=== PATIENT | female | born 1945 | race Hispanic/Latino ===

== ENCOUNTER 2019-08-25 10:32 | Emergency (ER) | payer OTHER ==
[2019-08-25] MEDS ORDERED: ACETAMINOPHEN 500 MG TAB ONE ×2 (11:22→11:27)
--- NOTE | 2019-08-25 12:07 | RAD REPORT ---
EXAM DESCRIPTION: RAD - Forearm Right - 08/25/2019 11:58 am CLINICAL HISTORY: Right arm pain status post fall FINDINGS: Mildly to moderately displaced distal radial fracture.
--- NOTE | 2019-08-25 12:12 | RAD REPORT ---
EXAM DESCRIPTION: Lucas Single View08/25/2019 11:58 am CLINICAL HISTORY: Chest pain COMPARISON: 2016 FINDINGS: The lungs appear clear of acute infiltrate. The heart is normal size Skull left clavicle fracture IMPRESSION: No acute abnormalities displayed
--- NOTE | 2019-08-25 13:11 | ER ---
Nurse's Notes [facility] Name: Carey Mcdaniel Age: 74 yrs Sex: Female : 1945 Arrival Date: 08/25/2019 Time: 10:34 Bed 7 Private MD: Unknown, Unknown Diagnosis: Radius Fracture;Clavicle Fracture Presentation: 08/25 11:02 Presenting complaint: Child states: "A couple of days ago she fell, and then last night aj1 my sister noticed her right arm was swollen, and then today she said that her side hurts." Denies hitting head. Transition of care: patient was not received from another setting of care. Onset of symptoms was 2018. Risk Assessment: Do you want to hurt yourself or someone else? Patient reports no desire to harm self or others. Initial Sepsis Screen: Does the patient meet any 2 criteria? No. Patient's initial sepsis screen is negative. Does the patient have a suspected source of infection? No. Patient's initial sepsis screen is negative. Care prior to arrival: None. 11:02 Method Of Arrival: Ambulatory aj1 11:02 Acuity: EKATERINA 3 aj1 Triage Assessment: 11:06 General: Appears in no apparent distress. uncomfortable, Behavior is calm, cooperative, aj1 appropriate for age. Pain: Complains of pain in right arm. Neuro: Level of Consciousness is awake, alert, obeys commands. Cardiovascular: Patient's skin is warm and dry. Respiratory: Airway is patent Respiratory effort is even, unlabored, Respiratory pattern is regular, symmetrical. Historical: - Allergies: 11:06 No Known Allergies; aj1 - Home Meds: 11:21 lisinopril Oral [Active]; tw2 - PMHx: 11:06 CVA; Right sided weakness; Hypertension; aj1 - PSHx: 11:21 None; tw2 - Immunization history:: Flu vaccine is not up to date. - Social history:: Smoking status: Patient/guardian denies using tobacco. - Ebola Screening: : Patient denies travel to an Ebola-affected area in the 21 days before illness onset. Screenin:20 Abuse screen: Denies threats or abuse. Nutritional screening: No deficits noted. tw2 Tuberculosis screening: No symptoms or risk factors identified. Fall Risk Secondary diagnosis (15 points) impaired mobility. Assessment: 11:20 Reassessment: provider at bedside at this time. tw2 12:57 Reassessment: Patient appears in no apparent distress at this time. No changes from tw2 previously documented assessment. Patient and/or family updated on plan of care and expected duration. Pain level reassessed. Patient is alert, oriented x 3, equal unlabored respirations, skin warm/dry/pink. 13:12 Reassessment: Patient appears in no apparent distress at this time. No changes from tw2 previously documented assessment. Patient and/or family updated on plan of care and expected duration. Pain level reassessed. Patient is alert, oriented x 3, equal unlabored respirations, skin warm/dry/pink. Vital Signs: 11:06 BP 174 / 102; Pulse 87; Resp 18; Temp 98.2; Pulse Ox 98% on R/A; Height 4 ft. 11 in. aj1 (149.86 cm) (R); 12:57 BP 184 / 78; Pulse 67; Resp 17; Pulse Ox 97% on R/A; tw2 13:12 BP 160 / 74; Pulse 68; Resp 17; Pulse Ox 96% on R/A; tw2 ED Course: 10:34 Patient arrived in ED. ag5 10:34 Unknown, Unknown is Private Physician. ag5 11:04 Triage completed. aj1 11:06 Arm band placed on Patient placed in an exam room. aj1 11:13 Vasu Castaneda PA is PHCP. jmm 11:14 Franklin Rutledge MD is Attending Physician. jmm 11:20 Bed in low position. Call light in reach. Adult w/ patient. tw2 11:58 Forearm Right XRAY In Process Unspecified. EDMS 11:58 Chest Single View XRAY In Process Unspecified. EDMS 12:54 Rachel Quevedo, RN is Primary Nurse. tw2 13:10 Wang Palacio MD is Referral Physician. jmm 13:10 Orthoglass splint: Sugar tong splint applied on right arm. Sling applied to right arm. ms 13:12 No provider procedures requiring assistance completed. Patient did not have IV access tw2 during this emergency room visit. Administered Medications: 11:28 Drug: Tylenol 1000 mg Route: PO; tw2 12:57 Follow up: Response: No adverse reaction tw2 Outcome: 13:11 Discharge ordered by . jmm 13:12 Discharged to home via wheelchair, with family. tw2 13:12 Condition: stable 13:12 Discharge instructions given to patient, family, Instructed on discharge instructions, follow up and referral plans. safety practices, splint care Demonstrated understanding of instructions, follow-up care, splint care. 13:20 Patient left the ED. tw2 Signatures: Dispatcher [employer] EDAlejandra Robles RN RN aj1 Vasu Castaneda PA PA jmm Solis, Maria ms Wise, Tara, RN RN tw2 Roly Mosley ag5
--- NOTE | 2019-08-25 13:12 | EDPHYS ---
Physician Documentation [facility] Name: Carey Mcdaniel Age: 74 yrs Sex: Female : 1945 Arrival Date: 08/25/2019 Time: 10:34 Bed 7 Private MD: Unknown, Unknown ED Physician Franklin Rutledge HPI: 08/25 11:16 This 74 yrs old Female presents to ER via Ambulatory with complaints of Fall jmm Injury, Arm Pain, Leg Pain. 11:16 Details of fall: The patient fell from an upright position, while walking. Onset: The jmm symptoms/episode began/occurred acutely, 2 day(s) ago. Associated injuries: The patient sustained injury to the chest, right arm. This is a 74 year old female with a history of CVA, HTN that presents to the ED with complaints of right arm pain and shoulder pain after a fall which occurred 2 days ago. Patient tripped and fell backwards from a standing position. Denies head injury of LOC. . Historical: - Allergies: 11:06 No Known Allergies; aj1 - Home Meds: 11:21 lisinopril Oral [Active]; tw2 - PMHx: 11:06 CVA; Right sided weakness; Hypertension; aj1 - PSHx: 11:21 None; tw2 - Immunization history:: Flu vaccine is not up to date. - Social history:: Smoking status: Patient/guardian denies using tobacco. - Ebola Screening: : Patient denies travel to an Ebola-affected area in the 21 days before illness onset. ROS: 11:16 Constitutional: Negative for fever, chills, and weight loss, Cardiovascular: Negative jmm for chest pain, palpitations, and edema, Respiratory: Negative for shortness of breath, cough, wheezing, and pleuritic chest pain. 11:16 MS/extremity: Positive for injury or acute deformity, pain. 11:16 Neuro: Negative for headache. 11:16 All other systems are negative. Exam: 11:16 Head/Face: atraumatic. Eyes: EOMI, no conjunctival erythema appreciated ENT: Moist jmm Mucus Membranes Neck: Trachea midline, Supple Chest/axilla: Normal chest wall appearance and motion. 11:16 Cardiovascular: Regular rate and rhythm. No edema appreciated Respiratory: Normal respirations, no respiratory distress appreciated Abdomen/GI: Non distended, soft Back: Normal ROM 11:16 Constitutional: The patient appears in no acute distress, alert, awake. 11:16 Chest/axilla: Inspection: normal, left clavicular pain on palpation. 11:16 Musculoskeletal/extremity: ecchymosis noted to the right forearm, full radial pulse, compartments are soft, NVI. 11:16 Skin: Appearance: Color: normal in color. 11:16 Neuro: Orientation: is normal, Mentation: is normal, Memory: is normal. 11:16 Psych: Behavior/mood is pleasant, cooperative. Vital Signs: 11:06 BP 174 / 102; Pulse 87; Resp 18; Temp 98.2; Pulse Ox 98% on R/A; Height 4 ft. 11 in. aj1 (149.86 cm) (R); 12:57 BP 184 / 78; Pulse 67; Resp 17; Pulse Ox 97% on R/A; tw2 13:12 BP 160 / 74; Pulse 68; Resp 17; Pulse Ox 96% on R/A; tw2 Procedures: 13:08 Splinting: Splint applied to right arm using sugar tong. applied by tech. Examined by shahana me, post splint application: neurovascular intact, 2+ distal pulses palpable, brisk capillary refill noted, Patient tolerated well. MDM: 11:16 Patient medically screened. shahana 13:08 Data reviewed: vital signs, nurses notes. Counseling: I had a detailed discussion with shahana the patient and/or guardian regarding: the historical points, exam findings, and any diagnostic results supporting the discharge/admit diagnosis, radiology results, the need for outpatient follow up, to return to the emergency department if symptoms worsen or persist or if there are any questions or concerns that arise at home. ED course: Patient advised to follow up with ortho and otherwise given strict return precautions. Patient understood and agrees with the plan of care. . 08/25 11:22 Order name: Forearm Right XRAY; Complete Time: 12:23 [facility] 08/25 11:22 Order name: Chest Single View XRAY; Complete Time: 12:23 [facility] 08/25 12:26 Order name: Sugar Tong Forearm Splint; Complete Time: 13:10 [facility] 08/25 12:26 Order name: Sling; Complete Time: 13:10 [facility] Administered Medications: 11:28 Drug: Tylenol 1000 mg Route: PO; tw2 12:57 Follow up: Response: No adverse reaction tw2 Disposition: 13:46 Co-signature as Attending Physician, Franklin Rutledge MD. rn Disposition: 08/25/19 13:11 Discharged to Home. Impression: Radius Fracture, Clavicle Fracture. - Condition is Stable. - Discharge Instructions: Clavicle Fracture, Radial Fracture. - Medication Reconciliation Form, Thank You Letter, Antibiotic Education, Prescription Opioid Use form. - Follow up: Wang Palacio MD; When: 2 - 3 days; Reason: Recheck today's complaints, Continuance of care, Re-evaluation by your physician. Signatures: Dispatcher [employer] EDAlejandra Robles RN RN aj1 Vasu Castaneda PA PA jmm Nieto, Roman, MD MD rn Wise, Tara, RN RN tw2 Corrections: (The following items were deleted from the chart) 13:20 13:11 08/25/2019 13:11 Discharged to Home. Impression: Radius Fracture; Clavicle tw2 Fracture. Condition is Stable. Forms are Medication Reconciliation Form, Thank You Letter, Antibiotic Education, Prescription Opioid Use. Follow up: Wang Palacio; When: 2 - 3 days; Reason: Recheck today's complaints, Continuance of care, Re-evaluation by your physician. keeley
[2019-08-25 13:30] VITALS: TEMP 98.2
[2019-08-25 13:32] VITALS: BP 160/74; O2SAT 96
== END 2019-08-25 13:20 | disposition home or self-care (01) ==
LOC: ER 10:32
DX: S52.501A Unspecified fracture of the lower end of right radius, initial encounter for closed fracture (principal); S42.002A Fracture of unspecified part of left clavicle, initial encounter for closed fracture; I10 Essential (primary) hypertension; W18.30XA Fall on same level, unspecified, initial encounter; Y93.89 Activity, other specified; Y92.9 Unspecified place or not applicable
CPT/HCPCS: 71045; 99283

== ENCOUNTER 2019-10-12 09:03 | Emergency (ER) | payer OTHER ==
--- NOTE | 2019-10-12 09:47 | EDPHYS ---
Physician Documentation [facility] Name: Carey Mcdaniel Age: 74 yrs Sex: Female : 1945 Arrival Date: 10/12/2019 Time: 09:05 Bed 13 Private MD: ED Physician Moody Barrios HPI: 10/12 09:38 This 74 yrs old Female presents to ER via Ambulatory with complaints of Ring jmm stuck on finger. 09:38 The patient or guardian reports finger swelling, ring stuck. Onset: The jmm symptoms/episode began/occurred today. Modifying factors: The symptoms are alleviated by nothing, the symptoms are aggravated by nothing. This is a 74 year old female with a history of cva that presents to the ED with finger swelling. Daughter states the patient had a cast removed today and was advised to remove the patient's finger secondary to swelling. Patient denies pain. . Historical: - Allergies: 09:15 No Known Allergies; ss - PMHx: 09:15 Hypertension; CVA; Right sided weakness; ss - Immunization history:: Adult Immunizations up to date. - Social history:: Smoking status: Patient/guardian denies using tobacco. - Ebola Screening: : Patient denies exposure to infectious person Patient denies travel to an Ebola-affected area in the 21 days before illness onset. ROS: 09:42 Constitutional: Negative for fever, chills, and weight loss, Cardiovascular: Negative jmm for chest pain, palpitations, and edema, Respiratory: Negative for shortness of breath, cough, wheezing, and pleuritic chest pain. 09:42 MS/extremity: Positive for swelling. 09:42 All other systems are negative. Exam: 09:42 Constitutional: This is a well developed, well nourished patient who is awake, alert, jmm and in no acute distress. Head/Face: atraumatic. Eyes: EOMI, no conjunctival erythema appreciated ENT: Moist Mucus Membranes Neck: Trachea midline, Supple Chest/axilla: Normal chest wall appearance and motion. Cardiovascular: Regular rate and rhythm. No edema appreciated Respiratory: Normal respirations, no respiratory distress appreciated Abdomen/GI: Non distended, soft Back: Normal ROM 09:42 Musculoskeletal/extremity: right hand contracted. swelling noted to the right 3rd finger, < 2 sec dist cap refill, NVI. 09:42 Skin: Appearance: Color: normal in color. 09:42 Neuro: 09:42 Psych: Behavior/mood is pleasant, cooperative. Vital Signs: 09:15 BP 204 / 84; Pulse 52; Resp 17; Temp 97.6(TE); Pulse Ox 100% on R/A; Weight 61.23 kg; ss Height 4 ft. 9 in. (144.78 cm); Pain 0/10; 09:41 BP 195 / 73; Pulse 53; Resp 16; Pulse Ox 100% ; sv 09:15 Body Mass Index 29.21 (61.23 kg, 144.78 cm) ss Procedures: 09:43 Performed ring removal. ring cutter used to remove ring from right 3rd finger. patient hilda tolerated the procedure well. . MDM: 09:16 Patient medically screened. m 09:43 Data reviewed: vital signs, nurses notes. Counseling: I had a detailed discussion with shahana the patient and/or guardian regarding: the historical points, exam findings, and any diagnostic results supporting the discharge/admit diagnosis, the need for outpatient follow up, to return to the emergency department if symptoms worsen or persist or if there are any questions or concerns that arise at home. 10/12 09:38 Order name: Vital Signs; Complete Time: 09:41 keeley Administered Medications: No medications were administered Disposition: 12:16 Co-signature as Attending Physician, Moody Barrios MD I agree with the assessment and kdr plan of care. Disposition: 10/12/19 09:46 Discharged to Home. Impression: External constriction of right middle finger. - Condition is Stable. - Medication Reconciliation Form, Thank You Letter, Antibiotic Education, Prescription Opioid Use form. - Follow up: Private Physician; When: 2 - 3 days; Reason: Recheck today's complaints, Continuance of care, Re-evaluation by your physician. Signatures: Maame Lund RN RN sv Rittger, Kevin, MD MD kdr Mickail, Joel, PA PA jmm Smirch, Shelby, RN RN ss Corrections: (The following items were deleted from the chart) 10:07 09:46 10/12/2019 09:46 Discharged to Home. Impression: External constriction of right sv middle finger. Condition is Stable. Forms are Medication Reconciliation Form, Thank You Letter, Antibiotic Education, Prescription Opioid Use. Follow up: Private Physician; When: 2 - 3 days; Reason: Recheck today's complaints, Continuance of care, Re-evaluation by your physician. shahana
--- NOTE | 2019-10-12 09:47 | ER ---
Nurse's Notes [facility] Name: Carey Mcdaniel Age: 74 yrs Sex: Female : 1945 Arrival Date: 10/12/2019 Time: 09:05 Bed 13 Private MD: Diagnosis: External constriction of right middle finger Presentation: 10/12 09:14 Presenting complaint: daughter reports that patient had broken wrist a month ago and ss has a splint on since. Sent by Dr. Palacio after getting splint taken off this morning to have two rings cut off R 3rd finger has her hand is swollen. Transition of care: patient was not received from another setting of care. Onset of symptoms is unknown. Risk Assessment: Do you want to hurt yourself or someone else? Patient reports no desire to harm self or others. Initial Sepsis Screen: Does the patient meet any 2 criteria? Does the patient have a suspected source of infection? No. Patient's initial sepsis screen is negative. Care prior to arrival: None. 09:14 Method Of Arrival: Ambulatory ss 09:14 Acuity: EKATERINA 4 ss Historical: - Allergies: 09:15 No Known Allergies; ss - PMHx: 09:15 Hypertension; CVA; Right sided weakness; ss - Immunization history:: Adult Immunizations up to date. - Social history:: Smoking status: Patient/guardian denies using tobacco. - Ebola Screening: : Patient denies exposure to infectious person Patient denies travel to an Ebola-affected area in the 21 days before illness onset. Screenin:20 Abuse screen: Denies threats or abuse. Denies injuries from another. Nutritional sv screening: No deficits noted. Tuberculosis screening: No symptoms or risk factors identified. Fall Risk None identified. Assessment: 09:20 General: Appears in no apparent distress. uncomfortable, Behavior is calm, cooperative, sv appropriate for age. Pain: Denies pain. Neuro: Level of Consciousness is awake, alert, obeys commands, Oriented to person, place, time, situation, Moves all extremities. Respiratory: Respiratory effort is even, unlabored, Respiratory pattern is regular, symmetrical. Derm: Skin is pink, warm \T\ dry. Musculoskeletal: Range of motion: limited in IP of right thumb, PIP of right index finger, PIP of right middle finger, PIP of right ring finger and PIP of right little finger Swelling present in right hand. Injury Description: 2 rings stuck on the right 3rd digit. Vital Signs: 09:15 BP 204 / 84; Pulse 52; Resp 17; Temp 97.6(TE); Pulse Ox 100% on R/A; Weight 61.23 kg; ss Height 4 ft. 9 in. (144.78 cm); Pain 0/10; 09:41 BP 195 / 73; Pulse 53; Resp 16; Pulse Ox 100% ; sv 09:15 Body Mass Index 29.21 (61.23 kg, 144.78 cm) ED Course: 09:05 Patient arrived in ED. mr 09:09 Vasu Castaneda PA is PHCP. [facility] 09:09 Moody Barrios MD is Attending Physician. [facility] 09:15 Triage completed. ss 09:15 Arm band placed on right wrist. 09:16 Maame Lund RN is Primary Nurse. sv 09:17 Nurse Practitioner and/or Physician Discharge Coordinator to see patient. sv 09:20 Patient has correct armband on for positive identification. Bed in low position. Call sv light in reach. Adult w/ patient. Door closed. Head of bed elevated. 09:36 Removal of Removed ring from right middle finger. Removed ring with ring cutter Patient sv tolerated well. 10:06 No provider procedures requiring assistance completed. Patient did not have IV access sv during this emergency room visit. Administered Medications: No medications were administered Outcome: 09:46 Discharge ordered by . [facility] 10:06 Discharged to home ambulatory, with family. sv 10:06 Condition: stable 10:06 Discharge instructions given to patient, family, Instructed on discharge instructions, follow up and referral plans. elevate right hand to help decrease swelling Demonstrated understanding of instructions, follow-up care. 10:07 Patient left the ED. sv Signatures: Maame Lund, LON RN Vasu Castaneda PA PA jmm Rivera, Mary Erin Marie, RN RN
[2019-10-12 10:24] VITALS: TEMP 97.6; O2SAT 100
[2019-10-12 10:25] VITALS: BP 195/73
== END 2019-10-12 10:07 | disposition home or self-care (01) ==
LOC: ER 09:03
DX: S60.442A External constriction of right middle finger, initial encounter (principal); I10 Essential (primary) hypertension
CPT/HCPCS: 99283

== ENCOUNTER 2020-04-24 17:43 | Emergency (ER) | payer OTHER ==
[2020-04-24] MEDS ORDERED: LIDOCAINE 1% 20 ML MDV ONE (20:50)
--- NOTE | 2020-04-24 20:58 | ER ---
Nurse's Notes [facility] Name: Carey Mcdaniel Age: 74 yrs Sex: Female : 1945 Arrival Date: 04/24/2020 Time: 17:45 Bed 14 Private MD: Diagnosis: Laceration right forearm Presentation: 04/24 18:16 Chief complaint: Patient's son or daughter states: fell last night, pt lives with son iw and pt does not remember exactly how she fell, has laceration/skin avulsion to right forearm, occurred some time between 8 and 11 pm last night. 18:16 Acuity: EKATERINA 4 iw 18:16 Method Of Arrival: Ambulatory iw 18:20 Coronavirus screen: Proceed with normal triage. Patient denies a cough. Patient denies iw shortness of breath or difficulty breathing. Patient denies measured and/or subjective temperature greater than 100.4F prior to today's visit. Patient denies travel on a cruise ship or to a country the [facility] currently lists as an affected area. Patient denies contact with known and/or suspected case of COVID-19. Ebola Screen: Patient negative for fever greater than or equal to 101.5 degrees Fahrenheit, and additional compatible Ebola Virus Disease symptoms Patient denies exposure to infectious person. Patient denies travel to an Ebola-affected area in the 21 days before illness onset. No symptoms or risks identified at this time. Initial Sepsis Screen: Does the patient meet any 2 criteria? No. Patient's initial sepsis screen is negative. Does the patient have a suspected source of infection? No. Patient's initial sepsis screen is negative. Risk Assessment: Do you want to hurt yourself or someone else? Patient reports no desire to harm self or others. Onset of symptoms was March 23, 2020. Historical: - Allergies: 18:22 No Known Allergies; iw - Home Meds: 18:22 Lisinopril Oral [Active]; iw - PMHx: 18:22 CVA; Right sided weakness; Hypertension; iw - PSHx: 18:22 Hysterectomy; Cholecystectomy; iw - Immunization history:: Adult Immunizations unknown. - Social history:: Smoking status: Patient denies any tobacco usage or history of. Screenin:25 Abuse screen: Denies threats or abuse. Denies injuries from another. Nutritional ao screening: No deficits noted. Tuberculosis screening: No symptoms or risk factors identified. Fall Risk None identified. Assessment: 19:18 General: Appears in no apparent distress. comfortable, Behavior is calm. Pain: ao Complains of pain in right arm. Neuro: Level of Consciousness is awake, alert, obeys commands, Oriented to Moves all extremities. Full function Facial symmetry appears normal. Cardiovascular: Capillary refill < 3 seconds Patient's skin is warm and dry. Respiratory: Airway is patent Respiratory effort is even, unlabored, Respiratory pattern is regular, symmetrical. GI: Abdomen is flat, non-distended. : No signs and/or symptoms were reported regarding the genitourinary system. EENT: No signs and/or symptoms were reported regarding the EENT system. Derm: Skin is intact, Skin is pink, warm \T\ dry. normal, Skin temperature is warm Wound noted right leg Wound is Dressing clean and dry. Musculoskeletal: Range of motion: intact in all extremities. 21:20 Reassessment: Dc instructions given to caregive. Agree with POC and to follow up with ao PCP. Vital Signs: 18:20 BP 151 / 78; Pulse 63; Resp 16; Temp 98.4; Pulse Ox 100% on R/A; Weight 58.97 kg; Pain iw 0/10; 21:20 BP 145 / 80; Pulse 70; Resp 16; Pulse Ox 98% ; ao ED Course: 17:45 Patient arrived in ED. ag5 18:20 Triage completed. iw 18:22 Arm band placed on. iw 19:18 Mateusz Ocampo, RN is Primary Nurse. ao 19:26 Patient has correct armband on for positive identification. Pulse ox on. NIBP on. ao 20:20 Elder Angela MD is Attending Physician. pkl 21:21 No provider procedures requiring assistance completed. Patient did not have IV access ao during this emergency room visit. Administered Medications: 20:30 Drug: Lidocaine (1 %) 20 mg Volume: 20 ml; Route: Infiltration; ao 21:19 Follow up: Response: Medication administered at discharge. ao 21:17 Drug: KeFLEX 500 mg Route: PO; ao 21:20 Follow up: Response: Medication administered at discharge. ao 21:18 Drug: Tetanus-Diphtheria Toxoid Adult 0.5 ml {Machine [employer]er: [employer]. Exp: ao 01/04/2022. Lot #: [id number]. } Route: IM; Site: right deltoid; 21:19 Follow up: Response: Medication administered at discharge. ao 21:18 Not Given (Duplicate Order): KeFLEX 500 mg PO once ao Outcome: 20:58 Discharge ordered by . jesus 21:22 Discharged to home ambulatory. ao 21:22 Condition: stable 21:22 Discharge instructions given to trade union secretary, Instructed on discharge instructions, follow up and referral plans. Demonstrated understanding of instructions, follow-up care, medications, Prescriptions given X 1. 21:22 Patient left the ED. ao Signatures: Elder Angela MD MD pkl Williams, Irene RN RN iw Mateusz Ocampo RN RN Roly Engel ag5 Corrections: (The following items were deleted from the chart) 18:22 18:16 Chief complaint: Patient's son or daughter states: fell last night, pt lives with iw son and pt does not remember exactly how she fell, has laceration/skin avulsion to right forearm iw
--- NOTE | 2020-04-24 20:59 | EDPHYS ---
Physician Documentation [facility] Name: Carey Mcdaniel Age: 74 yrs Sex: Female : 1945 Arrival Date: 04/24/2020 Time: 17:45 Bed 14 Private MD: ED Physician Elder Angela HPI: 04/24 20:27 This 74 yrs old Female presents to ER via Ambulatory with complaints of Fall pkl Injury, Laceration To Arm. 20:27 Details of fall: The patient fell from an upright position, while standing. Onset: The pkl symptoms/episode began/occurred last night. Associated injuries: The patient sustained right forearm, laceration, 4 cm(s). Historical: - Allergies: 18:22 No Known Allergies; iw - Home Meds: 18:22 Lisinopril Oral [Active]; iw - PMHx: 18:22 CVA; Right sided weakness; Hypertension; iw - PSHx: 18:22 Hysterectomy; Cholecystectomy; iw - Immunization history:: Adult Immunizations unknown. - Social history:: Smoking status: Patient denies any tobacco usage or history of. ROS: 20:27 Eyes: Negative for injury, pain, redness, and discharge, ENT: Negative for injury, pkl pain, and discharge, Neck: Negative for injury, pain, and swelling, Cardiovascular: Negative for chest pain, palpitations, and edema, Respiratory: Negative for shortness of breath, cough, wheezing, and pleuritic chest pain, Abdomen/GI: Negative for abdominal pain, nausea, vomiting, diarrhea, and constipation, Back: Negative for injury and pain, : Negative for injury, bleeding, discharge, and swelling, Neuro: Negative for headache, weakness, numbness, tingling, and seizure. 20:27 MS/extremity: Positive for laceration, of the right forearm. Exam: 20:27 Head/Face: Normocephalic, atraumatic. Eyes: Pupils equal round and reactive to light, pkl extra-ocular motions intact. Lids and lashes normal. Conjunctiva and sclera are non-icteric and not injected. Cornea within normal limits. Periorbital areas with no swelling, redness, or edema. ENT: Nares patent. No nasal discharge, no septal abnormalities noted. Tympanic membranes are normal and external auditory canals are clear. Oropharynx with no redness, swelling, or masses, exudates, or evidence of obstruction, uvula midline. Mucous membranes moist. Neck: Trachea midline, no thyromegaly or masses palpated, and no cervical lymphadenopathy. Supple, full range of motion without nuchal rigidity, or vertebral point tenderness. No Meningismus. Chest/axilla: Normal chest wall appearance and motion. Nontender with no deformity. No lesions are appreciated. Cardiovascular: Regular rate and rhythm with a normal S1 and S2. No gallops, murmurs, or rubs. Normal PMI, no JVD. No pulse deficits. Respiratory: Lungs have equal breath sounds bilaterally, clear to auscultation and percussion. No rales, rhonchi or wheezes noted. No increased work of breathing, no retractions or nasal flaring. Abdomen/GI: Soft, non-tender, with normal bowel sounds. No distension or tympany. No guarding or rebound. No evidence of tenderness throughout. Back: No spinal tenderness. No costovertebral tenderness. Full range of motion. Neuro: Awake and alert, GCS 15, oriented to person, place, time, and situation. Cranial nerves II-XII grossly intact. Motor strength 5/5 in all extremities. Sensory grossly intact. Cerebellar exam normal. Normal gait. 20:27 Musculoskeletal/extremity: Extremities: grossly normal except: noted in the right forearm: laceration, Wound gaping. Vital Signs: 18:20 BP 151 / 78; Pulse 63; Resp 16; Temp 98.4; Pulse Ox 100% on R/A; Weight 58.97 kg; Pain iw 0/10; 21:20 BP 145 / 80; Pulse 70; Resp 16; Pulse Ox 98% ; ao Laceration: 20:55 Wound Repair of 4cm ( 1.6in ) subcutaneous laceration to right forearm. Skin/tissue pkl flap noted.. Minimal bleeding noted.. Distal neuro/vascular/tendon intact. Anesthesia: Local anesthetic administered with 5 mls of 1% lidocaine. Wound prep: Extensive cleansing, Wound irrigation by me. Skin closed with 6 4-0 Prolene using simple sutures and sterile technique. Dressed with Bacitracin, pressure dressing. Patient tolerated well. MDM: 20:20 Patient medically screened. pkl 20:55 Data reviewed: vital signs, nurses notes. [facility] 04/24 20:55 Order name: Dressing - Wound; Complete Time: 21:20 ao Administered Medications: 20:30 Drug: Lidocaine (1 %) 20 mg Volume: 20 ml; Route: Infiltration; ao 21:19 Follow up: Response: Medication administered at discharge. ao 21:17 Drug: KeFLEX 500 mg Route: PO; ao 21:20 Follow up: Response: Medication administered at discharge. ao 21:18 Drug: Tetanus-Diphtheria Toxoid Adult 0.5 ml {Engineering Administrator: [employer]. Exp: ao 01/04/2022. Lot #: [id number]. } Route: IM; Site: right deltoid; 21:19 Follow up: Response: Medication administered at discharge. ao 21:18 Not Given (Duplicate Order): KeFLEX 500 mg PO once ao Disposition: 04/24/20 20:58 Discharged to Home. Impression: Laceration right forearm. - Condition is Stable. - Prescriptions for Keflex 500 mg Oral Capsule - take 1 capsule by ORAL route every 8 hours for 10 days; 30 capsule. - Medication Reconciliation Form, Thank You Letter, Antibiotic Education, Prescription Opioid Use form. - Follow up: Private Physician; When: 1 week; Reason: Wound Recheck, Staple/Suture removal, Re-evaluation by your physician. - Problem is new. - Symptoms have improved. Signatures: Elder Angela MD MD pkl Nabila Cheney RN RN iw Mateusz Ocampo RN RN ao Corrections: (The following items were deleted from the chart) 21:22 20:58 04/24/2020 20:58 Discharged to Home. Impression: Laceration right forearm. ao Condition is Stable. Forms are Medication Reconciliation Form, Thank You Letter, Antibiotic Education, Prescription Opioid Use. Follow up: Private Physician; When: 1 week; Reason: Wound Recheck, Staple/Suture removal, Re-evaluation by your physician. Problem is new. Symptoms have improved. pkl
[2020-04-24] MEDS ORDERED: CEPHALEXIN 250 MG CAP ONE (21:05)
[2020-04-24] MEDS ORDERED: TETANUS & DIPHTHERIA TOX,ADULT 0.5 ML VIAL ONE (21:05)
[2020-04-24 21:28] VITALS: TEMP 98.4
[2020-04-24 21:29] VITALS: BP 145/80; O2SAT 98
== END 2020-04-24 21:22 | disposition home or self-care (01) ==
LOC: ER 17:43
PROC: 0JQH0ZZ Repair Left Lower Arm Subcutaneous Tissue and Fascia, Open Approach (ICD-10-PCS; principal; 2020-04-24)
DX: S51.811A Laceration without foreign body of right forearm, initial encounter (principal); W18.30XA Fall on same level, unspecified, initial encounter; Y93.9 Activity, unspecified; Y92.019 Unspecified place in single-family (private) house as the place of occurrence of the external cause; Z23 Encounter for immunization
CPT/HCPCS: 90471; 90714; 99283

== ENCOUNTER 2020-08-22 16:21 | Inpatient (IN) | payer OTHER ==
[2020-08-22 17:13] LABS: Protime INR 1.06
[2020-08-22 17:24] LABS: Absolute Lymphocytes (CBC) 0.8 K/uL (0.7-4.9); Basophils % 0.3 % (0-1.3); Hematocrit 43.7 % (36.0-45.0); Lymphocytes % 3.2 % (15.3-44.8); MPV 10.2 fL (7.6-11.3); RBC Red Blood Cell Count 4.97 M/uL (3.86-4.86)
--- NOTE | 2020-08-22 17:27 | RAD REPORT ---
EXAM DESCRIPTION: CT - Head C Spine Cap Wo Con - 08/22/2020 5:08 pm TECHNIQUE: Computed axial tomography of the head and cervical spine was obtained. Coronal and sagitt al reconstruction was performed Computed axial tomography of the chest, abdomen and pelvis was obtained. Contrast was not requested. All CT scans are performed using dose optimization technique as appropriate and may include automated exposure control or mA/KV adjustment according to patient size. CLINICAL HISTORY: Head and neck injury with chest and abdominal pain status post fall COMPARISON: none FINDINGS: An intracranial bleed is not seen. Cystic encephalomalacia is scattered within frontal, occipital and parietal lobes bilaterally. No extra-axial fluid collection. No hydrocephalus. . . Fluid within the sinuses/mastoids is not seen. A cervical fracture is not seen. No dislocation is noted. The evaluation of mediastinum, tristan, vessels, solid organs and bowel are limited secondary to the lac k of contrast administration. A mediastinal hematoma is not noted. A pleural effusion is not seen. A lung contusion is not present. The liver,spleen, pancreas, adrenals,kidneys and bladder do not demonstrate a tram attic injury. Fibroid uterus. Large left renal cyst. Small to moderate hiatal hernia. Small umbilical hernia Moderate compression deformity L1 vertebral body appears IMPRESSION: 1. No acute intracranial abnormality is seen. 2. A cervical fracture is not visualized. If the patient continues have symptoms to suggest intracran ial/spinal cord pathology MRI be recommended 3. No traumatic abnormality involving the chest/abdomen/pelvis.
[2020-08-22] MEDS ORDERED: NA CHLORIDE 0.9% 2,000 ML ONE (18:02)
[2020-08-22] MEDS ORDERED: CEFTRIAXONE/SWI 1gm 1 GM/10 ML SYR ONE (18:03)
--- NOTE | 2020-08-22 18:22 | RAD REPORT ---
EXAM DESCRIPTION: Lucas Single View08/22/2020 5:31 pm CLINICAL HISTORY: Chest pain COMPARISON: 2018 FINDINGS: The lungs appear clear of acute infiltrate. The heart is normal size IMPRESSION: No acute abnormalities displayed
--- NOTE | 2020-08-22 19:04 | EDPHYS ---
Physician Documentation [facility] Name: Carey Mcdaniel Age: 75 yrs Sex: Female : 1945 Arrival Date: 08/22/2020 Time: 16:36 Bed 18 Private MD: ED Physician Franklin Rutledge HPI: 08/22 16:59 This 75 yrs old Female presents to ER via EMS with complaints of fall and snw prolonged down time. 16:59 Pt lives with Son and family. Pt ambulated outdoors when family was not home and fell, snw unknown how long pt was in the dirt. Onset: The symptoms/episode began/occurred acutely. Severity of symptoms: At their worst the symptoms were moderate severe. It is unknown whether or not the patient has had similar symptoms in the past. It is unknown whether or not the patient has recently seen a physician. pt normally nonverbal. Historical: - Allergies: 16:46 No Known Allergies; bp - Home Meds: 16:46 lisinopril Oral [Active]; bp - PMHx: 16:46 CVA; Right sided weakness; Hypertension; bp - Immunization history:: Adult Immunizations unknown. - Social history:: Smoking status: Patient denies any tobacco usage or history of. ROS: 17:01 Eyes: Negative for injury, pain, redness, and discharge, ENT: Negative for injury, snw pain, and discharge, Neck: Negative for injury, pain, and swelling, Cardiovascular: Negative for chest pain, palpitations, and edema, Respiratory: Negative for shortness of breath, cough, wheezing, and pleuritic chest pain, Abdomen/GI: Negative for abdominal pain, nausea, vomiting, diarrhea, and constipation, Back: Negative for injury and pain, : Negative for injury, bleeding, discharge, and swelling, MS/Extremity: Negative for injury and deformity, Skin: Negative for injury, rash, and discoloration, Psych: Negative for depression, anxiety, suicide ideation, homicidal ideation, and hallucinations. 17:01 Constitutional: Positive for malaise, poor PO intake. 17:01 Neuro: Positive for weakness, fall. Exam: 17:02 Head/Face: Normocephalic, abrasion to chin and right cheek Eyes: Pupils equal round snw and reactive to light, extra-ocular motions intact. Lids and lashes normal. Conjunctiva and sclera are non-icteric and not injected. Cornea within normal limits. Periorbital areas with no swelling, redness, or edema. 17:02 Neck: Trachea midline, no thyromegaly or masses palpated, and no cervical lymphadenopathy. Supple, full range of motion without nuchal rigidity, or vertebral point tenderness. No Meningismus. Chest/axilla: Normal chest wall appearance and motion. Nontender with no deformity. No lesions are appreciated. 17:02 Respiratory: Lungs have equal breath sounds bilaterally, clear to auscultation and percussion. No rales, rhonchi or wheezes noted. No increased work of breathing, no retractions or nasal flaring. Abdomen/GI: Soft, non-tender, with normal bowel sounds. No distension or tympany. No guarding or rebound. No evidence of tenderness throughout. Back: No spinal tenderness. No costovertebral tenderness. Full range of motion. Skin: Warm, dry with normal turgor. Normal color with no rashes, no lesions, and no evidence of cellulitis. MS/ Extremity: Pulses equal, no cyanosis. Neurovascular intact. Full, normal range of motion. Neuro: Awake and alert, GCS 15, oriented to person, place, time, and situation. Cranial nerves II-XII grossly intact. Motor strength 5/5 in all extremities. Sensory grossly intact. Cerebellar exam normal. Normal gait. Psych: Awake, alert, with orientation to person, place and time. Behavior, mood, and affect are within normal limits. 17:02 Constitutional: The patient appears awake, frail. 17:02 ENT: Mouth: Oral mucosa: dry. 17:02 Cardiovascular: Rate: tachycardic, Rhythm: regular, Pulses: no pulse deficits are appreciated. Vital Signs: 16:44 BP 98 / 60; Pulse 110; Resp 20; Temp 98.3; Pulse Ox 97% ; Weight 68.04 kg; bp 17:30 BP 111 / 70; Pulse 86; Resp 20; Pulse Ox 99% ; bp 18:30 BP 116 / 68; Pulse 86; Resp 16; Pulse Ox 99% ; bp 19:30 BP 122 / 68; Pulse 90; Resp 18; Pulse Ox 97% on R/A; wh 20:30 BP 115 / 76; Pulse 83; Resp 18; Pulse Ox 100% on R/A; wh MDM: 16:52 Patient medically screened. snw 19:04 Data reviewed: vital signs, nurses notes. Data interpreted: Pulse oximetry: on room air snw is 99 %. Interpretation: normal. Counseling: I had a detailed discussion with the patient and/or guardian regarding: the historical points, exam findings, and any diagnostic results supporting the discharge/admit diagnosis, lab results, radiology results, the need for further work-up and treatment in the hospital. Physician consultation: Betito MILLARD was called at 19:04, was contacted at 19:04, regarding admission, to the telemetry unit. and will see patient in ED, shortly. 08/22 16:40 Order name: Amylase, Serum; Complete Time: 21:00 snw 08/22 16:40 Order name: Basic Metabolic Panel; Complete Time: 21:00 snw 08/22 16:40 Order name: Blood Culture Adult (2) snw 08/22 16:40 Order name: CBC with Diff; Complete Time: 21:00 snw 08/22 16:40 Order name: Ckmb; Complete Time: 21:00 snw 08/22 16:40 Order name: CPK; Complete Time: 21:00 snw 08/22 16:40 Order name: Lactate; Complete Time: 17:33 snw 08/22 16:40 Order name: LFT's; Complete Time: 21:00 snw 08/22 16:40 Order name: Lipase; Complete Time: 21:00 snw 08/22 16:40 Order name: Procalcitonin; Complete Time: 17:44 snw 08/22 16:40 Order name: Protime (+inr); Complete Time: 17:37 snw 08/22 16:40 Order name: Ptt, Activated; Complete Time: 17:37 snw 08/22 16:40 Order name: Troponin (emerg Dept Use Only); Complete Time: 21:00 snw 08/22 16:40 Order name: Urine Microscopic Only; Complete Time: 21:00 snw 08/22 16:40 Order name: Chest Single View XRAY; Complete Time: 18:41 snw 08/22 16:40 Order name: Accucheck; Complete Time: 17:22 snw 08/22 16:40 Order name: Cardiac monitoring; Complete Time: 16:57 snw 08/22 16:40 Order name: EKG - Nurse/Tech; Complete Time: 16:57 snw 08/22 16:40 Order name: IV Saline Lock - Large Bore; Complete Time: 16:57 snw 08/22 16:40 Order name: Labs collected and sent; Complete Time: 16:57 snw 08/22 16:40 Order name: O2 Per Protocol; Complete Time: 16:57 snw 08/22 17:03 Order name: Head C Spine Cap Wo Con; Complete Time: 17:33 EDMS 08/22 19:32 Order name: Manual Differential; Complete Time: 21:00 EDMS 08/22 20:02 Order name: Urine Culture ds4 08/22 20:02 Order name: Urine Dipstick--Ancillary (enter results); Complete Time: 21:00 ds4 08/22 20:48 Order name: COVID-19 wh 08/22 21:03 Order name: Lactate Sepsis 2 HR Follow-up; Complete Time: 14:27 EDMS 08/22 16:40 Order name: O2 Sat Monitoring; Complete Time: 16:57 snw 08/22 16:40 Order name: Urine Dipstick-Ancillary (obtain specimen); Complete Time: 20:00 snw 08/22 18:21 Order name: VS Recheck; Complete Time: 18:38 snw 08/22 18:42 Order name: Quinones; Complete Time: 19:36 snw EC:02 Rate is 115 beats/min. Rhythm is regular. QRS [place] is Normal. RI interval is normal. ST snw Segment is depressed in leads II, aVL, V3, V4, V5. Administered Medications: 17:00 Drug: NS 0.9% (30 ml/kg) 30 ml/kg Route: IV; Rate: bolus; Site: left antecubital; bp 21:12 Follow up: Response: No adverse reaction; IV Status: Completed infusion 17:45 Drug: Rocephin 1 grams Route: IV; Rate: calculated rate; Site: left antecubital; bp 21:12 Follow up: Response: No adverse reaction; IV Status: Completed infusion Disposition: 08/22/20 19:03 Hospitalization ordered by Carroll Rutledge for Inpatient Admission. Preliminary diagnosis are Dehydration, Leukocytosis, Fall on same level from slipping, tripping and stumbling with subsequent striking against object. - Bed requested for Telemetry/MedSurg (Inpatient). - Status is Inpatient Admission. - Condition is Fair. - Problem is new. - Symptoms have worsened. Signatures: Dispatcher [employer] EDND Julieth Wells, PACKAGE LINE RELIEF OPERATOR-C PACKAGE LINE RELIEF OPERATOR-Csnw Betito Patel, PACKAGE LINE RELIEF OPERATOR-C PACKAGE LINE RELIEF OPERATOR-Cla1 April Crabtree, RN RN Petrona, Leonardo Gibson Wick, RN RN bp Corrections: (The following items were deleted from the chart) 17:03 16:40 Head C Spine MPR Wo Con+CT.RAD.BRZ ordered. EDMS EDMS 20:24 19:03 Hospitalization Ordered by Carroll Rutledge MD for Inpatient Admission. Preliminary cg diagnosis is Dehydration; Leukocytosis; Fall on same level from slipping, tripping and stumbling with subsequent striking against object. Bed requested for Telemetry/MedSurg (Inpatient). Status is Inpatient Admission. Condition is Fair. Problem is new. Symptoms have worsened. snw 21:11 20:24 08/22/2020 19:03 Hospitalization Ordered by Carroll Rutledge MD for Inpatient Admission. Preliminary diagnosis is Dehydration; Leukocytosis; Fall on same level from slipping, tripping and stumbling with subsequent striking against object. Bed requested for Telemetry/MedSurg (Inpatient). Status is Inpatient Admission. Condition is Fair. Problem is new. Symptoms have worsened. cg
--- NOTE | 2020-08-22 19:04 | ER ---
Nurse's Notes [facility] Name: Carey Mcdaniel Age: 75 yrs Sex: Female : 1945 Arrival Date: 08/22/2020 Time: 16:36 Bed 18 Private MD: Diagnosis: Dehydration;Leukocytosis;Fall on same level from slipping, tripping and stumbling with subsequent striking against object Presentation: 08/22 16:44 Chief complaint: EMS states: FOUND DOWN, PRESUMED FALL, UNKNOWN DOWN TIME. Coronavirus bp screen: At this time, the client does not indicate any symptoms associated with coronavirus-19. Ebola Screen: No symptoms or risks identified at this time. Initial Sepsis Screen: Does the patient meet any 2 criteria? HR > 90 bpm. No. Patient's initial sepsis screen is negative. Does the patient have a suspected source of infection? No. Patient's initial sepsis screen is negative. Risk Assessment: Do you want to hurt yourself or someone else? Patient reports no desire to harm self or others. Onset of symptoms is unknown. Care prior to arrival: IV initiated. 20 GA, in the left antecubital area, Glucose check: 204. 16:44 Method Of Arrival: EMS: [facility] bp 16:44 Acuity: EKATERINA 2 bp Triage Assessment: 16:45 General: Appears distressed, uncomfortable, unkempt, Behavior is anxious. Pain: Unable bp to use pain scale. Does not appear to understand pain scale. EENT: No deficits noted. Neuro: AOx0 AND NONVERBAL AT BASELINE. Cardiovascular: Rhythm is sinus tachycardia. Respiratory: No deficits noted. GI: No signs and/or symptoms were reported involving the gastrointestinal system. : No signs and/or symptoms were reported regarding the genitourinary system. Derm: No deficits noted. Musculoskeletal: No deficits noted. Injury Description: Abrasion sustained to face. Historical: - Allergies: 16:46 No Known Allergies; bp - Home Meds: 16:46 lisinopril Oral [Active]; bp - PMHx: 16:46 CVA; Right sided weakness; Hypertension; bp - Immunization history:: Adult Immunizations unknown. - Social history:: Smoking status: Patient denies any tobacco usage or history of. Screenin:00 Abuse screen: Denies threats or abuse. Denies injuries from another. Nutritional bp screening: No deficits noted. Tuberculosis screening: No symptoms or risk factors identified. Fall Risk Fall in past 12 months (25 points). Secondary diagnosis (15 points) CVA, IV access (20 points). Ambulatory Aid- Crutches/Cane/Walker (15 pts). Gait- Normal/Bed Rest/Wheelchair (0 pts) Mental Status- Overestimates/Forgets Limitations (15 pts.). Total Carlton Fall Scale indicates High Risk Score (45 or more points). Fall prevention measures have been instituted. Side Rails Up X 2 Placed Close to Nursing Station Frequent Obs/Assessments Occuring Family Present and informed to notify staff if the need to leave the bedside As available patient and family educated on Fall Prevention Program and Strategies. Assessment: 16:45 General: SEE TRIAGE NOTE. bp 17:30 Reassessment: PT RETURNED FROM CT. IVF INFUSING. bp 18:30 Reassessment: No changes from previously documented assessment. UOP PENDING. bp 19:30 General: Appears in no apparent distress. Behavior is calm. Pain: Denies pain. Neuro: wh Level of Consciousness is awake, alert, obeys commands, Oriented to person. Cardiovascular: Heart tones S1 S2. Respiratory: Airway is patent Respiratory effort is even, unlabored, Respiratory pattern is regular, symmetrical, Breath sounds are clear bilaterally. GI: Abdomen is flat, non-distended. : No signs and/or symptoms were reported regarding the genitourinary system. EENT: No signs and/or symptoms were reported regarding the EENT system. Derm: Skin is intact. Musculoskeletal: Contracted right arm. 20:30 Reassessment: Patient appears in no apparent distress at this time. No changes from previously documented assessment. Patient and/or family updated on plan of care and expected duration. Pain level reassessed. Vital Signs: 16:44 BP 98 / 60; Pulse 110; Resp 20; Temp 98.3; Pulse Ox 97% ; Weight 68.04 kg; bp 17:30 BP 111 / 70; Pulse 86; Resp 20; Pulse Ox 99% ; bp 18:30 BP 116 / 68; Pulse 86; Resp 16; Pulse Ox 99% ; bp 19:30 BP 122 / 68; Pulse 90; Resp 18; Pulse Ox 97% on R/A; wh 20:30 BP 115 / 76; Pulse 83; Resp 18; Pulse Ox 100% on R/A; ED Course: 16:36 Patient arrived in ED. em1 16:39 Julieth Wells [facility]-C [facility]. snw 16:39 Franklin Rutledge MD is Attending Physician. snw 16:44 Gibson Wick, LON is Primary Nurse. bp 16:46 Triage completed. bp 16:47 Maintain EMS IV. Dressing intact. Good blood return noted. Site clean \T\ dry. Gauge \T\ bp site: 20 GAUGE LEFT AC. 16:57 Initial lab(s) drawn, by me, sent to lab. ca1 16:59 Arm band placed on. iw 17:00 Patient has correct armband on for positive identification. Placed in gown. Bed in low bp position. Call light in reach. Side rails up X2. Adult w/ patient. 17:08 Head C Spine Cap Wo Con In Process Unspecified. EDMS 17:31 Chest Single View XRAY In Process Unspecified. EDMS 19:02 Carroll Rutledge MD is Hospitalizing Provider. snw 19:14 Notified ED physician of a critical lab result(s). Trop 4.08, CKMB 39.7, CPK 3379. ca1 20:00 Urine Microscopic Only Sent. ds4 20:41 No provider procedures requiring assistance completed. Patient admitted, IV remains in place. Administered Medications: 17:00 Drug: NS 0.9% (30 ml/kg) 30 ml/kg Route: IV; Rate: bolus; Site: left antecubital; bp 21:12 Follow up: Response: No adverse reaction; IV Status: Completed infusion 17:45 Drug: Rocephin 1 grams Route: IV; Rate: calculated rate; Site: left antecubital; bp 21:12 Follow up: Response: No adverse reaction; IV Status: Completed infusion Outcome: 19:03 Decision to Hospitalize by Provider. snw 20:47 Admitted to Med/surg accompanied by tech, family with patient, via stretcher, room 208, with chart, Report called to Krystin Reynoso RN 20:47 Condition: stable 20:47 Instructed on the need for admit. 21:11 Patient left the ED. Signatures: Dispatcher [employer] EDMS Julieht Wells FNP-C AQUARIST-Csnw Nabila Cheney, RN RN iw Paul Kim1 Ford Valencia ds4 Leonardo Russ Brian RN RN bp Aczahida, Tara RN RN ca1 Corrections: (The following items were deleted from the chart) 16:47 16:44 BP 98 / 60; Pulse 110bpm; Resp 20bpm; Pulse Ox 97%; Temp 98.3F; bp bp
[2020-08-22 19:12] LABS: Albumin 3.8 g/dL (3.4-5.0); Bilirubin Direct 0.2 mg/dL (0-0.2); CKMB Creatine Kinase MB 39.7 ng/mL (0.3-3.6); Potassium 3.1 mmol/L (3.5-5.1); Protein, Total 7.7 g/dL (6.4-8.2); Troponin (Emerg Dept Use Only) 4.08 ng/mL (0.0-0.045)
[2020-08-22 19:38] LABS: Blood Morphology Comment NOT SEEN (NOT SEEN); Platelet Estimate ADEQ
[2020-08-22 20:14] LABS: Urine Blood 2+ (NEG); Urine Glucose NEGATIVE (NEG); Urine Protein 3+ (NEG); Urine Specific Gravity 1.025 (1.005-1.030); Urine pH 5.5 (5.0-7.0)
[2020-08-22 20:14] LABS: Urine Amorphous Sediment 2+ /HPF (NONE SEEN); Urine Bacteria <20 /HPF (<20); Urine Culture Reflex Order REFLEXED; Urine Mucus 2+ /HPF (NONE SEEN); Urine RBC <5 /HPF (NONE SEEN)
--- NOTE | 2020-08-22 21:05 | P.HP ---
Certification for Inpatient Patient admitted to: Inpatient With expected LOS: >2 Midnights Patient will require the following post-hospital care: None Practitioner: I am a practitioner with admitting privileges, knowledge of patient current condition, hospital course, and medical plan of care. Services: Services provided to patient in accordance with Admission requirements found in Title 42 Section 412.3 of the Code of Federal Regulations <Betito Patel - Last Filed: 08/22/20 22:59> Patient History Date of Service: 08/22/20 Primary Care Provider: Maame Marquez Reason for admission: Rhabdomyolysis History of Present Illness: 75-year-old female with history of hypertension and a CVA approximately 10 years ago who is now nonverbal presents emergency department after being found down outside for an unknown period of time. Family reports that the last approximate 11:00 a.m. and returned at 3:00 p.m. where she is lying outside on the concrete. Patient has had episodes similar to this in the past. Patient was brought to the emergency department for further evaluation and found to have rhabdomyolysis, a CPK level 3379, CK MB 39.7, troponin 4.08. Currently creatinine 1.65 GFR 30 BUN 21, potassium 3.1. Patient also noted to have elevated white blood cell count at 25.7, elevated pro calcitonin at 2.18 and elevated lactate at 2.8. Patient had CT scan of head, neck, chest, abdomen pelvis which did not reveal any acute findings. Chest x-ray unremarkable, no signs of infection in urine. Case was discussed with cardiology and nephrology who both believe this is related to rhabdomyolysis and dehydration. EKG without acute findings. On exam patient also noted to have superficial partial thickness spencer of bilateral posterior thighs, superficial spencer of right elbow, right hand which is contracted. ED provider wishes to admit patient for further evaluation and management. When I saw the patient in the emergency department she is awake, drowsy. Daughter was at bedside who states that the patient lives with her son in the ED not have any additional services such as dredge pumper or home health. Family had never discussed code status before, at this time prefer she be full code. Discussed this at length and in structured them to have a discussion regarding their wishes. Patient be admitted for further evaluation and management. - Past Medical/Surgical History -: Hypertension -: CVA 2009 -: Cholecystectomy Psychosocial/ Personal History: Patient lives at home with her son, is nonverbal. - Family History Family History: Reviewed- Non-Contributory - Family History Mother -: Hypertension, Diabetes - Social History Alcohol use: No CD- Drugs: No Caffeine use: No Place of Residence: Home <Betito Patel - Last Filed: 08/22/20 22:59> Date of Service: 08/25/20 <Carroll Rutledge - Last Filed: 08/25/20 21:59> Allergies No Known Allergies Allergy (Verified 08/22/20 21:46) Home Medications: Lisinopril [Zestril] 30 mg PO DAILY 08/22/20 Review of Systems is unable to be obtained (Mental status, nonverbal) <Betito Patel - Last Filed: 08/22/20 22:59> Physical Examination - Physical Exam General: Alert (Nonverbal) HEENT: Atraumatic, Normocephalic, Other (Mucous membranes dry) Neck: Supple Respiratory: Clear to auscultation bilaterally, Normal air movement Cardiovascular: Regular rate/rhythm, Normal S1 S2 Capillary refill: <2 Seconds Gastrointestinal: Normal bowel sounds, Soft and benign, No tenderness Musculoskeletal: Contractures (Right hand, right foot) Integumentary: Other (Superficial spencer to right hand, right elbow, superficial partial thickness spencer to bilateral posterior thighs each with small blister noted.) Neurological: Other (Patient is essentially nonverbal responding yes or no to some questions. Patient with contractures of right hand and partially of the right foot.) - Studies Laboratory Data (last 24 hrs) 08/22/20 18:15: Sodium 145, Potassium 3.1 L, BUN 21 H, Creatinine 1.65 H, Glucose 123 H, Total Bilirubin 1.0, AST 75 H, ALT 22, Alkaline Phosphatase 72, Amylase 73, Lipase 119 08/22/20 16:54: PT 12.5, INR 1.06, APTT 24.6 08/22/20 16:54: WBC 25.7 H*, Hgb 14.4, Hct 43.7, Plt Count 288 <Betito Patel - Last Filed: 08/22/20 22:59> - Studies Microbiology Data (last 24 hrs): 08/22/20 19:50 Catheterized Urine [place] Count - Final No growth. 08/22/20 19:50 Catheterized Urine - Final No growth. <Carroll Rutledge - Last Filed: 08/25/20 21:59> Assessment and Plan - Plan Assessment Rhabdomyolysis NSTEMI Superficial spencer to right elbow, right hand. Superficial partial thickness spencer to bilateral posterior thighs Impaired mobility with high risk for falls Hypertension History of CVA Plan Rhabdomyolysis: Discussed case with nephrology, continue with normal saline 80 cc/hour. Patient bolused in the emergency department. Trend CPK, CK MB, troponin levels. Nephrology consult in place. DVT prophylaxis heparin 5000 subcutaneous twice daily. NSTEMI: Discuss case with cardiology. EKG without acute findings. Cardiology believes elevated troponin likely related to rhabdomyolysis. Will trend troponins. Cardiology consult in place. Superficial spencer to right elbow, right hand. Superficial partial thickness spencer to bilateral posterior thighs: Wounds to be clean with warm water and mild soap, antibiotic ointment and sterile dressing applied. Will continue to monitor. Spencer are not circumferential. Impaired mobility with high risk for falls: Physical therapy consult in place. Fall precautions. Hypertension: Patient's lisinopril, blood pressure low at this time. Will hold lisinopril also due to rhabdomyolysis and risk for kidney injury. History of CVA: Patient currently not taking any aspirin or Plavix. Appears stable this time with contracture to right hand and right foot. Discharge Plan: Home Plan to discharge in: Greater than 2 days - Advance Directives Does patient have a Living Will: No Does patient have a Durable POA for Healthcare: Yes - Code Status/Comfort Care Code Status Assessed: Yes (Patient is full code at this time) Critical Care: No Time Spent Managing Pts Care (In Minutes): 55 <Betito Patel - Last Filed: 08/22/20 22:59> Physician Review Additional Text: Plan of care discussed with Betito Patel, and I agree with the management plan as noted above. <Carroll Rutledge - Last Filed: 08/25/20 21:59>
[2020-08-22] MEDS ORDERED: ACETAMINOPHEN 500 MG TAB PO PRN (21:43)
[2020-08-22] MEDS ORDERED: ONDANSETRON 4 MG/2 ML VIAL IV PRN (21:43)
[2020-08-22] MEDS: NA CHLORIDE 0.9% 1,000 ML IV SCH (21:43)
[2020-08-22 21:55] VITALS: BMI 23.2
[2020-08-22] MEDS: HEPARIN 5000 UNIT/ML 1 ML VIAL SQ SCH (22:04)
[2020-08-22] MEDS: KCL 20 MEQ/100 mL IVPB 20 MEQ/100 ML BAG IV SCH (22:44)
[2020-08-23] MEDS: NA CHLORIDE 0.9% 1,000 ML IV SCH ×2 (01:07→14:00)
[2020-08-23] MEDS: KCL 20 MEQ/100 mL IVPB 20 MEQ/100 ML BAG IV SCH (01:07)
[2020-08-23 06:15] LABS: Absolute Lymphocytes (CBC) 3.1 K/uL (0.7-4.9); Basophils % 0.3 % (0-1.3); Hematocrit 39.2 % (36.0-45.0); Lymphocytes % 16.3 % (15.3-44.8); MPV 10.4 fL (7.6-11.3); RBC Red Blood Cell Count 4.54 M/uL (3.86-4.86)
[2020-08-23 07:00] LABS: Potassium 3.7 mmol/L (3.5-5.1); Thyroid Stimulating Hormone 0.761 uIU/mL (0.360-3.740)
[2020-08-23 07:04] LABS: CKMB Creatine Kinase MB 135.4 ng/mL (0.3-3.6); Troponin I 5.61 ng/mL (0.0-0.045)
[2020-08-23] MEDS ORDERED: POTASSIUM 25 MEQ EFFERV TAB PO ONE (09:00)
[2020-08-23] MEDS: HEPARIN 5000 UNIT/ML 1 ML VIAL SQ SCH ×2 (09:23→20:09)
--- NOTE | 2020-08-23 10:34 | P.PN ---
Subjective Date of Service: 08/23/20 Primary Care Provider: Maame Marquez Chief Complaint: Rhabdomyolysis Subjective: Improving (The patient mostly nonverbal unable to say a few words (1 word at a time). And daughter at bedside Replies yes to feeling better. Daughter reports patient is closer to her normal self this morning Daughter states patient has not been complaining of anything) Physical Examination - Vital Signs Temperature: 98.1 F Blood Pressure: 132/95 Pulse: 72 Respirations: 20 Pulse Ox (%): 98 - Physical Exam General: Alert, In no apparent distress HEENT: Other (mild ecchymosis / abrasion on chin) Respiratory: Clear to auscultation bilaterally, Normal air movement Cardiovascular: Regular rate/rhythm Gastrointestinal: Soft and benign, Non-distended, No tenderness Musculoskeletal: Other (Right upper extremity / hand with contractures) Integumentary: Other (Superficial spencer to the right hand, right elbow, superficial partial thickness burn to bilateral posterior thighs each with small blisters) Neurological: Abnormal speech (Difficult to understand, speaks 1 word at a time, can speak a few different words) - Studies Laboratory Data (last 24 hrs) 08/22/20 18:15: Sodium 145, Potassium 3.1 L, BUN 21 H, Creatinine 1.65 H, Glucose 123 H, Total Bilirubin 1.0, AST 75 H, ALT 22, Alkaline Phosphatase 72, Amylase 73, Lipase 119 08/22/20 16:54: PT 12.5, INR 1.06, APTT 24.6 08/22/20 16:54: WBC 25.7 H*, Hgb 14.4, Hct 43.7, Plt Count 288 Assessment & Plan Physician Review Additional Text: Rhabdomyolysis NSTEMI Superficial spencer to right elbow, right hand. Superficial partial thickness spencer to bilateral posterior thighs Impaired mobility with high risk for falls Hypertension History of CVA Plan Rhabdomyolysis after fall: -unclear how long patient was down, sometime between 11a-3pm on day of admission, pt does not recall events (unsure if she passed out or tripped, etc) -unclear etiology of fall. she was hypotensive on presentation to ED, unclear if hypotensive due to dehydration from laying on floor for unknown duration vs hypotension lead to fall -nephrology consulted, continue NS @80ml/hr. Received IVF bolus in ED -CPK, CKMB, trending up; CPK typically peaks ~24hrs -DVT prophylaxis heparin 5000 subcutaneous twice daily. -PT/OT consulted NSTEMI: -Discussed case with cardiology. EKG without acute findings. Cardiology believes elevated troponin likely related to rhabdomyolysis. -troponin continuing to increase, continue to trend -may undergo cardiac cath on Tuesday Superficial spencer to right elbow, right hand. Superficial partial thickness spencer to bilateral posterior thighs: -Wounds to be clean with warm water and mild soap, antibiotic ointment and sterile dressing applied. -Will continue to monitor. Spencer are not circumferential. mildly TTP Impaired mobility with high risk for falls: -Physical therapy consult in place. Fall precautions. Hypertension: -blood pressure low at this time. Will hold lisinopril also due to rhabdomyolysis and risk for kidney injury. -unclear if hypotensive due to dehydration from laying on floor for unknown duration vs hypotension lead to fall History of CVA: Patient currently not taking any aspirin or Plavix. Appears stable this time with contracture to right hand and right foot. Dispo: continued workup, urine studies, IVF, possible cath on Tuesday patient states she doesn't want to go to SNF upon discharge Time Spent Managing Pts Care (In Minutes): 35
--- NOTE | 2020-08-23 13:18 | CON ---
Date of Consultation: 08/22/2020 Reason For Consultation: Elevated troponin and syncope. History Of Present Illness: Ms. Mcdaniel is a 75-year-old, [place] woman, has had a history of hypertension and CVA. She has right dense hemiparesis. Apparently was found passed out on the g round. She lives with her son and his and they were out of the house. When they came back, the y found her down, unknown amount of hours. The patient herself did not remember any symptoms before or after the syncope. She did have a CPK of 11,954, but her troponin was 5.61. [place] white count [place] [address]. Her creatinine initially was 1.65 and is down to 0.9 after hydration. No previous cardiac hi story reported. Allergies: NONE. Review of Systems: Negative. Social History: Negative. Family History: Negative. Medications: At home include lisinopril. Physical Examination: General: She is alert and oriented x3. No specific complaint. Vital Signs: Stable. She was afebrile. She was in a sinus rhythm. HEENT: Negative. Neck: Supple with no bruit. Chest: Clear to auscultation and percussion. Cardiac: Revealed a regular rhythm and rate with an S4 gallops and an aortic sclerosis murmur. Abdomen: Benign. Extremities: Revealed no clubbing, cyanosis, or edema. Neurologic: She has right-sided hemiparesis. Diagnostic Data: As stated earlier. Her chest x-ray was negative. EKG was nonspecific. CT of the head, abdomen, pelvis, chest and extremities were all normal. Impression And Plan: Syncope with evidence of rhabdomyolysis, elevated troponin, possibly consistent with an acute coronary syndrome. The patient has a history of hypertension and cerebrovascular acci dent. She is at high risk for coronary artery disease. I agree with hydration. Follow her CPK, tro ponin, and her creatinine. May need to be on antibiotics with her white count of 26,000. Nephrology consultation may be reasonable with her elevated CPK and rhabdomyolysis. I think we need to do a 2D echocardiogram and also recommend the left heart catheterization to define her coronary anatomy. He r episode could have been a cardiac event causing her to pass out with her elevated troponin. I will continue to follow her. SHARAD/EMA Voice ID: [id number] Report ID: [id number]
--- NOTE | 2020-08-23 14:02 | PN ---
Date of Progress Note: 08/23/2020 Subjective: Ms. Mcdaniel was admitted with syncope, elevated troponin, elevated CPKs, rhabdomyolys is, elevated white count, elevated creatinine. All her numbers have improved. Her troponin remains elevated. She still denied any chest pain. Objective: Vital Signs: Stable, afebrile. Sinus rhythm. Chest: Clear. Cardiac: Revealed aortic sclerosis murmur. I still believe with her episode of syncope of unknown etiology, elevated troponin, multiple risk fac tors including hypertension and CVA that a heart catheterization is indicated. I will schedule that for Tuesday08/25/2020. The procedure will be done by Dr. Espino. Meanwhile, continue hydration and present regimen. NB/MODL Voice ID: [id number] Report ID: [id number]
--- NOTE | 2020-08-23 15:26 | P.CNS ---
Date of Consult: 08/23/20 Reason for Consult: ALBERT , rhabdomyolysis Primary Care Provider: Maame Marquez Chief Complaint: Rhabdomyolysis History of Present Illness: pt is unable to provide Hx , Hx obtained from chart A 75-year-old, PMhx of hypertension and CVA, HTN , afib pt was found on the ground for unknwon duration in ER CPK 3300, troponin was 5.61. Her white count was 67605. Her creatinine initially was 1.65 and is down to 0.9 after hydration. No previous cardiac history reported. ROS unable to provide Physical Examination: General: alert, NAD fascial bruised neck: supple, no elevated JVD Heart: RRR, normal S1,2 no murmur or rub chest CTAB, no rales or whezes Abdomen: soft , NT ext : edema A/P ALBERT due to dehydration and Rhabdomyolysis resolved renal dose meds Rhabdomyolysis due to fall IV increased cont to minitor CPK NSTEMI as per cardiology Hx of CVA cont supportive care hypokalmeia replace prn debility PT/OT Allergies No Known Allergies Allergy (Verified 08/22/20 21:46) Home Medications: Lisinopril [Zestril] 30 mg PO DAILY 08/22/20 - Past Medical/Surgical History Diabetic: No -: Hypertension -: CVA 2009 -: Cholecystectomy Psychosocial/ Personal History: Patient lives at home with her son, is nonverbal. - Family History Mother Medical History: Hypertension, Diabetes - Social History Alcohol use: No CD- Drugs: No Caffeine use: No Place of Residence: Home Physical Examination Temp Pulse Resp BP Pulse Ox 98.3 F 80 18 124/67 94 08/23/20 12:00 08/23/20 12:00 08/23/20 12:00 08/23/20 12:00 08/23/20 12:00 Laboratory Data (last 24 hrs) 08/22/20 18:15: Sodium 145, Potassium 3.1 L, BUN 21 H, Creatinine 1.65 H, Glucose 123 H, Total Bilirubin 1.0, AST 75 H, ALT 22, Alkaline Phosphatase 72, Amylase 73, Lipase 119 08/22/20 16:54: PT 12.5, INR 1.06, APTT 24.6 08/22/20 16:54: WBC 25.7 H*, Hgb 14.4, Hct 43.7, Plt Count 288
--- NOTE | 2020-08-23 22:00 | RAD REPORT ---
EXAM DESCRIPTION: US - Renal Ultrasound-Complete - 08/23/2020 9:46 pm CLINICAL HISTORY: ALBERT Flank pain COMPARISON: No comparisons FINDINGS: Both kidneys are mildly echogenic. The right kidney measures 8.4 x 3.4 x 2.9 cm. No hydronephrosis, focal mass or perinephric fluid. 11 mm benign right renal cyst. The left kidney measures 12.9 x 4.4 x 3.9 cm.. No hydronephrosis, focal mass or perinephric fluid. 5 cm benign left renal cyst. The urinary bladder is incompletely distended without gross abnormality seen. IMPRESSION: Echogenic kidneys bilaterally compatible with medical renal disease. Benign bilateral renal cysts.
[2020-08-24] MEDS: NA CHLORIDE 0.9% 1,000 ML IV SCH ×4 (02:00→22:59)
[2020-08-24 06:46] LABS: Absolute Lymphocytes (CBC) 2.2 K/uL (0.7-4.9); Basophils % 0.7 % (0-1.3); Hematocrit 40.3 % (36.0-45.0); Lymphocytes % 19.7 % (15.3-44.8); MPV 10.4 fL (7.6-11.3); RBC Red Blood Cell Count 4.61 M/uL (3.86-4.86)
[2020-08-24 07:21] LABS: BUN Blood Urea Nitrogen 6 mg/dL (7-18); Bicarbonate 23 mmol/L (21-32); Glucose Level 103 mg/dL (74-106); Potassium 3.4 mmol/L (3.5-5.1); Sodium Level 142 mmol/L (136-145)
[2020-08-24 07:22] LABS: CKMB Creatine Kinase MB 83.2 ng/mL (0.3-3.6); Creatine Phosphokinase 10677 U/L (26-192)
[2020-08-24] MEDS: HEPARIN 5000 UNIT/ML 1 ML VIAL SQ SCH (08:02)
--- NOTE | 2020-08-24 08:50 | P.PN ---
Subjective Date of Service: 08/24/20 Primary Care Provider: Maame Marquez Chief Complaint: Rhabdomyolysis Subjective: Improving (Patient responded yes to feeling well, reports no pain, no chest pain, no shortness of breath) Physical Examination - Vital Signs Temperature: 97.9 F Blood Pressure: 164/85 Pulse: 84 Respirations: 16 Pulse Ox (%): 98 - Physical Exam General: Alert, In no apparent distress HEENT: Mucous membr. moist/pink, Other (Mild abrasions on face/chin) Neck: Supple, JVD not distended Respiratory: Clear to auscultation bilaterally, Normal air movement Cardiovascular: No edema, Regular rate/rhythm Gastrointestinal: Soft and benign, Non-distended, No tenderness Musculoskeletal: No tenderness Integumentary: Other (A few abrasions, skin tears, superficial spencer to right elbow, right hand, posterior lower thighs ) Neurological: Other (Able to respond to yes/no, says other few words difficult to make out at times) Assessment & Plan Physician Review Additional Text: Rhabdomyolysis ALBERT NSTEMI Superficial spencer to right elbow, right hand. Superficial partial thickness spencer to bilateral posterior thighs Impaired mobility with high risk for falls Hypertension History of CVA Plan Rhabdomyolysis after fall: Acute kidney injury, resolved -unclear how long patient was down, sometime between 11a-3pm on day of admission, pt does not recall events (unsure if she passed out or tripped, etc) -unclear etiology of fall. she was hypotensive on presentation to ED, unclear if hypotensive due to dehydration from laying on floor for unknown duration vs hypotension lead to fall -nephrology consulted, continue NS @100ml/hr, increased from 80ml/hr yesterday. Received IVF bolus in ED. -Renal ultrasound (08/23) mildly echogenic bilateral kidneys, compatible with medical renal disease. Benign bilateral renal cysts. -CPK, CKMB, peaked 08/23; now downtrending -leukocytosis on admission likely in setting of dehydration, inflammation/rhabdomyolysis -> down to 11.3 this morning -creatinine improved down to 0.55, UOP improved -DVT prophylaxis heparin 5000 subcutaneous twice daily. -PT/OT consulted NSTEMI: -Discussed case with cardiology. EKG without acute findings. Cardiology believes elevated troponin likely related to rhabdomyolysis. -troponin peaked 08/23: 5.6, down trended -concern for possible cardiac event leading to fall, pending echocardiogram and will undergo cardiac catheterization on Tuesday Superficial spencer to right elbow, right hand. Superficial partial thickness spencer to bilateral posterior thighs: -Wounds to be clean with warm water and mild soap, antibiotic ointment and sterile dressing applied. -Will continue to monitor. Spencer are not circumferential. mildly TTP Impaired mobility with high risk for falls: -Physical therapy consult in place. Fall precautions. Hypertension: -blood pressure hypotensive on admission, righ. Held lisinopril due to rhabdomyolysis and ALBERT -unclear if hypotensive due to dehydration from laying on floor for unknown duration vs hypotension lead to fall -becoming more hypertensive now, will discuss with nephrology, may need to be started on lower dose lisinopril or other antihypertensive History of CVA: Patient currently not taking any aspirin or Plavix. Appears stable this time with contracture to right hand and right foot. Dispo: For cardiac cath on Tuesday patient states she doesn't want to go to SNF upon discharge, will likely benefit from home health, PT/OT Time Spent Managing Pts Care (In Minutes): 35
[2020-08-24] MEDS ORDERED: POTASSIUM 25 MEQ EFFERV TAB PO ONE ×2 (09:00→14:18)
[2020-08-24] MEDS ORDERED: NA CHLORIDE 0.9% 1,000 ML IV SCH (09:03)
--- NOTE | 2020-08-24 13:45 | P.PN ---
Subjective Date of Service: 08/24/20 Primary Care Provider: Maame Marquez Chief Complaint: Rhabdomyolysis A 75-year-old, PMhx of hypertension and CVA, HTN , afib pt was found on the ground for unknown duration in ER CPK 3300, troponin was 5.61. [place] count was 75207. Her creatinine initially was 1.65 and is down to 0.9 after hydration. No previous cardiac history reported. today CPK still elevated will increase NS rate PT/OT Physical Examination: General: alert, NAD fascial bruised neck: supple, no elevated JVD Heart: RRR, normal S1,2 no murmur or rub chest CTAB, no rales or whezes Abdomen: soft , NT ext : no edema A/P ALBERT due to dehydration and Rhabdomyolysis resolved renal dose meds Rhabdomyolysis due to fall will increase IV rate cont to minitor CPK NSTEMI as per cardiology Hx of CVA cont supportive care hypokalmeia replace prn Leuckocytosis likely reactive debility PT/OT Physical Examination - Vital Signs Temperature: 97.8 F Blood Pressure: 159/88 Pulse: 83 Respirations: 18 Pulse Ox (%): 96
[2020-08-25 05:43] LABS: Absolute Lymphocytes (CBC) 2.2 K/uL (0.7-4.9); Basophils % 0.6 % (0-1.3); Hematocrit 42.4 % (36.0-45.0); Lymphocytes % 18.4 % (15.3-44.8); MPV 10.4 fL (7.6-11.3); RBC Red Blood Cell Count 4.88 M/uL (3.86-4.86)
[2020-08-25 06:26] LABS: BUN Blood Urea Nitrogen 5 mg/dL (7-18); Bicarbonate 24 mmol/L (21-32); CKMB Creatine Kinase MB 80.7 ng/mL (0.3-3.6); Glucose Level 98 mg/dL (74-106); Potassium 3.6 mmol/L (3.5-5.1); Sodium Level 143 mmol/L (136-145)
[2020-08-25 06:36] LABS: Creatine Phosphokinase 12085 U/L (26-192)
[2020-08-25] MEDS ORDERED: HEPA 1000U/500MLS 2,000 UNIT/1,000 ML BAG IV ONE (06:57)
[2020-08-25] MEDS: NA CHLORIDE 0.9% 1,000 ML IV SCH ×2 (07:59→21:57)
[2020-08-25] MEDS ORDERED: POTASSIUM CL SA 10 MEQ TAB PO ONE (09:00)
--- NOTE | 2020-08-25 09:11 | P.PN ---
Subjective Date of Service: 08/25/20 Primary Care Provider: Maame Marquez Chief Complaint: Rhabdomyolysis Subjective: No new changes (Patient reports feeling well, without complaints. Patient is able to communicate yes or no, understands, can speak a few words (difficult to understand) No events overnight) Physical Examination - Vital Signs Temperature: 97.7 F Blood Pressure: 156/85 Pulse: 85 Respirations: 16 Pulse Ox (%): 97 - Physical Exam General: Alert, In no apparent distress HEENT: Mucous membr. moist/pink, Other (Mild, healing abrasions on chin and cheek) Neck: JVD not distended Respiratory: Clear to auscultation bilaterally, Normal air movement Cardiovascular: No edema, Regular rate/rhythm Gastrointestinal: Soft and benign, Non-distended, No tenderness Musculoskeletal: Other (Mild, small abrasions on bilateral arms and legs) Neurological: Abnormal speech (Response yes/no, can say a few words, mostly 1 word at a time and difficult to understand), Abnormal tone (Right upper extremity with contraction) Urinary: Quinones catheter - Studies Microbiology Data (last 24 hrs): 08/22/20 19:50 Catheterized Urine [place] Count - Final No growth. 08/22/20 19:50 Catheterized Urine - Final No growth. Assessment & Plan Physician Review Additional Text: Rhabdomyolysis ALBERT NSTEMI Superficial lovell to right elbow, right hand. Superficial partial thickness lovell to bilateral posterior thighs Impaired mobility with high risk for falls Hypertension History of CVA Plan Rhabdomyolysis after fall: Acute kidney injury, resolved -unclear how long patient was down, sometime between 11a-3pm on day of admission, pt does not recall events (unsure if she passed out or tripped, etc) -unclear etiology of fall. she was hypotensive on presentation to ED, unclear if hypotensive due to dehydration from laying on floor for unknown duration vs hypotension lead to fall -nephrology consulted, continue NS @100ml/hr, increased from 80ml/hr on 08/23 due to increased CPK levels. Received IVF bolus in ED. -Renal ultrasound (08/23) mildly echogenic bilateral kidneys, compatible with medical renal disease. Benign bilateral renal cysts. -CPK, CKMB initially down trended yesterday, but now even higher -leukocytosis on admission likely reactive and in setting of dehydration, resolved -creatinine normal, good urine output -DVT prophylaxis heparin 5000 subcutaneous twice daily. -PT/OT consulted - recommend SNF on discharge / 24 supervision NSTEMI: -Discussed case with cardiology. EKG without acute findings. Cardiology believes elevated troponin likely related to rhabdomyolysis, but can't rule out cardiac etiology -troponin peaked 08/23: 5.6, down trended -concern for possible cardiac event leading to fall, pending echocardiogram and will undergo cardiac catheterization today Superficial lovell to right elbow, right hand. Superficial partial thickness lovell to bilateral posterior thighs: -Wounds to be clean with warm water and mild soap, antibiotic ointment and sterile dressing applied. -Will continue to monitor. Lovell are not circumferential. mildly TTP on exam Impaired mobility with high risk for falls: -Physical therapy consult in place. Fall precautions. -recommend SNF on discharge / 24 supervision Hypertension: -blood pressure hypotensive on admission, righ. Held lisinopril due to rhabdomyolysis and ALBERT -unclear if hypotensive due to dehydration from laying on floor for unknown duration vs hypotension lead to fall -becoming more hypertensive now, will discuss with nephrology, may need to be started on lower dose lisinopril or other antihypertensive History of CVA: Patient currently not taking any aspirin or Plavix. Appears stable this time with contracture to right hand and right foot. Dispo: For cardiac cath today, CPK increasing Discusssed dispo with daughter - states her and her sister think SNF would be best patient states she doesn't want to go to SNF upon discharge. Advised they have a family discussion of what is best. SS/CM consulted Time Spent Managing Pts Care (In Minutes): 35
--- NOTE | 2020-08-25 10:17 | PN ---
Date of Progress Note: 08/24/2020 Subjective: The patient was admitted with an episode of syncope, unknown etiology, was found on the floor for few hours and came in with rhabdomyolysis. However, the troponin was approximately 6, cons istent with the possibility of an acute coronary syndrome. She may have had an AR, possibly causing her syncope. Overnight, she remains in sinus rhythm. Has no complaint. We will continue her presen t regimen. There is a plan for a heart catheterization on 08/25/2020 due to her primary coronary kellie ada. SHARAD/EMA Voice ID: [id number] Report ID: [id number]
[2020-08-25] MEDS ORDERED: LIDOCAINE 1% 20 ML MDV ONE (13:05)
[2020-08-25] MEDS ORDERED: MIDAZOLAM HCL 2 MG/2 ML INJ ONE (13:06)
[2020-08-25] MEDS ORDERED: FENTANYL CITR 100 MCG/2 ML ONE (13:07)
[2020-08-25] MEDS ORDERED: POTASSIUM 25 MEQ EFFERV TAB PO ONE (16:00)
--- NOTE | 2020-08-26 01:02 | OP ---
Date of Procedure: 08/25/2020 Surgeon: KARIME ARIAS Procedure Performed: Selective coronary angiogram. Indication: Non-ST elevation myocardial infarction. Access: Right femoral artery 6-Ukrainian closed with 6-Ukrainian Angio-Seal. Complications: None. Bleeding: Less than 5 mL. Description Of Procedure: After risks, benefits, and alternatives were explained to the patient, the patient agreed to proceed and signed informed consent and then used Versed and fentanyl in increment al doses to achieve adequate moderate sedation. Then, we accessed the right femoral artery using a m icropuncture kit and ultrasound guidance, and then we placed a 6-Ukrainian Hartman sheath. Then, we to ok a 6-Ukrainian JL-4 catheter into the aortic root, engaged left main, took standard views. Then, we e xchanged for 6-Ukrainian JR4 catheter and engaged the right coronary artery, took standard views. Then, removed the catheters and the wires out, and sheath was removed. Access was closed with 6-Ukrainian An ousmane-Seal with good hemostasis. Findings: 1.Left main, large and normal. 2.LAD, large and normal. 3.Left circumflex, normal. 4.RCA dominant, large and normal for the most part with the exception of mild 20-30% right PLV disea se. Postoperative Diagnosis: No significant coronary artery disease. Recommendation: Medical management and obtain echo. /BHUMIL Voice ID: [id number] Report ID: [id number]
[2020-08-26 04:06] LABS: Hematocrit 41.2 % (36.0-45.0); MPV 10.2 fL (7.6-11.3); RBC Red Blood Cell Count 4.76 M/uL (3.86-4.86)
[2020-08-26 04:51] LABS: BUN Blood Urea Nitrogen 6 mg/dL (7-18); Bicarbonate 22 mmol/L (21-32); Glucose Level 108 mg/dL (74-106); Potassium 3.7 mmol/L (3.5-5.1); Sodium Level 143 mmol/L (136-145)
[2020-08-26 04:52] LABS: CKMB Creatine Kinase MB 62.7 ng/mL (0.3-3.6); Creatine Phosphokinase 10029 U/L (26-192)
[2020-08-26] MEDS: NA CHLORIDE 0.9% 1,000 ML IV SCH ×3 (05:30→19:00)
[2020-08-26] MEDS ORDERED: POTASSIUM CL SA 10 MEQ TAB PO ONE ×2 (09:00→10:44)
[2020-08-26] MEDS ORDERED: NA CHLORIDE 0.9% 1,000 ML IV ONE (10:44)
--- NOTE | 2020-08-26 15:02 | P.PN ---
Subjective Date of Service: 08/26/20 Primary Care Provider: Maame Marquez Chief Complaint: Rhabdomyolysis No new complaint. Patient has been tolerating physical therapy but quite weak. Physical Examination - Vital Signs Temperature: 98.8 F Blood Pressure: 126/76 Pulse: 95 Respirations: 16 Pulse Ox (%): 98 - Physical Exam General: In no apparent distress, Other (Awake) HEENT: Mucous membr. moist/pink, Sclerae nonicteric Neck: Supple Respiratory: Clear to auscultation bilaterally, Normal air movement Cardiovascular: No edema, Regular rate/rhythm, Normal S1 S2 Capillary refill: <2 Seconds Gastrointestinal: Normal bowel sounds, Soft and benign, Non-distended, No tenderness Musculoskeletal: Other (Contracted right upper extremity) Integumentary: Other (Multiple bruises on her face. Blisters-bilateral thighs.) Neurological: Other (Lisa full 5 in all limbs except the right upper extremity which is contracted and weak.) Assessment And Plan - Current Problems (Diagnosis) (1) Acute renal failure Current Visit: Yes Status: Acute Plan: Resolved (2) Rhabdomyolysis Current Visit: Yes Status: Acute (3) NSTEMI (non-ST elevated myocardial infarction) Current Visit: Yes Status: Acute (4) History of CVA (cerebrovascular accident) Current Visit: Yes Status: Acute (5) Fall Current Visit: Yes Status: Acute (6) Impaired mobility Current Visit: Yes Status: Acute (7) Blisters of multiple sites Current Visit: Yes Status: Acute - Plan Acute renal failure resolved. CK trending down slowly Nephrology is following and managed. Patient is on IV hydration with normal saline. Monitor CK levels. IV normal saline bolus given today. Patient seen and evaluated by cardiology. Cardiac catheterization done which reported normal coronary arteries. Continue wound care for blisters. PT and OT. Blood pressure is under good control. Anticipating disposition to skilled rehab. Physician Review Additional Text: Plan of care discussed with Betito Patel, and I agree with the management plan as noted above.
--- NOTE | 2020-08-26 15:39 | PN ---
Date of Progress Note: 08/26/2020 Subjective: The patient was admitted with rhabdomyolysis. The patient after hydration, kidney function has been normalized. CK started trending down. Physical Examination: Vital Signs: Blood pressure 159/76, pulse of 88, afebrile. The patient had good urine output of 3200. The patient positive balance only 200. Chest: Clear to auscultation. Heart: S1, S2. Systolic murmur. Abdomen: Soft, nontender. Extremities: Dressing both thigh. No edema. Neuro: Alert, weakness bilaterally, fatigued. No focality. Laboratory Data: WBC 12.7, H and H 14/41.2, platelet 212. Sodium 143, potassium 3.7, bicarb 22, BUN 6, creatinine 0.6, calcium 7.9, magnesium of 2. CK 10,029. Current Medications: The patient on include Tylenol, IV fluid at 100 per hour. Assessment And Plan: 1. Acute kidney injury secondary to rhabdomyolysis recovered, resolved. 2. Rhabdomyolysis, still looks to me on the dry side. I am going to bolus the patient with 1 L and we will increase IV fluids to 125 p.o. per hour. 3. Hypokalemia with the presence of rhabdomyolysis, I going to start supplement. We will follow up. We will check for magnesium level. 4. Deconditioning. Continue PT/OT. Time spent coordinating the care, discuss him with all of our team members including othere individual pension consultant and hospitalist and [id number] with the patient and please go out of 35 min MARIE Voice ID: [id number] Report ID: [id number] NAYELY
--- NOTE | 2020-08-26 18:15 | PN ---
Date of Progress Note: 08/26/2020 Chief Complaint: Rhabdomyolysis, severe. Subjective: Patient has multiple medical problems including history of CVA, hypertension, atrial fib rillation. She was evaluated in the emergency room and CPK level was up to 3300. Troponin was 5.61. Patient is undergoing cardiac catheterization for acute coronary syndrome. Patient will continue I V fluids for severe rhabdomyolysis and she will have Mucomyst to prevent contrast-induced nephropathy . CPK level is not significantly improving. Plan is to evaluate phosphorus and magnesium level, and continue IV fluids to prevent worsening of the renal function. Review of Systems: Patient denies complaints, although she is confused. Cannot provide review of systems. Physical Examination: Lungs: Diminished breath sounds at bases. Heart: S1, S2. Abdomen: Soft, benign. Extremities: No edema. Impression And Plan: 1.Acute kidney injury. Continue IV fluids to treat rhabdomyolysis. Continue renal dose of medicati on. 2.Rhabdomyolysis due to fall. Continue IV fluids. 3.Non ST elevation myocardial infarction. Continue Mucomyst to prevent contrast-induced nephropathy . 4.History of cerebrovascular accident per primary team. Continue supportive care. 5.Hypokalemia replacement as needed. Monitor phosphorus and magnesium level. 6.Leukocytosis, likely reactive. Further workup per primary team. EB/MODL Voice ID: [id number] Report ID: [id number]
[2020-08-27] MEDS: NA CHLORIDE 0.9% 1,000 ML IV SCH ×4 (03:29→18:10)
[2020-08-27 04:16] LABS: Absolute Lymphocytes (CBC) 2.1 K/uL (0.7-4.9); Basophils % 0.7 % (0-1.3); Hematocrit 39.4 % (36.0-45.0); Lymphocytes % 19.9 % (15.3-44.8); RBC Red Blood Cell Count 4.55 M/uL (3.86-4.86)
[2020-08-27 04:42] LABS: Albumin 2.5 g/dL (3.4-5.0); BUN Blood Urea Nitrogen 3 mg/dL (7-18); Bicarbonate 26 mmol/L (21-32); Glucose Level 112 mg/dL (74-106); Magnesium 1.8 mg/dL (1.8-2.4); Potassium 3.5 mmol/L (3.5-5.1); Sodium Level 141 mmol/L (136-145)
[2020-08-27 04:43] LABS: Creatine Phosphokinase 6309 U/L (26-192)
[2020-08-27] MEDS ORDERED: MAGNESIUM SULFATE 1 gm IVPB 1 GM/100 ML BAG IV ONE (06:00)
--- NOTE | 2020-08-27 07:57 | ECHO ---
HEIGHT: 4 ft 9 in WEIGHT: 107 lb 8 oz DATE OF STUDY: 08/26/[address]: Yobany Montana MD 2-DIMENSIONAL: YES M.MODE: YES DOPPLER: YES COLOR FLOW: YES TDS: NO PORTABLE: NO DEFINITY: NO BUBBLE STUDY: NO DIAGNOSIS: ELEVATED TROPONIN CARDIAC HISTORY: CATHERIZATION: YES SURGERY: NO PROSTHETIC VALVE: NO PACEMAKER: NO MEASUREMENTS (cm) DIASTOLIC (NORMALS) SYSTOLIC (NORMALS) IVSd 1.1 (0.6-1.2) LA Diam 3.4 (1.9-4.0) LVEF 75% LVIDd 3.7 (3.5-5.7) LVIDs 2.1 (2.0-3.5) %FS 43% LVPWd 1.3 (0.6-1.2) Ao Diam 2.7 (2.0-3.7) 2 DIMENSIONAL ASSESSMENT: RIGHT ATRIUM: NORMAL LEFT ATRIUM: NORMAL RIGHT VENTRICLE: NORMAL LEFT VENTRICLE: NORMAL TRICUSPID VALVE: NORMAL MITRAL VALVE: NORMAL PULMONIC VALVE: NORMAL AORTIC VALVE: NORMAL PERICARDIAL EFFUSION: NONE AORTIC ROOT: NORMAL LEFT VENTRICULAR WALL MOTION: NORMAL DOPPLER/COLOR FLOW: NORMAL COMMENTS: NORMAL 2D ECHOCARDIOGRAM WITH DOPPLER. NO WALL MOTION ABNORMALITY. NO EFFUSION. TECHNOLOGIST: Gracy GODDARD
[2020-08-27] MEDS ORDERED: lisinopriL 20 MG TAB PO SCH (09:00)
[2020-08-27] MEDS ORDERED: lisinopriL 10 MG TAB PO SCH (09:00)
[2020-08-27] MEDS ORDERED: POTASSIUM CL SA 10 MEQ TAB PO ONE (09:00)
--- NOTE | 2020-08-27 09:10 | P.PN ---
Subjective Date of Service: 08/27/20 Primary Care Provider: Maame Marquez Chief Complaint: Rhabdomyolysis Subjective: Other (Patient seen resting in bed, in no distress. Denies any headaches, dizziness, nausea or vomiting. Sligntly hypertensive this morning.) Physical Examination - Vital Signs Temperature: 96.8 F Blood Pressure: 168/79 Pulse: 86 Respirations: 18 Pulse Ox (%): 95 - Physical Exam General: Alert, Cooperative HEENT: Atraumatic, Normocephalic, EOMI Neck: Supple Respiratory: Clear to auscultation bilaterally, Normal air movement Cardiovascular: No edema, Normal pulses, Regular rate/rhythm, Normal S1 S2 Gastrointestinal: Soft and benign, Non-distended Musculoskeletal: Contractures, Other (upper and lower extremity contractures) Neurological: Normal affect Assessment & Plan Physician Review Additional Text: Assessment Patient is a 75 year old female non-verbal at baseline brought in to the ER after she was found down in her home for an unknown duration. Work up during this hospital stay reveals severe rhabdomyolysis, ALBERT and NSTEMI. She is responding to volume repletion. Cardiology has performed an angiogram which revealed patent coranaries. Nephrology has been consulted for ALBERT 1. Rhabdomyolysis 2. NSTEMI - s/p angiogram, clean coron 3. Reduced mobility 4. Superficial spencer to elbow and R hand 5. HTN 6. CVA PLAN Continue volume repletion Resume home dose of lisinopril for BP control Nephrology recommends mucomyst for prevention of contrast-induced nephropathy. I will defer to Nephrology Continue daily monitoring of CK PT/OT Discharge planning to rehab.
--- NOTE | 2020-08-27 10:10 | P.PN ---
Subjective Date of Service: 08/27/20 Primary Care Provider: Maame Marquez Chief Complaint: Rhabdomyolysis A 75-year-old, PMhx of hypertension and CVA, HTN , afib pt was found on the ground for unknown duration in ER CPK 3300, troponin was 5.61. [place] white count was [address]. Her creatinine initially was 1.65 and is down to 0.9 after hydration. No previous cardiac history reported. today CPK improving S/P cardiac cath will cont IVF for now PT/OT Physical Examination: General: alert, NAD fascial bruised neck: supple, no elevated JVD Heart: RRR, normal S1,2 no murmur or rub chest CTAB, no rales or wheezes Abdomen: soft , NT ext : no edema A/P ALBERT due to dehydration and Rhabdomyolysis resolved renal dose meds Rhabdomyolysis due to fall will cont IVF cont to minitor CPK NSTEMI S/P cardiac cath as per cardiology Hx of CVA cont supportive care hypokalmeia replace prn Leuckocytosis resolved likely reactive debility PT/OT Physical Examination - Vital Signs Temperature: 96.8 F Blood Pressure: 168/71 Pulse: 86 Respirations: 18 Pulse Ox (%): 95
[2020-08-28] MEDS: NA CHLORIDE 0.9% 1,000 ML IV SCH (02:41)
[2020-08-28 05:17] LABS: Albumin 2.3 g/dL (3.4-5.0); BUN Blood Urea Nitrogen 5 mg/dL (7-18); Bicarbonate 26 mmol/L (21-32); Glucose Level 97 mg/dL (74-106); Phosphorus 2.1 mg/dL (2.5-4.9); Potassium 3.4 mmol/L (3.5-5.1); Sodium Level 144 mmol/L (136-145)
[2020-08-28 05:21] LABS: Creatine Phosphokinase 2342 U/L (26-192)
[2020-08-28 05:24] VITALS: TEMP 97.3
[2020-08-28] MEDS ORDERED: POTASSIUM CL SA 10 MEQ TAB PO ONE (05:36)
[2020-08-28] MEDS: POTASS/SODIUM PHOSPHATE 1 PKT POWD.PACK PO SCH ×5 (06:00→08:38)
[2020-08-28] MEDS ORDERED: POTASSIUM 25 MEQ EFFERV TAB PO ONE ×2 (06:22→08:00)
[2020-08-28] MEDS ORDERED: lisinopriL 20 MG TAB PO SCH (07:45)
--- NOTE | 2020-08-28 08:11 | P.DS ---
Admission Date: 08/22/20 Discharge Date: 08/28/20 Primary Care Provider: Maame Marquez Disposition: ROUTINE DISCHARGE Discharge Condition: GOOD Reason for Admission: Rhabdomyolysis Brief History of Present Illness: Please refer to H&P Hospital Course: Patient is a 75 year old female with a PMH of CVA with RUE contracture and decreased mobility. She was brought to the ER after she was found down for unknown period of time. She was admitted with a working diagnosis of syncope of unknown etiology. Additional work up revealed severe rhabdomyolysis with CK > 10,000, and elevated troponins. Her condition improved with IVF infusion. Cardiology performed a coronary angiogram which ruled out any significant coronary artery disease. Please report to left heart cath report for details. Otherwise, this has been an uneventful hospital stay. She has been cleared by Nephrology for discharge. Vital Signs/Physical Exam: Temp Pulse Resp BP Pulse Ox 97.3 F 72 16 141/60 H 98 08/28/20 04:00 08/28/20 04:00 08/28/20 04:00 08/28/20 04:00 08/28/20 04:00 General: In no apparent distress, Confused HEENT: Atraumatic, Normocephalic, EOMI Neck: Supple Respiratory: Clear to auscultation bilaterally, Normal air movement Cardiovascular: No edema, Normal pulses, Regular rate/rhythm, Normal S1 S2 Gastrointestinal: Normal bowel sounds, Soft and benign, Non-distended Musculoskeletal: Contractures, Other (RUE and LE contracture) Integumentary: No rashes, No breakdown, No significant lesion, No tenderness/swelling, No erythema, No warmth, No cyanosis Neurological: Dementia Laboratory Data at Discharge: WBC 10.4 K/uL (4.3-10.9) D 08/27/20 03:56 Hgb 13.4 g/dL (12.0-15.0) 08/27/20 03:56 Hct 39.4 % (36.0-45.0) 08/27/20 03:56 Plt Count 187 K/uL (152-406) 08/27/20 03:56 PT 12.5 SECONDS (9.5-12.5) 08/22/20 16:54 INR 1.06 08/22/20 16:54 APTT 24.6 SECONDS (24.3-36.9) 08/22/20 16:54 Sodium 144 mmol/L (136-145) 08/28/20 03:49 Potassium 3.4 mmol/L (3.5-5.1) L 08/28/20 03:49 BUN 5 mg/dL (7-18) L 08/28/20 03:49 Creatinine 0.44 mg/dL (0.55-1.3) L 08/28/20 03:49 Glucose 97 mg/dL (74-106) 08/28/20 03:49 Phosphorus 2.1 mg/dL (2.5-4.9) L 08/28/20 03:49 Magnesium 2.0 mg/dL (1.8-2.4) 08/28/20 03:49 Total Bilirubin 1.0 mg/dL (0.2-1.0) 08/22/20 18:15 AST 75 U/L (15-37) H 08/22/20 18:15 ALT 22 U/L (12-78) 08/22/20 18:15 Alkaline Phosphatase 72 U/L (45-117) 08/22/20 18:15 Troponin I 5.12 ng/mL (0.0-0.045) H* 08/23/20 12:10 Triglycerides 86 mg/dL (<150) 08/23/20 05:31 Cholesterol 187 mg/dL (<200) 08/23/20 05:31 HDL Cholesterol 39 mg/dL (40-60) L 08/23/20 05:31 Cholesterol/HDL Ratio 4.79 08/23/20 05:31 Amylase 73 U/L (25-115) 08/22/20 18:15 Lipase 119 U/L (73-393) 08/22/20 18:15 Home Medications: lisinopriL [Prinivil*] 40 mg PO DAILY #30 tab 08/28/20 New Medications: lisinopriL [Prinivil*] 40 mg PO DAILY #30 tab Diet: Regular
[2020-08-28 08:40] VITALS: BP 150/83
[2020-08-28 08:57] VITALS: O2SAT 93
== END 2020-08-28 11:13 | DRG 557 ==
LOC: ER 16:21 → ERHOLD 20:03 → 2ND 20:51
PROVIDERS: ADMIT Hospitalist; ATTEND Internal Medicine
PROC: 4A023N7 Measurement of Cardiac Sampling and Pressure, Left Heart, Percutaneous Approach (ICD-10-PCS; principal; 2020-08-25)
PROC: B2111ZZ Fluoroscopy of Multiple Coronary Arteries using Low Osmolar Contrast (ICD-10-PCS; 2020-08-25)
DX: M62.82 Rhabdomyolysis (principal); I21.A1 Myocardial infarction type 2; N17.9 Acute kidney failure, unspecified; E86.0 Dehydration; E87.6 Hypokalemia; I10 Essential (primary) hypertension; D72.829 Elevated white blood cell count, unspecified; M24.574 Contracture, right foot; M24.541 Contracture, right hand; T24.012A Burn of unspecified degree of left thigh, initial encounter; T24.011A Burn of unspecified degree of right thigh, initial encounter; T23.001A Burn of unspecified degree of right hand, unspecified site, initial encounter; T22.021A Burn of unspecified degree of right elbow, initial encounter; R23.8 Other skin changes; R53.81 Other malaise; R55 Syncope and collapse; W18.30XA Fall on same level, unspecified, initial encounter; Z86.73 Personal history of transient ischemic attack (TIA), and cerebral infarction without residual deficits; Z90.49 Acquired absence of other specified parts of digestive tract; Z79.899 Other long term (current) drug therapy; Z20.828 Contact with and (suspected) exposure to other viral communicable diseases
CPT/HCPCS: 36415; 70450; 71045; 71250; 72125; 76770; 80048; 80061; 80069; 80076; 81003; 81015; 82150; 82550; 82553; 82947; 83605; 83690; 83735; 84132; 84145; 84439; 84443; 84484; 85025; 85027; 85610; 85730; 87040; 87086; 87088; 93005; 93306; 93458; 96365; 96366; 97112; 97116; 97161; 97530; 99285; C1893; J0696; J1644; J2250; J3010; J3475; J3480; J7030; U0003

== ENCOUNTER 2020-10-01 07:59 | Emergency (ER) | payer OTHER ==
[2020-10-01] MEDS ORDERED: NA CHLORIDE 0.9% 1,000 ML ONE (09:04)
[2020-10-01 09:14] LABS: Absolute Lymphocytes (CBC) 1.6 K/uL (0.7-4.9); Basophils % 0.6 % (0-1.3); Hematocrit 34.3 % (36.0-45.0); Lymphocytes % 15.2 % (15.3-44.8); MPV 8.3 fL (7.6-11.3); Protime INR 1.1; RBC Red Blood Cell Count 3.99 M/uL (3.86-4.86)
[2020-10-01 09:48] LABS: ALT/SGPT 23 U/L (12-78); Albumin 2.4 g/dL (3.4-5.0); Alkaline Phosphatase 86 U/L (45-117); BUN Blood Urea Nitrogen 18 mg/dL (7-18); Bicarbonate 27 mmol/L (21-32); Bilirubin Direct 0.2 mg/dL (0-0.2); Bilirubin Total 0.7 mg/dL (0.2-1.0); Glucose Level 108 mg/dL (74-106); Lipase 167 U/L (73-393); NT PRO-BNP 908 pg/mL (<125); Protein, Total 6.7 g/dL (6.4-8.2); Sodium Level 138 mmol/L (136-145); Troponin (Emerg Dept Use Only) < 0.02 ng/mL (0.0-0.045)
[2020-10-01 09:50] LABS: AST/SGOT 43 U/L (15-37); Magnesium 2.2 mg/dL (1.8-2.4); Potassium 4.2 mmol/L (3.5-5.1)
--- NOTE | 2020-10-01 09:58 | RAD REPORT ---
EXAM DESCRIPTION: CT - Head C Spine Cap W Con - 10/01/2020 9:30 am CLINICAL HISTORY: Trauma, head and neck injury. Chest, abdomen and pelvis pain. PAIN COMPARISON: Head C Spine Cap Wo Con dated 08/22/2020 TECHNIQUE: CT head without contrast. CT cervical spine without contrast with coronal and sagittal reformatted images. CT chest, abdomen and pelvis with IV contrast (approximately 100 mL nonionic IV contrast) with rosado l and sagittal reformatted images of the spine. All CT scans are performed using dose optimization technique as appropriate and may include automated exposure control or mA/KV adjustment according to patient size. FINDINGS: CT HEAD WITHOUT CONTRAST: Multiple areas of gliosis are seen bilaterally most notable in the occipital lobes as well as the rig ht frontal region compatible with old infarction. There has been development of bilateral low-densit y extra-axial fluid collections, on the left measuring 13 mm thick and on the right 11 mm thick sugge sting bilateral subdural hygromas or chronic subdural hematomas. No shift of midline structures. No h ydrocephalus. The paranasal sinuses and mastoids are clear. The calvarium is intact. CT CERVICAL SPINE WITHOUT CONTRAST: No fracture or subluxation. Mild multilevel cervical degenerative changes are present. The prevertebr al soft tissues are normal in thickness. CT CHEST, ABDOMEN, PELVIS WITH CONTRAST: Small right pleural effusion is seen. Linear atelectasis is present in the left lung base.There is a moderate hiatal hernia with esophageal distention seen. No evidence of intra-abdominal visceral injury, free fluid or free air. Bilateral renal cysts are pre sent, largest on the left measuring 5.5 cm. Large multi fibroid uterus is suspected. Mild anterior wedge compression deformity affects T12 vertebral body, chronic. 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 Elsewhere, no acute traumatic finding is evident. Findings were discussed with Dr. Dumas in the emergency room 9:50 a.m. 10/01/2020 by telephone.
--- NOTE | 2020-10-01 10:10 | RAD REPORT ---
EXAM DESCRIPTION: RAD - Chest Single View - 10/01/2020 9:58 am CLINICAL HISTORY: COUGH Chest pain. COMPARISON: Chest Single View dated 08/22/2020; Chest Single View dated 08/25/2019; Chest Single View dated 06/18/2016 FINDINGS: Portable technique limits examination quality. The lungs are grossly clear. The heart is normal in size. No displaced fractures.Tortuous thoracic ao rta.
--- NOTE | 2020-10-01 10:13 | RAD REPORT ---
EXAM DESCRIPTION: RAD - Ankle Right 3 View - 10/01/2020 9:58 am CLINICAL HISTORY: PAIN COMPARISON: No comparisons FINDINGS: Moderate soft tissue swelling is seen about the ankle. No acute fracture or dislocation se en. Small plantar calcaneal spur.
--- NOTE | 2020-10-01 10:26 | EDPHYS ---
Physician Documentation [facility] Name: Carey Mcdaniel Age: 75 yrs Sex: Female : 1945 Arrival Date: 10/01/2020 Time: 08:02 Bed 3 Private MD: ED Physician Micah Dumas HPI: 10/01 08:43 This 75 yrs old Female presents to ER via Ambulatory with complaints of Fall nida Injury. 08:43 Details of fall: The patient fell from an upright position, while walking. Onset: The nida symptoms/episode began/occurred yesterday. Associated injuries: The patient sustained injury to the head, injury to the chest, injury to the abdomen. Severity of symptoms: At their worst the symptoms were mild, in the emergency department the symptoms are unchanged. 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 - Social history:: Smoking status: Patient denies any tobacco usage or history of. ROS: 08:44 Constitutional: Negative for fever, chills, and weight loss, Eyes: Negative for injury, nida pain, redness, and discharge, ENT: Negative for injury, pain, and discharge, Neck: Negative for injury, pain, and swelling, Cardiovascular: Negative for chest pain, palpitations, and edema, Respiratory: Negative for shortness of breath, cough, wheezing, and pleuritic chest pain, Abdomen/GI: Negative for abdominal pain, nausea, vomiting, diarrhea, and constipation, Back: Negative for injury and pain, Skin: Negative for injury, rash, and discoloration, Psych: Negative for depression, anxiety, suicide ideation, homicidal ideation, and hallucinations, Allergy/Immunology: Negative for hives, rash, and allergies, Endocrine: Negative for neck swelling, polydipsia, polyuria, polyphagia, and marked weight changes, Hematologic/Lymphatic: Negative for swollen nodes, abnormal bleeding, and unusual bruising. 08:44 MS/extremity: Positive for contusion, decreased range of motion, pain, of the right elbow. Exam: 08:44 Constitutional: This is a well developed, well nourished patient who is awake, alert, nida and in no acute distress. Eyes: Pupils equal round and reactive to light, extra-ocular motions intact. Lids and lashes normal. Conjunctiva and sclera are non-icteric and not injected. Cornea within normal limits. Periorbital areas with no swelling, redness, or edema. ENT: Nares patent. No nasal discharge, no septal abnormalities noted. Tympanic membranes are normal and external auditory canals are clear. Oropharynx with no redness, swelling, or masses, exudates, or evidence of obstruction, uvula midline. Mucous membranes moist. Neck: Trachea midline, no thyromegaly or masses palpated, and no cervical lymphadenopathy. Supple, full range of motion without nuchal rigidity, or vertebral point tenderness. No Meningismus. Chest/axilla: Normal chest wall appearance and motion. Nontender with no deformity. No lesions are appreciated. Cardiovascular: Regular rate and rhythm with a normal S1 and S2. No gallops, murmurs, or rubs. Normal PMI, no JVD. No pulse deficits. Respiratory: Lungs have equal breath sounds bilaterally, clear to auscultation and percussion. No rales, rhonchi or wheezes noted. No increased work of breathing, no retractions or nasal flaring. Abdomen/GI: Soft, non-tender, with normal bowel sounds. No distension or tympany. No guarding or rebound. No evidence of tenderness throughout. Back: No spinal tenderness. No costovertebral tenderness. Full range of motion. Skin: Warm, dry with normal turgor. Normal color with no rashes, no lesions, and no evidence of cellulitis. Neuro: Awake and alert, GCS 15, oriented to person, place, time, and situation. Cranial nerves II-XII grossly intact. Motor strength 5/5 in all extremities. Sensory grossly intact. Cerebellar exam normal. Normal gait. Psych: Awake, alert, with orientation to person, place and time. Behavior, mood, and affect are within normal limits. 08:44 Musculoskeletal/extremity: ROM: full active range of motion, full passive range of motion, in the right arm, right ankle swollen, not painful. 09:28 ECG was reviewed by the Attending Physician. [facility] Vital Signs: 08:08 BP 97 / 60; Pulse 90; Resp 16; Temp 97.7; Pulse Ox 100% on R/A; Pain 0/10; bb 10:30 BP 128 / 66; Pulse 65; Resp 18; Pulse Ox 100% on R/A; ph 11:39 BP 136 / 61; Pulse 81; Resp 20; Pulse Ox 100% on R/A; zb 12:40 BP 106 / 89; Pulse 72; Resp 19; Pulse Ox 99% on R/A; zb 13:40 BP 114 / 56; Pulse 63; Resp 16; Pulse Ox 99% on R/A; zb 08:08 Vero (FACES) bb Bowdon Coma Score: 08:46 Eye Response: spontaneous(4). Verbal Response: oriented(5). Motor Response: obeys nida commands(6). Total: 15. 09:45 Eye Response: to voice(3). Verbal Response: oriented(5). Motor Response: obeys zb commands(6). Total: 14. 14:58 Eye Response: spontaneous(4). Verbal Response: confused(4). Motor Response: obeys zb commands(6). Total: 14. Trauma Score (Adult): 10:32 Eye Response: spontaneous(1); Verbal Response: confused(1); Motor Response: obeys ph commands(2); Systolic BP: > 89 mm Hg(4); Respiratory Rate: 10 to 29 per min(4); Bowdon Score: 14; Trauma Score: 12; hx of CVA, A\T\O x 1 at baseline 14:58 Eye Response: spontaneous(1); Verbal Response: confused(1); Motor Response: obeys zb commands(2); Systolic BP: > 89 mm Hg(4); Respiratory Rate: 10 to 29 per min(4); Viral Score: 14; Trauma Score: 12 MDM: 08:15 Patient medically screened. nida 08:46 Differential diagnosis: Contusion of Hematoma on Laceration of Intracranial bleed- nida Concussion cerebral contusion, closed fracture, contusion. Differential diagnosis: abrasion, closed head injury, contusion, fracture, multiple trauma, sprain. Data reviewed: vital signs, nurses notes, lab test result(s), EKG, radiologic studies, CT scan, plain films. Data interpreted: compliance monitor: rate is 90 beats/min, rhythm is regular, Pulse oximetry: on room air. Test interpretation: by ED physician or midlevel provider: ECG, plain radiologic studies. Counseling: I had a detailed discussion with the patient and/or guardian regarding: the historical points, exam findings, and any diagnostic results supporting the discharge/admit diagnosis, lab results, radiology results. 10/01 08:43 Order name: Basic Metabolic Panel [facility] 10/01 08:43 Order name: CBC with Diff [facility] 10/01 08:43 Order name: LFT's [facility] 10/01 08:43 Order name: Magnesium [facility] 10/01 08:43 Order name: NT PRO-BNP; Complete Time: 10:06 [facility] 10/01 08:43 Order name: PT-INR; Complete Time: 10:06 [facility] 10/01 08:43 Order name: Troponin (emerg Dept Use Only); Complete Time: 10:06 [facility] 10/01 08:43 Order name: Lipase; Complete Time: 10:06 [facility] 10/01 08:43 Order name: Urine Culture [facility] 10/01 08:44 Order name: Basic Metabolic Panel; Complete Time: 10:06 [facility] 10/01 08:44 Order name: CBC with Automated Diff; Complete Time: 10:06 [facility] 10/01 08:44 Order name: Liver (Hepatic) Function; Complete Time: 10:06 [facility] 10/01 08:44 Order name: Magnesium; Complete Time: 10:06 [facility] 10/01 10:29 Order name: Urine Dipstick--Ancillary (enter results) 10/01 08:43 Order name: XRAY Chest (1 view); Complete Time: 10:19 [facility] 10/01 08:43 Order name: EKG; Complete Time: 08:44 [facility] 10/01 08:43 Order name: Cardiac monitoring; Complete Time: 14:56 [facility] 10/01 08:43 Order name: EKG - Nurse/Tech; Complete Time: 09:26 [facility] 10/01 08:43 Order name: IV Saline Lock; Complete Time: 09:26 [facility] 10/01 08:43 Order name: Labs collected and sent; Complete Time: 14:56 [facility] 10/01 08:43 Order name: O2 Per Protocol; Complete Time: 11:37 [facility] 10/01 08:43 Order name: O2 Sat Monitoring; Complete Time: 11:37 [facility] 10/01 08:43 Order name: CT Traumagram (Head C Spine CAP W Con); Complete Time: 10:06 [facility] 10/01 08:43 Order name: Urine Dipstick-Ancillary (obtain specimen); Complete Time: 10:41 [facility] 10/01 08:43 Order name: Ankle Right 3 View XRAY; Complete Time: 10:19 [facility] 10/01 08:43 Order name: Wound Care: right elbow; Complete Time: 11:43 [facility] 10/01 13:51 Order name: CREATININE WHOLE BLOOD EDMS EC:28 Rate is 73 beats/min. Rhythm is regular. QRS [place] is Normal. VA interval is normal. QRS nida interval is normal. QT interval is normal. No Q waves. T waves are Normal. No ST changes noted. Clinical impression: NSR w/ Non-specific ST/T Changes and No evidence of ischemia. Interpreted by me. Reviewed by me. Administered Medications: 09:46 Drug: NS 0.9% 1000 ml Route: IV; Rate: 125 ml/hr; Site: left antecubital; zb 15:20 Follow up: Response: No adverse reaction; IV Status: Infusion continued upon transfer zb 10:59 Drug: Rocephin 1 grams Route: IV; Rate: per protocol; Site: left antecubital; ph 11:00 Follow up: Response: No adverse reaction; IV Status: Completed infusion; IV Intake: 20mlph Disposition: 10/01/20 10:[address] [facility]. 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 - Reason for transfer: Higher level of care. - Accepting physician is to [facility]. - Condition is Fair. - Problem is new. - Symptoms have improved. Signatures: Dispatcher [employer] EDMS Micah Dumas MD MD cha Ballard, Brenda, RN RN bb Hall, Patricia, RN RN ph Brown, Zipporah, RN RN elvi Corrections: (The following items were deleted from the chart) 15:27 10:25 10/01/2020 10:[address] [facility]. 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 Reason for transfer: Higher level of care. Accepting physician is to [facility]. Condition is Fair. Problem is new. Symptoms have improved. nida
--- NOTE | 2020-10-01 10:26 | ER ---
Nurse's Notes [facility] Name: Carey Mcdaniel Age: 75 yrs Sex: Female : 1945 Arrival Date: 10/01/2020 Time: 08:02 Bed 3 Private MD: Diagnosis: Fall due to bumping against object;Repeated falls;Traumatic subdural hemorrhage without loss of consciousness-bilateral , chronic, hygromas;Urinary tract infection, site not specified;Pleural effusion in conditions classified elsewhere;Congenital hiatus hernia-moderate;Weakness;Leiomyoma of uterus Presentation: 10/01 08:06 Chief complaint: Daughter reports multiple falls yesterday. AOx1 at baseline. Bruising bb noted to right side of face. Care prior to arrival: None. Mechanism of Injury: Fall from standing position. 08:06 Acuity: EKATERINA 3 bb 08:06 Method Of Arrival: Ambulatory bb 08:08 Coronavirus screen: At this time, the client does not indicate any symptoms associated bb with coronavirus-19. Ebola Screen: No symptoms or risks identified at this time. Initial Sepsis Screen: Does the patient meet any 2 criteria? No. Patient's initial sepsis screen is negative. Does the patient have a suspected source of infection? No. Patient's initial sepsis screen is negative. Risk Assessment: Do you want to hurt yourself or someone else? Patient reports no desire to harm self or others. Onset of symptoms was September 30, 2020. 14:57 Trauma event details: Injury occurred in the [facility], Injury occurred: at zb home. Injury occurred: October 01, 2020. Trauma Activation: Not Applicable Physician: ED Physician; Name: ; Notified At: ; Arrived At: Physician: General Surgeon; Name: ; Notified At: ; Arrived At: Physician: Radiology; Name: ; Notified At: ; Arrived At: Physician: Respiratory; Name: ; Notified At: ; Arrived At: Physician: Lab; Name: ; Notified At: ; Arrived At: Historical: - Allergies: 08:09 No Known Allergies; bb - Home Meds: 08:09 lisinopril Oral [Active]; bb - PMHx: 08:09 CVA; Right sided weakness; Hypertension; bb - Immunization history:: Adult Immunizations up to date. - Social history:: Smoking status: Patient denies any tobacco usage or history of. Screenin:44 Abuse screen: Denies threats or abuse. Denies injuries from another. Nutritional zb screening: No deficits noted. Tuberculosis screening: No symptoms or risk factors identified. Fall Risk Fall in past 12 months (25 points). Secondary diagnosis (15 points) impaired mobility, IV access (20 points). Ambulatory Aid- Crutches/Cane/Walker (15 pts). Gait- Impaired (20 pts.). Mental Status- Oriented to own ability (0 pts). Total Carlton Fall Scale indicates High Risk Score (45 or more points). Fall prevention measures have been instituted. Side Rails Up X 2 Placed Close to Nursing Station Frequent Obs/Assessments Occuring Family Present and informed to notify staff if the need to leave the bedside As available patient and family educated on Fall Prevention Program and Strategies. Primary Survey: 09:46 Reassessment Breathing/Chest. zb 10:00 NO uncontrolled hemorrhage observed. A: The patient is alert. Airway: patent. ph Breathing/Chest: Respiratory pattern: regular, Respiratory effort: spontaneous, unlabored, Chest inspection: symmetrical rise and fall of the chest. Circulation: Skin color: pink, Skin temperature: warm, dry. Disability Alert. Exposure/Environment: All clothing and personal items were removed. Forensic evidence collection is not deemed to be indicated at this time. Items placed in patient belonging bag. Secondary Survey: 19:28 HEENT: Head Other R facial bruising. Gastrointestinal: No deficits noted. : No signs zb and/or symptoms were reported regarding the genitourinary system. Musculoskeletal:. Right Elbow skin tear. Assessment: 09:27 General: Appears in no apparent distress. comfortable, Behavior is calm, drowsy, quiet. zb Pain: Unable to use pain scale. Patient is disoriented. Neuro: Level of Consciousness is obeys commands, lethargic, Oriented to person, place. Cardiovascular: Capillary refill is sluggish in bilateral fingers. Respiratory: Airway is patent Trachea midline Respiratory effort is even, unlabored. GI: No signs and/or symptoms were reported involving the gastrointestinal system. : No signs and/or symptoms were reported regarding the genitourinary system. EENT: No signs and/or symptoms were reported regarding the EENT system. Derm: Skin is fragile, is thin, Skin is normal, Bruising that is dark purple. Musculoskeletal: Right arm contracture. Injury Description: Bruise sustained to forehead, right ear and right religious is purple, was sustained 12-24 hours ago. 10:30 Reassessment: Patient appears in no apparent distress at this time. Patient and/or ph family updated on plan of care and expected duration. Pain level reassessed. Reassessment: No changes from previously documented assessment. Neuro: Level of Consciousness is obeys commands, lethargic, Oriented to person, place. 11:30 Reassessment: Patient appears in no apparent distress at this time. No changes from zb previously documented assessment. Patient and/or family updated on plan of care and expected duration. Pain level reassessed. 11:40 Reassessment: SBAR report given to LON Terry at [facility]. notified zb daughter of POC. 12:33 Reassessment: Patient appears in no apparent distress at this time. Patient and/or zb family updated on plan of care and expected duration. Pain level reassessed. pt requested to use the restroom placed on bedpan. advised daughter to press call light when patient is done. 13:33 Reassessment: Patient appears in no apparent distress at this time. No changes from b previously documented assessment. Patient and/or family updated on plan of care and expected duration. Pain level reassessed. 14:30 Reassessment: Patient appears in no apparent distress at this time. No changes from b previously documented assessment. Patient and/or family updated on plan of care and expected duration. Pain level reassessed. d/c pending tranfer to [facility]. 15:12 Reassessment: Patient appears in no apparent distress at this time. ambulance here to zb pickler helper patient . report given to EMS. pt stable and family at bedside. Vital Signs: 08:08 BP 97 / 60; Pulse 90; Resp 16; Temp 97.7; Pulse Ox 100% on R/A; Pain 0/10; bb 10:30 BP 128 / 66; Pulse 65; Resp 18; Pulse Ox 100% on R/A; ph 11:39 BP 136 / 61; Pulse 81; Resp 20; Pulse Ox 100% on R/A; zb 12:40 BP 106 / 89; Pulse 72; Resp 19; Pulse Ox 99% on R/A; zb 13:40 BP 114 / 56; Pulse 63; Resp 16; Pulse Ox 99% on R/A; zb 08:08 Vero (FACES) bb Viral Coma Score: 08:46 Eye Response: spontaneous(4). Verbal Response: oriented(5). Motor Response: obeys nida commands(6). Total: 15. 09:45 Eye Response: to voice(3). Verbal Response: oriented(5). Motor Response: obeys zb commands(6). Total: 14. 14:58 Eye Response: spontaneous(4). Verbal Response: confused(4). Motor Response: obeys zb commands(6). Total: 14. Trauma Score (Adult): 10:32 Eye Response: spontaneous(1); Verbal Response: confused(1); Motor Response: obeys ph commands(2); Systolic BP: > 89 mm Hg(4); Respiratory Rate: 10 to 29 per min(4); Viral Score: 14; Trauma Score: 12; hx of CVA, A\T\O x 1 at baseline 14:58 Eye Response: spontaneous(1); Verbal Response: confused(1); Motor Response: obeys zb commands(2); Systolic BP: > 89 mm Hg(4); Respiratory Rate: 10 to 29 per min(4); Viral Score: 14; Trauma Score: 12 ED Course: 08:02 Patient arrived in ED. mr 08:08 Triage completed. bb 08:09 Arm band placed on. bb 08:09 Patient has correct armband on for positive identification. Fall risk band placed. Bed zb in low position. Call light in reach. Side rails up X 1. Adult w/ patient. monitoring coordinator on. Pulse ox on. NIBP on. Door closed. Noise minimized. Warm blanket given. 08:09 No provider procedures requiring assistance completed. zb 08:15 Micah Dumas MD is Attending Physician. nida 08:20 Inserted saline lock: 20 gauge in right antecubital area, using aseptic technique. zb 09:13 Birgit Birmingham RN is Primary Nurse. zb 09:31 CT Traumagram (Head C Spine CAP W Con) In Process Unspecified. EDMS 09:58 XRAY Chest (1 view) In Process Unspecified. EDMS 09:58 Ankle Right 3 View XRAY In Process Unspecified. EDMS 10:31 Straight cath inserted, using sterile technique, 16 Fr. Specimen obtained. ph 13:[address] [facility], pt accepted by dr hopkins, admin approval bd given by javier chew. 14:58 Patient maintains SpO2 saturation greater than 95% on room air. zb 14:58 Thermoregulation: warm blanket given to patient. zb 15:26 Patient transferred, IV remains in place. intact. zb Administered Medications: 09:46 Drug: NS 0.9% 1000 ml Route: IV; Rate: 125 ml/hr; Site: left antecubital; zb 15:20 Follow up: Response: No adverse reaction; IV Status: Infusion continued upon transfer zb 10:59 Drug: Rocephin 1 grams Route: IV; Rate: per protocol; Site: left antecubital; ph 11:00 Follow up: Response: No adverse reaction; IV Status: Completed infusion; IV Intake: 20mlph Intake: 10:32 PO: 0ml; Total: 0ml. ph 11:00 IV: 20ml; Total: 20ml. ph Output: 10:32 Urine: 150ml (Straight Cath); Total: 150ml. ph Outcome: 10:25 ER care complete, transfer ordered by . [facility] 15:23 Transferred by ground EMS [facility]. to [facility], Transfer form zb completed. X-rays sent w/ patient. 15:23 Condition: stable 15:23 Instructed on the need for transfer. 15:27 Patient left the ED. zb 15:27 Patient's length of stay in the Emergency Department was greater than 2 hours. patient zb [facility] extended due to Signatures: Dispatcher [employer] EDMS Kandace Finnegan Corey, MD MD cha Rivera, Anupama mr Janay Pimentel, Radha Paez RN, RN RN Birgit Espana RN RN zluiz Corrections: (The following items were deleted from the chart) 15:11 12:33 Reassessment: Patient appears in no apparent distress at this time. Patient zb and/or family updated on plan of care and expected duration. Pain level reassessed. Patient is alert, oriented x 3, equal unlabored respirations, skin warm/dry/pink. pt requested to use the restroom placed on bedpan. advised daughter to press call light when patient is done zb 15:26 15:12 Reassessment: Patient appears in no apparent distress at this time. ambulance zb here to pickler helper patient zb
[2020-10-01 10:34] LABS: Urine Blood TRACE (NEG); Urine Glucose NEGATIVE (NEG); Urine Protein 1+ (NEG); Urine Specific Gravity 1.015 (1.005-1.030); Urine pH 6.5 (5.0-7.0)
[2020-10-01] MEDS ORDERED: CEFTRIAXONE/SWI 1gm 1 GM/10 ML SYR ONE (10:59)
[2020-10-01 16:11] VITALS: TEMP 97.7
[2020-10-01 16:16] VITALS: O2SAT 99
[2020-10-01 16:17] VITALS: BP 114/56
--- NOTE | 2020-10-01 18:04 | EKG ---
Test Date: 2020-10-01 Test Time: 09:12:50 Terrazzo Mechanic: TERESA MEASUREMENT RESULTS: Intervals: Rate: 73 NV: 140 QRSD: 66 QT: 436 QTc: 480 [place]: P: 30 NV: 140 QRS: 16 T: 25 INTERPRETIVE STATEMENTS: Normal sinus rhythm Normal ECG Compared to ECG 08/22/2020 16:58:06 Sinus tachycardia no longer present Left ventricular hypertrophy no longer present Early repolarization no longer present Electronically Signed On 10-01-20 18:02:38 SUBMARINE ELEMENT COORDINATOR by Yobany [place]
== END 2020-10-01 15:27 | disposition short-term general hospital (02) ==
LOC: ER 07:59
DX: S06.5X0A Traumatic subdural hemorrhage without loss of consciousness, initial encounter (principal); N39.0 Urinary tract infection, site not specified; R29.6 Repeated falls; D18.1 Lymphangioma, any site; J91.8 Pleural effusion in other conditions classified elsewhere; R53.1 Weakness; Q40.1 Congenital hiatus hernia; D25.9 Leiomyoma of uterus, unspecified; S50.01XA Contusion of right elbow, initial encounter; W18.00XA Striking against unspecified object with subsequent fall, initial encounter; Y93.01 Activity, walking, marching and hiking; Y92.9 Unspecified place or not applicable; I10 Essential (primary) hypertension
CPT/HCPCS: 93005; 87088; 85025; 87086; 80048; 36415; 83735; 85610; 82565; 80076; 81003; 84484; 83690; 83880; 70450; 72125; 71260; 74177; 71045; 73610; Q9967; J0696; J7030

== ENCOUNTER 2022-01-29 10:20 | Emergency (ER) | payer OTHER ==
--- OUTSIDE RECORDS SUMMARY | 2022-01-29 10:23 | XMS REPORT | Continuity of Care Document ---
:1945 Author Organization [facility] t Address [address] [place] [address] Care Team Providers Name Role Phone Cody Navarrete Attending Clinician Unavailable ELIGIO TAN Attending Clinician Unavailable ELIGIO TAN Admitting Clinician Unavailable LEIDA Admitting Clinician Unavailable Payers Payer Name Policy Type Policy Number Effective Date Expiration Date S [facility] MEDICARE A B [id number] 2001 00:00:00 Problems This patient has no known problems. Allergies, Adverse Reactions, Alerts Allergy Allergy Status Severity Reaction(s) Onset Inactive Treating Comm ents Source Name Type Date Date Clinician NO KNOWN Allergy Active [facility] Medications This patient has no known medications. Vital Signs Vital Name Observation Time Observation Value Comments Source HEIGHT 2020-10-01 17:00:00 149.9 cm WEIGHT 2020-10-01 17:00:00 50.349 kg HEIGHT 2020-10-01 17:00:00 149.9 cm WEIGHT 2020-10-01 17:00:00 50.349 kg Procedures This patient has no known procedures. Encounters Start End Encounter Admission Attending Care Care Encounter Source Date/Time Date/Time Type Type Clinicians Facility Department ID 2021-12-[address] [facility] [id number] 14:34:[address] [facility] cody [facility] 2021-12-[address] [facility] [id number] 13:56:50 [id number] [facility] 2021-12-16 Outpatient Jahaira Navarrete [facility] [id number] [facility] 13:45:46 [id number] [facility] 2021-12-16 Outpatient Jahaira Navarrete [facility] [id number] [facility] 13:06:59 [id number] [facility] 2021-12-16 Outpatient Jahaira Navarrete [facility] [id number] [facility] 13:06:24 [id number] [facility] 2021-12-16 Outpatient Jahaira Navarrete [facility] [id number] 12:46:16 [id number] [facility] 2021-08-27 Inpatient [facility] [id number] 11:13:10 LINDSAY DOWLING 2022-01-12 2022-01-12 ambulatory [facility] [id number] [facility] 2022-01-12 2022-01-12 ambulatory [facility] [id number] [facility] 2021-12-03 2021-12-03 ambulatory [facility] [id number] [facility] 2021-08-15 2021-08-15 Outpatient [facility] [id number] [facility] 2021-08-05 2021-08-05 Outpatient [facility] [id number] [facility] 2021-07-24 2021-07-24 Outpatient [facility] [id number] [facility] 2021-04-14 2021-04-14 Outpatient [facility] [id number] [facility] 2021-04-10 2021-04-[address] [facility] [id number] [facility]00 [facility] 2021-02-17 2021-02-[address] [facility] [id number] [facility]00 [facility] Results Test Description Test Time Test Comments Results Result Comments Source POCT-GLUCOSE METER 2020-10-03 06:28:00 Test Item Value Reference Range Interpretation Comme nts POC-GLUCOSE METER (BEAKER) 96 mg/dL 70-110 : Notified RN/MD: TESTED AT [facility] (test code = 1538) [address] [place] [address], [address]: Horse Farm Manager/Techni eli ID = [id number] for LATHBRIDGE, EUNICE ICE POCT-GLUCOSE [id number] 00:00:00 Test Item Value Reference Range Interpretation Comments POC-GLUCOSE METER 101 mg/dL 70-110 : Notified RN/MD: (BEAKER) (test code = TESTED AT [place] [address] 1538) [facility], [address]: Horse Farm Manager/Techni eli ID = [id number] for LATHBRIDGE, EUNICE ICE RAD, SHOULDER, COMPLETE (MIN 2 VIEWS), [id number] 13:20:00Reason for exam:- >Right shoulder pain [facility] : 1945 Sex: FFINAL REPORT Right shoulder dated 10/02/2020 Clinical Information: Right shoulder pain Comment: 2 views of the right shoulder were submitted for interpretation. No fracture, dislocation, or subluxation is seen in the right shoulder. Humeroglenoid, acromioclavicular, and coracoclavicular joints are well maintained. Soft tissue of the right shoulder is unremarkable. Impression: Nothing abnormal seen the bones or soft tissue in the right shoulder. Signed: Jenna Longoria MDReport Verified Date/Time: 10/02/2020 13:20:31 Reading Location: [facility] Radiology Reading Room POCT-GLUCOSE [id number] 06:23:00 Test Item Value Reference Range Interpretation Comments POC-GLUCOSE METER 103 mg/dL 70-110 : Notified RN/MD: (SHAMIR) (test code = TESTED AT [facility] 6720 1538) [facility], [address]: Horse Farm Manager/Techni eli ID = [id number] for EUNICE SNIDER ICE PT/[id number] 04:55:00 Test Item Value Reference Range Interpretation Comments PROTIME (BEAKER) (test code = 14.9 seconds 11.9-14.2 H 759) INR (BEAKER) (test code = 370) 1.20 <=5.90 PARTIAL THROMBOPLASTIN TIME 30.5 seconds 22.5-36.0 (BEAKER) (test code = 760) Effective 04/18/2019: PT Reference Range ChangeNew: 11.9-14.2 Previous: 11.7- 14.7RECOMMENDED COUMADIN/WARFARIN INR THERAPY RANGESSTANDARD DOSE: 2.0-3.0 Includes: PROPHYLAXIS for venous thrombosis, systemic embolization; TREATMENT for venous thrombosis and/or pulmonary embolus.HIGH RISK: Target INR is2.5-3.5 for patients wiht mechanical heart valves.BASIC METABOLIC [id number] 04:39:00 Test Item Value Reference Range Interpretation Comments SODIUM (BEAKER) 138 meq/L 136-145 (test code = 381) POTASSIUM (BEAKER) 3.7 meq/L 3.5-5.1 Specimen slightly (test code = 379) hemolyzed CHLORIDE (BEAKER) 106 meq/L 98-107 (test code = 382) CO2 (BEAKER) (test 24 meq/L 22-29 code = 355) BLOOD UREA NITROGEN 12 mg/dL 7-21 (BEAKER) (test code = 354) CREATININE (BEAKER) 0.72 mg/dL 0.57-1.25 Specimen slightly (test code = 358) hemolyzed GLUCOSE RANDOM 97 mg/dL 70-105 (BEAKER) (test code = 652) CALCIUM (BEAKER) 7.8 mg/dL 8.4-10.2 L (test code = 697) EGFR (BEAKER) (test 79 mL/min/1.73 ESTIMA BARBARA GFR IS code = 1092) sq m NOT ACCURATE CREATININE CLEARANCE IN PREDICTING GLOMERULAR FILTRATION RATE . ESTIMATED GFR I S NOT APPLICABLE FOR DIALYSIS PATIEN TS. Horse Farm Manager ID - HILARIO [facility] W/PLT COUNT & AUTO [id number] 04:08:00 Test Item Value Reference Range Interpretation Comments WHITE BLOOD CELL COUNT (BEAKER) 8.7 K/ L 3.5-10.5 (test code = 775) RED BLOOD CELL COUNT (BEAKER) 3.90 M/ L 3.93-5.22 L (test code = 761) HEMOGLOBIN (BEAKER) (test code = 11.1 GM/DL 11.2-15.7 L 410) HEMATOCRIT (BEAKER) (test code = 34.8 % 34.1-44.9 411) MEAN CORPUSCULAR VOLUME (BEAKER) 89.2 fL 79.4-94.8 (test code = 753) MEAN CORPUSCULAR HEMOGLOBIN 28.5 pg 25.6-32.2 (BEAKER) (test code = 751) MEAN CORPUSCULAR HEMOGLOBIN CONC 31.9 GM/DL 32.2-35.5 L (BEAKER) (test code = 752) RED CELL DISTRIBUTION WIDTH 13.8 % 11.7-14.4 (BEAKER) (test code = 412) PLATELET COUNT (BEAKER) (test 396 K/CU MM 150-450 code = 756) MEAN PLATELET VOLUME (BEAKER) 9.9 fL 9.4-12.3 (test code = 754) NUCLEATED RED BLOOD CELLS 0 /100 WBC 0-0 (BEAKER) (test code = 413) NEUTROPHILS RELATIVE PERCENT 73 % (BEAKER) (test code = 429) LYMPHOCYTES RELATIVE PERCENT 18 % (BEAKER) (test code = 430) MONOCYTES RELATIVE PERCENT 8 % (BEAKER) (test code = 431) EOSINOPHILS RELATIVE PERCENT 0 % (BEAKER) (test code = 432) BASOPHILS RELATIVE PERCENT 1 % (BEAKER) (test code = 437) NEUTROPHILS ABSOLUTE COUNT 6.35 K/ L 1.56-6.13 H (BEAKER) (test code = 670) LYMPHOCYTES ABSOLUTE COUNT 1.56 K/ L 1.18-3.74 (BEAKER) (test code = 414) MONOCYTES ABSOLUTE COUNT (BEAKER) 0.67 K/ L 0.24-0.36 H (test code = 415) EOSINOPHILS ABSOLUTE COUNT 0.03 K/ L 0.04-0.36 L (BEAKER) (test code = 416) BASOPHILS ABSOLUTE COUNT (BEAKER) 0.04 K/ L 0.01-0.08 (test code = 417) IMMATURE GRANULOCYTES-RELATIVE 0 % 0-1 PERCENT (BEAKER) (test code = 2801) URINALYSIS W/ [id number] 00:08:00 Test Item Value Reference Range Interpretation Comments COLOR (BEAKER) (test code = Yellow 470) CLARITY (BEAKER) (test code = Hazy 469) SPECIFIC GRAVITY UA (BEAKER) 1.022 1.001-1.035 (test code = 468) PH UA (BEAKER) (test code = 6.5 5.0-8.0 467) PROTEIN UA (BEAKER) (test code 30 mg/dL Negative A = 464) GLUCOSE UA (BEAKER) (test code Negative Negative = 365) KETONES UA (BEAKER) (test code 20 mg/dL Negative A = 371) BILIRUBIN UA (BEAKER) (test Negative Negative code = 462) BLOOD UA (BEAKER) (test code = Small Negative A 461) NITRITE UA (BEAKER) (test code Negative Negative = 465) LEUKOCYTE ESTERASE UA (BEAKER) Large Negative A (test code = 466) UROBILINOGEN UA (BEAKER) (test 0.2 mg/dL 0.2-1.0 code = 463) RBC UA (BEAKER) (test code = 8 /HPF 519) WBC UA (BEAKER) (test code = 100 /HPF 520) BACTERIA (BEAKER) (test code = Occasional 517) SQUAMOUS EPITHELIAL (BEAKER) < /HPF (test code = 516) SOURCE(BEAKER) (test code = Urine, Voided 7649) Horse Farm Manager ID - [auto]POCT-GLUCOSE [id number] 23:59:00 Test Item Value Reference Range Interpretation Comments POC-GLUCOSE METER 93 mg/dL 70-110 : Notified RN/MD: TESTED (BEAKER) (test code = AT [facility] [address] [address]) [place], [address]: Horse Farm Manager/Techni eli ID = [id number] for DORIS RUSS CT, BRAIN, WITHOUT [id number] 21:38:00Unlisted Reason for Exam - Click Yes and Enter Reason Below->No [facility] : 1945 Sex: FFINAL REPORT EXAM: CT head without contrast. CLINICAL HISTORY: Altered mental status COMPARISON: None. TECHNIQUE: CT images of the head were obtained without intravenous contrast. This exam was performed according to our departmental dose optimization program which includes automated exposure control, adjustment of the mA and/or kV according to patient's size and/or use of iterative reconstructive technique. FINDINGS: There are bilateral hypodense cerebral convexity subdural collections measuring up to 17 mm in thickness on the right and 18 mm on the left, which may represent chronic subdural hematomas or subdural hygromas. There is associated parenchymal mass effect. There is a 2 mm tfio-tf-bpwnj midline shift at the level of the septum pellucidum. There are chronic infarcts in the bilateral frontal, bilateral parietal, bilateral occipital and bilateral posteriortemporal lobes. There are chronic lacunar infarcts in the left basal ganglia. There is a small chronic right cerebellar infarct. There is mild linear hyperdensity in the left posterior temporal lobe favored to represent mineralization rather than acute hemorrhage (best seen on sagittal images 30-31). There is no hydrocephalus or large demarcated acute territorial infarct. The basal cisterns are patent. The visualized orbits are normal. There is mild opacification of the bilateral mastoid air cells.There is bilateral anterior ethmoid sinus mucosal opacification. The skull base and calvarium are intact. IMPRESSION: Bilateral hypodense cerebral convexity subdural collections, which may represent subdural hygromas or chronic subdural hematomas. Associated parenchymal mass effect. 2 mm jukf-dl-xelhi midline shift. Multiple chronic infarcts as described. Mild linear hyperdensity in the left posterior temporal lobe favored to represent mineralization rather than acute hemorrhage. Short-term follow-up is recommended. No hydrocephalus. Signed: Raz Mccauley MDReport Verified Date/Time: 10/01/2020 21:38:28 RAD, CHEST, 1 VIEW, NON [id number] 20:22:00Reason for exam:->coughShould this be performed at the bedside?->Yes [facility] : 1945 Sex: FFINAL REPORT TECHNIQUE: Frontal view of the chest. INDICATION: cough COMPARISON: None. FINDINGS: LINES/TUBES: None. LUNGS: The lungs are well inflated and clear. No consolidation or pulmonary edema. PLEURA: No pneumothorax or significant pleural effusion. HEART AND MEDIASTINUM: The cardiomediastinal silhouette is within normal limits. SOFT TISSUES AND BONES: Unremarkable. Surgical clips project over the right upper quadrant of the abdomen. IMPRESSION:No acute cardiopulmonary abnormalities. Signed: Lona Encinas Verified Date/Time: 10/01/2020 20:22:05 Reading Location: [facility] B1 [id number] Consult Reading Room
[2022-01-29 11:41] LABS: Protime INR 1.19
[2022-01-29 11:50] LABS: Potassium 3.5 mmol/L (3.5-5.1)
--- NOTE | 2022-01-29 12:19 | RAD REPORT ---
EXAM DESCRIPTION: US - Extremity Venous Uni Ltd - 01/29/2022 12:13 pm CLINICAL HISTORY: SWELLING COMPARISON: No comparisons FINDINGS: Color Doppler, grayscale, and spectral analysis was performed. Occlusive thrombus is present within the left femoral vein as well as in the popliteal vein. The post erior tibial vein, common femoral vein, and greater saphenous vein all compress and are patent. IMPRESSION: Positive for deep venous thrombosis in the left femoral vein and popliteal vein.
[2022-01-29 12:37] LABS: Absolute Lymphocytes (CBC) 0.9 K/uL (0.7-4.9); Lymphocytes % 9.3 % (15.3-44.8); MPV 8.3 fL (7.6-11.3); RBC Red Blood Cell Count 3.28 M/uL (3.86-4.86)
[2022-01-29 12:39] LABS: Hematocrit 16.5 % (36.0-45.0)
[2022-01-29 12:53] LABS: Anisocytosis 1+; Blood Morphology Comment NOTED (NOT SEEN); Hypochromasia 3+; Platelet Estimate ADEQ; White Blood Cell Scan OK (OK)
[2022-01-29 12:54] LABS: Polychromasia 1+
--- NOTE | 2022-01-29 14:09 | EDPHYS ---
Physician Documentation [facility] Name: Carey Mcdaniel Age: 76 yrs Sex: Female : 1945 Arrival Date: 01/29/2022 Time: 10:23 Bed 6 Private MD: ED Physician Moody Barrios HPI: 01/29 11:16 This 76 yrs old Female presents to ER via Wheelchair with complaints of Ankle kdr Swelling, Leg Swelling - Left. 11:17 The patient presents with swelling. The complaints affect the , left leg. Context: The kdr problem was sustained at home, resulted from an unknown cause, the patient is not able to bear weight, Patient is normally bedbound and does not ambulate. Onset: The symptoms/episode began/occurred gradually, 2 day(s) ago. Modifying factors: The symptoms are alleviated by nothing. the symptoms are aggravated by movement. Associated signs and symptoms: The patient has no apparent associated signs or symptoms. Treatment prior to arrival includes: no previous treatment. Severity of symptoms: At their worst the symptoms were mild, in the emergency department the symptoms are unchanged. The patient has not experienced similar symptoms in the past. The patient has not recently seen a physician. Historical: - Allergies: 10:53 No Known Allergies; jl7 - Home Meds: 10:53 lisinopril Oral [Active]; quetiapine 100 mg oral tab [Active]; jl7 - PMHx: 10:53 CVA; Right sided weakness; Hypertension; jl7 - PSHx: 10:53 None; jl7 - Immunization history:: Client reports having NOT received the Covid vaccine. - Social history:: Smoking status: Patient denies any tobacco usage or history of. ROS: 11:17 Constitutional: Negative for fever, chills, and weight loss, Eyes: Negative for injury, kdr pain, redness, and discharge, Neck: Negative for injury, pain, and swelling, Cardiovascular: Negative for chest pain, palpitations, and edema, Respiratory: Negative for shortness of breath, cough, wheezing, and pleuritic chest pain, Abdomen/GI: Negative for abdominal pain, nausea, vomiting, diarrhea, and constipation, Back: Negative for injury and pain, : Negative for injury, bleeding, discharge, and swelling, Skin: Negative for injury, rash, and discoloration, Neuro: Negative for headache, weakness, numbness, tingling, and seizure activity. Psych: Negative for depression, anxiety, suicide ideation, homicidal ideation, and hallucinations, Allergy/Immunology: Negative for hives, rash, and allergies, Endocrine: Negative for neck swelling, polydipsia, polyuria, polyphagia, and marked weight changes, Hematologic/Lymphatic: Negative for swollen nodes, abnormal bleeding, and unusual bruising. 11:17 MS/extremity: Positive for swelling, of the left leg, Patient's leg is mildly swollen from the thigh downward. There is no evidence of cellulitis or localized infection. Exam: 11:17 Constitutional: This is a well developed, well nourished patient who is awake, alert, kdr and in no acute distress. Head/Face: Normocephalic, atraumatic. Eyes: Pupils equal round and reactive to light, extra-ocular motions intact. Lids and lashes normal. Conjunctiva and sclera are non-icteric and not injected. Cornea within normal limits. Periorbital areas with no swelling, redness, or edema. 11:17 Musculoskeletal/extremity: Extremities: grossly normal except: noted in the left leg: swelling, swelling, Mildly edematous edematous. 12:37 ECG was reviewed by the Attending Physician. kdr Vital Signs: 10:52 BP 96 / 57; Pulse 116; Resp 19; Temp 98.1; Pulse Ox 95% on R/A; Weight 47.63 kg; Height jl7 4 ft. 9 in. (144.78 cm); Pain 0/10; 11:31 BP 90 / 70; Pulse 100; Resp 17; Pulse Ox 99% ; jh6 12:00 BP 108 / 56; Pulse 95; Resp 20 S; Pulse Ox 100% on R/A; jg9 14:00 BP 116 / 56; Pulse 91; Resp 23 S; Pulse Ox 100% on R/A; Pain 0/10; jg9 16:00 BP 126 / 60; Pulse 88; Resp 16; Pulse Ox 100% ; Pain 0/10; jh6 17:00 BP 123 / 76; Pulse 86; Resp 17; Temp 98.7(O); Pulse Ox 100% ; Pain 0/10; jh6 20:18 BP 139 / 89; Pulse 84; Resp 25; Temp 98.2(TE); Pulse Ox 100% on R/A; ke1 23:26 BP 169 / 77; Pulse 77; Resp 22; Pulse Ox 100% on R/A; tw5 10:52 Body Mass Index 22.72 (47.63 kg, 144.78 cm) jl7 MDM: 11:17 Data reviewed: vital signs, nurses notes, lab test result(s), radiologic studies. kdr Counseling: I had a detailed discussion with the patient and/or guardian regarding: the historical points, exam findings, and any diagnostic results supporting the discharge/admit diagnosis, lab results, radiology results, the need for outpatient follow up. 14:09 Patient medically screened. kdr 16:07 ED course: Patient has been stable in the ED. Due to the extensive DVT in Left leg and kdr only very faint equivocal Guaiac findings, the patient was given Lovenox. 19:25 ED course: Patient has had a prior CVA which left her with some compromised speech. kdr Patient was otherwise stable without change in her mental status during her stay in the ED. Her daughter was here and confirmed that her speech was baseline during her stay in the ED. 01/29 11:26 Order name: CBC with Diff; Complete Time: 13:52 kdr 01/29 11:26 Order name: Chem 7; Complete Time: 12:05 [facility] 01/29 11:26 Order name: PT-INR; Complete Time: 12:05 [facility] 01/29 12:39 Order name: CBC Smear Scan; Complete Time: 13:52 [facility] 01/29 12:44 Order name: PRBC [facility] 01/29 11:26 Order name: US Extremity Venous Unilateral Ltd; Complete Time: 12:22 [facility] 01/29 12:45 Order name: ABO/RH typing [facility] 01/29 12:45 Order name: Antibody Screen [facility] 01/29 13:21 Order name: Antibody Identification [facility] 01/29 14:01 Order name: [place]; Complete Time: 14:36 em1 01/29 14:14 Order name: COVID-19/FLU A+B/RSV (Document "Date of Onset" if Symptomatic); Complete em1 Time: 18:33 01/29 18:36 Order name: Lactate; Complete Time: 21:24 kdr 01/29 18:37 Order name: CBC w/o diff: Draw at end of first unit; Complete Time: 21:24 kdr EC:37 Rate is 94 beats/min. Rhythm is regular, Sinus Rhythm with No ectopy. QRS [place] is kdr Normal. [place] interval is normal. QRS interval is normal. QT interval is normal. Clinical impression: NSR w/ Non-specific ST/T Changes. Administered Medications: 14:01 Not Given (Hemodynamic Parameters): Lovenox (enoxaparin) 1 mg/kg Sub-Q once jg9 Disposition Summary: 01/29/22 14:09 Transfer Ordered Transfer Location: [facility] kdr Reason: Higher level of care kdr Condition: Fair kdr Problem: new kdr Symptoms: have improved kdr Accepting Physician: Hospitalist(01/29/22 23:31) tw5 Diagnosis - Anemia, unspecified kdr - Deep venous thrombosis kdr Forms: - Medication Reconciliation Form kdr - SBAR form kdr Signatures: Dispatcher [employer] EDMS Moody Barrios MD MD kdr Franklin Rutledge MD MD rn Leal, Jahala, RN RN sally7 Priti Bhatti tw5 Kae Fuentes RN jg9 Corrections: (The following items were deleted from the chart) 12:49 12:44 TYPE AND SCREEN+BB.LAB.BRZ ordered. EDOH EDMS 23:31 14:09 Hospitalist kdr tw5
--- NOTE | 2022-01-29 14:09 | ER ---
Nurse's Notes [facility] Name: Carey Mcdaniel Age: 76 yrs Sex: Female : 1945 Arrival Date: 01/29/2022 Time: 10:23 Bed 6 Private MD: Diagnosis: Anemia, unspecified;Deep venous thrombosis Presentation: 01/29 10:52 Chief complaint: Patient's son or daughter states: Left leg swelling x 3 days, pt jl7 denies pain, pt denies trauma. Coronavirus screen: At this time, the client does not indicate any symptoms associated with coronavirus-19. Ebola Screen: No symptoms or risks identified at this time. Initial Sepsis Screen: Does the patient meet any 2 criteria? No. Patient's initial sepsis screen is negative. Does the patient have a suspected source of infection? No. Patient's initial sepsis screen is negative. Risk Assessment: Do you want to hurt yourself or someone else? Patient reports no desire to harm self or others. Onset of symptoms was January 27, 2022. 10:52 Method Of Arrival: Wheelchair [facility] 10:52 Acuity: EKATERINA 3 jl7 Triage Assessment: 10:53 General: Appears in no apparent distress. uncomfortable, Behavior is calm, cooperative, jl7 appropriate for age. Pain: Denies pain. Musculoskeletal: Swelling present in left leg. Historical: - Allergies: 10:53 No Known Allergies; jl7 - Home Meds: 10:53 lisinopril Oral [Active]; quetiapine 100 mg oral tab [Active]; jl7 - PMHx: 10:53 CVA; Right sided weakness; Hypertension; jl7 - PSHx: 10:53 None; jl7 - Immunization history:: Client reports having NOT received the Covid vaccine. - Social history:: Smoking status: Patient denies any tobacco usage or history of. Screenin:32 Abuse screen: Denies threats or abuse. Nutritional screening: No deficits noted. jh6 Tuberculosis screening: No symptoms or risk factors identified. Fall Risk None identified. Assessment: 11:25 Reassessment: Pt brought in by daughter for increased swelling to l lower extremity x 2 jh6 days, no trauma per family. 11:30 General: Appears in no apparent distress. Behavior is calm, cooperative. Pain: jh6 Complains of pain in left leg Pain currently is 3 out of 10 on a pain scale. Quality of pain is described as aching, crampy, Pain began 2-3 days ago. Is continuous, Aggravated by increased activity, repositioning, touch. Musculoskeletal: Swelling present in lateral aspect of left calf, left calf, medial aspect of left calf and left rossi. 20:02 General: Appears in no apparent distress. comfortable, Behavior is calm, cooperative. ke1 Pain: Unable to use pain scale. Neuro: Level of Consciousness is awake, alert, Oriented to none unable to express herself, making noise but can't articulate words. 20:09 Cardiovascular: Heart tones S1 S2 present Capillary refill < 3 seconds Patient's skin ke1 is warm and dry. Pulses are all present. Edema. Musculoskeletal: Capillary refill < 3 seconds, Bony deformity noted of right hand contracted Swelling present in left leg. 20:15 Respiratory: Airway is patent Trachea midline Respiratory effort is even, unlabored, ke1 Respiratory pattern is regular, symmetrical, Breath sounds are clear bilaterally. GI: Abdomen is flat. : on diaper. EENT: EENT: No deficits noted. 23:26 General: Daughter Taylor, states " I just changed her, her diaper was runny.". tw5 23:27 General: Second unit transfused. . tw5 Vital Signs: 10:52 BP 96 / 57; Pulse 116; Resp 19; Temp 98.1; Pulse Ox 95% on R/A; Weight 47.63 kg; Height jl7 4 ft. 9 in. (144.78 cm); Pain 0/10; 11:31 BP 90 / 70; Pulse 100; Resp 17; Pulse Ox 99% ; jh6 12:00 BP 108 / 56; Pulse 95; Resp 20 S; Pulse Ox 100% on R/A; jg9 14:00 BP 116 / 56; Pulse 91; Resp 23 S; Pulse Ox 100% on R/A; Pain 0/10; jg9 16:00 BP 126 / 60; Pulse 88; Resp 16; Pulse Ox 100% ; Pain 0/10; jh6 17:00 BP 123 / 76; Pulse 86; Resp 17; Temp 98.7(O); Pulse Ox 100% ; Pain 0/10; jh6 20:18 BP 139 / 89; Pulse 84; Resp 25; Temp 98.2(TE); Pulse Ox 100% on R/A; ke1 23:26 BP 169 / 77; Pulse 77; Resp 22; Pulse Ox 100% on R/A; tw5 10:52 Body Mass Index 22.72 (47.63 kg, 144.78 cm) jl7 ED Course: 10:23 Patient arrived in ED. kz 10:53 Triage completed. jl7 10:53 Arm band placed on right wrist. jl7 10:58 Moody Barrios MD is Attending Physician. kdr 11:04 Kae Fuentes, RN is Primary Nurse. jg9 11:20 Inserted saline lock: 22 gauge in left antecubital area, using aseptic technique. Blood jh6 collected. 11:32 Bed in low position. Call light in reach. Side rails up X2. Adult w/ patient. jh6 11:32 No provider procedures requiring assistance completed. jh6 12:13 US Extremity Venous Unilateral Ltd In Process Unspecified. EDMS 12:40 Notified ED physician of Notified primary nurse of Hgb 4.1/ Hct 16.5. jg9 12:43 No apparent distress. Resting quietly. Pt visited by daughter. jg9 14:01 No apparent distress. Resting quietly. Awaiting bed assignment. Pt visited by daughter. jg9 14:11 transfer initiated with Bill at the [facility] transfer center. em1 18:09 Inserted saline lock: 22 gauge in left forearm, using aseptic technique. jl7 23:31 Patient transferred, IV remains in place. tw5 Administered Medications: 14:01 Not Given (Hemodynamic Parameters): Lovenox (enoxaparin) 1 mg/kg Sub-Q once jg9 Outcome: 14:09 ER care complete, transfer ordered by . kdr 23:30 Transferred to [facility], Note: [facility], [facility] tw5 23:30 Transferred by ground EMS Transfer form completed. 23:30 Condition: stable 23:30 Instructed on the need for transfer. 23:31 Patient left the ED. tw5 Signatures: Dispatcher [employer] EDMS Moody Barrios MD MD kdr Martinez, Eric em1 Luigi Dominguez RN RN jl7 Priti Bhatti tw5 Kae Frances RN RN 6 Kae Fuentes RN RN jg9 Jess Orellana RN RN ke1 Rowena Peterson Corrections: (The following items were deleted from the chart) 17:07 14:11 Transfer initiated with Bill at the [facility] transfer center em1 em1 20:12 20:02 Neuro: Level of Consciousness is awake, alert, Oriented to none unable to express ke1 herself, making noise but can't articulate words. ke1 20:18 20:09 Musculoskeletal: Capillary refill < 3 seconds, Bony deformity noted of right hand ke1 contracted Swelling present in left leg ke1
[2022-01-29 15:56] LABS: SARS-COV-2 RT PCR NEGATIVE (NEGATIVE)
[2022-01-29] MEDS ORDERED: NA CHLORIDE 0.9% 500 ML ONE (16:36)
[2022-01-29 19:15] LABS: Hematocrit 21.7 % (36.0-45.0); MPV 8.4 fL (7.6-11.3); RBC Red Blood Cell Count 3.64 M/uL (3.86-4.86)
[2022-01-30 00:26] VITALS: O2SAT 100
[2022-01-30 00:33] VITALS: TEMP 98.2
[2022-01-30 00:34] VITALS: BP 169/77
== END 2022-01-29 23:31 | disposition short-term general hospital (02) ==
LOC: ER 10:20
DX: I82.412 Acute embolism and thrombosis of left femoral vein (principal); I82.432 Acute embolism and thrombosis of left popliteal vein; D64.9 Anemia, unspecified; I10 Essential (primary) hypertension; I69.351 Hemiplegia and hemiparesis following cerebral infarction affecting right dominant side; Z20.822 Contact with and (suspected) exposure to COVID-19
CPT/HCPCS: 85025; 80048; 36415; 86900; 86850; 85610; 86870; 86901; 83605; 82272; 85027; 86922 ×2; 0241U; 93971; 99285; P9016 ×2; J7040

== ENCOUNTER 2022-05-07 10:08 | Emergency (ER) | payer OTHER ==
--- OUTSIDE RECORDS SUMMARY | 2022-05-07 10:12 | XMS REPORT | Continuity of Care Document ---
:1945 Author Organization [facility] t Address [facility] [place] [address] Care Team Providers Name Role Phone Alicia Navarrete Attending Clinician Unavailable ELIGIO TAN Attending Clinician Unavailable Haydee BROWN Attending Clinician Unavailable Evelyn VEGA Attending Clinician Unavailable ELIGIO TAN Admitting Clinician Unavailable Evelyn VEGA Admitting Clinician Unavailable LEIDA Admitting Clinician Unavailable Payers Payer Name Policy Type Policy Number Effective Date Expiration Date S [facility] MEDICARE A B [id number] 2001 00:00:00 Problems This patient has no known problems. Allergies, Adverse Reactions, Alerts Allergy Allergy Status Severity Reaction(s) Onset Inactive Treating Comm ents Source Name Type Date Date Clinician NO KNOWN Allergy Active [facility] Medications This patient has no known medications. Vital Signs Vital Name Observation Time Observation Value Comments Source HEIGHT 2020-10-01 17:00:00 149.9 cm WEIGHT 2020-10-01 17:00:00 50.349 kg HEIGHT 2020-10-01 17:00:00 149.9 cm WEIGHT 2020-10-01 17:00:00 50.349 kg Procedures This patient has no known procedures. Encounters Start End Encounter Admission Attending Care Care Encounter Source Date/Time Date/Time Type Type Clinicians Facility Department ID [facility]22[facility]03[id number] 15:15:02 [facility] 2022-03-22 Outpatient Navarrete, Na [facility] [id number] Common 08:50:01 [facility] 2022-01-29 Inpatient ER [facility] [id number] [facility] 15:29:44 [facility] 2022-01-29 Inpatient ER [facility] [id number] [facility] 14:30:45 [facility] 2021-12-16 Outpatient Navarrete, Na [facility] [id number] 2 Common 14:34:54 [facility] 2021-12-16 Outpatient Navarrete, Na [facility] [id number] 2 Common 13:56:50 [id number] [facility] 2021-12-16 Outpatient Navarrete, Na [facility] [id number] 2 Common 13:45:46 [id number] [facility] 2021-12-16 Outpatient Navarrete, Na [facility] [id number] 2 Common 13:06:59 [id number] [facility] 2021-12-16 Outpatient Navarrete, Na [facility] [id number] 2 Common 13:06:24 [id number] [facility] 2021-12-16 Outpatient Navarrete, Na [facility] [id number] 2 Common 12:46:16 [id number] [facility] 2021-08-[address] [facility] Neurology [id number] [facility] 11:13:10 LINDSAY DOWLING 2022-03-09 2022-03-09 ambulatory [facility] [id number] Common 00:00:00 00:00:00 [facility] 2022-03-01 2022-03-01 ambulatory [facility] [id number] Common 00:00:00 00:00:00 [facility] 2022-02-15 2022-02-15 ambulatory [facility] [id number] Common 00:00:00 00:00:00 [facility] 2022-02-15 2022-02-15 ambulatory [facility] [id number] Common 00:00:00 00:00:00 [facility] 2022-02-12 2022-02-12 ambulatory [facility] [id number] Common 00:00:00 00:00:00 [facility] 2022-02-08 2022-02-08 ambulatory [facility] [id number] Common 00:00:00 00:00:00 [facility] 2022-02-03 2022-02-03 ambulatory [facility] [id number] Common 00:00:00 00:00:00 [facility] 2022-01-30 2022-02-02 Inpatient ER STEPHANIE, [facility] [id number] [facility] 01:23:00 16:43:00 YASHASH 2022-01-12 2022-01-12 ambulatory [facility] [id number] Common 00:00:00 00:00:00 [facility] 2022-01-12 2022-01-12 ambulatory [facility] [id number] Common 00:00:00 00:00:00 [facility] 2021-12-03 2021-12-03 ambulatory [facility] [id number] Common 00:00:00 00:00:00 [facility] 2021-08-15 2021-08-15 Outpatient [facility] [id number] Common 00:00:00 00:00:00 [facility] 2021-08-05 2021-08-05 Outpatient [facility] [id number] Common 00:00:00 00:00:00 [facility] 2021-07-24 2021-07-24 Outpatient [facility] [id number] Common 00:00:00 00:00:00 [facility] 2021-04-14 2021-04-14 Outpatient [facility] [id number] Common 00:00:00 00:00:00 [facility] 2021-04-10 2021-04-10 Outpatient [facility] [id number] Common 00:00:00 00:00:00 [facility] 2021-02-17 2021-02-17 Outpatient [facility] ST[facility] [id number] Common 00:00:00 00:00:00 [facility] Results Test Description Test Time Test Comments Results Result Comments Source BASIC METABOLIC PANEL 2022-02-02 06:55:45 Test Item Value Reference Range Interpretation Comme nts SODIUM (BEAKER) (test code 140 meq/L 136-145 = 381) POTASSIUM (BEAKER) (test 3.4 meq/L 3.5-5.1 L code = 379) CHLORIDE (BEAKER) (test 111 meq/L 98-107 H code = 382) CO2 (BEAKER) (test code = 23 meq/L 22-29 355) BLOOD UREA NITROGEN 4 mg/dL 7-21 L (BEAKER) (test code = 354) CREATININE (BEAKER) (test 0.53 mg/dL 0.57-1.25 L code = 358) GLUCOSE RANDOM (BEAKER) 76 mg/dL 70-105 (test code = 652) CALCIUM (BEAKER) (test 7.6 mg/dL 8.4-10.2 L code = 697) EGFR (BEAKER) (test code = 113 mL/min/1.73 sq m ESTIMATED GFR IS NOT 1092) ACCURATE CRE ATININE CLEARANCE IN WI EDICTING GLOMERULAR FILT RATION RATE. ESTIMATED GFR IS NOT APPLICABLE FOR DIALYSIS PATIENTS. Airline Station Agent SARAH SANTO WCBC W/PLT COUNT & AUTO [id number] 06:11:51 Test Item Value Reference Range Interpretation Comments WHITE BLOOD CELL COUNT 7.8 K/ L 3.5-10.5 (BEAKER) (test code = 775) RED BLOOD CELL COUNT 4.55 M/ L 3.93-5.22 (BEAKER) (test code = 761) HEMOGLOBIN (BEAKER) 8.9 GM/DL 11.2-15.7 L (test code = 410) HEMATOCRIT (BEAKER) 32.3 % 34.1-44.9 L (test code = 411) MEAN CORPUSCULAR 71.0 fL 79.4-94.8 L VOLUME (BEAKER) (test code = 753) MEAN CORPUSCULAR 19.6 pg 25.6-32.2 L HEMOGLOBIN (BEAKER) (test code = 751) MEAN CORPUSCULAR 27.6 GM/DL 32.2-35.5 L HEMOGLOBIN CONC (BEAKER) (test code = 752) RED CELL DISTRIBUTION Unable to report due WIDTH (BEAKER) (test to abno rmal RBC code = 412) population distribution. PLATELET COUNT 268 K/CU MM 150-450 (BEAKER) (test code = 756) MEAN PLATELET VOLUME Unable to report due (BEAKER) (test code = to abn ormal Platelet 754) population distribution. NUCLEATED RED BLOOD 0 /100 WBC 0-0 CELLS (BEAKER) (test code = 413) NEUTROPHILS RELATIVE 63 % PERCENT (BEAKER) (test code = 429) LYMPHOCYTES RELATIVE 26 % PERCENT (BEAKER) (test code = 430) MONOCYTES RELATIVE 9 % PERCENT (BEAKER) (test code = 431) EOSINOPHILS RELATIVE 1 % PERCENT (BEAKER) (test code = 432) BASOPHILS RELATIVE 1 % PERCENT (BEAKER) (test code = 437) NEUTROPHILS ABSOLUTE 4.94 K/ L 1.56-6.13 COUNT (BEAKER) (test code = 670) LYMPHOCYTES ABSOLUTE 1.99 K/ L 1.18-3.74 COUNT (BEAKER) (test code = 414) MONOCYTES ABSOLUTE 0.66 K/ L 0.24-0.36 H COUNT (BEAKER) (test code = 415) EOSINOPHILS ABSOLUTE 0.10 K/ L 0.04-0.36 COUNT (BEAKER) (test code = 416) BASOPHILS ABSOLUTE 0.06 K/ L 0.01-0.08 COUNT (BEAKER) (test code = 417) IMMATURE 0 % 0-1 GRANULOCYTES-RELATIVE PERCENT (BEAKER) (test code = 2801) CBC W/PLT COUNT & AUTO [id number] 08:46:10 Test Item Value Reference Range Interpretation Comments WHITE BLOOD CELL COUNT 11.8 K/ L 3.5-10.5 H (BEAKER) (test code = 775) RED BLOOD CELL COUNT 4.24 M/ L 3.93-5.22 (BEAKER) (test code = 761) HEMOGLOBIN (BEAKER) 8.2 GM/DL 11.2-15.7 L (test code = 410) HEMATOCRIT (BEAKER) 28.9 % 34.1-44.9 L (test code = 411) MEAN CORPUSCULAR 68.2 fL 79.4-94.8 L VOLUME (BEAKER) (test code = 753) MEAN CORPUSCULAR 19.3 pg 25.6-32.2 L HEMOGLOBIN (BEAKER) (test code = 751) MEAN CORPUSCULAR 28.4 GM/DL 32.2-35.5 L HEMOGLOBIN CONC (BEAKER) (test code = 752) RED CELL DISTRIBUTION Unable to report due WIDTH (BEAKER) (test to [facility] RBC code = 412) population distribution. PLATELET COUNT 266 K/CU MM 150-450 (BEAKER) (test code = 756) MEAN PLATELET VOLUME Unable to report due (BEAKER) (test code = to abn ormal Platelet 754) population distribution. NUCLEATED RED BLOOD 0 /100 WBC 0-0 CELLS (BEAKER) (test code = 413) (MANUAL DIFFERENTIAL)2022-02-01 08:46:10 Test Item Value Reference Range Interpretation Comments NEUTROPHILS - REL (DIFF) (BEAKER) 89 % (test code = 1359) LYMPHOCYTES - REL (DIFF) (BEAKER) 9 % (test code = 1360) MONOCYTES - REL (DIFF) (BEAKER) 2 % (test code = 1361) NEUTROPHILS - ABS (DIFF) (BEAKER) 10.50 K/ L 1.80-8.00 H (test code = 1365) LYMPHOCYTES - ABS (DIFF) (BEAKER) 1.06 K/ L 1.48-4.50 L (test code = 1366) MONOCYTES - ABS (DIFF) (BEAKER) 0.24 K/ L 0.00-1.30 (test code = 1367) TOTAL COUNTED (BEAKER) (test code 100 = 1351) WBC MORPHOLOGY (BEAKER) (test code Normal = 487) PLT MORPHOLOGY (BEAKER) (test code Normal = 486) RBC MORPHOLOGY (BEAKER) (test code Normal = 762) BASIC METABOLIC [id number] 05:55:30 Test Item Value Reference Range Interpretation Comments SODIUM (BEAKER) 138 meq/L 136-145 (test code = 381) POTASSIUM (BEAKER) 3.6 meq/L 3.5-5.1 (test code = 379) CHLORIDE (BEAKER) 110 meq/L 98-107 H (test code = 382) CO2 (BEAKER) (test 21 meq/L 22-29 L code = 355) BLOOD UREA NITROGEN 6 mg/dL 7-21 L (BEAKER) (test code = 354) CREATININE (BEAKER) 0.54 mg/dL 0.57-1.25 L (test code = 358) GLUCOSE RANDOM 113 mg/dL 70-105 H (BEAKER) (test code = 652) CALCIUM (BEAKER) 7.5 mg/dL 8.4-10.2 L (test code = 697) EGFR (BEAKER) (test 110 mL/min/1.73 ESTIM ATED GFR IS code = 1092) sq m NOT ACCURATE CREATININE CLEARANCE IN PREDICTING GLOMERULAR FILTRATION RATE . ESTIMATED GFR I S NOT APPLICABLE FOR DIALYSIS PATIEN TS. Airline Station Agent ID - PIAYA LPERIPHERAL BLOOD SMEAR - PATHOLOGIST [id number] 10:55:06 Test Item Value Reference Range Interpretation Comments RBC MORPHOLOGY Polychromasia (BEAKER) (test code = 2846) RBC MORPHOLOGY Anisocytosis (BEAKER) (test code = 87198) RBC MORPHOLOGY Poikilocytosis (BEAKER) (test code = 24058) RBC MORPHOLOGY Elliptocytes (BEAKER) (test code = 23088) WBC MORPHOLOGY Unremarkable (BEAKER) (test code = 2847) PLT MORPHOLOGY Unremarkable (BEAKER) (test code = 2848) PERIPHERAL SMR REVIEW Cell counts confirmed. (BEAKER) (test code = There is microcytic 2640) hypochromic anemia with polychromasia and mild anisopoikilocytosis. Schistocytes are not increased (<1%). Correlation with the ancillary findings including iron studies are recommended. [id number] Palmer Levi M.D. (BEAKER) (test code = 2849) RAD, CHEST, 1 VIEW, NON [id number] 10:48:00Reason for exam:->r/o pnaShould this be performed at the bedside?->Yes [facility] 1945 Sex: FFINAL REPORT TECHNIQUE: Frontal view of the chest. INDICATION: r/o pna. COMPARISON: Chest radiograph from 10/01/2020. FINDINGS: The patient is rotated LINES/TUBES: None. LUNGS: There is some questionable patchy opacity of the right base. PLEURA: No pneumothorax or significant pleural effusion. HEART AND MEDIASTINUM: The cardiac silhouette is normal in size. SOFT TISSUESAND BONES: Unremarkable. IMPRESSION: The patient is rotated which makes evaluation suboptimal. There is some questionable patchy opacity of the right base. A repeat radiograph without the patient's arms overlying the upper abdomen and without patient rotation is recommended. Signed: Twan Boles MDReport Verified Date/Time: 01/31/2022 10:48:19 Reading Location: [address] Body Reading Room C METABOLIC [id number] 08:36:06 Test Item Value Reference Range Interpretation Comments SODIUM (BEAKER) 134 meq/L 136-145 L (test code = 381) POTASSIUM (BEAKER) 3.4 meq/L 3.5-5.1 L (test code = 379) CHLORIDE (BEAKER) 108 meq/L 98-107 H (test code = 382) CO2 (BEAKER) (test 19 meq/L 22-29 L code = 355) BLOOD UREA NITROGEN 8 mg/dL 7-21 (BEAKER) (test code = 354) CREATININE (BEAKER) 0.55 mg/dL 0.57-1.25 L (test code = 358) GLUCOSE RANDOM 114 mg/dL 70-105 H (BEAKER) (test code = 652) CALCIUM (BEAKER) 7.0 mg/dL 8.4-10.2 L (test code = 697) EGFR (BEAKER) (test 108 mL/min/1.73 ESTIM ATED GFR IS code = 1092) sq m NOT ACCURATE CREATININE CLEARANCE IN PREDICTING GLOMERULAR FILTRATION RATE . ESTIMATED GFR I S NOT APPLICABLE FOR DIALYSIS PATIEN TS. Airline Station Agent ID - DBCBC W/PLT COUNT & AUTO [id number] 08:01:47 Test Item Value Reference Range Interpretation Comments WHITE BLOOD CELL COUNT 23.5 K/ L 3.5-10.5 H (BEAKER) (test code = 775) RED BLOOD CELL COUNT 4.43 M/ L 3.93-5.22 (BEAKER) (test code = 761) HEMOGLOBIN (BEAKER) 8.7 GM/DL 11.2-15.7 L (test code = 410) HEMATOCRIT (BEAKER) 30.3 % 34.1-44.9 L (test code = 411) MEAN CORPUSCULAR 68.4 fL 79.4-94.8 L VOLUME (BEAKER) (test code = 753) MEAN CORPUSCULAR 19.6 pg 25.6-32.2 L HEMOGLOBIN (BEAKER) (test code = 751) MEAN CORPUSCULAR 28.7 GM/DL 32.2-35.5 L HEMOGLOBIN CONC (BEAKER) (test code = 752) RED CELL DISTRIBUTION Unable to report due WIDTH (BEAKER) (test to [facility] RBC code = 412) population distribution.' PLATELET COUNT 259 K/CU MM 150-450 (BEAKER) (test code = 756) MEAN PLATELET VOLUME Unable to report due (BEAKER) (test code = to abn ormal Platelet 754) population distribution. NUCLEATED RED BLOOD 0 /100 WBC 0-0 CELLS (BEAKER) (test code = 413) (CELLAVISION MANUAL DIFF)2022-01-31 08:01:47 Test Item Value Reference Range Interpretation Comments NEUTROPHILS - REL 90 % (CELLAVISION)(BEAKER) (test code = 2816) LYMPHOCYTES - REL 7 % (CELLAVISION)(BEAKER) (test code = 2817) MONOCYTES - REL 3 % (CELLAVISION)(BEAKER) (test code = 2818) NEUTROPHILS - ABS 21.15 K/ul 1.56-6.13 H (CELLAVISION)(BEAKER) (test code = 2830) LYMPHOCYTES - ABS 1.65 K/ul 1.18-3.74 (CELLAVISION)(BEAKER) (test code = 2831) MONOCYTES - ABS 0.71 K/uL 0.24-0.36 H (CELLAVISION)(BEAKER) (test code = 2832) TOTAL COUNTED (BEAKER) (test code 100 = 1351) RBC MORPHOLOGY (BEAKER) (test code Normal = 762) PLT MORPHOLOGY (BEAKER) (test code Normal = 486) HYPERSEGMENTATION Present (CELLAVISION)(BEAKER) (test code = 3445) BUN AND CREATININE [id number] 17:45:47 Test Item Value Reference Range Interpretation Comments BLOOD UREA NITROGEN 9 mg/dL 7-21 (BEAKER) (test code = 354) CREATININE (BEAKER) 0.54 mg/dL 0.57-1.25 L (test code = 358) BUN/CREAT RATIO 17 For a normal (BEAKER) (test code individu al on a = [id number]) normal diet, t he reference inter gladis for the mass ra jc ranges between 12:1 and 20:1 (BUN i n mg/dL/creatinin e in mg/dL) EGFR (BEAKER) (test 110 mL/min/1.73 ESTIM ATED GFR IS code = 1092) sq m NOT ACCURATE CREATININE CLEARANCE IN PREDICTING GLOMERULAR FILTRATION RATE . ESTIMATED GFR I S NOT APPLICABLE FOR DIALYSIS PATIEN TS. Airline Station Agent ID - ADMINHEMOGLOBIN AND [id number] 10:15:08 Test Item Value Reference Range Interpretation Comments HEMOGLOBIN (BEAKER) (test code = 7.9 GM/DL 11.2-15.7 L 410) HEMATOCRIT (BEAKER) (test code = 27.7 % 34.1-44.9 L 411) Airline Station Agent ID - [id number] ID - [id number] 09:51:28 Test Item Value Reference Range Interpretation Comments HAPTOGLOBIN (BEAKER) (test code = 161 mg/dL 14-258 366) Airline Station Agent ID - HILARIO MCBC W/PLT COUNT & AUTO [id number] 09:01:38 Test Item Value Reference Range Interpretation Comments WHITE BLOOD CELL COUNT 10.7 K/ L 3.5-10.5 H (BEAKER) (test code = 775) RED BLOOD CELL COUNT 4.18 M/ L 3.93-5.22 (BEAKER) (test code = 761) HEMOGLOBIN (BEAKER) 8.4 GM/DL 11.2-15.7 L (test code = 410) HEMATOCRIT (BEAKER) 29.3 % 34.1-44.9 L (test code = 411) MEAN CORPUSCULAR 70.1 fL 79.4-94.8 L VOLUME (BEAKER) (test code = 753) MEAN CORPUSCULAR 20.1 pg 25.6-32.2 L HEMOGLOBIN (BEAKER) (test code = 751) MEAN CORPUSCULAR 28.7 GM/DL 32.2-35.5 L HEMOGLOBIN CONC (BEAKER) (test code = 752) RED CELL DISTRIBUTION No res ult from WIDTH (BEAKER) (test instrum ent code = 412) PLATELET COUNT 223 K/CU MM 150-450 (BEAKER) (test code = 756) MEAN PLATELET VOLUME Unable to report due (BEAKER) (test code = to abn ormal Platelet 754) population distribution. NUCLEATED RED BLOOD 0 /100 WBC 0-0 CELLS (BEAKER) (test code = 413) NEUTROPHILS RELATIVE 74 % PERCENT (BEAKER) (test code = 429) LYMPHOCYTES RELATIVE 16 % PERCENT (BEAKER) (test code = 430) MONOCYTES RELATIVE 7 % PERCENT (BEAKER) (test code = 431) EOSINOPHILS RELATIVE 1 % PERCENT (BEAKER) (test code = 432) BASOPHILS RELATIVE 1 % PERCENT (BEAKER) (test code = 437) NEUTROPHILS ABSOLUTE 8.00 K/ L 1.56-6.13 H COUNT (BEAKER) (test code = 670) LYMPHOCYTES ABSOLUTE 1.76 K/ L 1.18-3.74 COUNT (BEAKER) (test code = 414) MONOCYTES ABSOLUTE 0.78 K/ L 0.24-0.36 H COUNT (BEAKER) (test code = 415) EOSINOPHILS ABSOLUTE 0.06 K/ L 0.04-0.36 COUNT (BEAKER) (test code = 416) BASOPHILS ABSOLUTE 0.07 K/ L 0.01-0.08 COUNT (BEAKER) (test code = 417) IMMATURE 1 % 0-1 GRANULOCYTES-RELATIVE PERCENT (BEAKER) (test code = 2801) POCT-GLUCOSE [id number] 07:43:08 Test Item Value Reference Range Interpretation Comments POC-GLUCOSE METER 93 mg/dL 70-110 : TESTED A T [facility] 6720 (BEAKER) (test code = [place], 1538) [address]: Airline Station Agent/Techni eli ID = [id number] for RM SALES [id number] 07:20:27 Test Item Value Reference Range Interpretation Comments FERRITIN (BEAKER) (test code = 9.28 ng/mL 5.00-275.00 361) Airline Station Agent ID - HILARIO MHEPATIC FUNCTION [id number] 07:05:48 Test Item Value Reference Range Interpretation Comments TOTAL PROTEIN (BEAKER) (test code = 5.3 gm/dL 6.0-8.3 L 770) ALBUMIN (BEAKER) (test code = 1145) 2.5 g/dL 3.5-5.0 L BILIRUBIN TOTAL (BEAKER) (test code 1.2 mg/dL 0.2-1.2 = 377) BILIRUBIN DIRECT (BEAKER) (test 0.5 mg/dL 0.1-0.5 code = 706) ALKALINE PHOSPHATASE (BEAKER) (test 68 U/L 40-150 code = 346) AST (SGOT) (BEAKER) (test code = 11 U/L 5-34 353) ALT (SGPT) (BEAKER) (test code = < U/L 6-55 L 347) Airline Station Agent ID - HILARIO MBASIC METABOLIC [id number] 07:04:57 Test Item Value Reference Range Interpretation Comments SODIUM (BEAKER) 139 meq/L 136-145 (test code = 381) POTASSIUM (BEAKER) 3.0 meq/L 3.5-5.1 L (test code = 379) CHLORIDE (BEAKER) 111 meq/L 98-107 H (test code = 382) CO2 (BEAKER) (test 22 meq/L 22-29 code = 355) BLOOD UREA NITROGEN 11 mg/dL 7-21 (BEAKER) (test code = 354) CREATININE (BEAKER) 0.62 mg/dL 0.57-1.25 (test code = 358) GLUCOSE RANDOM 102 mg/dL 70-105 (BEAKER) (test code = 652) CALCIUM (BEAKER) 7.2 mg/dL 8.4-10.2 L (test code = 697) EGFR (BEAKER) (test 94 mL/min/1.73 ESTIMA BARBARA GFR IS code = 1092) sq m NOT ACCURATE CREATININE CLEARANCE IN PREDICTING GLOMERULAR FILTRATION RATE . ESTIMATED GFR I S NOT APPLICABLE FOR DIALYSIS PATIEN TS. Airline Station Agent ID - HILARIO MLACTATE DEHYDROGENASE (LDH)2022-01-30 07:00:03 Test Item Value Reference Range Interpretation Comments LACTATE DEHYDROGENASE (BEAKER) (test 222 U/L 125-220 H code = 635) Airline Station Agent ID - HILARIO KRYSTINA, TIBC, % SAT. (WITHOUT FERRITIN)2022-01-30 06:59:26 Test Item Value Reference Range Interpretation Comments IRON (BEAKER) (test code = 547) 16.0 ug/dL 40.0-160.0 L TOTAL IRON BINDING CAPACITY 279 ug/dL 250-450 (BEAKER) (test code = 769) IRON % SATURATION (2) (BEAKER) 6 % 20-55 L (test code = 2590) Airline Station Agent ID - HILARIO MRETICULOCYTE [id number] 06:37:58 Test Item Value Reference Range Interpretation Comments RETICULOCYTE COUNT PCT (BEAKER) (test 1.2 % 0.5-1.7 code = 575) Airline Station Agent ID - [id number]-GLUCOSE [id number] 06:28:00 Test Item Value Reference Range Interpretation Comments POC-GLUCOSE METER 96 mg/dL 70-110 : Notified RN/MD: TESTED (SHAMIR) (test code = AT [address]) [facility], [address]: Airline Station Agent/Techni eli ID = [id number] for LATH BRIDGE, DORIS POCT-GLUCOSE [id number] 00:00:00 Test Item Value Reference Range Interpretation Comments POC-GLUCOSE METER 101 mg/dL 70-110 : Notified RN/MD: (SHAMIR) (test code = TESTED AT [place] [address]) [facility], [address]: Airline Station Agent/Techni eli ID = [id number] for LATHBRIDGE, EUNICE ICE RAD, SHOULDER, COMPLETE (MIN 2 VIEWS), [id number] 13:20:00Reason for exam:- >[facility] 1945 Sex: [...] in the right shoulder. Signed: Jenna Longoria Verified Date/Time: 10/02/2020 13:20:31 Reading Location: [facility] Radiology Reading Room POCT-GLUCOSE [id number] 06:23:00 Test Item Value Reference Range Interpretation Comments POC-GLUCOSE METER 103 mg/dL 70-110 : Notified RN/MD: (SHAMIR) (test code = TESTED AT [facility] 6720 [address]38) [facility], [address]: Airline Station Agent/Techni eli ID = [id number] for EUNICE SNIDER [id number] 04:55:00 Test Item Value Reference Range Interpretation Comments PROTIME (SHAMIR) (test code = 14.9 seconds 11.9-14.2 H 759) INR (SHAMIR) (test code = 370) 1.20 <=5.90 PARTIAL THROMBOPLASTIN TIME 30.5 seconds 22.5-36.0 (SHAMIR) (test code = 760) Effective 04/18/2019: PT Reference Range ChangeNew: 11.9-14.2 Previous: 11.7- 14.7RECOMMENDED COUMADIN/WARFARIN INR THERAPY RANGESSTANDARD DOSE: 2.0-3.0 Includes: PROPHYLAXIS for venous thrombosis, systemic embolization; TREATMENT for venous thrombosis and/or pulmonary embolus.HIGH RISK: Target INR is2.5-3.5 for patients wiht mechanical heart valves.BASIC METABOLIC [id number] 04:39:00 Test Item Value Reference Range Interpretation [...] S NOT APPLICABLE FOR DIALYSIS PATIEN TS. Airline Station Agent ID - HILARIO MCBC W/PLT COUNT & AUTO [id number] 04:08:00 Test Item Value Reference Range Interpretation [...] (BEAKER) (test code = 2801) URINALYSIS W/ [id number] 00:08:00 Test Item Value Reference Range Interpretation [...] 516) SOURCE(BEAKER) (test code = Urine, Voided 1504) Airline Station Agent ID - [auto]POCT-GLUCOSE [id number] 23:59:00 Test Item Value Reference Range Interpretation Comments POC-GLUCOSE METER 93 mg/dL 70-110 : Notified RN/MD: TESTED (BEAKER) (test code = AT [facility] [address] [facility] 15[address]) [facility], [facility] 30: Airline Station Agent/Techni eli ID = [id number] for DORIS RUSS CT, BRAIN, WITHOUT [id number] 21:38:00Unlisted Reason for Exam - Click Yes and Enter Reason Below->No [facility] 1945 Sex: FFINAL REPORT EXAM: CT [...] mass effect. There is a 2 mm dmpe-gs-ylnvx midline shift at the level of the [...] hematomas. Associated parenchymal mass effect. 2 mm wzor-lr-srmmt midline shift. Multiple chronic infarcts as described. Mild linear hyperdensity in the left posterior temporal lobe favored to represent mineralization rather than acute hemorrhage. Short-term follow-up is recommended. No hydrocephalus. Signed: Raz Mccauley MDReport Verified Date/Time: 10/01/2020 21:38:28 RAD, CHEST, 1 VIEW, NON [id number] 20:22:00Reason for exam:->coughShould this be performed at the bedside?->Yes [facility] : 1945 Sex: [...] abdomen. IMPRESSION:No acute cardiopulmonary abnormalities. Signed: Lona Mckenna MDReport Verified Date/Time: 10/01/2020 20:22:05 Reading Location: [facility] C0[facility] Consult Reading Room
[2022-05-07] MEDS ORDERED: NA CHLORIDE 0.9% 1,000 ML ONE (11:04)
[2022-05-07 11:11] LABS: Absolute Lymphocytes (CBC) 1.5 K/uL (0.7-4.9); Hematocrit 26.1 % (36.0-45.0); Lymphocytes % 13.6 % (15.3-44.8); MPV 8.3 fL (7.6-11.3); RBC Red Blood Cell Count 3.11 M/uL (3.86-4.86)
[2022-05-07 11:30] LABS: Albumin 2.4 g/dL (3.4-5.0); Bilirubin Total 0.2 mg/dL (0.2-1.0); Potassium 3.7 mmol/L (3.5-5.1); Protein, Total 5.9 g/dL (6.4-8.2)
--- NOTE | 2022-05-07 12:51 | EDPHYS ---
Physician Documentation [facility] Name: Carey Mcdaniel Age: 76 yrs Sex: Female : 1945 Arrival Date: 05/07/2022 Time: 10:09 Bed 20 Private MD: Jahaira Navarrete ED Physician Prudence Sarmiento HPI: 05/07 10:56 This 76 yrs old Female presents to ER via Wheelchair with complaints of ma2 Urinary Problem. 10:56 Onset: The symptoms/episode began/occurred gradually, 1 day(s) ago. 76-year-old female ma2 with decreased p.o. intake who presents with possible dehydration decreased urine output, daughter said that she has not been eating as usual over the last few days, she is concerned that she has dehydration, patient had prior stroke she is nonverbal.. Historical: - Allergies: 10:35 Hydrocodone-Acetaminophen; iw - Home Meds: 10:36 Seroquel Oral [Active]; Lisinopril Oral [Active]; Warfarin Oral [Active]; iw 11:08 quetiapine 100 mg Oral tab [Active]; cho - PMHx: 10:35 CVA; Right sided weakness; Hypertension; Dementia; iw - PSHx: 10:36 None; iw - Immunization history:: Client reports having NOT received the Covid vaccine. - Social history:: Smoking status: . - Family history:: not pertinent. ROS: 10:56 Constitutional: Negative for fever, chills, and weight loss. ma2 10:56 All other systems are negative. Exam: 10:56 Constitutional: This is a well developed, well nourished patient who is awake, alert, ma2 and in no acute distress. Head/Face: Normocephalic, atraumatic. Neck: Trachea midline, no thyromegaly or masses palpated, and no cervical lymphadenopathy. Supple, full range of motion without nuchal rigidity, or vertebral point tenderness. No Meningismus. Chest/axilla: Normal chest wall appearance and motion. Nontender with no deformity. No lesions are appreciated. Cardiovascular: Regular rate and rhythm with a normal S1 and S2. No gallops, murmurs, or rubs. Normal PMI, no JVD. No pulse deficits. Respiratory: Lungs have equal breath sounds bilaterally, clear to auscultation and percussion. No rales, rhonchi or wheezes noted. No increased work of breathing, no retractions or nasal flaring. Abdomen/GI: Soft, non-tender, with normal bowel sounds. No distension or tympany. No guarding or rebound. No evidence of tenderness throughout. Back: No spinal tenderness. No costovertebral tenderness. Full range of motion. Skin: Warm, dry with normal turgor. Normal color with no rashes, no lesions, and no evidence of cellulitis. MS/ Extremity: Pulses equal, no cyanosis. Neurovascular intact. Full, normal range of motion. Neuro: Patient is alert awake, nonverbal moving all extremities uncooperative with exam. Vital Signs: 10:34 BP 86 / 60; Pulse 103; Resp 16; Temp 97.8; Pulse Ox 100% on R/A; Weight 47.63 kg; iw 12:14 BP 139 / 82; Pulse 92; Resp 17; Pulse Ox 95% on R/A; cho MDM: 10:39 Patient medically screened. ma2 12:50 Differential Diagnosis dehydration vs electrolyte abnormalities vs anemia . Data ma2 reviewed: vital signs, nurses notes. Counseling: I had a detailed discussion with the patient and/or guardian regarding: the historical points, exam findings, and any diagnostic results supporting the discharge/admit diagnosis, the presence of at least one elevated blood pressure reading (>120/80) during this emergency department visit, the need for outpatient follow up. Response to treatment: the patient's symptoms have markedly improved after treatment. 05/07 10:54 Order name: CBC with Diff; Complete Time: 12:11 [facility] 05/07 10:54 Order name: CMP; Complete Time: 12:11 [facility] 05/07 10:54 Order name: Lipase; Complete Time: 12:11 [facility] 05/07 10:54 Order name: Urine Microscopic Only [facility] 05/07 10:54 Order name: XRAY Chest (1 view) [facility] 05/07 10:54 Order name: IV Saline Lock; Complete Time: 11:07 [facility] 05/07 10:54 Order name: Labs collected and sent; Complete Time: 11:07 [facility] Administered Medications: 11:07 Drug: NS 0.9% 1000 ml Route: IV; Rate: 1 bolus; Site: left antecubital; cho Disposition Summary: 05/07/22 12:50 Discharge Ordered Location: Home ma2 Condition: Stable ma2 Diagnosis - Dehydration ma2 Followup: ma2 - With: Private Physician - When: Tomorrow - Reason: Continuance of care Discharge Instructions: - Discharge Summary Sheet ma2 - Dehydration, Adult ma2 Forms: - Medication Reconciliation Form ma2 - Thank You Letter ma2 - Antibiotic Education ma2 - Prescription Opioid Use ma2 Signatures: Dispatcher [employer] Nabila Cabezas RN RN iw Alzahri, Mohammad, MD MD ar2 Ellen-StageAshley fletcher RN RN cho
--- NOTE | 2022-05-07 12:51 | ER ---
Nurse's Notes [facility] Name: Carey Mcdaniel Age: 76 yrs Sex: Female : 1945 Arrival Date: 05/07/2022 Time: 10:09 Bed 20 Private MD: Jahaira Navarrete Diagnosis: Dehydration Presentation: 05/07 10:34 Chief complaint: Patient's son or daughter states: has not urinated for past 24 hours iw and her stool is dark , not eating or drinking well, has hx of dementia. Coronavirus screen: At this time, the client does not indicate any symptoms associated with coronavirus-19. Ebola Screen: Patient negative for fever greater than or equal to 101.5 degrees Fahrenheit, and additional compatible Ebola Virus Disease symptoms Patient denies exposure to infectious person. Patient denies travel to an Ebola-affected area in the 21 days before illness onset. No symptoms or risks identified at this time. Initial Sepsis Screen: Does the patient meet any 2 criteria? No. Patient's initial sepsis screen is negative. Does the patient have a suspected source of infection? No. Patient's initial sepsis screen is negative. Risk Assessment: Do you want to hurt yourself or someone else? Patient reports no desire to harm self or others. Onset of symptoms was May 07, 2022. 10:34 Method Of Arrival: Wheelchair iw 10:34 Acuity: EKATERINA 3 iw 10:50 Acuity: EKATERINA 2 iw Triage Assessment: 11:08 General: Appears in no apparent distress. Behavior is calm, cooperative. cho Historical: - Allergies: 10:35 Hydrocodone-Acetaminophen; iw - Home Meds: 10:36 Seroquel Oral [Active]; Lisinopril Oral [Active]; Warfarin Oral [Active]; iw 11:08 quetiapine 100 mg Oral tab [Active]; cho - PMHx: 10:35 CVA; Right sided weakness; Hypertension; Dementia; iw - PSHx: 10:36 None; iw - Immunization history:: Client reports having NOT received the Covid vaccine. - Social history:: Smoking status: . - Family history:: not pertinent. Screenin:07 Abuse screen: Denies threats or abuse. Denies injuries from another. Nutritional cho screening: No deficits noted. Tuberculosis screening: No symptoms or risk factors identified. Fall Risk Mental Status- Overestimates/Forgets Limitations (15 pts.). Assessment: 11:07 Pain: Denies pain. : Parent/caregiver report the patient having inability to void. cho Vital Signs: 10:34 BP 86 / 60; Pulse 103; Resp 16; Temp 97.8; Pulse Ox 100% on R/A; Weight 47.63 kg; iw 12:14 BP 139 / 82; Pulse 92; Resp 17; Pulse Ox 95% on R/A; cho ED Course: 10:09 Patient arrived in ED. rg4 10:09 Jahaira Navarrete MD is Private Physician. rg4 10:35 Triage completed. iw 10:36 Arm band placed on. iw 10:38 Ashley Eason, RN is Primary Nurse. cho 10:39 Prudence Sarmiento MD is Attending Physician. ma2 11:07 Patient has correct armband on for positive identification. Bed in low position. Adult cho w/ patient. 11:07 CBC with Diff Sent. cho 11:07 CMP Sent. cho 11:07 Lipase Sent. cho 11:07 Urine Microscopic Only Sent. cho 11:07 No provider procedures requiring assistance completed. Inserted saline lock: 20 gauge cho in left antecubital area, using aseptic technique. 12:50 XRAY Chest (1 view) In Process Unspecified. EDMS 13:21 IV discontinued, intact, Pressure dressing applied. cho Administered Medications: 11:07 Drug: NS 0.9% 1000 ml Route: IV; Rate: 1 bolus; Site: left antecubital; cho Medication: 11:07 VIS not applicable for this client. cho Outcome: 12:50 Discharge ordered by . [facility] 13:20 Discharged to home via wheelchair, with family. cho 13:20 Condition: good 13:20 Discharge instructions given to family. 13:21 Patient left the ED. cho Signatures: Dispatcher [employer] EDMS Nabila Cheney RN RN iw Lori Crabtree rg4 Prudence Sarimento MD MD ma2 Au-Stager, Heather, RN RN cho Corrections: (The following items were deleted from the chart) 10:36 10:34 BP 86 / 60; Pulse 103bpm; Resp 16bpm; Temp 97.8F; iw iw
[2022-05-07 13:07] LABS: Urine RBC <5 /HPF (NONE SEEN)
[2022-05-07 13:08] LABS: Urine Bacteria <20 /HPF (<20)
--- NOTE | 2022-05-07 13:09 | RAD REPORT ---
EXAM DESCRIPTION: RAD - Chest Single View - 05/07/2022 12:49 pm CLINICAL HISTORY: CONGESTION COMPARISON: No comparisonsChest Single View dated 10/01/2020; Chest Single View dated 08/22/2020; Mylene st Single View dated 08/25/2019; Chest Single View dated 06/18/2016 FINDINGS: Lines: None. Lungs: Ill-defined opacities are present in the right upper lobe and to lesser extent the right lung base. Pleural: No significant pleural effusions or pneumothorax. Cardiac: The heart size is within normal limits. Bones: No acute fractures. Other: Surgical clips in right upper quadrant. IMPRESSION: Ill-defined airspace disease primarily in the right upper lobe could reflect pneumonia. Consider follow-up chest radiograph in 4-6 weeks to ensure resolution.
[2022-05-07 13:48] VITALS: BP 139/82; O2SAT 95
[2022-05-07 13:51] VITALS: TEMP 97.8
== END 2022-05-07 13:21 | disposition home or self-care (01) ==
LOC: ER 10:08
DX: E86.0 Dehydration (principal); I10 Essential (primary) hypertension; F03.90 Unspecified dementia, unspecified severity, without behavioral disturbance, psychotic disturbance, mood disturbance, and anxiety; Z88.5 Allergy status to narcotic agent
CPT/HCPCS: 85025; 36415; 81015; 83690; 80053; 71045; 99284; J7030

== ENCOUNTER 2022-06-02 20:38 | Inpatient (IN) | payer OTHER ==
[2022-06-02 21:59] LABS: Absolute Lymphocytes (CBC) 2.3 K/uL (0.7-4.9); Hematocrit 21.5 % (36.0-45.0); Lymphocytes % 29.9 % (15.3-44.8); MCV 77.9 fL (80-100); MPV 7.5 fL (7.6-11.3); RBC Red Blood Cell Count 2.77 M/uL (3.86-4.86)
--- NOTE | 2022-06-02 22:05 | RAD REPORT ---
EXAM DESCRIPTION: RAD - Foot Left 3 View - 06/02/2022 9:50 pm CLINICAL HISTORY: SWELLING COMPARISON: No comparisons FINDINGS: No fracture, dislocation or periosteal reaction. No acute or destructive bony process. Hy perextension is present at the second- fourth MTP joints. Mild degenerative change present at the fir st MTP joint. Small plantar spur present. Soft tissue swelling is present. No air or foreign body in the soft tissues. IMPRESSION: Left foot soft tissue swelling with no air or foreign body. No acute or destructive bone process.
--- NOTE | 2022-06-02 23:02 | EDPHYS ---
Physician Documentation [facility] Name: Carey Mcdaniel Age: 76 yrs Sex: Female : 1945 Arrival Date: 06/02/2022 Time: 20:45 Bed 17 Private MD: ED Physician Rajesh Tejada HPI: 06/02 20:59 This 76 yrs old Female presents to ER via Unassigned with complaints of Feet ms3 Swelling. 20:59 The patient presents with swelling. The complaints affect the left foot. Context: Left ms3 foot swelling with unknown injury. Onset: The symptoms/episode began/occurred acutely, today. Modifying factors: The symptoms are alleviated by nothing, the symptoms are aggravated by nothing. Associated signs and symptoms: The patient has no apparent associated signs or symptoms. Severity of symptoms: At their worst the symptoms were Patient is non-verbal. Historical: - Allergies: 21:41 Hydrocodone-Acetaminophen; vc1 - Home Meds: 06/03 03:17 lisinopril Oral [Active]; quetiapine 100 mg Oral tab [Active]; Seroquel Oral [Active]; kd3 Warfarin Oral [Active]; - PMHx: 06/02 21:41 CVA; Right sided weakness; Dementia; Hypertension; vc1 - PSHx: 21:41 None; vc1 - Immunization history:: Adult Immunizations up to date, Client reports having NOT received the Covid vaccine. - Social history:: Smoking status: Patient/guardian denies using tobacco, but has a distant history of tobacco abuse. ROS: 20:59 MS/extremity: Positive for swelling, Negative for tenderness. ms3 20:59 Constitutional: Positive for fatigue, Negative for fever. 20:59 Neck: 20:59 Abdomen/GI: Negative for vomiting, diarrhea. 20:59 Unable to obtain ROS due to Non-Verbal. Information from patient's daughter. Exam: 20:59 Constitutional: This is a well developed, well nourished patient who is awake, alert, ms3 and in no acute distress. Neck: Trachea midline, no cervical lymphadenopathy. Supple, full range of motion without nuchal rigidity, or vertebral point tenderness. No Meningismus. Chest/axilla: Normal chest wall appearance and motion. Nontender with no deformity. Cardiovascular: Regular rate and rhythm with a normal S1 and S2. No gallops, murmurs, or rubs. Normal PMI, no JVD. No pulse deficits. Respiratory: Lungs have equal breath sounds bilaterally, clear to auscultation and percussion. No rales, rhonchi or wheezes noted. No increased work of breathing, no retractions or nasal flaring. Abdomen/GI: Soft, non-tender, with normal bowel sounds. No distension or tympany. No guarding or rebound. No evidence of tenderness throughout. Skin: Warm, dry with normal turgor. Normal color with no rashes, no lesions, and no evidence of cellulitis. Psych: Awake, alert, with orientation to person, place and time. Behavior, mood, and affect are within normal limits. 20:59 Musculoskeletal/extremity: Extremities: noted in the left foot: swelling. 23:03 Abdomen/GI: Rectal exam: rectal tone normal, Stool: guaiac positive, black. ms3 Vital Signs: 21:39 BP 102 / 65; Pulse 100; Resp 18; Temp 98.4; Pulse Ox 98% ; Weight 47.63 kg; Height 4 vc1 ft. 11 in. (149.86 cm); 06/03 03:16 BP 126 / 72; Pulse 102; Resp 18; Pulse Ox 98% ; kd3 06/02 21:39 Body Mass Index 21.21 (47.63 kg, 149.86 cm) vc1 MDM: 06/02 20:59 Differential diagnosis: fracture, sprain, Left foot swelling. ms3 22:35 Patient medically screened. ms3 23:03 Data reviewed: vital signs, nurses notes, lab test result(s), radiologic studies, and ms3 as a result, I will admit patient. Counseling: I had a detailed discussion with the patient and/or guardian regarding: the historical points, exam findings, and any diagnostic results supporting the discharge/admit diagnosis, lab results, radiology results, the need for further work-up and treatment in the hospital. ED course: Discussed case with SUSANNA Craig and she accepts patient on behalf of Dr Ortega. All questions answered. Discussed plan with patient's daughter and she understands/ agrees with plan.. 06/02 20:57 Order name: CBC with Diff; Complete Time: 22:43 ms3 06/02 20:58 Order name: PT-INR; Complete Time: 23:22 ms3 06/02 22:02 Order name: CMP ms3 06/02 22:02 Order name: Type And Screen ms3 06/02 23:03 Order name: SARS-COV-2 RT PCR (Document "Date of Onset" if Symptomatic) ms3 06/02 20:57 Order name: Foot Left 3 View XRAY; Complete Time: 22:43 ms3 06/03 00:19 Order name: Protime (+INR) EDMS 06/03 00:19 Order name: Protime (+INR) EDMS 06/03 00:19 Order name: Protime (+INR) EDMS 06/03 00:19 Order name: Protime (+INR) EDMS Administered Medications: No medications were administered Disposition Summary: 06/02/22 23:01 Hospitalization Ordered Hospitalization Status: Inpatient Admission ms3 Provider: Dangelo Ortega ms3 Location: Telemetry/[facility] (Inpatient) ms3 Condition: Stable ms3 Problem: new ms3 Symptoms: are unchanged ms3 Bed/Room Type: Standard ms3 Room Assignment: 402(06/03/22 02:27) eb1 Diagnosis - Anemia, unspecified ms3 - Upper GI bleed ms3 - Unspecified dementia without behavioral disturbance ms3 Forms: - Medication Reconciliation Form ms3 - SBAR form ms3 Signatures: Dispatcher [employer] EDDione Pimentel RN RN eb1 Rajesh Tejada DO DO ms3 Sherri Alegria RN RN kd3 Octavia King RN RN vc1 Mariaelena Birmingham PA PA sb3 Corrections: (The following items were deleted from the chart) 06/03 02:27 06/02 23:01 ms3 eb1
--- NOTE | 2022-06-02 23:02 | ER ---
Nurse's Notes [facility] Name: Carey Mcdaniel Age: 76 yrs Sex: Female : 1945 Arrival Date: 06/02/2022 Time: 20:45 Bed 17 Private MD: Diagnosis: Anemia, unspecified;Upper GI bleed;Unspecified dementia without behavioral disturbance Presentation: 06/02 21:39 Chief complaint: Patient's son or daughter states: "Her feet started swelling and it vc1 looks like she has no circulation to them.". Coronavirus screen: Vaccine status: Patient reports being unvaccinated. Ebola Screen: No symptoms or risks identified at this time. Initial Sepsis Screen: Does the patient meet any 2 criteria? HR > 90 bpm. No. Patient's initial sepsis screen is negative. Does the patient have a suspected source of infection? No. Patient's initial sepsis screen is negative. Risk Assessment: Do you want to hurt yourself or someone else? Patient reports no desire to harm self or others. Onset of symptoms was June 02, 2022. 21:39 Method Of Arrival: Wheelchair vc1 21:39 Acuity: EKATERINA 4 vc1 Triage Assessment: 21:41 General: Appears in no apparent distress. Behavior is calm, cooperative, appropriate vc1 for age. Pain: Denies pain. EENT: Very hard of hearing. Neuro: Level of Consciousness is awake, Oriented to person. Cardiovascular: No deficits noted. Cardiovascular: Pulses are palpable in right dorsalis pedis artery and left dorsalis pedis artery. Respiratory: Airway is patent Respiratory effort is even, unlabored, Respiratory pattern is regular, symmetrical. GI: No signs and/or symptoms were reported involving the gastrointestinal system. : No deficits noted. Derm: Skin temperature is cool. Musculoskeletal: No signs and/or symptoms reported regarding the musculoskeletal system. Historical: - Allergies: 21:41 Hydrocodone-Acetaminophen; vc1 - Home Meds: 06/03 03:17 lisinopril Oral [Active]; quetiapine 100 mg Oral tab [Active]; Seroquel Oral [Active]; kd3 Warfarin Oral [Active]; - PMHx: 06/02 21:41 CVA; Right sided weakness; Dementia; Hypertension; vc1 - PSHx: 21:41 None; vc1 - Immunization history:: Adult Immunizations up to date, Client reports having NOT received the Covid vaccine. - Social history:: Smoking status: Patient/guardian denies using tobacco, but has a distant history of tobacco abuse. Screenin:43 Abuse screen: Denies threats or abuse. Nutritional screening: No deficits noted. vc1 Tuberculosis screening: No symptoms or risk factors identified. Fall Risk None identified. Assessment: 06/03 03:17 Reassessment: No changes from previously documented assessment. Patient and/or family kd3 updated on plan of care and expected duration. Pain level reassessed. Patient is alert, oriented x 3, equal unlabored respirations, skin warm/dry/pink. Vital Signs: 06/02 21:39 BP 102 / 65; Pulse 100; Resp 18; Temp 98.4; Pulse Ox 98% ; Weight 47.63 kg; Height 4 vc1 ft. 11 in. (149.86 cm); 06/03 03:16 BP 126 / 72; Pulse 102; Resp 18; Pulse Ox 98% ; kd3 06/02 21:39 Body Mass Index 21.21 (47.63 kg, 149.86 cm) vc1 ED Course: 06/02 20:45 Patient arrived in ED. ja2 20:45 Rajesh Tejada DO is Attending Physician. ms3 21:41 Triage completed. vc1 21:43 Arm band placed on left wrist. vc1 21:52 Foot Left 3 View XRAY In Process Unspecified. EDMS 22:56 Sherri Alegria, LON is Primary Nurse. kd3 23:00 Dangelo Ortega is Hospitalizing Provider. ms3 06/03 03:16 Assist provider with I \\T\\ D: of an abscess on left. Patient did not have IV access kd3 during this emergency room visit. 03:17 Patient has correct armband on for positive identification. kd3 Administered Medications: No medications were administered Medication: 03:17 VIS not applicable for this client. kd3 Outcome: 06/02 23:01 Decision to Hospitalize by Provider. ms3 06/03 03:16 Discharged to home ambulatory. kd3 Condition: stable 03:17 Discharge instructions given to patient, family, Instructed on discharge instructions, kd3 follow up and referral plans. Demonstrated understanding of instructions, follow-up care, medications, Prescriptions given X 03:18 Patient left the ED. kd3 Signatures: Dispatcher [employer] EDMS Rajesh Tejada DO DO ms3 Mary Dumas2 Sherri Alegria, RN RN kd3 Octavia King RN RN vc1
[2022-06-02 23:16] LABS: Protime INR 6.3
[2022-06-03 01:13] LABS: ALT/SGPT 16 U/L (12-78); AST/SGOT 18 U/L (15-37); Alkaline Phosphatase 56 U/L (45-117); BUN Blood Urea Nitrogen 22 mg/dL (7-18); Bicarbonate 29 mmol/L (21-32); Glomerular Filtration Rate 97 ml/min (=/>90); Glucose Level 106 mg/dL (74-106); Potassium 3.8 mmol/L (3.5-5.1); Protein, Total 5.1 g/dL (6.4-8.2); Sodium Level 145 mmol/L (136-145)
[2022-06-03 01:16] LABS: Bilirubin Total < 0.1 mg/dL (0.2-1.0)
--- NOTE | 2022-06-03 01:33 | P.HP ---
Certification for Inpatient Patient admitted to: Inpatient With expected LOS: >2 Midnights Patient will require the following post-hospital care: None Practitioner: I am a practitioner with admitting privileges, knowledge of patient current condition, hospital course, and medical plan of care. Services: Services provided to patient in accordance with Admission requirements found in Title 42 Section 412.3 of the Code of Federal Regulations Patient History Date of Service: 06/03/22 Reason for admission: GI Bleed History of Present Illness: Patient is a 76-year-old female with hypertension, dementia, and history of CVA resulting in right sided deficits who presented to the ED with daughter who reported that her right foot was swollen. Xray negative. Labs significant for hgb 6.5, hct 21.5, INR 6.3. She has been taking warfarin for 4 months now following DVT. Daughter states that she has noticed dark tarry stools for the past couple of days and reports patient has been acting more confused than usual. She denies hematemesis. Patient is nonverbal at baseline. Vital signs stable. We do have GI available. She is admitted for further evaluation and treatment. Patient had hemoglobin as low as 4.1 back in January and was transferred to [place] for higher level of care. She received several units of blood. Patient's daughter declined colonoscopy at the time. I discussed with her that GI will likely want to do an EGD and colonoscopy. She was agreeable. Allergies No Known Allergies Allergy (Verified 08/22/20 21:46) Home Medications: lisinopriL [Prinivil*] 40 mg PO DAILY #30 tab 08/28/20 - Past Medical/Surgical History Diabetic: No -: Hypertension -: CVA 2009 -: Dementia -: Cholecystectomy Psychosocial/ Personal History: Patient lives at home with her son, is nonverbal. - Family History Mother -: Hypertension, Diabetes - Social History Smoking Status: Never smoker Alcohol use: No CD- Drugs: No Caffeine use: No Place of Residence: Home Review of Systems Unremarkable Physical Examination - Physical Exam General: Alert, In no apparent distress, Demented, Confused HEENT: Atraumatic, PERRLA, EOMI, Sclerae nonicteric Neck: Supple, 2+ carotid pulse no bruit, No LAD, Without JVD or thyroid abnormality Respiratory: Clear to auscultation bilaterally, Normal air movement Cardiovascular: Regular rate/rhythm, Normal S1 S2 Gastrointestinal: Normal bowel sounds, No tenderness Musculoskeletal: No swelling, No tenderness, Contractures Integumentary: No rashes Neurological: Sensation intact, Abnormal strength - Studies Laboratory Data (last 24 hrs) 06/02/22 21:51: PT 72.0 H, INR 6.30 H* 06/02/22 21:51: WBC 7.8, Hgb 6.5 L*, Hct 21.5 L, Plt Count 580 H Assessment and Plan - Problems (Diagnosis) (1) GI bleed Current Visit: Yes Status: Acute Qualifiers: GI bleed type/associated pathology: melena Qualified Code(s): K92.1 - Melena (2) Supratherapeutic INR Current Visit: Yes Status: Acute (3) History of CVA (cerebrovascular accident) Current Visit: Yes Status: Chronic (4) Hypertension Current Visit: Yes Status: Chronic Qualifiers: Hypertension type: primary hypertension Qualified Code(s): I10 - Essential (primary) hypertension (5) Dementia Current Visit: Yes Status: Chronic Qualifiers: Dementia type: unspecified type Dementia behavioral disturbance: without behavioral disturbance Qualified Code(s): F03.90 - Unspecified dementia without behavioral disturbance - Plan -2 units PRBC ordered -Protonix drip -GI consult. NPO. -Vitamin K ordered -Monitor CBC and INR closely -Hold warfarin -SCDs -Reconcile and continue home medications -Monitor and replete electrolytes per protocol -Full code Discharge Plan: Home Plan to discharge in: Greater than 2 days - Advance Directives Does patient have a Living Will: No Does patient have a Durable POA for Healthcare: Yes - Code Status/Comfort Care Code Status Assessed: Yes (Full) Critical Care: No Time Spent Managing Pts Care (In Minutes): 50
[2022-06-03] MEDS ORDERED: VITAMIN K (ADULT) 10 MG/ML IVP ONE ×2 (02:10→03:00)
[2022-06-03] MEDS ORDERED: SODIUM CHLORIDE 0.9% 10ML INJ IV PRN (02:10)
[2022-06-03] MEDS ORDERED: PANTOPRAZOLE 40 MG INJ IVP ONE (02:10)
[2022-06-03] MEDS ORDERED: ONDANSETRON 4 MG/2 ML VIAL IV PRN (02:10)
[2022-06-03] MEDS ORDERED: ACETAMINOPHEN 500 MG TAB PO PRN (02:10)
[2022-06-03] MEDS ORDERED: QUETIAPINE 100MG TAB PO ONE (02:10)
[2022-06-03] MEDS ORDERED: PANTOPRAZOLE INJ 80 MG in NA CHLORIDE 0.9% 250 ML IV SCH (02:10)
[2022-06-03] MEDS ORDERED: PANTOPRAZOLE 40 MG INJ ONE (02:36)
[2022-06-03] MEDS ORDERED: NA CHLORIDE 0.9% 250 ML ONE ×2 (02:36→09:16)
[2022-06-03] MEDS ORDERED: VITAMIN K (ADULT) 10 MG/ML ONE (02:36)
[2022-06-03 03:30] LABS: Absolute Lymphocytes (CBC) 2.6 K/uL (0.7-4.9); Lymphocytes % 36.4 % (15.3-44.8); MCV 79.2 fL (80-100); MPV 7.9 fL (7.6-11.3); RBC Red Blood Cell Count 2.38 M/uL (3.86-4.86)
[2022-06-03 03:36] LABS: Protime INR 6.29
[2022-06-03 03:37] LABS: Magnesium 1.9 mg/dL (1.8-2.4); Potassium 3.6 mmol/L (3.5-5.1)
[2022-06-03 03:50] LABS: Hematocrit 18.9 % (36.0-45.0)
[2022-06-03 05:33] VITALS: BMI 12.7
[2022-06-03] MEDS ORDERED: KCL 20 MEQ/100 mL IVPB 20 MEQ/100 ML BAG IV SCH (08:00)
[2022-06-03] MEDS: PANTOPRAZOLE INJ 80 MG in NA CHLORIDE 0.9% 250 ML IV SCH ×2 (11:13→22:30)
[2022-06-03] MEDS ORDERED: NA CHLORIDE 0.9% 250 ML IV SCH (13:00)
--- NOTE | 2022-06-03 14:29 | P.PN ---
Date of Service: 06/03/22 Patient seen and examined. Hemoglobin dropped further to 5.9. Reported melena indicating GI bleed. Patient with supratherapeutic INR secondary to Coumadin. Plan: Status post vitamin K. Continue to monitor INR Transfused 2 unit PRBC GI consulted to evaluate. Continue to monitor H&H and transfuse as needed. Monitor for active bleeding. Continue Protonix.
[2022-06-03] MEDS ORDERED: MAGNESIUM CITRATE 300 ML BOT PO SCH (19:30)
[2022-06-03] MEDS: METOCLOPRAMIDE 10 MG/2mL INJ IV SCH (21:49)
[2022-06-03] MEDS: GOLYTELY 4000 ML PO SCH (21:50)
[2022-06-03] MEDS ORDERED: FUROSEMIDE 20 MG/ 2ML VIAL IV ONE (22:25)
[2022-06-04] MEDS: QUETIAPINE 100MG TAB PO SCH ×2 (00:15→21:35)
[2022-06-04 00:48] LABS: Hematocrit 31.6 % (36.0-45.0)
[2022-06-04] MEDS: METOCLOPRAMIDE 10 MG/2mL INJ IV SCH ×2 (01:05→08:00)
[2022-06-04] MEDS ORDERED: ALBUMIN HUMAN 25% 100 ML IV ONE (04:12)
[2022-06-04 04:45] LABS: Protime INR 1.2
[2022-06-04 04:48] LABS: Absolute Lymphocytes (CBC) 1.5 K/uL (0.7-4.9); Hematocrit 29.5 % (36.0-45.0); Lymphocytes % 17.1 % (15.3-44.8); MCV 81.3 fL (80-100); MPV 7.5 fL (7.6-11.3); RBC Red Blood Cell Count 3.62 M/uL (3.86-4.86)
[2022-06-04 04:55] LABS: Magnesium 2.3 mg/dL (1.8-2.4); Potassium 4.2 mmol/L (3.5-5.1)
[2022-06-04] MEDS: PANTOPRAZOLE INJ 80 MG in NA CHLORIDE 0.9% 250 ML IV SCH ×2 (08:59→21:35)
[2022-06-04] MEDS ORDERED: Ringers Lactate 1,000 ML IV ONE (16:14)
--- NOTE | 2022-06-04 16:27 | P.PN ---
Subjective Date of Service: 06/04/22 Chief Complaint: GI Bleed Patient has no new complain. No melena reported last night. Patient did not drink all the GoLytely bowel prep. Nurse reports no melena with the enemas given last night. Physical Examination - Vital Signs Temperature: 98.5 F Blood Pressure: 122/59 Pulse: 81 Respirations: 14 Pulse Ox (%): 95 - Physical Exam General: Alert, In no apparent distress, Other (Underweight) HEENT: Mucous membr. moist/pink, Sclerae nonicteric Neck: JVD not distended Respiratory: Clear to auscultation bilaterally, Normal air movement Cardiovascular: No edema, Regular rate/rhythm, Normal S1 S2 Gastrointestinal: Normal bowel sounds, Soft and benign, Non-distended, No tenderness Musculoskeletal: No swelling Integumentary: No rashes Neurological: Normal strength at 5/5 x4 extr Assessment And Plan - Current Problems (Diagnosis) (1) GI bleed Current Visit: Yes Status: Acute Qualifiers: GI bleed type/associated pathology: melena Qualified Code(s): K92.1 - Melena (2) Supratherapeutic INR Current Visit: Yes Status: Acute (3) Dementia Current Visit: Yes Status: Chronic Qualifiers: Dementia type: unspecified type Dementia behavioral disturbance: without behavioral disturbance Qualified Code(s): F03.90 - Unspecified dementia without behavioral disturbance (4) History of CVA (cerebrovascular accident) Current Visit: Yes Status: Chronic (5) Hypertension Current Visit: Yes Status: Chronic Qualifiers: Hypertension type: primary hypertension Qualified Code(s): I10 - Essential (primary) hypertension (6) History of DVT of lower extremity Current Visit: Yes Status: Acute - Plan Status post vitamin K, INR now normalized. No more active bleeding. Patient seen by GI and planned for EGD and colonoscopy. Continue Protonix. H&H has been stable since blood transfusion. Monitor for active bleeding. Patient with borderline hypotension. Continue to hold lisinopril. Continue to hold Coumadin.
[2022-06-04] MEDS ORDERED: LIDOCAINE 1% MPF 5 ML VIAL ONE (17:41)
[2022-06-04] MEDS ORDERED: propofoL 200 MG/20 ML VIAL IV ONE ×2 (17:41→17:46)
--- NOTE | 2022-06-04 18:17 | ENDO RPT ---
[address], [address] EGD PROCEDURE REPORT EXAM DATE: 06/04/2022 PATIENT NAME: aCrey Mcdaneil MR#: [id number] BIRTHDATE: 1945 ATTENDING: Aman Antonio Dr STATUS: inpatient - 7 OPHTHALMIC LENS INSPECTOR: Trevor Miguel CST and Marcie Felton RN INDICATIONS: The patient is a 76 yr old Female here for an EGD due to melenic bleeding, anemia, hgb 5.9, INR 6.29 PROCEDURE PERFORMED: EGD with biopsy MEDICATIONS: Per Anesthesia. TOPICAL ANESTHETIC: none CONSENT: The patient understands the risks and benefits of the procedure and understands that these risks include, but are not limited to: sedation, allergic reaction, infection, perforation and/or bleeding. Alternative means of evaluation and treatment include, among others: physical exam, x-rays, and/or surgical intervention. The patient elects to proceed with this endoscopic procedure. DESCRIPTION OF PROCEDURE: During intra-op preparation period all mechanical medical equipment was checked for proper function. Hand hygiene and appropriate measures for infection prevention was taken. Procedure, possible complications, and alternatives including but not limited to the possibility of bleeding, perforation, tear, infection, sepsis, need for surgery, need for blood transfusion, and anesthesia related complications were explained to the patient. After the risks, benefits and alternatives of the procedure were thoroughly explained, Informed consent was verified, confirmed and timeout was successfully executed by the treatment team. The patient was placed in the left lateral position. The patient was anesthetized with topical anesthesia. Through the anesthetized oropharyngeal area, the scope was passed without any difficulty. The EG-[id number] ([id number]) endoscope was introduced through the mouth and advanced to the second portion of the duodenum. Retroflexed views revealed a moderate sized hiatal hernia. The gastroscope was then slowly withdrawn and removed. LA class D esophagitis was found in the lower esophagus. A moderate sized hiatal hernia was found ADVERSE EVENTS: There were no complications. IMPRESSIONS: 1. LA class D esophagitis in the lower esophagus 2. Moderate sized hiatal hernia RECOMMENDATIONS: 1. anti-reflux regimen 2. acid suppression therapy REPEAT EXAM: Aman Antonio Dr eSigned: Aman Antonio Dr 06/04/2022 6:17 PM cc: CPT CODES: ICD9 CODES: PATIENT NAME: Carey Mcdaniel MR#: [id number]
--- NOTE | 2022-06-04 18:37 | ENDO RPT ---
[address], [address] COLONOSCOPY PROCEDURE REPORT EXAM DATE: 06/04/2022 PATIENT NAME: Carey Mcdaniel MR #: [id number] BIRTHDATE: 1945 ATTENDING: Aman Antonio Dr STATUS: inpatient - 7 STEEL CHIPPER: Trevor Miguel CST and Marcie Felton RN INDICATIONS: The patient is a 76 yr old Female here for a colonoscopy due to melenic bleeding and anemia PROCEDURE PERFORMED: Colonoscopy MEDICATIONS: Per Anesthesia. ESTIMATED BLOOD LOSS: None CONSENT: The patient understands the risks and benefits of the procedure and understands that these risks include, but are not limited to: sedation, allergic reaction, infection, perforation and/or bleeding. Alternative means of evaluation and treatment include, among others: physical exam, x-rays, and/or surgical intervention. The patient elects to proceed with this endoscopic procedure. DESCRIPTION OF PROCEDURE: During intra-op preparation period all mechanical medical equipment was checked for proper function. Hand hygiene and appropriate measures for infection prevention was taken. Procedure, possible complications, alternatives including, but not limited to possibility of bleeding, perforation, tear, infection, sepsis, need for surgery, need for blood transfusion, were explained to the patient. After the risks, benefits and alternatives of the procedure were thoroughly explained, Informed consent was verified, confirmed and timeout was successfully executed by the treatment team. The patient was placed in the left lateral position. A digital rectal exam was performed and revealed external hemorrhoids. After appropriate level of anesthesia, the scope was passed. The EG-[id number] ([id number]) and EC-[id number] ([id number]) endoscope was introduced through the anus and advanced to the sigmoid colon. The quality of the prep was poor. The instrument was then slowly withdrawn as the colon was fully examined. Scope withdrawal time was 7 minutes. COLON FINDINGS: Mild diverticulosis was noted in the sigmoid colon. No bleeding was noted from the diverticulosis. Solid stool obstructing the sigmoid colon - unable to intubate further. Small internal and external hemorrhoids were found. Retroflexed views revealed small hemorrhoids. The scope was then completely withdrawn from the patient and the procedure terminated. ADVERSE EVENTS: 70/30 hypotension 06/04/2022 6:32 PM. IMPRESSIONS: 1. Mild diverticulosis in the sigmoid colon 2. Solid stool obstructing the sigmoid colon - unable to intubate further 3. Small internal and external hemorrhoids RECOMMENDATIONS: 1. fiber rich diet 2. repeat colonoscopy prep 3. evaluation of cardiac status with hypotension 70/30 during procedure (anesthesia unable to explain) RECALL: Return in 1 week(s) for Colonoscopy. Aman Antonio Dr eSigned: Aman Antonio Dr 06/04/2022 6:36 PM cc: CPT CODES: ICD9 CODES: 1. 455.5 External hemorrhoids with other complication 2. 214.3 Lipoma of intra-abdominal organs 3. 569.89 Other specified disorders of intestines PATIENT NAME: Mcdaniel, Rosa JoceErendira MR#: [id number]
--- NOTE | 2022-06-04 18:43 | ENDO RPT ---
[address], [address] EGD PROCEDURE REPORT EXAM DATE: 06/04/2022 PATIENT NAME: Carey Mcdaniel MR#: [id number] BIRTHDATE: 1945 ATTENDING: Aman Antonio Dr STATUS: inpatient - 7 WOOL BUYER: Trevor Miguel CST and Marcie Felton RN INDICATIONS: The patient is a 76 yr old Female here for an EGD due to melenic bleeding, anemia, hgb 5.9, INR 6.29 PROCEDURE PERFORMED: EGD with biopsy MEDICATIONS: Per Anesthesia. TOPICAL ANESTHETIC: none CONSENT: The patient understands the risks and benefits of the procedure and understands that these risks include, but are not limited to: sedation, allergic reaction, infection, perforation and/or bleeding. Alternative means of evaluation and treatment include, among others: physical exam, x-rays, and/or surgical intervention. The patient elects to proceed with this endoscopic procedure. DESCRIPTION OF PROCEDURE: During intra-op preparation period all mechanical medical equipment was checked for proper function. Hand hygiene and appropriate measures for infection prevention was taken. Procedure, possible complications, and alternatives including but not limited to the possibility of bleeding, perforation, tear, infection, sepsis, need for surgery, need for blood transfusion, and anesthesia related complications were explained to the patient. After the risks, benefits and alternatives of the procedure were thoroughly explained, Informed consent was verified, confirmed and timeout was successfully executed by the treatment team. The patient was placed in the left lateral position. The patient was anesthetized with topical anesthesia. Through the anesthetized oropharyngeal area, the scope was passed without any difficulty. The EG-[id number] ([id number]) endoscope was introduced through the mouth and advanced to the second portion of the duodenum. Retroflexed views revealed a moderate sized hiatal hernia. The gastroscope was then slowly withdrawn and removed. LA class D esophagitis (tip at 20 cm, GEJ at 28 cm, DI at 32 cm from the gums) was found in the lower esophagus. A moderate sized hiatal hernia was found ADVERSE EVENTS: There were no complications. IMPRESSIONS: 1. LA class D esophagitis in the lower esophagus 2. Moderate sized hiatal hernia RECOMMENDATIONS: 1. anti-reflux regimen 2. acid suppression therapy REPEAT EXAM: Aman Antonio Dr eSigned: Aman Antonio Dr 06/04/2022 6:42 PM Revised: 06/04/2022 6:42 PM cc: CPT CODES: ICD9 CODES: PATIENT NAME: Carey McdanielErendira MR#: [id number]
[2022-06-04] MEDS: GOLYTELY 4000 ML PO SCH (19:30)
[2022-06-05] MEDS: PANTOPRAZOLE INJ 80 MG in NA CHLORIDE 0.9% 250 ML IV SCH ×3 (04:30→18:07)
[2022-06-05 07:30] LABS: Protime INR 1.17
[2022-06-05 07:57] LABS: Potassium 3.4 mmol/L (3.5-5.1)
[2022-06-05] MEDS ORDERED: POTASSIUM CL SA 10 MEQ TAB PO ONE (08:09)
[2022-06-05 08:53] VITALS: O2SAT 98
[2022-06-05] MEDS: KCL 20 MEQ/100 mL IVPB 20 MEQ/100 ML BAG IV SCH ×2 (09:39→11:50)
[2022-06-05 10:44] LABS: Absolute Lymphocytes (CBC) 1.3 K/uL (0.7-4.9); Hematocrit 28.7 % (36.0-45.0); Lymphocytes % 20.6 % (15.3-44.8); MCV 82.1 fL (80-100); MPV 8.6 fL (7.6-11.3)
--- NOTE | 2022-06-05 12:35 | P.PN ---
Subjective Date of Service: 06/05/22 Chief Complaint: GI Bleed Patient has no new complain. No melena reported. EGD patient noted to have esophagitis Physical Examination - Vital Signs Temperature: 98.1 F Blood Pressure: 145/68 Pulse: 60 Respirations: 16 Pulse Ox (%): 99 Assessment And Plan - Current Problems (Diagnosis) (1) GI bleed Current Visit: Yes Status: Acute Qualifiers: GI bleed type/associated pathology: melena Qualified Code(s): K92.1 - Melena (2) Supratherapeutic INR Current Visit: Yes Status: Acute (3) Dementia Current Visit: Yes Status: Chronic Qualifiers: Dementia type: unspecified type Dementia behavioral disturbance: without behavioral disturbance Qualified Code(s): F03.90 - Unspecified dementia without behavioral disturbance (4) History of CVA (cerebrovascular accident) Current Visit: Yes Status: Chronic (5) Hypertension Current Visit: Yes Status: Chronic Qualifiers: Hypertension type: primary hypertension Qualified Code(s): I10 - Essential (primary) hypertension (6) History of DVT of lower extremity Current Visit: Yes Status: Acute - Plan Physical examination General: Alert, In no apparent distress, Other (Underweight) HEENT: Mucous membr. moist/pink, Sclerae nonicteric Neck: JVD not distended Respiratory: Clear to auscultation bilaterally, Normal air movement Cardiovascular: No edema, Regular rate/rhythm, Normal S1 S2 Gastrointestinal: Normal bowel sounds, Soft and benign, Non-distended, No tenderness Musculoskeletal: No swelling Integumentary: No rashes Neurological: Normal strength at 5/5 x4 extr Plan: Status post vitamin K, INR now normalized. No more active bleeding. Patient seen by GI. EGD demonstrated esophagitis. Colonoscopy was nondiagnostic due to poor bowel prep. Continue Protonix. H&H slightly dropped again Monitor for active bleeding. Blood pressure has improved, patient is currently normotensive. Continue to hold lisinopril. Continue to hold Coumadin until hemoglobin stabilized and then resume for history of DVT.
[2022-06-05] MEDS: GOLYTELY 4000 ML PO SCH (19:30)
--- NOTE | 2022-06-05 19:42 | RAD REPORT ---
EXAM DESCRIPTION: RAD - Chest Single View - 06/03/2022 10:47 pm CLINICAL HISTORY: Crackles. COMPARISON: Chest 10/01/2020 TECHNIQUE: AP Chest. FINDINGS: Heart is normal in size. Mild aortic arch atherosclerosis. There is central bronchial thic kening. There is no consolidation or edema. No pleural fluid or pneumothorax. Old fracture lateral left rib 5. Old left clavicle fracture. Unremarkable soft tissues. Cholecystecto my clips in the right upper abdomen. IMPRESSION: 1. Bronchitis. Electronically signed by: Odilia Arango DO 06/03/2022 11:08 PM CDT Due to temporary technical issues with the PACS/Fluency reporting system, reports are being signed by the in house radiologists without review as a courtesy to insure prompt reporting. The interpreting radiologist is fully responsible for the content of the report.
[2022-06-05] MEDS: QUETIAPINE 100MG TAB PO SCH (21:52)
[2022-06-06] MEDS: PANTOPRAZOLE INJ 80 MG in NA CHLORIDE 0.9% 250 ML IV SCH (03:57)
[2022-06-06 06:24] LABS: Potassium 3.8 mmol/L (3.5-5.1)
[2022-06-06] MEDS ORDERED: POTASSIUM 25 MEQ EFFERV TAB PO ONE (09:00)
[2022-06-06] MEDS ORDERED: lisinopriL 20 MG TAB PO SCH (10:00)
--- NOTE | 2022-06-06 11:50 | P.DS ---
Admission Date: 06/03/22 Discharge Date: 06/06/22 Disposition: ROUTINE DISCHARGE Discharge Condition: FAIR Reason for Admission: GI Bleed - Problems (1) GI bleed Current Visit: Yes Status: Acute Qualifiers: GI bleed type/associated pathology: melena Qualified Code(s): K92.1 - Melena (2) Supratherapeutic INR Current Visit: Yes Status: Acute (3) Dementia Current Visit: Yes Status: Chronic Qualifiers: Dementia type: unspecified type Dementia behavioral disturbance: without behavioral disturbance Qualified Code(s): F03.90 - Unspecified dementia without behavioral disturbance (4) History of CVA (cerebrovascular accident) Current Visit: Yes Status: Chronic (5) Hypertension Current Visit: Yes Status: Chronic Qualifiers: Hypertension type: primary hypertension Qualified Code(s): I10 - Essential (primary) hypertension (6) History of DVT of lower extremity Current Visit: Yes Status: Acute Brief History of Present Illness: Patient is a 76-year-old female with hypertension, dementia, and history of CVA resulting in right sided deficits who presented to the ED with daughter who reported that her right foot was swollen. Xray negative. Labs significant for hgb 6.5, hct 21.5, INR 6.3. She has been taking warfarin for 4 months now following DVT. Daughter states that she noticed dark tarry stools and reported patient had been acting more confused than usual. No hematemesis. Patient admitted for further management. Hospital Course: Patient admitted to the medical floor, found to have supratherapeutic INR of 6. She was given vitamin K. Her hemoglobin dropped to 5.9. She was given 2 units PRBC transfusion. INR normalized No more active bleeding. Patient seen by GI. EGD done demonstrated esophagitis. Colonoscopy was nondiagnostic due to poor bowel prep. Patient treated with IV Protonix and transition to oral Protonix H&H became stable. Her blood pressure was sometimes borderline hypotensive but this improved and later became hypertensive. Lisinopril resumed for hypertension. Patient is on anticoagulation for recent DVT. She was taking Coumadin 5 mg daily compliant with her pharmacy. Coumadin is resumed at 2.5 mg daily. She is discharged with subcutaneous Lovenox bridge. Vital Signs/Physical Exam: Temp Pulse Resp BP Pulse Ox 98.5 F 65 16 170/81 H 100 06/06/22 08:00 06/06/22 09:53 06/06/22 08:00 06/06/22 09:53 06/06/22 08:00 General: Other (Awake, nonverbal) HEENT: Mucous membr. moist/pink Neck: JVD not distended Respiratory: Clear to auscultation bilaterally, Normal air movement Cardiovascular: No edema, Regular rate/rhythm, Normal S1 S2 Gastrointestinal: Soft and benign, Non-distended, No tenderness Musculoskeletal: No swelling Integumentary: No rashes Neurological: Other (Nonverbal) Laboratory Data at Discharge: WBC 6.3 K/uL (4.3-10.9) D 06/05/22 06:19 Hgb 9.2 g/dL (12.0-15.0) L 06/05/22 16:15 Hct 29.1 % (36.0-45.0) L 06/05/22 16:15 Plt Count 287 K/uL (152-406) D 06/05/22 06:19 PT 12.9 SECONDS (9.5-12.5) H 06/05/22 06:19 INR 1.17 06/05/22 06:19 Sodium 145 mmol/L (136-145) 06/06/22 05:45 Potassium 3.8 mmol/L (3.5-5.1) 06/06/22 05:45 BUN 5 mg/dL (7-18) L 06/06/22 05:45 Creatinine 0.38 mg/dL (0.55-1.3) L 06/06/22 05:45 Glucose 95 mg/dL (74-106) 06/06/22 05:45 Magnesium 2.3 mg/dL (1.8-2.4) 06/04/22 04:17 Total Bilirubin < 0.1 mg/dL (0.2-1.0) L 06/03/22 00:32 AST 18 U/L (15-37) 06/03/22 00:32 ALT 16 U/L (12-78) 06/03/22 00:32 Alkaline Phosphatase 56 U/L (45-117) 06/03/22 00:32 Home Medications: lisinopriL [Prinivil*] 40 mg PO DAILY #30 tab 08/28/20 Enoxaparin Sodium [Lovenox 40 MG INJ] 40 mg SQ Q12H #14 syr 06/06/22 Pantoprazole [Protonix Tab] 40 mg PO BID #60 tab 06/06/22 Warfarin Sodium [Coumadin] 2.5 mg PO DAILY 5 PM #14 tab 06/06/22 New Medications: Warfarin Sodium [Coumadin] 2.5 mg PO DAILY 5 PM #14 tab Enoxaparin Sodium [Lovenox 40 MG INJ] 40 mg SQ Q12H #14 syr Pantoprazole [Protonix Tab] 40 mg PO BID #60 tab Physician Discharge Instructions: Check PT/INR within 2 days, then 3 times a week. Please call Dr. Navarrete for coumadin dose adjustment. Stop Lovenox injections once INR is up to 2.0 and continue only Coumadin. Stop both Coumadin and Lovenox if patient develop black stool or bloody stool again. Diet: AHA Activity: Fall precautions Followup: Aman Antonio MD [ASSOCIATE-ACTIVE - CAN ADMIT] - 1-2 Weeks (GI doctor- call to schedule an appointment ) Jahaira Navarrete DO [Primary Care Provider] - 1 Week (Call on Tuesday to get orders for PT/INR checks beginning Tuesday. ) Time spent managing pt's care (in minutes): 35
[2022-06-06] MEDS ORDERED: ENOXAPARIN 40 MG/0.4 ML SQ SCH (12:00)
[2022-06-06 12:47] VITALS: BP 155/79; TEMP 98.3
[2022-06-06] MEDS ORDERED: WARFARIN SODIUM 2.5 MG TAB PO SCH (17:00)
[2022-06-06] MEDS ORDERED: PANTOPRAZOLE 40MG TABLET PO SCH (21:00)
[2022-06-07] MEDS ORDERED: lisinopriL 20 MG TAB PO SCH (09:00)
--- NOTE | 2022-06-09 16:17 | CON ---
Date of Consultation: 06/03/2022 Reason For Consultation: GI bleed with melena and anemia, now hemoglobin down to 5.9. History Of Present Illness: Patient is a 76-year-old female with history of hypertension, d ementia, stroke, who presented to hospital with melena, hemoglobin down to 5.9. INR is elevated at 6 .3 with coagulopathy. Patient takes warfarin for her history of stroke. It appears that she has eit her taken too much or no longer is eating green leafy vegetables to keep it under control or some oth er disorder such as other medicine or grapefruit or other that she may be taking. Of note, patient h as had multiple admissions to the hospital due to GI bleeding. She had a hemoglobin as low as 4.1 ba ck in January and transferred to [facility] for higher level of care. She received several units of blood . Patient's daughter declined a colonoscopy at that time as well as EGD it appears, but patient now states she is willing to undergo EGD and colonoscopy at this time. Her hemoglobin has dropped since admission from 7.1 down to 5.9. Past Medical History: Significant for hypertension, stroke 2009, dementia, cholecystectomy. Social History: Patient lives at home with her son, is nonverbal. She is a . No tobacco. No alcohol. She has 5 children overall. Lives with her son. Family History: Father of cancer, but also had diabetes. Mother of old age. She was appr oximately 82 years of age and she according to patient. Review of Systems: Patient has melena. No weakness. She is nonverbal due to her prior stroke with aphasia. INR of 6.2 9 with a PTT of 71.8. Unsure exactly why this happened, but this is currently being corrected. Yaneth ent denies any hematemesis, coffee-grounds emesis, hematochezia, hemoptysis, hematuria, dysuria, poly dipsia. No muscle aches, joint aches, backaches, seizure, syncope, chest pain, shortness of breath. No rashes. Medications: Lisinopril. Allergies: NKDA. Physical Examination: Vital Signs: Patient is 4 feet 11 inches, 89 pounds, BMI of 18 kg/sq m. She has a temperature 99.2 degrees Fahrenheit, pulse 66, respirations 16, blood pressure 140/63, O2 saturation 98%. General: She is a thin female, lying in bed, in no acute distress. Unable to speak, aphasia. HEENT: Normocephalic, atraumatic. Anicteric. Pupils equal, round, and reactive to light. Extraocu lar movements intact. Oropharynx clear. Neck: Supple. No masses. Respirations: Clear to auscultation bilaterally. Cardiac: Regular rate and rhythm. No gallops or rubs. Abdomen: Positive bowel sounds. Soft, nontender, nondistended. No hepatosplenomegaly. Extremities: No clubbing, cyanosis, or edema. Neuro: Able to move extremities relatively well. Able to respond to verbal and physical stimuli. Laboratory Data: Patient has a white count of 7.1, hemoglobin of 5.9. Repeat hemoglobin today is up to 10.2 after blood transfusions. MCV of 79, platelet count of 479. PT today is 71.8, yesterday of 72.0; INR is 6.29, yesterday was 6.30. She has a sodium 143, potassium 3.6, chloride 113, bicarb 26 , BUN of 22, creatinine of 0.47, glucose 113, calcium 7.0. Magnesium 1.9. Total bilirubin less than 0.1, AST of 18, ALT of 16, alkaline phosphatase 56, total protein 5.1, albumin 2.0. She has a COVID -19 testing and it was negative. Chest x-ray shows normal heart size, mild aortic arch with atherosc lerosis, central bronchial thickening. Otherwise negative except for cholecystectomy clips in place. No fracture of left lateral rib 5. An old left clavicular fracture is well noted, otherwise unrema rkable. Impression: 1.Melena. Patient refused endoscopies in [facility] in the past, but now is agreeable to esophagogastr oduodenoscopy and colonoscopy. Daughters were at bedside. 2.Anemia. Hemoglobin 7.1, down to 5.9. Blood transfusion backed up to 10.2 today. 3.History of dementia of hypertension, stroke in 2010, laparoscopic cholecystectomy. 4.Coagulopathy. INR of 6.29 today with a PT of 71.8 on warfarin for her atrial fibrillation. Recommendations: 1.Colonoscopy and EGD. 2.Agree with packed RBCs x2, which were given. 3.Continue serial H and H, and transfuse p.r.n. 4.PPI therapy. 5.Correct coagulopathy, which is undergoing. Vitamin K and considering FFP might be given as well. HARDY/EMA Voice ID: [id number] Report ID: [id number]
--- OUTSIDE RECORDS SUMMARY | 2022-06-10 04:24 | XMS REPORT | Continuity of Care Document ---
:1945 Author Organization [facility] Address [address] [place] [address] Care Team Providers Name Role Phone Alicia Navarrete Attending Clinician Unavailable ELIGIO TAN Attending Clinician Unavailable Haydee BROWN Attending Clinician Unavailable Evelyn VEGA Attending Clinician Unavailable ELIGIO TAN Admitting Clinician Unavailable Evelyn VEGA Admitting Clinician Unavailable LEIDA Admitting Clinician Unavailable Payers Payer Name Policy Type Policy Number Effective Date Expiration Date S chayo MEDICARE A B [id number] 2001 00:00:00 Problems This patient has no known problems. Allergies, Adverse Reactions, Alerts Allergy Allergy Status Severity Reaction(s) Onset Inactive Treating Comm ents Source Name Type Date Date Clinician NO KNOWN Allergy Active [facility] Medications This patient has no known medications. Vital Signs Vital Name Observation Time Observation Value Comments Source HEIGHT 2020-10-01 17:00:00 149.9 cm WEIGHT 2020-10-01 17:00:00 50.349 kg HEIGHT 2020-10-01 17:00:00 149.9 cm WEIGHT 2020-10-01 17:00:00 50.349 kg Procedures This patient has no known procedures. Encounters Start End Encounter Admission Attending Care Care Encounter Source Date/Time Date/Time Type Type Clinicians Facility Department ID 2022-06-01 Outpatient Jahaira Navarrete [facility] [id number] Common 11:32:02 [facility] 2022-05-31 Outpatient Navarrete, Na [facility] [id number] Common 10:20:00 [facility] 2022-03-23 Outpatient Navarrete, Na [facility] [id number] Common 15:15:02 [facility] 2022-03-22 Outpatient Navarrete, Na [facility] [id number] 2 Common 08:50:01 [facility] 2022-01-29 Inpatient ER [facility] [id number] [facility]:44 [facility] 2022-01-29 Inpatient ER [facility] [id number] [facility] 14[facility]30:45 [facility] 2021-12-16 Outpatient Navarrete, Na [facility] [id number] 2 Common 14:34:54 [facility] 2021-12-16 Outpatient Navarrete, Na [facility] [id number] 2 Common 13:56:50 [id number] [facility] 2021-12-16 Outpatient Navarrete, Na [facility] [id number] 2 Common 13:45:46 [id number] [facility] 2021-12-16 Outpatient Navarrete, Na [facility] [id number] 2 Common 13:06:59 [id number] [facility] 2021-12-16 Outpatient Navarrete, Na [facility] [id number] 2 Common 13:06:24 [id number] [facility] 2021-12-16 Outpatient Navarrete, Na [facility] [id number] 2 Common 12:46:16 [id number] [facility] 2021-08-27 Inpatient ER SH[facility] [id number] [facility] 11:13:10 LINDSAY DOWLING 2022-06-02 2022-06-02 ambulatory [facility] [id number] Common 00:00:00 00:00:00 [facility] 2022-05-31 2022-05-31 ambulatory [facility] [id number] Common 00:00:00 00:00:00 [facility] 2022-05-31 2022-05-31 ambulatory [facility] [id number] Common 00:00:00 00:00:00 [facility] 2022-05-11 2022-05-11 ambulatory [facility] [id number] Common 00:00:00 00:00:00 [facility] 2022-03-09 2022-03-09 ambulatory [facility] [id number] Common 00:00:00 00:00:00 [facility] 2022-03-01 2022-03-01 ambulatory [facility] [id number] Common 00:00:00 00:00:00 [facility] 2022-02-15 2022-02-15 ambulatory [facility] [id number] Common 00:00:00 00:00:00 [facility] 2022-02-15 2022-02-15 ambulatory [facility] [id number] Common 00:00:00 00:00:00 [facility] 2022-02-12 2022-02-12 ambulatory [facility] [id number] Common 00:00:00 00:00:00 [facility] 2022-02-08 2022-02-08 ambulatory [facility] [id number] Common 00:00:00 00:00:00 [facility] 2022-02-03 2022-02-03 ambulatory [facility] [id number] Common 00:00:00 00:00:00 [facility] 2022-01-30 2022-02-02 Inpatient ER STEPHANIE, [facility] [id number] [facility] 01:23:00 16:43:00 YASHASH 2022-01-12 2022-01-12 ambulatory [facility] [id number] Common 00:00:00 00:00:00 [facility] 2022-01-12 2022-01-12 ambulatory [facility] [id number] Common 00:00:00 00:00:00 [facility] 2021-12-03 2021-12-03 ambulatory [facility] [id number] Common 00:00:00 00:00:00 [facility] 2021-08-15 2021-08-15 Outpatient [facility] [id number] Common 00:00:00 00:00:00 [facility] 2021-08-05 2021-08-05 Outpatient [facility] [id number] Common 00:00:00 00:00:00 [facility] 2021-07-24 2021-07-24 Outpatient [facility] [id number] Common 00:00:00 00:00:00 [facility] 2021-04-14 2021-04-14 Outpatient [facility] [id number] Common 00:00:00 00:00:00 [facility] 2021-04-10 2021-04-10 Outpatient [facility] [id number] Common 00:00:00 00:00:00 [facility] 2021-02-17 2021-02-17 Outpatient [facility] [id number] Common 00:00:00 00:00:00 [facility] Results Test Description Test Time Test Comments [...] NOT 1092) ACCURATE CRE ATININE CLEARANCE IN DE EDICTING GLOMERULAR FILT RATION RATE. ESTIMATED GFR IS NOT APPLICABLE FOR DIALYSIS PATIENTS. Chicken Buyer SARAH SANTO WCBC W/PLT COUNT & AUTO [id number] 06:11:51 Test Item Value Reference Range Interpretation [...] = 2801) CBC W/PLT COUNT & AUTO [id number] 08:46:10 Test Item Value Reference Range Interpretation [...] to report due WIDTH (BEAKER) (test to [facility] RBC code = 412) population distribution. PLATELET [...] (test code Normal = 762) BASIC METABOLIC [id number] 05:55:30 Test Item Value Reference Range Interpretation [...] S NOT APPLICABLE FOR DIALYSIS PATIEN TS. Chicken Buyer ID - PIAYA LPERIPHERAL BLOOD SMEAR - PATHOLOGIST [id number] 10:55:06 Test Item Value Reference Range Interpretation Comments RBC MORPHOLOGY Polychromasia (BEAKER) (test code = 2846) RBC MORPHOLOGY Anisocytosis (BEAKER) (test code = 83765) RBC MORPHOLOGY Poikilocytosis (BEAKER) (test code = 34145) RBC MORPHOLOGY Elliptocytes (BEAKER) (test code = 96222) WBC MORPHOLOGY Unremarkable (BEAKER) (test code = 2847) PLT MORPHOLOGY Unremarkable (BEAKER) (test code = 2848) PERIPHERAL SMR REVIEW Cell counts confirmed. (BEAKER) (test code = There is microcytic 2640) hypochromic anemia with polychromasia and mild anisopoikilocytosis. Schistocytes are not increased (<1%). Correlation with the ancillary findings including iron studies are recommended. [id number] Palmer Levi M.D. (BEAKER) (test code = 2849) RAD, CHEST, 1 VIEW, NON [id number] 10:48:00Reason for exam:->r/o pnaShould this be performed at the bedside?->Yes [facility] 1945 Sex: FFINAL REPORT [...] MDReport Verified Date/Time: 01/31/2022 10:48:19 Reading Location: [facility] C013Y CT Body Reading Room C METABOLIC [id number] 08:36:06 Test Item Value Reference Range Interpretation [...] S NOT APPLICABLE FOR DIALYSIS PATIEN TS. Chicken Buyer ID - DBCBC W/PLT COUNT & AUTO [id number] 08:01:47 Test Item Value Reference Range Interpretation [...] to report due WIDTH (BEAKER) (test to [facility] RBC code = 412) population distribution.' PLATELET [...] (test code = 3445) BUN AND CREATININE [id number] 17:45:47 Test Item Value Reference Range Interpretation Comments BLOOD UREA NITROGEN 9 mg/dL 7-21 (BEAKER) (test code = 354) CREATININE (BEAKER) 0.54 mg/dL 0.57-1.25 L (test code = 358) BUN/CREAT RATIO 17 For a normal (BEAKER) (test code individu al on a = [id number]) normal diet, t he reference inter gladis for the mass ra jc ranges between 12:1 and 20:1 (BUN i n mg/dL/creatinin e in mg/dL) EGFR (BEAKER) (test 110 mL/min/1.73 ESTIM ATED GFR IS code = 1092) sq m NOT ACCURATE CREATININE CLEARANCE IN PREDICTING GLOMERULAR FILTRATION RATE . ESTIMATED GFR I S NOT APPLICABLE FOR DIALYSIS PATIEN TS. Chicken Buyer ID - ADMINHEMOGLOBIN AND [id number] 10:15:08 Test Item Value Reference Range Interpretation Comments HEMOGLOBIN (BEAKER) (test code = 7.9 GM/DL 11.2-15.7 L 410) HEMATOCRIT (BEAKER) (test code = 27.7 % 34.1-44.9 L 411) Chicken Buyer ID - [id number] ID - [id number] 09:51:28 Test Item Value Reference Range Interpretation Comments HAPTOGLOBIN (BEAKER) (test code = 161 mg/dL 14-258 366) Chicken Buyer ID - HILARIO MCBC W/PLT COUNT & AUTO [id number] 09:01:38 Test Item Value Reference Range Interpretation [...] PERCENT (BEAKER) (test code = 2801) POCT-GLUCOSE [id number] 07:43:08 Test Item Value Reference Range Interpretation Comments POC-GLUCOSE METER 93 mg/dL 70-110 : TESTED A T [facility] 6720 (BEAKER) (test code = CHRISTOPHE ARTIS DE, 1538) [address]: Chicken Buyer/Techni eli ID = [id number] for RM SALES [id number] 07:20:27 Test Item Value Reference Range Interpretation Comments FERRITIN (BEAKER) (test code = 9.28 ng/mL 5.00-275.00 361) Chicken Buyer ID - HILARIO MHEPATIC FUNCTION [id number] 07:05:48 Test Item Value Reference Range Interpretation [...] code = < U/L 6-55 L 347) Chicken Buyer ID - HILARIO MBASIC METABOLIC [id number] 07:04:57 Test Item Value Reference Range Interpretation [...] S NOT APPLICABLE FOR DIALYSIS PATIEN TS. Chicken Buyer ID - HILARIO MLACTATE DEHYDROGENASE (LDH)2022-01-30 07:00:03 Test Item Value Reference Range Interpretation Comments LACTATE DEHYDROGENASE (BEAKER) (test 222 U/L 125-220 H code = 635) Chicken Buyer ID - HILARIO KRYSTINA, TIBC, % SAT. (WITHOUT FERRITIN)2022-01-30 06:59:26 Test Item Value Reference Range Interpretation Comments IRON (BEAKER) (test code = 547) 16.0 ug/dL 40.0-160.0 L TOTAL IRON BINDING CAPACITY 279 ug/dL 250-450 (BEAKER) (test code = 769) IRON % SATURATION (2) (BEAKER) 6 % 20-55 L (test code = 2590) Chicken Buyer ID - HILARIO MRETICULOCYTE [id number] 06:37:58 Test Item Value Reference Range Interpretation Comments RETICULOCYTE COUNT PCT (BEAKER) (test 1.2 % 0.5-1.7 code = 575) Chicken Buyer ID - [id number]-GLUCOSE [id number] 06:28:00 Test Item Value Reference Range Interpretation Comments POC-GLUCOSE METER 96 mg/dL 70-110 : Notified RN/MD: TESTED (SHAMIR) (test code = AT [facility] [address] [facility] 1538) [facility], [address]: Chicken Buyer/Techni eli ID = [id number] for DORIS RUSS POCT-GLUCOSE [id number] 00:00:00 Test Item Value Reference Range Interpretation Comments POC-GLUCOSE METER 101 mg/dL 70-110 : Notified RN/MD: (SHAMIR) (test code = TESTED AT [facility] 6720 1538) [facility], [address]: Chicken Buyer/Techni eli ID = [id number] for EUNICE SNIDER ICE RAD, SHOULDER, COMPLETE (MIN 2 VIEWS), [id number] 13:20:00Reason for exam:- >Right shoulder pain [facility] 1945 Sex: FFINAL REPORT [...] Longoria Verified Date/Time: 10/02/2020 13:20:31 Reading Location: [facility] Radiology Reading Room POCT-GLUCOSE [id number] 06:23:00 Test Item Value Reference Range Interpretation Comments POC-GLUCOSE METER 103 mg/dL 70-110 : Notified RN/MD: (SHAMIR) (test code = TESTED AT [facility] 2942 2628) RYLEE [facility], [address]: Chicken Buyer/Techni eli ID = [id number] for EUNICE SNIDER [id number] 04:55:00 Test Item Value Reference Range Interpretation [...] for patients wiht mechanical heart valves.BASIC METABOLIC [id number] 04:39:00 Test Item Value Reference Range Interpretation [...] S NOT APPLICABLE FOR DIALYSIS PATIEN TS. Chicken Buyer ID - HILARIO MCBC W/PLT COUNT & AUTO [id number] 04:08:00 Test Item Value Reference Range Interpretation [...] (BEAKER) (test code = 2801) URINALYSIS W/ [id number] 00:08:00 Test Item Value Reference Range Interpretation [...] 516) SOURCE(BEAKER) (test code = Urine, Voided 0857) Chicken Buyer ID - [auto]POCT-GLUCOSE [id number] 23:59:00 Test Item Value Reference Range Interpretation Comments POC-GLUCOSE METER 93 mg/dL 70-110 : Notified RN/MD: TESTED (BEAKER) (test code = AT [facility] [address] [facility] 8269) [facility], [facility] 30: Chicken Buyer/Techni eli ID = [id number] for DORIS RUSS CT, BRAIN, WITHOUT [id number] 21:38:00Unlisted Reason for Exam - Click Yes and Enter Reason Below->No [facility] 1945 Sex: FFINAL REPORT [...] mass effect. There is a 2 mm nqxr-qc-afxzj midline shift at the level of the [...] hematomas. Associated parenchymal mass effect. 2 mm cqmk-xj-plyrw midline shift. Multiple chronic infarcts as described. Mild linear hyperdensity in the left posterior temporal lobe favored to represent mineralization rather than acute hemorrhage. Short-term follow-up is recommended. No hydrocephalus. Signed: Raz Mccauley MDRfredi Verified Date/Time: 10/01/2020 21:38:28 RAD, CHEST, 1 VIEW, NON [id number] 20:22:00Reason for exam:->coughShould this be performed at the bedside?->Yes [facility] 1945 Sex: FFINAL REPORT [...] IMPRESSION:No acute cardiopulmonary abnormalities. Signed: Lona Mckenna Verified Date/Time: 10/01/2020 20:22:05 Reading Location: [facility] C0[facility] Consult Reading Room
== END 2022-06-06 14:35 | disposition home or self-care (01) | DRG 378 ==
LOC: ER 20:38 → ERHOLD 06-03 00:13 → 4TH 06-03 03:15 → 2ND 06-04 14:55
PROVIDERS: ADMIT Internal Medicine; ATTEND Internal Medicine
PROC: 30233N1 Transfusion of Nonautologous Red Blood Cells into Peripheral Vein, Percutaneous Approach (ICD-10-PCS; 2022-06-03)
PROC: 0DJ08ZZ Inspection of Upper Intestinal Tract, Via Natural or Artificial Opening Endoscopic (ICD-10-PCS; principal; 2022-06-04 15:00)
PROC: 0DJD8ZZ Inspection of Lower Intestinal Tract, Via Natural or Artificial Opening Endoscopic (ICD-10-PCS; 2022-06-04 15:00)
DX: K92.1 Melena (principal); I69.351 Hemiplegia and hemiparesis following cerebral infarction affecting right dominant side; Z68.1 Body mass index [BMI] 19.9 or less, adult; D62 Acute posthemorrhagic anemia; D68.9 Coagulation defect, unspecified; I69.320 Aphasia following cerebral infarction; F03.90 Unspecified dementia, unspecified severity, without behavioral disturbance, psychotic disturbance, mood disturbance, and anxiety; I10 Essential (primary) hypertension; R63.6 Underweight; K20.90 Esophagitis, unspecified without bleeding; K44.9 Diaphragmatic hernia without obstruction or gangrene; K64.4 Residual hemorrhoidal skin tags; K57.30 Diverticulosis of large intestine without perforation or abscess without bleeding; K64.8 Other hemorrhoids; Z86.718 Personal history of other venous thrombosis and embolism; M79.89 Other specified soft tissue disorders; Z79.01 Long term (current) use of anticoagulants; Z20.822 Contact with and (suspected) exposure to COVID-19
CPT/HCPCS: 36415; 36430; 71045; 80048; 80053; 83735; 84132; 85014; 85018; 85025; 85610; 86850; 86870; 86900; 86901; 86902; 86905; 86922; 87070; 87205; 97161; 99283; C9113; J1650; J1940; J2704; J2765; J3430; J3480; J7050; J7120; P9016; P9047; U0003

== ENCOUNTER 2022-11-22 13:56 | Emergency (ER) | payer OTHER ==
--- OUTSIDE RECORDS SUMMARY | 2022-11-22 14:01 | XMS REPORT | Continuity of Care Document ---
:1945 Author Organization [facility] t Address [address] [place] [address] Dr. M[address]. [address] [place] [address] Care Team Providers Name Role Phone Jahaira Navarrete Attending Clinician Unavailable LINDSAY TAN Attending Clinician Unavailable ANAY MONTOYA Attending Clinician Unavailable Master Elise MD Attending Clinician Anay Montoya MD Attending Clinician MASTER ELISE Attending Clinician Unavailable LINDSAY TAN Admitting Clinician Unavailable MASTER ELISE Admitting Clinician Unavailable SEBASTIAN CASAREZ Admitting Clinician Unavailable Payers Payer Name Policy Type Policy Number Effective Date Expiration Date Mode chayo MEDICARE A B [id number] 2001 00:00:00 MEDICARE MB [id number] 2001 [facility] Problems Condition Condition Condition Status Onset Resolution Last Treating Co mments Source Name Details Category Date Date Treatment Clinician Date Severe Severe Disease Active [facility] 00 [place] [facility] SDH Disease Active 2019-[address] [facility] (subdural (subdural 1-11 [facility] hematoma) hematoma) 00:00: [facility] alvin [address] [place] [address] [id number] 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 joints [facility] [id number] Insomnia Problem Com mon 9104 due to Spirit medical - [facility] condition [facility] [id number] Essential Problem Comm on hypertensi [facility] on - [facility] [id number] Pain in Problem Commo n joint of Spirit right - [facility] wrist [facility] [id number] Closed Problem Common torus [facility] fracture - [facility] of distal [facility] end of [facility] right [facility] [place] initial encounter [id number] CVA, old, Problem Com mon speech/aura Spirit guage - [facility] deficit [facility] [id number] History of Problem Co mmon cerebrovas Spirit cular - [facility] accident (CVA) with [facility] Allergies, Adverse Reactions, Alerts Allergy Allergy Status Severity Reaction(s) Onset Inactive Treating Comm ents Source Name Type Date Date Clinician NO KNOWN Allergy Active [facility] Social History Social Habit Start Date Stop Date Quantity Comments Source History of Tobacco [facility] - Use [facility] History SDOH [facility] Alcohol Comment Medical C enter History SDOH [facility] Alcohol Std Drinks Medica l Center History SDOH [facility] Alcohol Binge Medical Norma ter Alcohol intake 2022-01-29 2022-01-29 Ex-drinker [facility] 00:00:00 00:00:00 (finding) Medical [place] Tobacco use and 2020-10-01 2020-10-[address] [facility] exposure 00:00:00 00:00:00 Medical Center History SDOH 2020-10-01 2020-10-[address] [facility] Alcohol Frequency 00:00:00 00:00:00 [facility] Sex Assigned At [address] 00:00:00 00:00:00 [facility] Smoking Status Start Date Stop Date Source Never Smoker [facility] Medications Ordered Filled Start Stop Current Ordering Indication Dosage Frequency Signature Comments Components Source Medication Medication Date Date Medication? Clinician (SIG) Name Name Hemocyte Hemocyte No QD Hemocyte Plus 106-1 Plus 106-1 9-13 Plus 106-1 MG MG 00:00: MG 00 Hemocyte Hemocyte 2021-0 No QD Hemocyte Plus 106-1 Plus 106-1 9-13 Plus 106-1 MG MG 00:00: MG 00 Hemocyte Hemocyte 2-0 No QD Hemocyte Plus 106-1 Plus 106-1 9-13 Plus 106-1 MG MG 00:00: MG 00 Hemocyte Hemocyte 2021-0 No QD Hemocyte Plus 106-1 Plus 106-1 9-13 Plus 106-1 MG MG 00:00: MG 00 Hemocyte Hemocyte 2021-0 No QD Hemocyte Plus 106-1 Plus 106-1 9-13 Plus 106-1 MG MG 00:00: MG 00 Warfarin Warfarin 2021-0 No .5{tabl QD Warfarin Sodium 1 MG Sodium 1 MG 8-04 et} Sodium 1 00:00: MG 00 Warfarin Warfarin 2021-0 No .5{tabl QD Warfarin Sodium 1 MG Sodium 1 MG 8-04 et} Sodium 1 00:00: MG 00 Warfarin Warfarin 2021-0 No .5{tabl QD Warfarin Sodium 1 MG Sodium 1 MG 8-04 et} Sodium 1 00:00: MG 00 Warfarin Warfarin 2021-0 No 3.5{tab QD Warfarin Sodium 1 MG Sodium 1 MG 8-04 let} Sodium 1 00:00: MG 00 Warfarin Warfarin 2021-0 No 3.5{tab QD Warfarin Sodium 1 MG Sodium 1 MG 8-04 let} Sodium 1 00:00: MG 00 Warfarin Warfarin 2021-0 No 3.5{tab QD Warfarin Sodium 1 MG Sodium 1 MG 8-04 let} Sodium 1 00:00: MG 00 Warfarin Warfarin 2021-0 No QD Warfarin Sodium 1 MG Sodium 1 MG 8-04 Sodium 1 00:00: MG 00 Warfarin Warfarin 2021-0 No QD Warfarin Sodium 1 MG Sodium 1 MG 8-04 Sodium 1 00:00: MG 00 QUEtiapine QUEtiapine 2021-0 No 1{table QD QUEtiapine Fumarate Fumarate 5-23 t_at_be Fumarate 200 MG 200 MG 00:00: dtime} 200 MG 00 Warfarin Warfarin 2021-0 No 1{table QD Warfarin Sodium 5 MG Sodium 5 MG 5-06 t} Sodium 5 00:00: MG 00 pantoprazol 2021-0 2021- No 40mg QD Take [address] e 3-16 04-15 tablet (40 [facility] (PROTONIX) 00:00: 23:59 mg total) M edical 40 MG 00 :00 by mouth Center tablet daily for 30 days. lisinopriL 2021- No 30mg QD Take [address] (PRINIVIL,Z 3-15 -15 by mouth Raf[facility] ESTRIL) 30 11:10: 00:00 daily. Medi alvin MG tablet 17 :00 Center QUEtiapine 2021- No 100mg QD Take [address] (SEROquel) 3-15 03-15 mg by [facility] 100 MG 11:10: 00:00 mouth Medical tablet 17 :00 nightly. Center QUEtiapine No 100mg QD Take [address] (SEROquel) 3-15 -14 tablet [facility] 100 MG 00:00: 23:59 (100 mg Medical tablet 00 :00 total) by Center mouth nightly for 30 days. lisinopriL No 30mg QD Take [address] (PRINIVIL,Z -15 -14 tablet (30 L ukes ESTRIL) 30 00:00: 23:59 mg total) M edical MG tablet 00 :00 by mouth Center daily for 30 days. apixaban 2021- No 5mg Q.5D Take [address] (ELIQUIS) 5 -15 -14 tablet (5 Josefina kes mg Tab 00:00: 23:59 mg total) Medic al tablet 00 :00 by mouth 2 Center (two) times daily for 30 days. amoxicillin 2021- No 500mg Take [address] -clavulanat -15 03-22 mLs (500 Raf[facility] es e 00:00: 23:59 mg total) Medical (AUGMENTIN) 00 :00 by mouth Cent er 250-62.5 every 12 mg/5 mL (twelve) suspension hours for 7 days. OLANZapine OLANZapine 2020-11 No 1{table QD OLANZapine 5 MG 5 MG 0-04 t_at_be 5 MG 00:00: dtime} 00 Temazepam Temazepam No 1{capsu QD Temazepam 30 MG 30 MG 9-03 le_at_b 30 MG 00:00: edtime_ 00 as_need ed} Lisinopril Lisinopril No 1{table QD Lisinopril 30 MG 30 MG t} 30 MG QUEtiapine QUEtiapine No QUEtiapine Fumarate Fumarate Fumarate 100 MG 100 MG 100 MG Lisinopril Lisinopril No 1{table QD Lisinopril 30 MG 30 MG t} 30 MG QUEtiapine QUEtiapine No QUEtiapine Fumarate Fumarate Fumarate 100 MG 100 MG 100 MG Lisinopril Lisinopril No 1{table QD Lisinopril 30 MG 30 MG t} 30 MG QUEtiapine QUEtiapine No QUEtiapine Fumarate Fumarate Fumarate 100 MG 100 MG 100 MG Lisinopril Lisinopril No 1{table QD Lisinopril 30 MG 30 MG t} 30 MG QUEtiapine QUEtiapine No QUEtiapine Fumarate Fumarate Fumarate 100 MG 100 MG 100 MG Lisinopril Lisinopril No 1{table QD Lisinopril 30 MG 30 MG t} 30 MG Warfarin Warfarin No QD Warfarin Sodium 2 MG Sodium 2 MG Sodium 2 MG QUEtiapine QUEtiapine No QUEtiapine Fumarate Fumarate Fumarate 100 MG 100 MG 100 MG Xarelto Xarelto No Xarelto Starter Starter Starter Pack 15 & Pack 15 & Pack 15 & 20 MG 20 MG 20 MG Lisinopril Lisinopril No 1{table QD Lisinopril 30 MG 30 MG t} 30 MG Warfarin Warfarin No QD Warfarin Sodium 2 MG Sodium 2 MG Sodium 2 MG QUEtiapine QUEtiapine No QUEtiapine Fumarate Fumarate Fumarate 100 MG 100 MG 100 MG Xarelto Xarelto No Xarelto Starter Starter Starter Pack 15 & Pack 15 & Pack 15 & 20 MG 20 MG 20 MG Lisinopril Lisinopril No 1{table QD Lisinopril 30 MG 30 MG t} 30 MG Warfarin Warfarin No QD Warfarin Sodium 2 MG Sodium 2 MG Sodium 2 MG QUEtiapine QUEtiapine No QUEtiapine Fumarate Fumarate Fumarate 100 MG 100 MG 100 MG Xarelto Xarelto No Xarelto Starter Starter Starter Pack 15 & Pack 15 & Pack 15 & 20 MG 20 MG 20 MG Warfarin Warfarin No QD Warfarin Sodium 2 MG Sodium 2 MG Sodium 2 MG Lisinopril Lisinopril No 1{table QD Lisinopril 30 MG 30 MG t} 30 MG Xarelto Xarelto No Xarelto Starter Starter Starter Pack 15 & Pack 15 & Pack 15 & 20 MG 20 MG 20 MG QUEtiapine QUEtiapine No QUEtiapine Fumarate Fumarate Fumarate 100 MG 100 MG 100 MG Warfarin Warfarin No QD Warfarin Sodium 2 MG Sodium 2 MG Sodium 2 MG Lisinopril Lisinopril No 1{table QD Lisinopril 30 MG 30 MG t} 30 MG Warfarin Warfarin No 1{table QD Warfarin Sodium 5 MG Sodium 5 MG t} Sodium 5 MG Xarelto Xarelto No Xarelto Starter Starter Starter Pack 15 & Pack 15 & Pack 15 & 20 MG 20 MG 20 MG Xarelto Xarelto No Xarelto Starter Starter Starter Pack 15 & Pack 15 & Pack 15 & 20 MG 20 MG 20 MG Lisinopril Lisinopril No 1{table QD Lisinopril 30 MG 30 MG t} 30 MG Warfarin Warfarin No 1{table QD Warfarin Sodium 5 MG Sodium 5 MG t} Sodium 5 MG Warfarin Warfarin No QD Warfarin Sodium 2 MG Sodium 2 MG Sodium 2 MG Xarelto Xarelto No Xarelto Starter Starter Starter Pack 15 & Pack 15 & Pack 15 & 20 MG 20 MG 20 MG Lisinopril Lisinopril No 1{table QD Lisinopril 30 MG 30 MG t} 30 MG Warfarin Warfarin No 1{table QD Warfarin Sodium 5 MG Sodium 5 MG t} Sodium 5 MG Warfarin Warfarin No QD Warfarin Sodium 2 MG Sodium 2 MG Sodium 2 MG Lisinopril Lisinopril No 1{table QD Lisinopril 30 MG 30 MG t} 30 MG Warfarin Warfarin No 1{table QD Warfarin Sodium 5 MG Sodium 5 MG t} Sodium 5 MG QUEtiapine QUEtiapine No 1{table QD QUEtiapine Fumarate Fumarate t_at_be Fumarate 100 MG 100 MG dtime} 100 MG Lisinopril Lisinopril No 1{table QD Lisinopril 30 MG 30 MG t} 30 MG Warfarin Warfarin No 1{table QD Warfarin Sodium 5 MG Sodium 5 MG t} Sodium 5 MG QUEtiapine QUEtiapine No 1{table QD QUEtiapine Fumarate Fumarate t_at_be Fumarate 100 MG 100 MG dtime} 100 MG Lisinopril Lisinopril No 1{table QD Lisinopril 30 MG 30 MG t} 30 MG Warfarin Warfarin No 1{table QD Warfarin Sodium 5 MG Sodium 5 MG t} Sodium 5 MG QUEtiapine QUEtiapine No 1{table QD QUEtiapine Fumarate Fumarate t_at_be Fumarate 100 MG 100 MG dtime} 100 MG QUEtiapine QUEtiapine No 1{table QD QUEtiapine Fumarate Fumarate t_at_be Fumarate 100 MG 100 MG dtime} 100 MG Warfarin Warfarin No 1{table QD Warfarin Sodium 5 MG Sodium 5 MG t} Sodium 5 MG Lisinopril Lisinopril No 1{table QD Lisinopril 30 MG 30 MG t} 30 MG QUEtiapine QUEtiapine No 1{table QD QUEtiapine Fumarate Fumarate t_at_be Fumarate 100 MG 100 MG dtime} 100 MG Warfarin Warfarin No 1{table QD Warfarin Sodium 5 MG Sodium 5 MG t} Sodium 5 MG Lisinopril Lisinopril No 1{table QD Lisinopril 30 MG 30 MG t} 30 MG QUEtiapine QUEtiapine No 1{table QD QUEtiapine Fumarate Fumarate t_at_be Fumarate 100 MG 100 MG dtime} 100 MG Warfarin Warfarin No 1{table QD Warfarin Sodium 5 MG Sodium 5 MG t} Sodium 5 MG Lisinopril Lisinopril No 1{table QD Lisinopril 30 MG 30 MG t} 30 MG QUEtiapine QUEtiapine No 1{table QD QUEtiapine Fumarate Fumarate t_at_be Fumarate 200 MG 200 MG dtime} 200 MG Warfarin Warfarin No 1{table QD Warfarin Sodium 5 MG Sodium 5 MG t} Sodium 5 MG QUEtiapine QUEtiapine No 1{table QD QUEtiapine Fumarate Fumarate t_at_be Fumarate 100 MG 100 MG dtime} 100 MG Lisinopril Lisinopril No 1{table QD Lisinopril 30 MG 30 MG t} 30 MG Lisinopril Lisinopril No 1{table QD Lisinopril 30 MG 30 MG t} 30 MG QUEtiapine QUEtiapine No 1{table QD QUEtiapine Fumarate Fumarate t_at_be Fumarate 200 MG 200 MG dtime} 200 MG Warfarin Warfarin No 1{table QD Warfarin Sodium 5 MG Sodium 5 MG t} Sodium 5 MG QUEtiapine QUEtiapine No 1{table QD QUEtiapine Fumarate Fumarate t_at_be Fumarate 100 MG 100 MG dtime} 100 MG Lisinopril Lisinopril No 1{table QD Lisinopril 30 MG 30 MG t} 30 MG QUEtiapine QUEtiapine No 1{table QD QUEtiapine Fumarate Fumarate t_at_be Fumarate 200 MG 200 MG dtime} 200 MG Warfarin Warfarin No 1{table QD Warfarin Sodium 5 MG Sodium 5 MG t} Sodium 5 MG QUEtiapine QUEtiapine No 1{table QD QUEtiapine Fumarate Fumarate t_at_be Fumarate 100 MG 100 MG dtime} 100 MG QUEtiapine QUEtiapine No 1{table QD QUEtiapine Fumarate Fumarate t_at_be Fumarate 100 MG 100 MG dtime} 100 MG Warfarin Warfarin No 1{table QD Warfarin Sodium 3 MG Sodium 3 MG t} Sodium 3 MG QUEtiapine QUEtiapine No 1{table QD QUEtiapine Fumarate Fumarate t_at_be Fumarate 200 MG 200 MG dtime} 200 MG Lisinopril Lisinopril No 1{table QD Lisinopril 30 MG 30 MG t} 30 MG Warfarin Warfarin No 1{table QD Warfarin Sodium 3 MG Sodium 3 MG t} Sodium 3 MG QUEtiapine QUEtiapine No 1{table QD QUEtiapine Fumarate Fumarate t_at_be Fumarate 200 MG 200 MG dtime} 200 MG Lisinopril Lisinopril No 1{table QD Lisinopril 30 MG 30 MG t} 30 MG Lisinopril Lisinopril No 1{table QD Lisinopril 30 MG 30 MG t} 30 MG QUEtiapine QUEtiapine No QUEtiapine Fumarate Fumarate Fumarate 100 MG 100 MG 100 MG Lisinopril Lisinopril No 1{table QD Lisinopril 30 MG 30 MG t} 30 MG Lisinopril Lisinopril No 1{table QD Lisinopril 30 MG 30 MG t} 30 MG QUEtiapine QUEtiapine No QUEtiapine Fumarate Fumarate Fumarate 100 MG 100 MG 100 MG Vital Signs Vital Name Observation Time Observation Value Comments Source HEIGHT 2020-10-01 17:00:00 149.9 cm WEIGHT 2020-10-01 17:00:00 50.349 kg height 2022-08-05 13:00:00 59 [in_i] [facility] weight 2022-08-05 13:00:00 100 [lb_av] [facility] temperature 2022-08-05 13:00:00 98.8 [degF] [facility] bmi 2022-08-05 13:00:00 20.2 kg/m2 [facility] height 2022-02-15 15:40:00 59 [in_i] [facility] weight 2022-02-15 15:40:00 100 [lb_av] [facility] bmi 2022-02-15 15:40:00 20.2 kg/m2 [facility] height 2021-12-03 15:20:00 59 [in_i] [facility] weight 2021-12-03 15:20:00 115 [lb_av] [facility] bmi 2021-12-03 15:20:00 23.22 kg/m2 [facility] HEIGHT 2020-10-01 17:00:00 149.9 cm WEIGHT 2020-10-01 17:00:00 50.349 kg Systolic blood 2022-02-02 15:59:00 151 mm[Hg] [facility] Diastolic blood 2022-02-02 15:59:00 70 mm[Hg] [facility] Heart rate 2022-02-02 15:59:00 87 /min [facility] Body temperature 2022-02-02 15:59:00 36.44 Sheila [facility] Respiratory rate 2022-02-02 15:59:00 18 /min [facility] Oxygen saturation in 2022-02-02 15:59:00 98 /min [facility] Arterial blood by Medical Ce nter Pulse oximetry Procedures Procedure Date / Time Performed Performing Clinician Sourc e CBC W/PLT COUNT & AUTO 2022-02-02 05:18:00 Anay Montoya [facility] BASIC METABOLIC PANEL 2022-02-02 05:18:00 Anay Montoya [facility] CBC W/PLT COUNT & AUTO 2022-02-02 05:18:00 Anay Montoya [facility] CBC W/PLT COUNT & AUTO 2022-02-01 04:43:00 Anay Montoya [facility] BASIC METABOLIC PANEL 2022-02-01 04:43:00 [facility] CBC W/PLT COUNT & AUTO 2022-02-01 04:43:00 [facility] (MANUAL DIFFERENTIAL) 2022-02-01 04:43:00 [facility] XR CHEST 1 VIEW PORTABLE 2022-01-31 10:05:00 Jan Roxanaeddie Betancourt [facility] CBC W/PLT COUNT & AUTO 2022-01-31 06:02:00 [facility] BASIC METABOLIC PANEL 2022-01-31 06:02:00 [facility] CBC W/PLT COUNT & AUTO 2022-01-31 06:02:00 [facility] (CELLAVISION MANUAL DIFF) 2022-01-31 06:02:00 [facility] ECG 12-LEAD 2022-01-31 05:32:47 Larry Last [facility] BUN AND CREATININE 2022-01-30 17:24:00 [facility] HEMOGLOBIN AND HEMATOCRIT 2022-01-30 09:48:00 [facility] POCT-GLUCOSE METER 2022-01-30 07:30:00 [facility] W/[facility]T [facility] & AUTO 2022-01-30 06:29:00 Master Elise [facility] RETICULOCYTE COUNT 2022-01-30 06:29:00 Master Elise [facility] PERIPHERAL BLOOD SMEAR - 2022-01-30 06:29:00 Master Elise [facility] PATHOLOGIST REVIEW Medical [facility] CBC W/PLT COUNT & AUTO 2022-01-30 06:29:00 Master Elise [facility] BASIC METABOLIC PANEL 2022-01-30 06:28:00 Master Elise CH [facility] HEPATIC FUNCTION PANEL 2022-01-30 06:28:00 Master Elise HI [facility] LACTATE DEHYDROGENASE 2022-01-30 06:28:[address] [facility] ([facility]) [facility] HAPTOGLOBIN 2022-01-30 06:28:00 Master Elise [facility] IRON, TIBC, % SAT. 2022-01-30 06:28:00 [facility] r [facility]ERRITIN 2022-01-30 06:28[facility] Plan of Care Planned Activity Planned Date Details Comments Source Future Scheduled 2022-07-22 INFLUENZA VACCINE (#1) [facility] 00:00:00 [code = INFLUENZA Medical Ce nter VACCINE (#1)] Future Scheduled 2021-11-[address] [facility] Test 00:00:00 (12+) [code = Medical Center DEPRESSION SCREENING (12+)] Future Scheduled 2021-11-21 FALLS RISK SCREENING [facility] Test 00:00:00 [code = FALLS RISK Medical C enter SCREENING] Future Scheduled 2002-02-[address] [facility] Test 00:00:00 WELLNESS (YEAR 2 or Medical Center FIRST YEAR if no IPPE) [code = MEDICARE ANNUAL WELLNESS (YEAR 2 or FIRST YEAR if no IPPE)] Future Scheduled 1997 SHINGLES VACCINES ([address] [facility] Test 00:00:00 2) [code = SHINGLES Medical Center VACCINES (1 of 2)] Future Scheduled 1966 DTAP/TDAP/TD VACCINES [facility] 00:00:00 (1 - Tdap) [code = Medical C enter DTAP/TDAP/TD VACCINES (1 - Tdap)] Future Scheduled 1965 HEPATITIS C [facility]CRE[facility]ING [facility] 00:00:00 [code = HEPATITIS C Medical Center SCREENING] Future Scheduled [address] [facility] Test 00:00:00 Counseling and Medical Cente r Screening (12+) [code = Tobacco Cessation Counseling and Screening (12+)] Future Scheduled 1953 PNEUMOCOCCAL 65+ YRS ([address] [facility] Test 00:00:00 - PCV) [code = Medical Cente r PNEUMOCOCCAL 65+ YRS (1 - PCV)] Future Scheduled 1947 COVID-19 VACCINE (#1) [facility] 00:00:00 [code = COVID-[address] VACCINE (#1)] Future Scheduled 1947 CT Colonography (combo) [facility] Test 00:00:00 [code = CT Colonography [facility] (combo)] Future Scheduled 1947 Screening for malignant [facility] Test 00:00:00 neoplasm of colon Medical Ce nter (procedure) [code = 332809968] Future Scheduled 1947 Screening for malignant [facility] Test 00:00:00 neoplasm of colon Medical Ce nter (procedure) [code = 814299624] Future Scheduled 1945 DXA SCAN [code = DXA [facility] Test 00:00:00 SCAN] [facility] Future Scheduled 1947 Screening for malignant [facility] Test 00:00:00 neoplasm of colon Medical Ce nter (procedure) [code = 552763280] Future Scheduled 1947 Screening for malignant [facility] Test 00:00:00 neoplasm of colon Medical Ce nter (procedure) [code = 689520837] Future Scheduled 1945 Sigmoidoscopy [code = [facility] Test 00:00:00 Sigmoidoscopy] Medical Cente r Encounters Start End Encounter Admission Attending Care Care Encounter Source Date/Time Date/Time Type Type Clinicians Facility Department ID 2022-09-14 [facility] [id number] 2 Common 07:28:00 [facility] 2022-08-02 [facility] [id number] 2 Common 08:48:02 [facility] 2022-07-28 [facility] [id number] 2 Common 14:23:01 [facility] 2022-06-22 Outpatient Navarrete, Na [facility] [id number] 2 Common 15:07:01 [facility] 2022-06-01 Outpatient Navarrete, Na [facility] [id number] 2 Common 11:32:02 [facility] 2022-05-31 Outpatient Navarrete, Na [facility] [id number] 2 Common 10:20:00 [facility] 2022-03-23 Outpatient Navarrete, Na [facility] [id number] 2 Common 15:15:02 [facility] 2022-03-22 Outpatient Navarrete, Na [facility] [id number] 2 Common 08:50:01 [facility] 2022-01-29 Inpatient ER [facility] [id number] [facility] 15[facility]29:44 [facility] 2022-01-29 Inpatient ER [facility] [id number] [facility] 14:30:45 [facility] 2021-12-16 Outpatient Navarrete, Na [facility] [id number] 2 Common 14:34:54 [facility] 2021-12-16 Outpatient Navarrete, Na [facility] [id number] 2 Common 13:56:50 [facility] 2021-12-16 Outpatient Navarrete, Na [facility] [id number] 2 Common 13:45:46 [id number] [facility] 2021-12-16 Outpatient Navarrete, Na [facility] [id number] 2 Common 13:06:59 [id number] [facility] 2021-12-16 Outpatient Navarrete, Na [facility] [id number] 2 Common 13:06:24 [id number] [facility] 2021-12-16 Outpatient Navarrete, Na [facility] [id number] 2 Common 12:46:16 [id number] [facility] 2021-08-27 Inpatient ER [facility] [id number] [facility] 11:13:10 LINDSAY DOWLING 2022-09-22 2022-09-22 (TEL) [facility] [id number] Co mmon 00:00:00 00:00:00 [facility] 2022-09-15 2022-09-15 OFFICE [facility] ST[facility] [id number] Co mmon 00:00:00 00:00:00 VISIT EST Spir it PT LEVEL [facility] 2022-08-05 2022-08-05 SUB ANNUAL [facility] [id number] Common 00:00:00 00:00:00 MCR [facility] VISIT [facility] 2022-08-04 2022-08-04 OFFICE [facility] ST[facility] [id number] Co mmon 00:00:00 00:00:00 VISIT EST Spir it PT LEVEL 3 [facility] 2022-08-03 2022-08-03 (TEL) STLMLC ST[facility] [id number] Co mmon 00:00:00 00:00:00 [facility] 2022-07-28 2022-07-28 (TEL) [facility] ST[facility] [id number] Co mmon 00:00:00 00:00:00 [facility] 2022-06-24 2022-06-24 (TEL) ST[facility]C ST[facility] [id number] Co mmon 00:00:00 00:00:00 [facility] 2022-06-23 2022-06-23 (TEL) STLMLC STL[facility] [id number] Co mmon 00:00:00 00:00:00 [facility] 2022-06-11 2022-06-11 (TEL) STL[facility]C STL[facility] [id number] Co mmon 00:00:00 00:00:00 [facility] 2022-06-07 2022-06-07 (TEL) [facility] ST[facility] [id number] Co mmon 00:00:00 00:00:00 [facility] 2022-06-02 2022-06-02 OFFICE STL[facility]C STL[facility]C [id number] Co mmon 00:00:00 00:00:00 VISIT Spirit ESTAB PT - CHI LEVEL 4 [facility] 2022-05-31 2022-05-31 (TEL) STLMLC STL[facility]C [id number] Co mmon 00:00:00 00:00:00 [facility] 2022-05-31 2022-05-31 (TEL) STLMLC STL[facility]C [id number] Co mmon 00:00:00 00:00:00 [facility] 2022-05-11 2022-05-11 (TEL) STL[facility]C STL[facility] [id number] Co mmon 00:00:00 00:00:00 [facility] 2022-03-09 2022-03-09 (TEL) STLMLC STL[facility] [id number] Co mmon 00:00:00 00:00:00 [facility] 2022-03-01 2022-03-01 (TEL) STLMLC STL[facility]C [id number] Co mmon 00:00:00 00:00:00 [facility] 2022-02-15 2022-02-15 (TEL) STLMLC STL[facility]C [id number] Co mmon 00:00:00 00:00:00 [facility] 2022-02-15 2022-02-15 OFFICE ST[facility]C STL[facility]C [id number] Co mmon 00:00:00 00:00:00 VISIT EST Spir it PT LEVEL 3 - [facility] 2022-02-12 2022-02-12 (TEL) STLMLC STLMLC [id number] Co mmon 00:00:00 00:00:00 [facility] 2022-02-08 2022-02-08 (TEL) STLMLC STLMLC [id number] Co mmon 00:00:00 00:00:00 [facility] 2022-02-03 2022-02-03 (TEL) STLMLC STLMLC [id number] Co mmon 00:00:00 00:00:00 [facility] 2022-01-30 2022-02-02 Inpatient ER JAN, [facility] [id number] [facility] 01:23:00 16:43:00 [facility] 2022-01-30 2022-02-02 [facility] Master Elise [facility] [id number] [facility] 01:23:00 16:43:00 Encounter Anay Montoya Haydee [facility] 2022-01-30 2022-01-30 Travel [facility] [id number] [facility] 00[facility]00 [facility] 2022-01-12 2022-01-12 (TEL) STLMLC STLMLC [id number] Co mmon 00:00:00 00:00:00 [facility] 2022-01-12 2022-01-12 OL DIG E/M STLMLC STLMLC [id number] Common 00:00:00 00:00:00 C 11-20 Spir it MIN [facility] 2021-12-03 2021-12-03 OFFICE STLMLC STLMLC [id number] Co mmon 00:00:00 00:00:00 VISIT EST Spir it PT LEVEL 3 [facility] 2021-08-15 2021-08-15 (TEL) STLMLC STLMLC [id number] Co mmon 00:00:00 00:00:00 [facility] 2021-08-05 2021-08-05 Outpatient STLMLC STLMLC [id number] Common 00:00:00 00:00:00 [facility] 2021-07-24 2021-07-24 Outpatient STLMLC STLMLC [id number] Common 00:00:00 00:00:00 [facility] 2021-04-14 2021-04-14 Outpatient STLMLC STLMLC [id number] Common 00:00:00 00:00:00 [facility] 2021-04-10 2021-04-10 Outpatient STLMLC STLMLC [id number] Common 00:00:00 00:00:00 [facility] 2021-02-17 2021-02-17 Outpatient STLMLC STLMLC [id number] Common 00:00:00 00:00:00 [facility] Results Test Description Test Time Test Comments Results Result Comments Source Basic Metabolic Panel 2022-02-02 06:55:45 Test Item Value Reference Range Interpretation Comme nts Sodium (test code = 140 meq/L 282-089 7122-2) Potassium (test code = 3.4 meq/L 3.5-5.1 L 2823-3) Chloride (test code = 111 meq/L 98-107 H 2075-0) CO2 (test code = 2027-9) 23 meq/L 22-29 BUN (test code = 3094-0) 4 mg/dL 7-21 L Creatinine (test code = 0.53 mg/dL 0.57-1.25 L 2160-0) Glucose (test code = 76 mg/dL 70-105 2345-7) Calcium (test code = 7.6 mg/dL 8.4-10.2 L 42123-0) EGFR (test code = 57942-8) 113 mL/min/1.73 sq m ESTIMATED GFR IS NOT ACCURATE CREATININE RAQUEL OTIS IN PREDICTING GLOMERULAR FILT RATION RATE. ESTIMATED GFR IS NOT APPLICAB LE FOR DIALYSIS PATIEN TS. LOW (test code = MARANDA) Dealership Manager ID - GAL Wyman Lab Interpretation (test Abnormal code = 80773-9) [facility] UCLABASIC METABOLIC [id number] 06:55:45 Test Item Value Reference Range Interpretation Comments SODIUM (BEAKER) 140 meq/L 136-145 (test code = 381) POTASSIUM (BEAKER) 3.4 meq/L 3.5-5.1 L (test code = 379) CHLORIDE (BEAKER) 111 meq/L 98-107 H (test code = 382) CO2 (BEAKER) (test 23 meq/L 22-29 code = 355) BLOOD UREA NITROGEN 4 mg/dL 7-21 L (BEAKER) (test code = 354) CREATININE (BEAKER) 0.53 mg/dL 0.57-1.25 L (test code = 358) GLUCOSE RANDOM 76 mg/dL 70-105 (BEAKER) (test code = 652) CALCIUM (BEAKER) 7.6 mg/dL 8.4-10.2 L (test code = 697) EGFR (BEAKER) (test 113 mL/min/1.73 ESTIM ATED GFR IS code = 1092) sq m NOT ACCURATE CREATININE CLEARANCE IN PREDICTING GLOMERULAR FILTRATION RATE . ESTIMATED GFR I S NOT APPLICABLE FOR DIALYSIS PATIEN TS. Dealership Manager ID - GAL WCBC with platelet count + automated [id number] 06:11:51 Test Item Value Reference Range Interpretation Comments WBC (test code = 6690-2) 7.8 See_Comment [A utomated message] The system [employer] generated this result transmitted ref erence range: 3.5 - 10 .5 K/L. The refe rence range was not u sed to interpret this result as normal/abnor mal. RBC (test code = 789-8) 4.55 See_Comment [Au tomated message] The system [employer] generated this result transmitted ref erence range: 3.93 - 5 .22 M/L. The refe rence range was not u sed to interpret this result as normal/abnor mal. MCHC (test code = 786-4) 27.6 See_Comment L [A utomated message] The system [employer] generated this result transmitted ref erence range: 32.2 - 3 5.5 GM/DL. The refe rence range was not u sed to interpret this result as normal/abnor mal. Hematocrit (test code = 32.3 % 34.1-44.9 L 4544-3) MCV (test code = 787-2) 71.0 fL 79.4-94.8 L MCH (test code = 785-6) 19.6 pg 25.6-32.2 L RDW (test code = 788-0) Unab le to report due to abnormal RBC population distribution. Platelets (test code = 268 See_Comment [Aut omated message] 777-3) The system [employer] generated this result transmitted ref erence range: 150 - 45 0 K/CU MM. The referen ce range was not u sed to interpret this result as normal/abnor mal. MPV (test code = [place] [address]-7) to abnormal Meena telet population distribution. nRBC (test code = 413) 0 See_Comment [Aut omated message] The system [employer] generated this result transmitted ref erence range: 0 - 0 /1 00 WBC. The refere nce range was not u sed to interpret this result as normal/abnor mal. % Neutros (test code = 63 % 429) % Lymphs (test code = 26 % 430) % Monos (test code = 9 % 431) % Eos (test code = 432) 1 % % Baso (test code = 437) 1 % # Neutros (test code = 4.94 See_Comment [Aut omated message] 670) The system [employer] generated this result transmitted ref erence range: 1.56 - 6 .13 K/L. The refe rence range was not u sed to interpret this result as normal/abnor mal. # Lymphs (test code = 1.99 See_Comment [Auto mated message] 414) The system [employer] generated this result transmitted ref erence range: 1.18 - 3 .74 K/L. The refe rence range was not u sed to interpret this result as normal/abnor mal. # Monos (test code = 0.66 See_Comment H [Autom ated message] 415) The system [employer] generated this result transmitted ref erence range: 0.24 - 0 .36 K/L. The refe rence range was not u sed to interpret this result as normal/abnor mal. # Eos (test code = 416) 0.10 See_Comment [Au tomated message] The system [employer] generated this result transmitted ref erence range: 0.04 - 0 .36 K/L. The refe rence range was not u sed to interpret this result as normal/abnor mal. # Baso (test code = 417) 0.06 See_Comment [A utomated message] The system [employer] generated this result transmitted ref erence range: 0.01 - 0 .08 K/L. The refe rence range was not u sed to interpret this result as normal/abnor mal. Immature 0 % 0-1 Granulocytes-Relative (test code = 2801) Lab Interpretation (test Abnormal code = 09359-1) [facility] W/PLT COUNT & AUTO [id number] 06:11:51 Test Item Value Reference Range Interpretation [...] to report due WIDTH (BEAKER) ([facility] code = 412) population distribution. PLATELET [...] GRANULOCYTES-RELATIVE PERCENT (BEAKER) (test code = 2801) Manual [id number] 08:46:10 Test Item Value Reference Range Interpretation Comments % Neutros (manual) (test 89 % code = 1359) % Lymphs (manual) (test 9 % code = 1360) % Monos (manual) (test 2 % code = 1361) # Neutros (manual) (test 10.50 See_Comment H [A utomated message] code = 1365) The system [employer] generated this result transmitted ref erence range: 1.80 - 8 .00 K/L. The refe rence range was not u sed to interpret this result as normal/abnor mal. # Lymphs (manual) (test 1.06 See_Comment L [Au tomated message] code = 1366) The system [employer] generated this result transmitted ref erence range: 1.48 - 4 .50 K/L. The refe rence range was not u sed to interpret this result as normal/abnor mal. # Monos (manual) (test 0.24 See_Comment [Aut omated message] code = 1367) The system [employer] generated this result transmitted ref erence range: 0.00 - 1 .30 K/L. The refe rence range was not u sed to interpret this result as normal/abnor mal. Total Counted (test code 100 = 1351) WBC Morphology (test Normal code = 487) Platelet Morphology Normal (test code = 486) RBC Morphology (test Normal code = 762) Lab Interpretation (test Abnormal code = 50240-3) [facility] W/PLT COUNT & AUTO [id number] 08:46:10 Test Item Value Reference Range Interpretation [...] (test code Normal = 762) BASIC METABOLIC [id number] 05:55:30 Test Item Value Reference Range Interpretation [...] S NOT APPLICABLE FOR DIALYSIS PATIEN TS. Dealership Manager ID - PIAYA LPeripheral Blood Smear - Path [id number] 10:55:06 Test Item Value Reference Interpretation Comments Range RBC PolychromasiaAnisocytosisPoikilocytosis Morphology Elliptocytes (test code = 2846) WBC Unremarkable Morphology (test code = 2847) Platelet Unremarkable Morphology (test code = 2848) Pathologist Cell counts confirmed. There is Review (test microcytic hypochromic anemia with code = 2640) polychromasia and mild anisopoikilocytosis. Schistocytes are not increased (<1%). Correlation with the ancillary findings including iron studies are recommended. Pathologist: Palmer Levi M.D. (test code = 2849) [facility] UCLAPERIPHERAL BLOOD SMEAR - PATHOLOGIST [id number] 10:55:06 Test Item Value Reference Range Interpretation Comments RBC MORPHOLOGY Polychromasia (BEAKER) (test code = 2846) RBC MORPHOLOGY Anisocytosis (BEAKER) (test code = 86640) RBC MORPHOLOGY Poikilocytosis (BEAKER) (test code = 74148) RBC MORPHOLOGY Elliptocytes (BEAKER) (test code = 56739) WBC MORPHOLOGY Unremarkable (BEAKER) (test code = 2847) PLT MORPHOLOGY Unremarkable (BEAKER) (test code = 2848) PERIPHERAL SMR REVIEW Cell counts confirmed. (BEAKER) (test code = There is microcytic 2640) hypochromic anemia with polychromasia and mild anisopoikilocytosis. Schistocytes are not increased (<1%). Correlation with the ancillary findings including iron studies are recommended. [id number] Palmer Levi M.D. (BEAKER) (test code = 2849) RAD, CHEST, 1 VIEW, NON [id number] 10:48:00Reason for exam:->r/o pnaShould this be performed at the bedside?->Yes [facility] : 1945 Sex: FFINAL REPORT TECHNIQUE: Frontal view of the chest. INDICATION: r/o pna. COMPARISON: Chest radiograph from 10/01/2020. FINDINGS: The patient is rotated LINES/TUBES: None. LUNGS: There is some questionable patchy opacity of the right base. PLEURA: No pneumothorax or significant pleural effusion. HEART AND MEDIASTINUM: The cardiac silhouette is normal in size. SOFT TISSUES AND BONES: Unremarkable. IMPRESSION: The patient is rotated which makes evaluation suboptimal. There is some questionable patchy opacity of the right base. A repeat radiograph without the patient's arms overlying the upper abdomen and without patient rotation is recommended. Signed: Twan Boles Verified Date/Time: 01/31/2022 10:48:19 Reading Location: [address] Body Reading Room BASIC METABOLIC [id number] 08:36:06 Test Item Value Reference Range Interpretation [...] S NOT APPLICABLE FOR DIALYSIS PATIEN TS. Dealership Manager ID - DBManual Kwosufvioczt6410-78-96 08:01:47 Test Item Value Reference Range Interpretation Comments % Neutros (test code = 2816) 90 % % Lymphs (test code = 2817) 7 % % Monos (test code = 2818) 3 % # Neutros (test code = 2830) 21.15 K/ul 1.56-6.13 H # Lymphs (test code = 2831) 1.65 K/ul 1.18-3.74 # Monos (test code = 2832) 0.71 K/uL 0.24-0.36 H Total Counted (test code = 1351) 100 RBC Morphology (test code = 762) Normal Platelet Morphology (test code = Normal 486) Hypersegmented Neutrophils (test Present code = 3445) Lab Interpretation (test code = Abnormal 81406-2) [facility] W/PLT COUNT & AUTO [id number] 08:01:47 Test Item Value Reference Range Interpretation [...] abno rmal RBC code = 412) population distribution.' PLATELET [...] Present (CELLAVISION)(BEAKER) (test code = 3445) BUN and Creatinine w/[id number] 17:45:47 Test Item Value Reference Range Interpretation Comments BUN (test code = 9 mg/dL 7-21 3094-0) Creatinine (test code 0.54 mg/dL 0.57-1.25 L = 2160-0) BUN/Creatinine ratio 17 For a normal (test code = 3097-3) individ ual on a normal diet, th e reference interval for th e mass ratio rang es between 12:1 an d 20:1 (BUN in mg/dL/creatinin e in mg/dL) EGFR (test code = 110 mL/min/1.73 [place] [address]-3) NOT ACCURATE CREATININE CLEARANCE IN PREDICTING GLOMERULAR FILTRATION RATE . ESTIMATED GFR I S NOT APPLICABLE FOR DIALYSIS PATIENTS. MARANDA (test code = MARANDA) Dealership Manager ID - ADMIN Lab Interpretation Abnormal (test code = 03119-2) [facility] UCLABUN AND CREATININE [id number] 17:45:47 Test Item Value Reference Range Interpretation Comments BLOOD UREA NITROGEN 9 mg/dL 7-21 (BEAKER) (test code = 354) CREATININE (BEAKER) 0.54 mg/dL 0.57-1.25 L (test code = 358) BUN/CREAT RATIO 17 For a normal (BEAKER) (test code individu al on a = 6700943650) normal diet, t he reference inter gladis for the mass ra jc ranges between 12:1 and 20:1 (BUN i n mg/dL/creatinin e in mg/dL) EGFR (BEAKER) (test 110 mL/min/1.73 ESTIM ATED GFR IS code = 1092) sq m NOT ACCURATE CREATININE CLEARANCE IN PREDICTING GLOMERULAR FILTRATION RATE . ESTIMATED GFR I S NOT APPLICABLE FOR DIALYSIS PATIEN TS. Dealership Manager ID - ADMINHemoglobin and [id number] 10:15:08 Test Item Value Reference Range Interpretation Comments Hemoglobin (test code 7.9 See_Comment L [Auto mated = 786-4) message] The system which generated this result transmit barbara reference range : 11.2 - 15.7 GM/ DL. The reference range was not u sed to interpret th is result as normal/abnormal . Hematocrit (test code 27.7 % 34.1-44.9 L = 4544-3) MARANDA (test code = MARANDA) Dealership Manager ID - [id number] ID - [id number] Lab Interpretation Abnormal (test code = 82360-7) [facility] UCLA[facility]MO[facility]IN AND [id number] 10:15:08 Test Item Value Reference Range Interpretation Comments HEMOGLOBIN (BEAKER) (test code = 7.9 GM/DL 11.2-15.7 L 410) HEMATOCRIT (BEAKER) (test code = 27.7 % 34.1-44.9 L 411) Dealership Manager ID - [id number] ID - [id number] 09:51:28 Test Item Value Reference Range Interpretation Comments Haptoglobin (test code = 161 mg/dL 14-258 4542-7) MARANDA (test code = MARANDA) Dealership Manager ID Pia Collier Lab Interpretation (test Normal code = 13067-6) [facility] UCLAHAPTOGLOBIN2022-03-12 09:51:28 Test Item Value Reference Range Interpretation Comments HAPTOGLOBIN (BEAKER) (test code = 161 mg/dL 14-258 366) Dealership Manager ID Pia RICH [facility] W/PLT COUNT & AUTO [id number] 09:01:38 Test Item Value Reference Range Interpretation [...] GRANULOCYTES-RELATIVE PERCENT (BEAKER) (test code = 2801) POC-Glucose [id number] 07:43:08 Test Item Value Reference Range Interpretation Comments POC-Glucose Meter (test 93 mg/dL 70-110 : TE STED AT [facility] code = 1538) [address] [facility], [address]: Dealership Manager/Techni eli ID = [id number] for CALI WOODS N Lab Interpretation (test Normal code = 02055-6) [facility] UCLAPOCT-GLUCOSE [id number] 07:43:08 Test Item Value Reference Range Interpretation Comments POC-GLUCOSE METER 93 mg/dL 70-110 : TESTED A T [facility] [address] (BEAKER) (test code = CHRISTOPHE Saini [facility], 1538) [address]: Dealership Manager/Techni eli ID = [id number] for GLENROY ALEJANDRADANIELRM Snxhlies0494-08-03 07:20:27 Test Item Value Reference Range Interpretation Comments Ferritin (test code = 9.28 ng/mL 5.00-275.00 2276-4) MARANDA (test code = MARANDA) Dealership Manager ID - HILARIO Collier Lab Interpretation (test Normal code = 36990-8) [facility] UCLAFERRITIN2022-03-12 07:20:27 Test Item Value Reference Range Interpretation Comments FERRITIN (BEAKER) (test code = 9.28 ng/mL 5.00-275.00 361) Dealership Manager ID - HILARIO MHepatic function [id number] 07:05:48 Test Item Value Reference Range Interpretation Comments Protein, Total (test 5.3 See_Comment L [Autom ated code = 2885-2) message] The system which generated this result transmit barbara reference range : 6.0 - 8.3 gm/dL . The reference range was not u sed to interpret th is result as normal/abnormal . Albumin (test code = 2.5 g/dL 3.5-5.0 L 37357-1) Total Bilirubin (test 1.2 mg/dL 0.2-1.2 code = 1975-2) Bilirubin, Direct 0.5 mg/dL 0.1-0.5 (test code = 1968-7) Alkaline Phosphatase 68 U/L 40-150 (test code = 6768-6) AST (test code = 11 U/L 5-34 1920-8) ALT (test code = <6 6-55 L 1742-6) MARANDA (test code = MARANDA) Dealership Manager ID - HILARIO M Lab Interpretation Abnormal (test code = 20941-5) [facility] UCLAHEPATIC FUNCTION [id number] 07:05:48 Test Item Value Reference Range Interpretation [...] code = < U/L 6-55 L 347) Dealership Manager ID - HILARIO MBASIC METABOLIC [id number] 07:04:57 Test Item Value Reference Range Interpretation [...] S NOT APPLICABLE FOR DIALYSIS PATIEN TS. Dealership Manager ID - HILARIO MLactate dehydrogenase (LDH)2022-01-30 07:00:03 Test Item Value Reference Range Interpretation Comments LDH (test code = 2532-0) 222 U/L 125-220 H MARANDA (test code = MARANDA) Dealership Manager ID - HILARIO M Lab Interpretation (test Abnormal code = 89121-7) [facility] UCLALACTATE DEHYDROGENASE (LDH)2022-01-30 07:00:03 Test Item Value Reference Range Interpretation Comments LACTATE DEHYDROGENASE (BEAKER) (test 222 U/L 125-220 H code = 635) Dealership Manager ID - HILARIO Christi, TIBC, % sat. (without ferritin)2022-01-30 06:59:26 Test Item Value Reference Range Interpretation Comments Iron (test code = 2498-4) 16.0 ug/dL 40.0-160.0 L TIBC (test code = 2500-7) 279 ug/dL 250-450 Iron % Saturation (test 6 % 20-55 L code = 2502-3) MARANDA (test code = MARANDA) Dealership Manager ID - HILARIO M Lab Interpretation (test Abnormal code = 49673-6) [facility] UCLA[facility]ON, TIBC, % SAT. (WITHOUT FERRITIN)2022-01-30 06:59:26 Test Item Value Reference Range Interpretation Comments IRON (BEAKER) (test code = 547) 16.0 ug/dL 40.0-160.0 L TOTAL IRON BINDING CAPACITY 279 ug/dL 250-450 (BEAKER) (test code = 769) IRON % SATURATION (2) (BEAKER) 6 % 20-55 L (test code = 2590) Dealership Manager ID - HILARIO MReticulocyte [id number] 06:37:58 Test Item Value Reference Range Interpretation Comments % Retic (test code = 1.2 % 0.5-1.7 65526-2) MARANDA (test code = MARANDA) Dealership Manager ID - [id number] Lab Interpretation (test Normal code = 82257-7) [facility] UCLARETICULOCYTE [id number] 06:37:58 Test Item Value Reference Range Interpretation Comments RETICULOCYTE COUNT PCT (SHAMIR) (test 1.2 % 0.5-1.7 code = 575) Dealership Manager ID - [id number]-GLUCOSE [id number] 06:28:00 Test Item Value Reference Range Interpretation Comments POC-GLUCOSE METER 96 mg/dL 70-110 : Notified RN/MD: TESTED (SHAMIR) (test code = AT [address]) [facility], [address]: Dealership Manager/Techni eli ID = [id number] for DORIS RUSS POCT-GLUCOSE [id number] 00:00:00 Test Item Value Reference Range Interpretation Comments POC-GLUCOSE METER 101 mg/dL 70-110 : Notified RN/MD: (SHAMIR) (test code = TESTED AT [place] [address]) [facility], [address]: Dealership Manager/Techni eli ID = [id number] for LATRUELRIDKAYLEE, EUNICE ICE RAD, SHOULDER, COMPLETE (MIN 2 VIEWS), [id number] 13:20:00Reason for exam:- >Right shoulder [facility] : 1945 Sex: FFINAL REPORT Right shoulder dated 10/02/2020 Clinical Information: Right shoulder painComment: 2 views of the right shoulder were submitted for interpretation. No fracture, dislocation, or subluxation is seen in the right shoulder. Humeroglenoid, acromioclavicular, and coracoclavicular joints are well maintained. Soft tissue of the right shoulder is unremarkable. Impression: Nothing abnormal seen the bones or soft tissue in the right shoulder. Signed: Jenna Longoria MDReport Verified Date/Time: 10/02/2020 13:20:31 Reading Location: [facility] Radiology Reading Room POCT-GLUCOSE [id number] 06:23:00 Test Item Value Reference Range Interpretation Comments POC-GLUCOSE METER 103 mg/dL 70-110 : Notified RN/MD: (SHAMIR) (test code = TESTED AT [facility] 67[address] [address]38) [facility], [address]: Dealership Manager/Techni eli ID = [id number] for EUNICE SNIDER PT/[id number] 04:55:00 Test Item Value Reference Range Interpretation [...] thrombosis and/or pulmonary embolus.HIGH RISK: Target INR is 2.5-3.5 for patients wiht mechanical heart valves.BASIC METABOLIC [id number] 04:39:00 Test Item Value Reference Range Interpretation [...] S NOT APPLICABLE FOR DIALYSIS PATIEN TS. Dealership Manager ID - HILARIO [facility] W/PLT COUNT & AUTO [id number] 04:08:00 Test Item Value Reference Range Interpretation [...] (BEAKER) (test code = 2801) URINALYSIS W/ [id number] 00:08:00 Test Item Value Reference Range Interpretation [...] 516) SOURCE(BEAKER) (test code = Urine, Voided 2825) Dealership Manager ID - [auto]POCT-GLUCOSE [id number] 23:59:00 Test Item Value Reference Range Interpretation Comments POC-GLUCOSE METER 93 mg/dL 70-110 : Notified RN/MD: TESTED (SHAMIR) (test code = AT [facility] [address]) [facility], [address]: Dealership Manager/Techni eli ID = [id number] for DORIS RUSS CT, BRAIN, WITHOUT [id number] 21:38:00Unlisted Reason for Exam - Click Yes and Enter Reason Below->No [facility] : 1945 Sex: FFINAL [...] There are bilateral hypodense cerebral convexity subdural collectionsmeasuring up to 17 mm in thickness on the right and 18 mm on the left, which may represent chronic subdural hematomas or subdural hygromas. There is associated parenchymal mass effect. There is a 2 mm afye-jt-pgdpm midline shift at the level of the septum pellucidum. There are chronic infarcts in the bilateral frontal, bilateral parietal, bilateral occipital and bilateral posterior temporal lobes. There are chronic lacunar infarcts in [...] mild opacification of the bilateral mastoid air cells. There is bilateral anterior ethmoid sinus mucosal opacification. The skull base and calvarium are intact. IMPRESSION: Bilateral hypodense cerebral convexity subdural collections, which may represent subdural hygromas or chronic subdural hematomas. Associated parenchymal mass effect. 2 mm ooyn-fq-wfmly midline shift. Multiple chronic infarcts as described. Mild linear hyperdensity in the left posterior temporal lobe favored to represent mineralization rather than acute hemorrhage. Short-term follow-up is recommended. Nohydrocephalus. Signed: Kerri Mccauley MDReport Verified Date/Time: 10/01/2020 21:38:28 Electronicallysigned by: KERRI MCCAULEY MD on 10/01/2020 09:38 PMRAD, CHEST, 1 VIEW, NON DEPT 2020-10-01 20:22:00Reason for exam:->coughShould this be performed at the bedside?->Yes[facility] : 1945 Sex: FFINAL [...] Mckenna Verified Date/Time: 10/01/2020 20:22:05 [facility] [id number] Consult Reading Room
--- NOTE | 2022-11-22 16:06 | RAD REPORT ---
EXAM DESCRIPTION: Lucas Single View11/22/2022 3:27 pm CLINICAL HISTORY: Cough COMPARISON: May 2022 FINDINGS: The lungs appear clear of acute infiltrate. The heart is normal size IMPRESSION: No acute abnormalities displayed
[2022-11-22] MEDS ORDERED: Ringers Lactate 1,000 ML IV ONE (16:33)
[2022-11-22 17:13] LABS: Absolute Lymphocytes (CBC) 1.4 K/uL (0.7-4.9); Hematocrit 26.2 % (36.0-45.0); Lymphocytes % 8.1 % (15.3-44.8); MCV 71.2 fL (80-100); MPV 8.6 fL (7.6-11.3); RBC Red Blood Cell Count 3.69 M/uL (3.86-4.86)
[2022-11-22 17:17] LABS: Anisocytosis 2+; Blood Morphology Comment NOTED (NOT SEEN); Hypochromasia 1+; Platelet Estimate ADEQ; White Blood Cell Scan OK (OK)
[2022-11-22 17:37] LABS: Albumin 2.3 g/dL (3.4-5.0); Bilirubin Direct 0.1 mg/dL (0-0.2); Bilirubin Total 0.3 mg/dL (0.2-1.0); Magnesium 2.3 mg/dL (1.6-2.4); Protein, Total 6.1 g/dL (6.4-8.2); Troponin High Sensitivity 12.7 pg/mL (<58.9)
[2022-11-22 17:50] LABS: SARS-COV-2 RT PCR NEGATIVE (NEGATIVE)
[2022-11-22 17:56] LABS: Protime INR 1.36
[2022-11-22] MEDS ORDERED: PANTOPRAZOLE 40 MG INJ ONE ×2 (18:10→19:49)
[2022-11-22 18:49] LABS: Urine Blood Trace-lysed (Negative); Urine Glucose Negative (Negative); Urine Protein 2+ (Negative); Urine Specific Gravity 1.025 (1.005-1.030)
--- NOTE | 2022-11-22 19:14 | RAD REPORT ---
EXAM DESCRIPTION: CT - Chest Abdomen W Con - 11/22/2022 6:53 pm CLINICAL HISTORY: Chest and abdominal pain COMPARISON: August 2022 TECHNIQUE: Computed axial tomography the chest and abdomen obtained. 100 cc Isovue-300 administered intravenously. Oral contrast not given which limits evaluation bowel. All CT scans are performed using dose optimization technique as appropriate and may include automated exposure control or mA/KV adjustment according to patient size. FINDINGS: Lungs are clear No mediastinal or hilar lymphadenopathy is seen A pleural effusion is not seen. A pericardial effusion is not present. Thickening of the wall of distal esophagus. Small to moderate hiatal hernia Liver, spleen, pancreas and adrenals unremarkable. Renal cortical thinning. Small right renal cyst. Left renal parapelvic cysts. Small low-density lesio n lower pole left kidney unchanged probably benign Mild dilatation jejunum and portion of the ileum. Distal ileum decompressed. This is compatible with a small bowel obstruction. Mild gastric distention Most inferior slice demonstrates calcification right upper pelvis. IMPRESSION: Small bowel obstruction. Thickening of the wall of the distal esophagus may indicate inflammation The most inferior slice demonstrates calcification right upper pelvis. This is part of a heterogeneou s mass seen on the prior CT. Please refer to that report
[2022-11-22] MEDS ORDERED: NA CHLORIDE 0.9% 100 ML IV ONE (19:49)
[2022-11-22] MEDS ORDERED: NA CHLORIDE 0.9% 250 ML ONE (19:49)
[2022-11-22] MEDS ORDERED: PIPERACIL/TAZO 3.375 GM VIAL IV ONE (19:50)
--- NOTE | 2022-11-22 19:55 | ER ---
Nurse's Notes [facility] Name: Carey Mcdaniel Age: 77 yrs Sex: Female : 1945 Arrival Date: 11/22/2022 Time: 13:57 Bed 2 Private MD: Jahaira Navarrete Diagnosis: GI Bleed/ Gastrointestinal hemorrhage, unspecified;Anemia in other chronic diseases classified elsewhere Presentation: 11/22 15:46 Chief complaint: Patient's son or daughter states: "She has had a cough for two days, ss and I was trying to take care of it at home, but I noticed today she wasn't herself. I think she is dehydrated.". Coronavirus screen: Client denies travel out of the [place] in the last 14 days. Ebola Screen: Patient denies exposure to infectious person. Patient denies travel to an Ebola-affected area in the 21 days before illness onset. Initial Sepsis Screen: Does the patient have a suspected source of infection? No. Patient's initial sepsis screen is negative. Initial Sepsis Screen: Does the patient meet any 2 criteria? No. Patient's initial sepsis screen is negative. Risk Assessment: Do you want to hurt yourself or someone else? Patient reports no desire to harm self or others. Onset of symptoms was November 20, 2022. 15:46 Method Of Arrival: Wheelchair ss 15:46 Acuity: EKATERINA 2 ss Historical: - Allergies: 15:48 Hydrocodone-Acetaminophen; ss - PMHx: 15:48 CVA; Right sided weakness; Dementia; Hypertension; ss - Immunization history:: Client reports having NOT received the Covid vaccine. - Social history:: Smoking status: Patient denies any tobacco usage or history of. Screenin:00 [facility] ED Fall Risk Assessment (Adult) History of falling in the last 3 months, ko1 including since admission No falls in past 3 months (0 pts) Confusion or Disorientation Yes (5 pts) Intoxicated or Sedated No (0 pts) Impaired Gait Yes (1 pt) Mobility Assist Device Used Yes (1 pt) Altered Elimination Yes (1 pt) Score/Fall Risk Level 3 or more points = High Risk Oriented to surroundings, Maintained a safe environment, Educated pt \\T\\ family on fall prevention, incl call for assistance when getting out of bed, Assessed \\T\\ reinforced patient's understanding of fall precautions, Provided non-skid footwear, Hourly rounding (assess needs \\T\\ fall precautionary measures) done, Used ambulatory aids as needed (educated on \\T\\ assisted with), Used gait belt as appropriate Implemented a Fall Risk Plan of Care, Apply high fall risk patient identification: yellow non skid footwear/ fall signage, Remained w/in arm's length of patient and in sight while toileting, Offered frequent toileting (1:1 observation), Remained with patient while ambulating, Utilized family, sitter, or virtual sign wirer as indicated. Abuse screen: Denies threats or abuse. Has been threatened or abused. Nutritional screening: No deficits noted. Tuberculosis screening: No symptoms or risk factors identified. Assessment: 16:00 General: Appears ill, emaciated, Behavior is drowsy. Pain: Denies pain. Neuro: Level of ko1 Consciousness is lethargic. Cardiovascular: No deficits noted. Respiratory: Parent/caregiver reports the patient having cough that is productive. GI: No deficits noted. : No deficits noted. EENT: No deficits noted. Derm: No deficits noted. Musculoskeletal: right arm and hand contrature. 19:05 General: Called lab for blood cultures and type and screen. Day shift stated that they tw5 have tried to call several times to get the rest of the blood work.. 20:33 Reassessment: No changes from previously documented assessment. Patient and/or family ll3 updated on plan of care and expected duration. Pain level reassessed. 21:19 Reassessment: [phone] (Taylor, daughter). ll3 22:00 Reassessment: Attempted to call report to LON Hernandez at [facility], was told to ll3 call back because the nurse was not available. 22:30 Reassessment: Attempt to call report. ll3 Vital Signs: 15:46 BP 72 / 48; Pulse 108; Resp 17; Temp 97.9; Pulse Ox 97% on R/A; Weight 47.63 kg; Height ss 4 ft. 10 in. (147.32 cm); 16:00 BP 82 / 56; Pulse 99; Pulse Ox 98% on R/A; ko1 16:15 BP 95 / 59; Pulse 100; Pulse Ox 99% on R/A; ko1 16:45 BP 112 / 67; Pulse 98; Resp 16; Pulse Ox 97% ; ko1 17:15 BP 129 / 66; Pulse 99; Resp 16; Pulse Ox 98% ; ko1 17:45 BP 135 / 72; Pulse 95; Pulse Ox 99% ; ko1 18:30 BP 141 / 72; Pulse 78; Pulse Ox 100% ; ko1 19:30 BP 125 / 70; Pulse 93; Resp 21; Pulse Ox 99% on R/A; ll3 20:33 BP 106 / 67; Pulse 97; Resp 23; Pulse Ox 99% on R/A; ll3 21:30 BP 92 / 78; Pulse 95; Resp 28; Pulse Ox 99% on R/A; ll3 22:30 BP 126 / 65; Pulse 89; Resp 20; Pulse Ox 98% on R/A; ll3 23:18 BP 98 / 67; Pulse 90; Resp 28; Pulse Ox 99% on R/A; ll3 15:46 Body Mass Index 21.94 (47.63 kg, 147.32 cm) ss ED Course: 13:57 Patient arrived in ED. am2 13:57 Jahaira Navarrete MD is Private Physician. am2 14:21 Vasu Castaneda PA is PHCP. jmm 14:21 Maame Villalobos MD is Attending Physician. jmm 15:29 XRAY Chest (1 view) In Process Unspecified. EDMS 15:48 Triage completed. ss 15:48 Arm band placed on right wrist. ss 15:49 Amada Myles, RN is Primary Nurse. ko1 16:00 Patient has correct armband on for positive identification. Fall risk band placed. ko1 Placed in gown. Bed in low position. Call light in reach. Side rails up X2. Client placed on continuous cardiac and pulse oximetry monitoring. NIBP monitoring applied. learning and development officer on. Warm blanket given. 16:00 Inserted saline lock: 22 gauge in right forearm, using aseptic technique. Blood ko1 collected. 17:02 Lactate w/ 2H reflex if indic. Sent. ko1 17:02 COVID-19/FLU A+B Sent. ko1 17:02 Basic Metabolic Panel Sent. ko1 17:02 CBC with Diff Sent. ko1 17:02 LFT's Sent. ko1 17:02 Magnesium Sent. ko1 17:02 NT PRO-BNP Sent. ko1 17:02 Troponin HS Sent. ko1 17:46 PT-INR Sent. ko1 18:00 Urine collected: straight cath specimen, ysabel colored, Amount Returned: 250mL. ko1 18:54 CT Chest Abdomen W/ Contrast In Process Unspecified. EDMS 19:17 PHCP role handed off by Vasu Castaneda PA cp 19:17 Micah Beauchamp PA is PHCP. cp 19:58 initiated a transfer with Shell Guaman from [facility] [place]. mw2 20:22 Inserted saline lock: 24 gauge in left antecubital area, using aseptic technique. ll3 20:47 Shell Guaman called from [facility] is working on getting a bed for the patient. mw2 21:12 connected Micah MULLINS with the Doctor from [facility]. mw2 21:59 Accessed peripheral vein via ultrasound, utilizing dynamic ultrasound technique bb Powerglide midline 20g 8cm to left upper arm using hospital protocol with good blood return and flushes easily pt tolerated well. 23:18 No provider procedures requiring assistance completed. Patient transferred, IV remains ll3 in place. Administered Medications: 17:01 Drug: Lactated Ringers Solution 1000 ml Route: IV; Rate: 1000 bolus; Site: right ko1 forearm; 18:09 Drug: ProTONIX (pantoprazole) 40 mg Route: IVP; Site: right forearm; ko1 20:00 Drug: Zosyn (piperacillin-tazobactam) 3.375 grams Route: IVPB; Infused Over: 60 mins; ll3 Site: right forearm; 22:33 Follow up: Response: No adverse reaction; IV Status: Completed infusion; IV Intake: ll3 100ml 20:21 Drug: ProTONIX (pantoprazole) 8 mg/hr Route: IV; Rate: 25 ml/hr; Site: left antecubital;ll3 23:19 Follow up: Response: No adverse reaction; IV Status: Infusion continued upon transfer ll3 Medication: 23:18 VIS not applicable for this client. ll3 Intake: 22:33 IV: 100ml; Total: 100ml. ll3 Outcome: 19:54 ER care complete, transfer ordered by . cp 23:18 Transferred by ground EMS to [facility], Transfer form completed. ll3 X-rays sent w/ patient. 23:18 Condition: stable 23:18 Instructed on the need for transfer, Demonstrated understanding of instructions. 23:20 Patient left the ED. ll3 Signatures: Dispatcher [employer] EDMS Vasu Castaneda PA PA jmm Ballard, Brenda RN RN bb Erin Marie RN RN ss Micha Beauchamp PA PA cp Moreno, Amanda am2 Jacklyn Long mw2 Priti Bhatti tw5 Eugene Guy RN RN ll3 Amada Myles RN RN ko1 Corrections: (The following items were deleted from the chart) 18:58 18:30 Urine collected: straight cath specimen, ysabel colored, Amount Returned: 250mL [id number]
--- NOTE | 2022-11-22 19:55 | EDPHYS ---
Physician Documentation [facility] Name: Carey Mcdaniel Age: 77 yrs Sex: Female : 1945 Arrival Date: 11/22/2022 Time: 13:57 Bed 2 Private MD: Jahaira Navarrete ED Physician Maame Villalobos HPI: 11/22 14:42 This 77 yrs old Female presents to ER via Wheelchair with complaints of Cough, jmm dehydration. 14:42 This is a 77-year-old female with history of previous CVA, dementia, hypertension the jmm presents emerged department with cough congestion decreased oral intake per daughter beginning approximately 3 days ago. Denies fever shortness of breath, diarrhea.. Historical: - Allergies: 15:48 Hydrocodone-Acetaminophen; ss - PMHx: 15:48 CVA; Right sided weakness; Dementia; Hypertension; ss - Immunization history:: Client reports having NOT received the Covid vaccine. - Social history:: Smoking status: Patient denies any tobacco usage or history of. ROS: 14:42 Constitutional: Positive for poor PO intake. jmm 14:42 Respiratory: Positive for cough. 14:42 Abdomen/GI: Positive for abdominal pain, black/tarry stool. 14:42 All other systems are negative. Exam: 14:42 Head/Face: atraumatic. Eyes: EOMI, no conjunctival erythema appreciated ENT: Moist jmm Mucus Membranes Neck: Trachea midline, Supple Chest/axilla: Normal chest wall appearance and motion. Cardiovascular: Regular rate and rhythm. No edema appreciated Respiratory: Normal respirations, no respiratory distress appreciated 14:42 Back: Normal ROM Skin: General appearance color normal MS/ Extremity: Moves all extremities, no obvious deformities appreciated, no edema noted to the lower extremities 14:42 Constitutional: The patient appears in no acute distress, alert, awake. 14:42 Abdomen/GI: Inspection: abdomen appears normal, Bowel sounds: diminished, Palpation: soft. 14:42 Neuro: Motor: is normal. 14:42 Psych: Behavior/mood is pleasant, cooperative. 17:00 ECG was reviewed by the Attending Physician. cp Vital Signs: 15:46 BP 72 / 48; Pulse 108; Resp 17; Temp 97.9; Pulse Ox 97% on R/A; Weight 47.63 kg; Height ss 4 ft. 10 in. (147.32 cm); 16:00 BP 82 / 56; Pulse 99; Pulse Ox 98% on R/A; ko1 16:15 BP 95 / 59; Pulse 100; Pulse Ox 99% on R/A; ko1 16:45 BP 112 / 67; Pulse 98; Resp 16; Pulse Ox 97% ; ko1 17:15 BP 129 / 66; Pulse 99; Resp 16; Pulse Ox 98% ; ko1 17:45 BP 135 / 72; Pulse 95; Pulse Ox 99% ; ko1 18:30 BP 141 / 72; Pulse 78; Pulse Ox 100% ; ko1 19:30 BP 125 / 70; Pulse 93; Resp 21; Pulse Ox 99% on R/A; ll3 20:33 BP 106 / 67; Pulse 97; Resp 23; Pulse Ox 99% on R/A; ll3 21:30 BP 92 / 78; Pulse 95; Resp 28; Pulse Ox 99% on R/A; ll3 22:30 BP 126 / 65; Pulse 89; Resp 20; Pulse Ox 98% on R/A; ll3 23:18 BP 98 / 67; Pulse 90; Resp 28; Pulse Ox 99% on R/A; ll3 15:46 Body Mass Index 21.94 (47.63 kg, 147.32 cm) MDM: 14:42 Patient medically screened. [facility] 15:00 Differential Diagnosis: Bronchitis Influenza Pneumonia Other anemia, gastrointestinal cp hemorrhage, bowel obstruction. 19:32 Data reviewed: vital signs, nurses notes. Transition of care: After a detail discussion [facility] of the patient's case, care is transferred to Micah MULLINS. 11/22 14:44 Order name: Basic Metabolic Panel; Complete Time: 17:39 [facility] 11/22 21:25 Interpretation: Normal except: GLUC 144; BUN 32; CRE 1.50; GFR 36; CA 7.8. cp 11/22 14:44 Order name: CBC with Diff; Complete Time: 17:17 [facility] 11/22 21:25 Interpretation: Normal except: WBC 17.50; RBC 3.69; HGB 8.1; HCT 26.2; MCV 71.2; MCH cp 21.9; MCHC 30.8; RDW 22.3; QUENTIN% 85.3; LYM% 8.1; NEUT A 14.9. 11/22 14:44 Order name: LFT's; Complete Time: 17:39 [facility] 11/22 14:44 Order name: Magnesium; Complete Time: 17:39 [facility] 11/22 14:44 Order name: NT PRO-BNP; Complete Time: 17:39 [facility] 11/22 14:44 Order name: PT-INR; Complete Time: 18:01 [facility] 11/22 14:44 Order name: Troponin HS; Complete Time: 17:39 [facility] 11/22 14:44 Order name: COVID-19/FLU A+B; Complete Time: 17:50 [facility] 11/22 16:10 Order name: Lactate w/ 2H reflex if indic.; Complete Time: 17:30 [facility] 11/22 16:10 Order name: Blood Culture Adult (2) [facility] 11/22 17:17 Order name: CBC Smear Scan; Complete Time: 17:17 [facility] 11/22 17:30 Order name: Type And Screen [facility] 11/22 21:20 Interpretation: Reviewed. cp 11/22 18:49 Order name: Urine Dipstick-Ancillary; Complete Time: 18:51 [facility] 11/22 21:18 Order name: Antibody Identification [facility] 11/22 14:44 Order name: XRAY Chest (1 view); Complete Time: 16:09 [facility] 11/22 14:44 Order name: EKG; Complete Time: 14:44 [facility] 11/22 14:44 Order name: Cardiac monitoring; Complete Time: 15:58 [facility] 11/22 14:44 Order name: EKG - Nurse/Tech; Complete Time: 16:47 [facility] 11/22 14:44 Order name: IV Saline Lock; Complete Time: 17:02 [facility] 11/22 14:44 Order name: Labs collected and sent; Complete Time: 17:02 [facility] 11/22 14:44 Order name: O2 Per Protocol; Complete Time: 15:58 [facility] 11/22 14:44 Order name: O2 Sat Monitoring; Complete Time: 15:58 [facility] 11/22 17:30 Order name: Urine Dipstick-Ancillary (obtain specimen); Complete Time: 19:14 [facility] 11/22 18:22 Order name: CT Chest Abdomen W/ Contrast; Complete Time: 19:15 [facility] 11/22 21:20 Order name: Transfuse cp EC:00 Rate is 98 beats/min. Rhythm is regular. NV interval is normal. QRS interval is normal. cp QT interval is normal. T waves are Inverted. Interpreted by me. Reviewed by me. Administered Medications: 17:01 Drug: Lactated Ringers Solution 1000 ml Route: IV; Rate: 1000 bolus; Site: right ko1 forearm; 18:09 Drug: ProTONIX (pantoprazole) 40 mg Route: IVP; Site: right forearm; ko1 20:00 Drug: Zosyn (piperacillin-tazobactam) 3.375 grams Route: IVPB; Infused Over: 60 mins; ll3 Site: right forearm; 22:33 Follow up: Response: No adverse reaction; IV Status: Completed infusion; IV Intake: ll3 100ml 20:21 Drug: ProTONIX (pantoprazole) 8 mg/hr Route: IV; Rate: 25 ml/hr; Site: left antecubital;ll3 23:19 Follow up: Response: No adverse reaction; IV Status: Infusion continued upon transfer ll3 Disposition Summary: 11/22/22 19:54 Transfer Ordered Transfer Location: [facility] cp Reason: Higher level of care cp Condition: Stable cp Problem: new cp Symptoms: have improved cp Accepting Physician: Doctor(11/22/22 23:20) ll3 Diagnosis - GI Bleed/ Gastrointestinal hemorrhage, unspecified cp - Anemia in other chronic diseases classified elsewhere cp Forms: - Medication Reconciliation Form cp - SBAR form cp Signatures: Dispatcher [employer] EDVasu Davis PA PA jmm Smirch, Shelby, RN RN ss Attema, Lee, RAMIREZ-C SPRAY I PAINTER-[facility]1 Micah Beauchamp PA PA cp Loubet, Lynsea RN RN ll3 Amada Myles RN RN ko1 Corrections: (The following items were deleted from the chart) 23:20 19:54 Doctor cp ll3
[2022-11-22 23:29] VITALS: TEMP 97.9
[2022-11-22 23:53] VITALS: BP 98/67; O2SAT 99
--- NOTE | 2022-11-23 08:32 | EKG ---
Test Date: 2022-11-22 Test Time: 16:43:16 Clockmaker Apprentice: JAYJAY MEASUREMENT RESULTS: Intervals: Rate: 98 MD: 146 QRSD: 62 QT: 382 QTc: 487 [place]: P: 5 MD: 146 QRS: -14 T: 65 INTERPRETIVE STATEMENTS: Normal sinus rhythm Cannot rule out Anterior infarct, age undetermined Abnormal ECG Compared to ECG 10/01/2020 09:12:50 Myocardial infarct finding now present Electronically Signed On 11-23-22 08:31:11 [employer] by Yobany [place]
== END 2022-11-22 23:20 | disposition short-term general hospital (02) ==
LOC: ER 13:56
PROC: 30233N1 Transfusion of Nonautologous Red Blood Cells into Peripheral Vein, Percutaneous Approach (ICD-10-PCS; principal; 2022-11-22)
DX: D64.9 Anemia, unspecified (principal); I10 Essential (primary) hypertension; F03.90 Unspecified dementia, unspecified severity, without behavioral disturbance, psychotic disturbance, mood disturbance, and anxiety; Z86.73 Personal history of transient ischemic attack (TIA), and cerebral infarction without residual deficits; Z20.822 Contact with and (suspected) exposure to COVID-19; Z88.5 Allergy status to narcotic agent
CPT/HCPCS: 93005; 87040 ×2; 85025; 80048; 36415; 86900 ×2; 83735; 86880; 86850; 85610; 86870 ×2; 86901; 80076; 83605; 81003; 84484; 83880; 0240U; 74160; 71260; 71045; 99285; 86905; 36430; Q9967; J2543; C9113 ×2; J7120; J7050

== ENCOUNTER 2023-08-03 21:59 | Emergency (ER) | payer OTHER ==
--- OUTSIDE RECORDS SUMMARY | 2023-08-03 22:09 | XMS REPORT | Continuity of Care Document ---
:1945 Author Organization [facility] t Address [address] [place] [address]. [address] [place] [address] Care Team Providers Name Role Phone Tai Ann Attending Clinician Unavailable Aliyah England Attending Clinician Unavailable Jahaira Navarrete Attending Clinician Unavailable SANAZ TAN Attending Clinician Unavailable Hemanth Small MD Attending Clinician FRANCHESCA GROVER Attending Clinician Unavailable Patty Richard MD Attending Clinician Giselle Elise MD Attending Clinician Franchesca Grover MD Attending Clinician Lupe Rosa MD Attending Clinician Edgar Small MD Attending Clinician Yobany Cannon MD Attending Clinician [phone] Anay Montoya MD Attending Clinician ANAY MONTOYA Attending Clinician Unavailable SANAZ TAN Admitting Clinician Unavailable PATTY RICHARD Admitting Clinician Unavailable GISELLE ELISE Admitting Clinician Unavailable SEBASTIAN CASAREZ Admitting Clinician Unavailable Payers Payer Name Policy Type Policy Number Effective Date Expiration Date Mode domingo MEDICARE A B [id number] 2001 00:00:00 MEDICARE MB [id number] 2001 [facility] NOVITAS 00:00:00 - [facility] Problems Condition Condition Condition Status Onset Resolution Last Treating Co mments Source Name Details Category Date Date Treatment Clinician Date SBO (small SBO (small Disease Recurre [facility]03 [facility] obstruct[facility] obstructio [facility]: Wy dical n) n) 00 Center Acute Acute Disease Active [facility] upper GI upper GI 1-03 [facility] bleed bleed 00:00: Medical 00 [place] Acute Acute Disease Active [facility] blood loss blood loss 1-03 Josefina kes anemia anemia 00:00: Medical 00 [place] Severe Severe Disease Active [facility] anemia anemia 3-12 [facility] 00:[facility]: Medical 00 [place] SDH SDH Disease Recurre 2019-[address] (subdural (subdural nce 1-11 [facility] hematoma) hematoma) 00:00: Medi alvin [address] [place] [address] [id number] [facility] Problem Com mon (current) [facility] use of - [facility] anticoagul [facility] [id number] Encounter Problem Com mon for Spirit therapeuti - [facility] c drug [facility] monitoring Medica l Center Primary Primary Problem 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 - [facility]I involving involving St multiple multiple [facility] joints joints [facility] [id number] PUD Problem Common (peptic [facility] ulcer - [facility] disease) [facility] [id number] Insomnia Problem Com mon 91 due to Spirit medical - [facility] condition [facility] [id number] Essential Problem Comm on hypertensi [facility] on - [facility] [id number] Pain in Problem Commo n joint of [facility] right - [facility] wrist [facility] [id number] Closed Problem Common torus [facility] fracture - [facility] of distal [facility] end of [facility], [place] initial encounter [id number] CVA, old, Problem Com mon speech/aura [facility] guage - [facility] deficit [facility] [id number] 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 History [facility] Alcohol Comment Medical C enter History SDOH [facility] Alcohol Std Drinks Medica Center History SDNC [facility] Alcohol Binge Medical Norma ter Alcohol intake 2022-11-24 2022-11-24 [facility]00 (finding) [facility] Tobacco use and 2020-10-01 2020-10-01 Smokeless [address] [facility] exposure 00:00:00 00:00:00 non-user Medical Center History [facility] 2020-10-01 2020-10-[address] [facility]a Alcohol Frequency 00:00:00 00:00:00 [facility] Sex Ass[birth year] [facility] mina 00:00:00 00:00:00 [facility] Smoking Status Start Date Stop Date Source Never smoked tobacco [facility] Medications Ordered Filled Start Stop Current Ordering Indication Dosage Frequency Signature Comments Components Source Medication Medication Date Date Medication? Clinician (SIG) Name Name omeprazole 2022- No Take [address] [facility] (PriLOSEC) 11-25-05 capsule [facility] 40 MG 00:00: 23:59 (40 mg Medical capsule 00 :00 total) by Center mouth 2 (two) times daily for 56 days, THEN 1 capsule (40 mg total) daily for 34 days. ferrous 2022- No 324mg Take [address] [facility] sulfate 324 11-25-05 tablet [facility] mg (65 mg 00:00: 23:59 (324 mg Medi alvin iron) TbEC 00 :00 total) by Cent er mouth every other day for 90 days. omeprazole 2022- No Take [address] [facility] (PriLOSEC) 11-25-05 capsule [facility] 40 MG 00:00: 23:59 (40 mg Medical capsule 00 :00 total) by Center mouth 2 (two) times daily for 56 days, THEN 1 capsule (40 mg total) daily for 34 days. ferrous 3-0 2023- No 324mg Take [address] sulfate 324 11-25 tablet [facility] mg (65 mg 00:00: 23:59 (324 mg Medi alvin iron) TbEC 00 :00 total) by Cent er mouth every other day for 90 days. Hemocyte Hemocyte 2021-0 No QD Hemocyte Plus [...] Sodium 1 00:00: MG 00 Warfarin Warfarin 2022-0 No 3.5{tab QD Warfarin Sodium 1 MG Sodium 1 MG 8-04 let} Sodium 1 00:00: MG 00 Warfarin Warfarin No QD Warfarin Sodium 1 MG Sodium 1 MG 8-04 Sodium 1 00:00: MG 00 Warfarin Warfarin No QD Warfarin Sodium 1 MG Sodium 1 MG 8-04 Sodium 1 00:00: MG 00 warfarin 2022- No 3.[address] (COUMADIN, 06-24 [facility]) 1 00:00: 00:00 Medic al MG tablet 00 :00 [place] warfarin 2022- No 3.[address] (COUMADIN, 06-24 [facility]) 1 00:00: 00:00 Medic al MG tablet 00 :00 [place] QUEtiapine QUEtiapine No 1{table QD QUEtiapine Fumarate Fumarate 5-23 t_at_be Fumarate 200 MG 200 MG 00:00: dtime} 200 MG 00 Warfarin Warfarin No 1{table QD Warfarin Sodium 5 MG Sodium 5 MG 5-06 t} Sodium 5 00:00: MG 00 pantoprazol 2021- No 40mg QD Take [address] e 3-16 04-15 tablet (40 [facility] (PROTONIX) 00:00: 23:59 mg total) M edical 40 MG 00 :00 by mouth Center tablet daily for 30 days. lisinopriL 2021- No 30mg QD Take [address] (PRINIVIL,Z 3-15 03-15 by mouth Rafia es ESTRIL) 30 11:10: 00:00 daily. Medi alvin MG tablet 17 :00 [place] QUEtiapine 2021- No 100mg QD Take [address] (SEROquel) 3-15 03-15 mg by [facility] 100 MG 11:10: 00:00 mouth Medical tablet 17 :00 nightly. [place] QUEtiapine 2021- No 100mg QD Take [address] (SEROquel) 3-15 04-14 tablet [facility] 100 MG 00:00: 23:59 (100 mg Medical tablet 00 :00 total) by Center mouth nightly for 30 days. lisinopriL 2021- No 30mg QD Take [address] (PRINIVIL,Z 3-15 04-14 tablet (30 L ukes ESTRIL) 30 00:00: 23:59 mg total) M edical MG tablet 00 :00 by mouth Center daily for 30 days. apixaban No 5mg Q.5D Take [address] (ELIQUIS) 5 3-15 04-14 tablet (5 Josefina kes mg Tab 00:00: 23:59 mg total) Medic al tablet 00 :00 by mouth 2 Center (two) times daily for 30 days. amoxicillin No 500mg Take [address] -clavulanat 3-15 03-22 mLs (500 Rafia es e 00:00: [...] Sodium 3 MG t} Sodium 3 MG Warfarin Warfarin No 3.5{tab QD Warfarin Sodium 1 MG Sodium 1 MG let} Sodium 1 MG Warfarin Warfarin No QD Warfarin Sodium 1 MG Sodium 1 MG Sodium 1 MG Warfarin Warfarin No 1{table QD Warfarin Sodium 3 MG Sodium 3 MG t} Sodium 3 MG QUEtiapine QUEtiapine No QUEtiapine Fumarate Fumarate Fumarate 200 MG 200 MG 200 MG Lisinopril Lisinopril No 1{table QD [...] cm WEIGHT 2020-10-01 17:00:00 50.349 kg HEIGHT 2022-11-25 09:00:00 149.9 cm WEIGHT 2022-11-24 05:44:00 50.2 kg HEIGHT 2022-11-25 09:00:00 149.9 cm WEIGHT 2022-11-24 05:44:00 50.2 kg HEIGHT 2022-11-25 09:00:00 149.9 cm WEIGHT 2022-11-24 05:44:00 50.2 kg height 2022-08-05 13:00:00 59 [in_i] [facility] weight 2022-08-05 13:00:00 100 [lb_av] [facility] temperature 2022-08-05 13:00:00 98.8 [degF] [facility] bmi 2022-08-05 13:00:00 20.2 kg/m2 [facility] height 2022-02-15 15:40:00 59 [in_i] [facility] weight 2022-02-15 15:40:00 100 [lb_av] [facility] bmi 2022-02-15 15:40:00 20.2 kg/m2 [facility] height 2021-12-03 15:20:00 59 [in_i] [facility] weight 2021-12-03 15:20:00 115 [lb_av] [facility] bmi 2021-12-03 15:20:00 23.22 kg/m2 [facility] HEIGHT 2020-10-01 17:00:00 149.9 cm WEIGHT 2020-10-01 17:00:00 50.349 kg Systolic blood 2022-11-25 11:43:00 129 mm[Hg] [facility] Diastolic blood 2022-11-25 11:43:00 77 mm[Hg] [facility] Heart rate 2022-11-25 11:43:00 74 /min [facility] Body temperature 2022-11-25 11:43:[address] [facility] Respiratory rate 2022-11-25 11:43:00 18 /min [facility] Oxygen saturation in 2022-11-25 11:43:00 98 /min [facility] Arterial blood by Medical Ce nter Pulse oximetry Body height 2022-11-25 09:00:[address] [facility] Body weight 2022-11-24 05:44:[address] [facility] BMI 2022-11-24 05:44:00 22.34 kg/m2 [facility] Systolic blood 2022-02-02 15:59:00 151 mm[Hg] [facility] Diastolic blood 2022-02-02 15:59:00 70 mm[Hg] [facility] Heart rate 2022-02-02 15:59:00 87 /min [facility] Body temperature 2022-02-02 15:59:[address] [facility] Respiratory rate 2022-02-02 15:59:00 18 /min [facility] Oxygen saturation in 2022-02-02 15:59:00 98 /min [facility] Arterial blood by Medical Ce nter Pulse oximetry Procedures Procedure Date / Time Performing Clinician Source Performed PREPARE RBC 2022-11-25 23:54:00 [facility] PREPARE RBC 2022-11-25 16:29:00 [facility] VENOUS DOPPLER LEGS 2022-11-25 13:50:[address] [facility] POCT-GLUCOSE METER 2022-11-25 11:45:00 Franchesca Grover [facility] XR ABDOMEN/KUB 1 VIEW 2022-11-25 11:31:00 Franchesca Grover [facility] VANCOMYCIN LEVEL, TROUGH 2022-11-25 03:53:[address] [facility] CBC (HEMOGRAM ONLY) 2022-11-25 03:53:00 Sanaz Beverly [facility] BASIC METABOLIC PANEL 2022-11-25 03:53:[address] [facility] POCT-GLUCOSE METER 2022-11-25 00:01:[address] [facility] PREPARE RBC 2022-11-24 23:54:00 Niki Collazo [facility] HEMOGLOBIN AND HEMATOCRIT 2022-11-24 17:32:00 Niki Collazo [facility] HEMOGLOBIN AND HEMATOCRIT 2022-11-24 08:03:00 Niki Collazo [facility] LACTIC ACID, ARTERIAL 2022-11-24 02:31:[address] [facility] TRANSFUSE LEUKO-REDUCED 2022-11-24 02:30:00 Niki Collazo [facility] RED BLOOD CELLS [facility] CALCIUM, IONIZED 2022-11-24 02:16:00 Niki Collazo [facility] COMPREHENSIVE METABOLIC 2022-11-24 02:16:00 Niki Collazo [facility] PANEL [facility] MAGNESIUM 2022-11-24 02:16:00 Niki Collazo [facility] PHOSPHORUS 2022-11-24 02:16:00 Niki Collazo [facility] PT/APTT 2022-11-24 02:16:00 Niki Collazo [facility] CBC (HEMOGRAM ONLY) 2022-11-24 02:16:00 Sanaz Beverly [facility] BLOOD GAS, VENOUS 2022-11-24 02:16:00 Niki Collazo [facility] XR CHEST 1 VIEW PORTABLE / 2022-11-24 01:47:00 Niki Collazo [facility] CBC (HEMOGRAM ONLY) 2022-11-24 00:15:00 Niki Collazo [facility] GLUCOSE-STAT LAB 2022-11-24 00:15:00 Niki Collazo [facility] CALCIUM, IONIZED 2022-11-23 19:32:00 Niki Collazo [facility] CBC (HEMOGRAM ONLY) 2022-11-23 19:14:00 Meenakshi Bush [facility] PROTHROMBIN TIME/INR 2022-11-23 19:14:00 Meenakshi Bush [facility] APTT 2022-11-23 19:14:00 Meenakshi Bush [facility] FIBRINOGEN 2022-11-23 19:14:00 Meenakshi Bush [facility] COMPREHENSIVE METABOLIC 2022-11-23 19:14:00 Meenakshi Bush [facility] LACTIC ACID, ARTERIAL 2022-11-23 19:14:[address] [facility] BLOOD GAS, VENOUS 2022-11-23 19:14:00 Meenakshi Bush [facility] MAGNESIUM 2022-11-23 19:14:00 Meenakshi Bush [facility] REPORT OF PROCEDURE - 2022-11-23 18:25:38 Yobany Cannon [facility] ENDOSCOPY URL [facility] EGD 2022-11-23 17:48:00 Yobany Cannon [facility] (ESOPHAGOGASTRODUODENOSCOP [facility] Y) POCT-GLUCOSE METER 2022-11-23 15:43:00 Hilary D[facility] CBC (HEMOGRAM ONLY) 2022-11-23 15:41:00 Niki Collazo [facility] IRON, TIBC, % SAT. 2022-11-23 15:41:00 Jose Iqbal [facility] (WITHOUT FERRITIN) [facility] r ANTIBODY IDENTIFICATION 2022-11-23 14:15:00 Niki Collazo [facility] URINALYSIS WITH 2022-11-23 12:25:00 Niki Collazo [facility] MICROSCOPIC IF INDICATED [facility] URINALYSIS MICROSCOPIC 2022-11-23 12:25:00 Niki Collazo [facility] POCT-GLUCOSE METER 2022-11-23 12:15:00 Hilary Diley [facility] CBC (HEMOGRAM ONLY) 2022-11-23 12:11:00 Niki Collazo [facility] SPUTUM CULTURE + GRAM 2022-11-23 08:13:00 Niki Collazo [facility] POCT-GLUCOSE METER 2022-11-23 08:10:00 Patty Richard [facility] CBC (HEMOGRAM ONLY) 2022-11-23 08:03:00 Niki Collazo [facility] HEMOGLOBIN A1C 2022-11-23 08:03:00 Niki Collazo [facility] TRANSFUSE LEUKO-REDUCED 2022-11-23 04:45:00 Niki Collazo [facility] RED BLOOD CELLS [facility] BLOOD CULTURE 2022-11-23 04:31:00 Niki Collazo [facility] BLOOD CULTURE 2022-11-23 04:31:00 Niki Collazo [facility] IDENTIFICATION PANEL [facility] ter HIGH SENSITIVITY TROPONIN 2022-11-23 02:08:00 Niki Collazo [facility] I [facility] ABORH, MANUAL 2022-11-23 01:51:[address] [facility] SARS-COV2/RT-PCR ([facility] & 2022-11-23 01:14:00 Sanaz Beverly ud [facility] REF LABS) [facility] XR ABDOMEN/KUB 1 VIEW 2022-11-23 01:13:[address] [facility] PORTABLE [facility] ECG 12-LEAD 2022-11-23 01:12:02 Niki Collazo [facility] TYPE AND SCREEN, AUTOMATED 2022-11-23 01:12:00 Niki Collazo [facility] XR CHEST 1 VIEW PORTABLE / 2022-11-23 01:11:00 Niki Collazo [facility] BEDSIDE [facility] CALCIUM, IONIZED 2022-11-23 01:04:00 Niki Collazo [facility] BLOOD GAS, VENOUS 2022-11-23 01:04:[address] [facility] PROCALCITONIN 2022-11-23 01:04:00 Niki Collazo [facility] COMPREHENSIVE METABOLIC 2022-11-23 01:03:00 Niki Collazo [facility] MAGNESIUM 2022-11-23 01:03:00 Niki Collazo [facility] PHOSPHORUS 2022-11-23 01:03:00 Niki Collazo [facility] CBC (HEMOGRAM ONLY) 2022-11-23 01:03:00 Niki Collazo [facility] PT/APTT 2022-11-23 01:03:00 Niki Collazo [facility] LACTIC ACID, ARTERIAL 2022-11-23 01:03:[address] [facility] FIBRINOGEN 2022-11-23 01:03:00 Niki Collazo [facility] LIPASE 2022-11-23 01:03:00 Niki Collazo [facility] CBC W/PLT COUNT & AUTO 2022-02-02 05:18:00 Jan [facility] BASIC METABOLIC PANEL 2022-02-02 05:18:[address] [facility] CBC W/PLT COUNT & AUTO 2022-02-02 05:18:00 [facility] W/[facility]T COUNT & AUTO 2022-02-01 04:43:00 Jan [facility] BASIC METABOLIC PANEL 2022-02-01 04:43:[address] [facility] CBC W/PLT COUNT & AUTO 2022-02-01 04:43:00 Jan [facility] (MANUAL DIFFERENTIAL) 2022-02-01 04:43:[address] [facility] XR CHEST 1 VIEW PORTABLE / 2022-01-31 10:05:00 [facility] CBC W/PLT COUNT & AUTO 2022-01-31 06:02:00 [facility] BASIC METABOLIC PANEL 2022-01-31 06:02:00 [facility] CBC W/PLT COUNT & AUTO 2022-01-31 06:02:00 [facility] (CELLAVISION MANUAL DIFF) 2022-01-31 06:02:[address] [facility] ECG 12-LEAD 2022-01-31 05:32:[address] [facility] BUN AND CREATININE W/RATIO 2022-01-30 17:24:00 [facility] HEMOGLOBIN AND HEMATOCRIT 2022-01-30 09:48:[address] [facility] POCT-GLUCOSE METER 2022-01-30 07:30:[address] [facility] CBC W/PLT COUNT & AUTO 2022-01-30 06:29:[address] [facility] RETICULOCYTE COUNT 2022-01-30 06:29:00 Giselle Elise [facility] PERIPHERAL BLOOD SMEAR - 2022-01-30 06:29:00 Giselle Elise [facility] PATHOLOGIST REVIEW Medical Cente r CBC W/PLT COUNT & AUTO 2022-01-30 06:29:[address] [facility] BASIC METABOLIC PANEL 2022-01-30 06:28:[address] [facility] HEPATIC FUNCTION PANEL 2022-01-30 06:28:00 Giselle Elise [facility] LACTATE DEHYDROGENASE 2022-01-30 06:28:00 Giselle Elise CH, I [facility] ([facility]) [facility] HAPTOGLOBIN 2022-01-30 06:28:00 Giselle Elise [facility] IRON, TIBC, % SAT. 2022-01-30 06:28:00 Giselle Elise [facility] (WITHOUT FERRITIN) Medical Cente r FERRITIN 2022-01-30 06:28:00 Giselle Elise [facility] Plan of Care Planned Activity Planned Date Details Comments Source Future Scheduled 2023-11-[address] [facility] Test 00:00:00 [facility] Medical Cent[facility] r Screening (12+) [code = Tobacco Cessation Counseling and Screening (12+)] Future Scheduled 2023-11-[address] [facility] Test 00:00:00 Counseling and Medical Cente r Screening (12+) [code = Tobacco Cessation Counseling and Screening (12+)] Future Scheduled 2023-07-22 Influenza Vaccine (#1) [facility] 00:00:00 [code = Influenza Medical Ce nter Vaccine (#1)] Future Scheduled 2023-07-22 Influenza Vaccine (#1) [facility] 00:00:00 [code = Influenza Medical Ce nter Vaccine (#1)] Future Scheduled 2022-11-[address] [facility] Test 00:00:00 (12+) [code = [facility] Center DEPRESSION SCREENING (12+)] Future Scheduled 2022-11-21 FALLS RISK SCREENING [facility] Test 00:00:00 [code = FALLS RISK Medical C enter SCREENING] Future Scheduled 2022-11-[address] [facility] Test 00:00:00 (12+) [code = [facility] Center DEPRESSION SCREENING (12+)] Future Scheduled 2022-11-21 FALLS RISK SCREENING [facility] Test 00:00:00 [code = FALLS RISK Medical C enter SCREENING] Future Scheduled 2022-07-22 INFLUENZA VACCINE (#1) [facility] 00:00:00 [code = INFLUENZA Medical Ce nter VACCINE (#1)] Future Scheduled 2021-11-[address] [facility] Test 00:00:00 (12+) [code = Medical Center DEPRESSION SCREENING (12+)] Future Scheduled 2021-11-21 FALLS RISK SCREENING [facility] Test 00:00:00 [code = FALLS RISK Medical C enter SCREENING] Future Scheduled 2012 PNEUMOCOCCAL 65+ YRS ([address] [facility] Test 00:00:00 - PCV) [code = Medical Cente r PNEUMOCOCCAL 65+ YRS (1 - PCV)] Future Scheduled 2012 PNEUMOCOCCAL 65+ YRS ([address] [facility] Test 00:00:00 - PCV) [code = Medical Cente r PNEUMOCOCCAL 65+ YRS (1 - PCV)] Future Scheduled 2002-02-[address] [facility] Test 00:00:00 WELLNESS (YEAR 2 or Medical Center FIRST YEAR if no IPPE) [code = MEDICARE ANNUAL WELLNESS (YEAR 2 or FIRST YEAR if no IPPE)] Future Scheduled 2002-02-[address] [facility] 00:00:00 WELLNESS (YEAR 2 or Medical Center FIRST YEAR if no IPPE) [code = MEDICARE ANNUAL WELLNESS (YEAR 2 or FIRST YEAR if no IPPE)] Future Scheduled 2002-02-[address] [facility] 00:00:00 WELLNESS (YEAR 2 or Medical Center FIRST YEAR if no IPPE) [code = MEDICARE ANNUAL WELLNESS (YEAR 2 or FIRST YEAR if no IPPE)] Future Scheduled 1997 SHINGLES VACCINES ([address] [facility] 00:00:00 2) [code = SHINGLES Medical Center VACCINES (1 of 2)] Future Scheduled 1997 SHINGLES VACCINES ([address] [facility] 00:00:00 2) [code = SHINGLES Medical Center VACCINES (1 of 2)] Future Scheduled 1997 SHINGLES VACCINES ([address] [facility] 00:00:00 2) [code = SHINGLES Medical Center VACCINES (1 of 2)] Future Scheduled 1966 DTAP/TDAP/TD VACCINES [facility] 00:00:00 (1 - Tdap) [code = Medical C enter DTAP/TDAP/TD VACCINES (1 - Tdap)] Future Scheduled 1966 DTAP/TDAP/TD VACCINES [facility] 00:00:00 (1 - Tdap) [code = Medical C enter DTAP/TDAP/TD VACCINES (1 - Tdap)] Future Scheduled 1966 DTAP/TDAP/TD VACCINES [facility] 00:00:00 (1 - Tdap) [code = Medical C enter DTAP/TDAP/TD VACCINES (1 - Tdap)] Future Scheduled 1965 HEPATITIS C SCRE[facility]ING [facility]00 [code = HEPATITIS C Medical Center SCREENING] Future Scheduled 1965 HEPATITIS C [facility]CRE[facility]ING [facility] 00:00:00 [code = HEPATITIS C Medical Center SCREENING] Future Scheduled 1965 HEPATITIS C SCREENING CH [...] Norma ter VACCINE (#1)] Future Scheduled 1947 COVID-19 VACCINE (#1) [facility] 00:[facility]:00 [code = COVID-[address] VACCINE (#1)] Future Scheduled 1947 COVID-19 VACCINE (#1) [facility] 00:00:00 [code = COVID-[address] VACCINE (#1)] Future Scheduled 1947 CT Colonography (combo) [facility] 00:00:00 [code = CT Colonography [facility] (combo)] Future Scheduled 1947 Screening for malignant [facility] Test 00:00:00 neoplasm of colon Medical Ce nter (procedure) [code = 708223369] Future Scheduled 1947 Screening for malignant [facility] Test 00:00:00 neoplasm of colon Medical Ce nter (procedure) [code = 215715698] Future Scheduled 1947 DXA SCAN [code = DXA [facility] Test 00:00:00 SCAN] Medical Center Future Scheduled 1947 Screening for malignant [facility] Test 00:00:00 neoplasm of colon Medical Ce nter (procedure) [code = 761242118] Future Scheduled 1947 Screening for malignant [facility] Test 00:00:00 neoplasm of colon Medical Ce nter (procedure) [code = 843599346] Future Scheduled 1945 Sigmoidoscopy [code = [facility] Sigmoidoscopy] [facility] Future Scheduled 1947 DXA SCAN [code = DXA [facility] Test 00:00:00 SCAN] [facility] Future Scheduled 1947 DXA SCAN [code = DXA [facility] Test 00:00:00 SCAN] [facility] Center Encounters Start End Encounter Admission Attending Care Care Encounter Source Date/Time Date/Time Type Type Clinicians Facility Department ID 2023-08-03 Outpatient Ann, STLMLC STLMLC [id number] Common 14:58:00 Tai [id number] [facility] 2023-07-27 Outpatient Ann, STLMLC STLMLC [id number] Common 13:10:00 Tai [id number] [facility] 2023-07-22 Outpatient Ann, STLMLC STLMLC [id number] Common 10:50:00 [id number] [facility] [facility] Outpatient Ann, STLMLC STLMLC [id number] Common 09:54:01 Tai 91403 [facility] 2022-12-20 Outpatient Samanta, STLMLC STLMLC [id number] Common 16:54:00 Aliyah 81848 [facility] 2022-09-14 Outpatient Navarrete, Na STLMLC STLMLC [id number] 2 Common 07:28:00 [facility] 2022-08-02 Outpatient Navarrete, Na STLMLC STLMLC [id number] 2 Common 08:48:02 [facility] 2022-07-28 Outpatient Navarrete, Na STLMLC STLMLC [id number] Common 14:23:01 [facility] 2022-06-22 Outpatient Navarrete, Na STLMLC STLMLC [id number] 2 Common 15:07:01 [facility] 2022-06-01 Outpatient Navarrete, Na STLMLC STLMLC [id number] 2 Common 11:32:02 [facility] 2022-05-31 Outpatient Navarrete, Na STLMLC STLMLC [id number] 2 Common 10:20:00 [facility] 2022-03-23 Outpatient Navarrete, Na STLMLC STLMLC [id number] Common 15:15:02 [facility] 2022-03-22 Outpatient Navarrete, Na STLMLC STLMLC [id number] 2 Common 08:50:01 [facility] 2022-01-29 Inpatient ER [facility] [id number] [facility] 15[facility]29:44 [facility] 2022-01-29 Inpatient ER [facility] [id number] [facility] 14:30:45 [facility] 2021-12-16 Outpatient Navarrete, Na STLMLC STLMLC [id number] 2 Common 14:34:54 [facility] 2021-12-16 Outpatient Navarrete, Na STLMLC STLMLC [id number] 2 Common 13:56:50 [id number] [facility] 2021-12-16 Outpatient Navarrete, Na STLMLC STLMLC [id number] 2 Common 13:45:46 [id number] [facility] 2021-12-16 Outpatient Navarrete, Na STLMLC STLMLC [id number] 2 Common 13:06:59 06320 [facility] 2021-12-16 Outpatient Navarrete, Na STLMLC STLMLC [id number] 2 Common 13:06:24 [id number] [facility] 2021-12-16 Outpatient Navarrete, Na STLMLC STLMLC [id number] 2 Common 12:46:16 [id number] [facility] 2021-08-27 Inpatient ER SHELLIE [facility] [id number] [facility] 11:13:10 SANAZ DOWLING 2022-12-20 2022-12-20 (TEL) STLMLC STLMLC [id number] Co mmon 00:00:00 00:00:00 [facility] 2022-11-26 2022-11-26 Documentat Hemanth Small [facility] [id number] [facility] 00[facility]00 [facility] 2022-11-26 2022-11-26 Documentat Hemanth Small [facility] [id number] [facility] 00:[facility] 00:[facility]:00 [facility] 2022-11-23 2022-11-25 Inpatient ER [facility] Surgery [id number] [facility] 00:29:00 16:26:00 [place] 2022-11-23 2022-11-25 [facility] Dane [facility] [id number] 00:29:00 16:26:00 Encounter Giselle Elise, [facility] 2022-11-23 2022-11-25 [facility] [id number] [facility] 00:29:00 16:26:00 Encounter Giselle Elise, [facility] 2022-11-23 2022-11-23 Anesthesia Lupe Rosa [facility] [id number] [facility] 17:58:00 18:39:00 Event Geovanny [facility] 2022-11-23 2022-11-23 Anesthesia Lupe Rosa [facility] [id number] [facility] [facility] 17:58:00 18:39:00 Event Edgar [facility] 2022-11-23 2022-11-23 Surgery Kassandra, [facility] [id number] 16:59:00 17:59:00 [facility] 2022-11-23 2022-11-23 Surgery Mansmariah, [facility] [id number] 16:59:00 17:59:00 [facility] 2022-09-22 2022-09-22 [id number] Co mmon 00:00:00 00:00:00 [facility] 2022-09-15 2022-09-15 OFFICE STLMLC STLMLC [id number] Co mmon 00:00:00 00:00:00 VISIT EST Spir it PT LEVEL 3 [facility] 2022-08-05 2022-08-05 SUB ANNUAL STLMLC STLMLC [id number] Common 00:00:00 00:00:00 MCR [facility] VISIT [facility] 2022-08-04 2022-08-04 OFFICE STLMLC STLMLC [id number] Co mmon 00:00:00 00:00:00 VISIT EST Spir it PT LEVEL 3 [facility] 2022-08-03 2022-08-03 (TEL) STLMLC STLMLC [id number] Co mmon 00:00:00 00:00:00 [facility] 2022-07-28 2022-07-28 (TEL) STLMLC STLMLC [id number] Co mmon 00:00:00 00:00:00 [facility] 2022-06-24 2022-06-24 (TEL) STLMLC STLMLC [id number] Co mmon 00:00:00 00:00:00 [facility] 2022-06-23 2022-06-23 (TEL) STLMLC STLMLC [id number] Co mmon 00:00:00 00:00:00 [facility] 2022-06-11 2022-06-11 (TEL) STLMLC STLMLC [id number] Co mmon 00:00:00 00:00:00 [facility] 2022-06-07 2022-06-07 (TEL) STLMLC STLMLC [id number] Co mmon 00:00:00 00:00:00 [facility] 2022-06-02 2022-06-02 OFFICE STLMLC STLMLC [id number] Co mmon 00:00:00 00:00:00 VISIT [facility] LEVEL 4 [facility] 2022-05-31 2022-05-31 (TEL) STLMLC STLMLC [id number] Co mmon 00:00:00 00:00:00 [facility] 2022-05-31 2022-05-31 (TEL) STLMLC STLMLC [id number] Co mmon 00:00:00 00:00:00 [facility] 2022-05-11 2022-05-11 (TEL) STLMLC STLMLC [id number] Co mmon 00:00:00 00:00:00 [facility] 2022-04-12 2022-04-12 (TEL) STLMLC STLMLC [id number] Co mmon 00:00:00 00:00:00 [facility] 2022-03-09 2022-03-09 (TEL) STLMLC STLMLC [id number] Co mmon 00:00:00 00:00:00 [facility] 2022-03-01 2022-03-01 (TEL) STLMLC STLMLC [id number] Co mmon 00:00:00 00:00:00 [facility] 2022-02-15 2022-02-15 (TEL) STLMLC STLMLC [id number] Co mmon 00:00:00 00:00:00 [facility] 2022-02-15 2022-02-15 OFFICE STLMLC STLMLC [id number] Co mmon 00:00:00 00:00:00 VISIT EST Spir it PT LEVEL 3 [facility] 2022-02-12 2022-02-12 (TEL) STLMLC STLMLC [id number] Co mmon 00:00:00 00:00:00 [facility] 2022-02-08 2022-02-08 (TEL) STLMLC STLMLC [id number] Co mmon 00:00:00 00:00:00 [facility] 2022-02-03 2022-02-03 (TEL) STLMLC STLMLC [id number] Co mmon 00:00:00 00:00:00 [facility] 2022-01-30 2022-02-02 [facility] Giselle Camarillo [facility] [id number] 01:23:00 16:43:00 Encounter Anay Montoya [facility] 2022-01-30 2022-02-02 Inpatient ER JONATHON MONTOYA Gastro [id number] [facility] 01:23:00 16:43:00 ANAY 2022-01-30 2022-01-30 Travel [facility] [id number] [facility] 00:[facility] 00:00:00 [facility] 2022-01-12 2022-01-12 (TEL) STLMLC STLMLC [id number] Co mmon 00:00:00 00:00:00 [facility] 2022-01-12 2022-01-12 OL DIG E/M STLMLC STLMLC [id number] Common 00:00:00 00:00:00 SVC 11-20 Spir it MIN [facility] 2021-12-03 2021-12-03 OFFICE STLMLC STLMLC [id number] Co mmon 00:00:00 00:00:00 VISIT EST Spir it PT LEVEL 3 [facility] 2021-08-15 2021-08-15 (TEL) STLMLC STLMLC [id number] Co mmon 00:00:00 00:00:00 [facility] 2021-08-05 2021-08-05 Outpatient STLMLC STLMLC [id number] Common 00:00:00 00:00:00 [facility] 2021-07-24 2021-07-24 Outpatient STLMLC STLMLC [id number] Common 00:00:00 00:00:00 [facility] 2021-04-14 2021-04-14 Outpatient STLMLC STLMLC [id number] Common 00:00:00 00:00:00 [facility] 2021-04-10 2021-04-10 Outpatient STLMLC STLMLC [id number] Common 00:00:00 00:00:00 [facility] 2021-02-17 2021-02-17 Outpatient STLMLC STLMLC [id number] Common 00:00:00 00:00:00 [facility] Results Test Description Test Time Test Comments Results Result Comments Source BLOOD CULTURE 2022-11-27 07:49:11 Test Item Value Reference Range Interpretation Comme nts CULTURE (BEAKER) (test code = A From Aerobic Bottle Only 1095) Staphylococcus epidermidisof a second typeThis is an appended report. These o rganism results have be en appended to a previously final verified report . GRAM STAIN RESULT (BEAKER) From aerobic and anaerobic (test code = 1123) bottles: gram positive cocci in clusters CULTURE (BEAKER) (test code = STAPHYLOCOCCUS EPIDERMIDIS A From Aerobic And Anaerobic 1095) Bottles Staphyl ococcus epidermidis Clindamycin (test code = 10) S Erythromycin (test code = 4) R Linezolid (test code = 40) S Oxacillin (test code = 14) S Rifampin (test code = 43) S Tetracycline (test code = 2) S Trimethoprim + R Sulfamethoxazole (test code = 47) BLOOD [id number] 07:48:50 Test Item Value Reference Range Interpretation Comments CULTURE A From Aerobic An d (BEAKER) (test Anaerobic Bot tles Same code = 1095) organism has be en isolated from cultures(s) of the same body site and collection date . Repeat identifi cation and susceptibil ity testing perform ed only after consultat ion with the [facility] microbiology laboratory.Refe r to previous cultur e of* - Staphylococcus epidermidis GRAM STAIN From aerobic and RESULT (BEAKER) anaerobic (test code = bottles: gram 1123) positive cocci in clusters Venous doppler legs [id number] 08:55:41Ejection FractionSLEH ECHO HEARTLAB [facility]CK[facility] bilateral 2022-11-26 08:55:41Ejection FractionSLEH ECHO HEARTLAB MKCKESSON [facility] [id number] 23:54:00 Test Item Value Reference Range Interpretation Comments Unit ABO (test code = O Pos 8533812) UNIT NUMBER (test code = [id number] 934-0) Status (test code = 6756410) TX_TIMEINCHART Blood Bank Product (test code RED BLOOD CELLS = 2263) PRODUCT CODE (test code = V8654Z93 933-2) CROSSMATCH (test code = 2264) [facility]IBLE [facility] [id number] 23:54:00 Test Item Value Reference Range Interpretation Comments Unit ABO (test code = O Pos 4334737) UNIT NUMBER (test code = [id number] 934-0) Status (test code = 0649605) TX_TIMEINCHART Blood Bank Product (test code RED BLOOD CELLS = 2263) PRODUCT CODE (test code = C5210B34 933-2) CROSSMATCH (test code = 2264) COMPATIBLE [facility], [facility]/KUB, 1 VIEW [id number] 12:12:00Reason for exam:->sboVENCOR HOSPITALName: ARELLANORYLIE NITZA : 1945 Sex: FFINAL REPORT RAD, ABDOMEN/KUB, 1 VIEW AP CLINICAL INDICATION: sbo COMPARISON: None TECHNIQUE: Single, frontal radiograph of the abdomen. FINDINGS:Prior cholecystectomy. The bowel gas pattern is nonspecific, but nonobstructive. Large volume stool within the rectum concerning for impaction. Evaluation for free air is limited by portable supine technique. Within these limitations, nofree air is identified. Signed: Alee Westfall Verified Date/Time: 11/25/2022 12:12:12 Reading Location: [address] Reading Room POC-Glucose [id number] 11:59:10 Test Item Value Reference Range Interpretation Comments POC-Glucose Meter (test 64 mg/dL 70-110 L : TE STED AT [facility] code = 1538) [address] [facility], 770 30: C Developer/Techni eli ID = [id number] for Juanpablo Cheney na Lab Interpretation (test Abnormal code = 04506-1) [facility]-Glucose [id number] 11:59:10 Test Item Value Reference Range Interpretation Comments POC-Glucose Meter (test 64 mg/dL 70-110 L : TE STED AT [facility] code = 1538) [address] [facility], 770 30: C Developer/Techni eli ID = [id number] for Juanpablo Cheney na Lab Interpretation (test Abnormal code = 64066-7) [facility]-GLUCOSE [id number] 11:59:10 Test Item Value Reference Range Interpretation Comments POC-GLUCOSE METER 64 mg/dL 70-110 L : TESTED A T [facility] 6720 (BEAKER) (test code = CHRISTOPHE Saini [facility], 1538) [address]2042: C Developer/Techni eli ID = [id number] for Maegan Contreras BASIC METABOLIC [id number] 04:58:22 Test Item Value Reference Range Interpretation Comments SODIUM (BEAKER) 136 meq/L 136-145 (test code = 381) POTASSIUM 3.1 meq/L 3.5-5.1 L (BEAKER) (test code = 379) CHLORIDE (BEAKER) 106 meq/L 98-107 (test code = 382) CO2 (BEAKER) 20 meq/L 22-29 L (test code = 355) BLOOD UREA 6 mg/dL 7-21 L NITROGEN (BEAKER) (test code = 354) CREATININE 0.58 mg/dL 0.57-1.25 (BEAKER) (test code = 358) GLUCOSE RANDOM 65 mg/dL 70-105 L (BEAKER) (test code = 652) CALCIUM (BEAKER) 7.3 mg/dL 8.4-10.2 L (test code = 697) EGFR (BEAKER) 94 Interpretatio n of eGFR (test code = mL/min/1.73 values Stage De scription 1092) sq m Result G1 Aline l or high >=90 G2 Mildly decreased 60-89 G3a Mildl y to moderately 45-5 9 G3b Moderately to s everely 30-44 G4 Severl y decreased 15-29 G5 Kidney failure <15Reported eGF R is based on the CKD-EPI 2020 equation that d oes not use a race coefficientEsti mated GFR is not as accur ate as Creatinine Aparna jonathan in predicting glom erular filtration rate . Estimated GFR is not appl icable for dialysis patien ts C Developer ID - MARCOVANCOMYCIN LEVEL, [id number] 04:52:38 Test Item Value Reference Range Interpretation Comments VANCOMYCIN TROUGH (BEAKER) (test 5.1 ug/mL 10.0-20.0 L code = 522) C Developer ID - BSCBC (HEMOGRAM ONLY)2022-11-25 04:23:17 Test Item Value Reference Range Interpretation Comments WHITE BLOOD CELL COUNT (BEAKER) 11.6 K/ L 3.5-10.5 H (test code = 775) RED BLOOD CELL COUNT (BEAKER) 3.82 M/ L 3.93-5.22 L (test code = 761) HEMOGLOBIN (BEAKER) (test code = 9.3 GM/DL 11.2-15.7 L 410) HEMATOCRIT (BEAKER) (test code = 30.0 % 34.1-44.9 L 411) MEAN CORPUSCULAR VOLUME (BEAKER) 79 fL 79-95 (test code = 753) MEAN CORPUSCULAR HEMOGLOBIN 24.3 pg 25.6-32.2 L (BEAKER) (test code = 751) MEAN CORPUSCULAR HEMOGLOBIN CONC 31.0 GM/DL 32.2-35.5 L (BEAKER) (test code = 752) RED CELL DISTRIBUTION WIDTH 19.5 % 11.7-14.4 H (BEAKER) (test code = 412) PLATELET COUNT (BEAKER) (test 411 K/CU MM 150-450 code = 756) MEAN PLATELET VOLUME (BEAKER) 9.9 fL 9.4-12.3 (test code = 754) NUCLEATED RED BLOOD CELLS 0 /100 WBC 0-0 (BEAKER) (test code = 413) POCT-GLUCOSE [id number] 00:13:39 Test Item Value Reference Range Interpretation Comments POC-GLUCOSE METER 83 mg/dL 70-110 : TESTED A T [facility] 6720 (BEAKER) (test code = CHRISTOPHE ARTIS ID, [id number]) 26758: C Developer/Techni eli ID = [id number] for WILL JACKSON STREETER HEMOGLOBIN AND [id number] 17:59:53 Test Item Value Reference Range Interpretation Comments HEMOGLOBIN (BEAKER) (test code = 9.9 GM/DL 11.2-15.7 L 410) HEMATOCRIT (BEAKER) (test code = 32.0 % 34.1-44.9 L 411) C Developer ID - [id number], CHEST, 1 VIEW, NON [id number] 08:40:00Reason for exam:->lung evalShould this be performed at the bedside?->Yes [facility] : 1945 Sex: FFINAL REPORT RAD, CHEST, 1 VIEW, NON DEPT INDICATION: lung eval COMPARISON: 01/31/2022 FINDINGS: Portable frontal view of the chest. IMPRESSION: Support Lines: Overlying leads/monitors. NG tube descends below the diaphragm. Lungs and pleura: Hazy bilateral interstitial thickening. Nosignificant pneumothorax. Heart and mediastinum: Stable contours. Stable surgical changes. Additional findings: None. Signed: Alee Westfall MDReport Verified Date/Time: 11/24/2022 08:40:15 Reading Location: [address] Reading Room GLOBIN AND [id number] 08:16:45 Test Item Value Reference Range Interpretation Comments HEMOGLOBIN (BEAKER) (test code = 8.6 GM/DL 11.2-15.7 L 410) HEMATOCRIT (BEAKER) (test code = 27.0 % 34.1-44.9 L 411) C Developer ID - [id number] METABOLIC [id number] 03:22:02 Test Item Value Reference Range Interpretation Comments TOTAL PROTEIN 4.5 gm/dL 6.0-8.3 L (BEAKER) (test code = 770) ALBUMIN (BEAKER) 2.1 g/dL 3.5-5.0 L (test code = 1145) ALKALINE 40 U/L 40-150 PHOSPHATASE (BEAKER) (test code = 346) BILIRUBIN TOTAL 0.6 mg/dL 0.2-1.2 (BEAKER) (test code = 377) SODIUM (BEAKER) 137 meq/L 136-145 (test code = 381) POTASSIUM (BEAKER) 3.5 meq/L 3.5-5.1 (test code = 379) CHLORIDE (BEAKER) 109 meq/L 98-107 H (test code = 382) CO2 (BEAKER) (test 22 meq/L 22-29 code = 355) BLOOD UREA 11 mg/dL 7-21 NITROGEN (BEAKER) (test code = 354) CREATININE 0.64 mg/dL 0.57-1.25 (BEAKER) (test code = 358) GLUCOSE RANDOM 90 mg/dL 70-105 (BEAKER) (test code = 652) CALCIUM (BEAKER) 7.6 mg/dL 8.4-10.2 L (test code = 697) AST (SGOT) 32 U/L 5-34 (BEAKER) (test code = 353) ALT (SGPT) 14 U/L 6-55 (BEAKER) (test code = 347) EGFR (BEAKER) 92 Interpretatio n of eGFR (test code = 1092) mL/min/1.[address] age Description sq m Result G1 Norm al or high >=90 G2 Mildly decreased 60-89 G3a Mildl y to moderately 45-5 9 G3b Moderately to s everely 30-44 G4 Severl y decreased 15-29 G5 Kidne y failure <15Reported eGF R is based on the CKD-EPI 2020 equation that d oes not use a race coefficientEsti mated GFR is not as accur ate as Creatinine Aparna jonathan in predicting glom erular filtration rate . Estimated GFR is not appl icable for dialysis patien ts C Developer ID - SHAYY [id number] 03:15:38 Test Item Value Reference Range Interpretation Comments PHOSPHORUS (BEAKER) (test code = 3.1 mg/dL 2.3-4.7 604) C Developer ID - SHAYY [id number] 03:15:37 Test Item Value Reference Range Interpretation Comments MAGNESIUM (BEAKER) (test code = 2.0 mg/dL 1.6-2.6 627) C Developer ID - SHAYY GCBC (HEMOGRAM ONLY)2022-11-24 03:11:23 Test Item Value Reference Range Interpretation Comments WHITE BLOOD CELL COUNT (BEAKER) 8.0 K/ L 3.5-10.5 (test code = 775) RED BLOOD CELL COUNT (BEAKER) 2.91 M/ L 3.93-5.22 L (test code = 761) HEMOGLOBIN (BEAKER) (test code = 6.7 GM/DL 11.2-15.7 L 410) HEMATOCRIT (BEAKER) (test code = 22.2 % 34.1-44.9 L 411) MEAN CORPUSCULAR VOLUME (BEAKER) 76 fL 79-95 L (test code = 753) MEAN CORPUSCULAR HEMOGLOBIN 23.0 pg 25.6-32.2 L (BEAKER) (test code = 751) MEAN CORPUSCULAR HEMOGLOBIN CONC 30.2 GM/DL 32.2-35.5 L (BEAKER) (test code = 752) RED CELL DISTRIBUTION WIDTH 20.1 % 11.7-14.4 H (BEAKER) (test code = 412) PLATELET COUNT (BEAKER) (test 323 K/CU MM 150-450 code = 756) MEAN PLATELET VOLUME (BEAKER) 9.7 fL 9.4-12.3 (test code = 754) NUCLEATED RED BLOOD CELLS 0 /100 WBC 0-0 (BEAKER) (test code = 413) Lactic Acid, [id number] 03:06:32 Test Item Value Reference Range Interpretation Comments Lactate, Art (test code = 0.7 mmol/L 0.5-2.2 2874) MARANDA (test code = MARANDA) C Developer ID - SHAYY G Lab Interpretation (test Normal code = 18270-7) [facility], [id number] 03:06:32 Test Item Value Reference Range Interpretation Comments Lactate, Art (test code = 0.7 mmol/L 0.5-2.2 2874) MARANDA (test code = MARANDA) C Developer ID Pia LUCAS G Lab Interpretation (test Normal code = 13901-8) [facility] Center[facility], [id number] 03:06:32 Test Item Value Reference Range Interpretation Comments LACTATE BLOOD ARTERIAL (2) 0.7 mmol/L 0.5-2.2 (BEAKER) (test code = 2874) C Developer ID Pia LUCAS GPT/[id number] 03:03:32 Test Item Value Reference Range Interpretation Comments PROTIME (BEAKER) (test 17.7 seconds 11.9-14.2 H code = 759) INR (BEAKER) (test 1.56 See_Comment [Automat ed code = 370) message] The sy stem which generated this result transmitted reference range : <=5.90. The reference range was not used to interpret this result as normal/abnormal . PARTIAL THROMBOPLASTIN 29.3 seconds 22.5-36.0 TIME (BEAKER) (test code = 760) RECOMMENDED COUMADIN/WARFARIN INR THERAPY RANGESSTANDARD DOSE: 2.0 - 3.0 Includes: PROPHYLAXIS for venous thrombosis, systemic embolization; TREATMENT for venous thrombosis and/or pulmonary embolus.HIGH RISK: Target INR is 2.5-3.5 for patients with mechanical heart valves.BLOOD GAS, [id number] 02:46:30 Test Item Value Reference Range Interpretation Comments PH VENOUS (BEAKER) (test code = 7.38 7.32-7.42 701) PCO2 VENOUS (BEAKER) (test code = 42 mm Hg 41-51 755) PO2 VENOUS (BEAKER) (test code = 36 mm Hg 25-40 702) O2 SATURATION VENOUS (BEAKER) 68.2 % 40.0-70.0 (test code = 703) HCO3 VENOUS (BEAKER) (test code = 24 mmol/L 21-29 705) BASE EXCESS VENOUS (BEAKER) (test -0.8 mmol/L -2.0-3.0 code = 704) PATIENT TEMPERATURE (BEAKER) 36.8 (test code = 1818) FIO2 (BEAKER) (test code = 1819) 36.0 CALCIUM, [id number] 02:43:30 Test Item Value Reference Range Interpretation Comments CALCIUM IONIZED (BEAKER) (test 1.01 mmol/L 1.12-1.27 L code = 698) PH, BLOOD (BEAKER) (test code = 7.38 1809) CBC (HEMOGRAM ONLY)2022-11-24 00:42:02 Test Item Value Reference Range Interpretation Comments WHITE BLOOD CELL COUNT (BEAKER) 9.3 K/ L 3.5-10.5 (test code = 775) RED BLOOD CELL COUNT (BEAKER) 2.88 M/ L 3.93-5.22 L (test code = 761) HEMOGLOBIN (BEAKER) (test code = 6.7 GM/DL 11.2-15.7 L 410) HEMATOCRIT (BEAKER) (test code = 22.4 % 34.1-44.9 L 411) MEAN CORPUSCULAR VOLUME (BEAKER) 78 fL 79-95 L (test code = 753) MEAN CORPUSCULAR HEMOGLOBIN 23.3 pg 25.6-32.2 L (BEAKER) (test code = 751) MEAN CORPUSCULAR HEMOGLOBIN CONC 29.9 GM/DL 32.2-35.5 L (BEAKER) (test code = 752) RED CELL DISTRIBUTION WIDTH 20.2 % 11.7-14.4 H (BEAKER) (test code = 412) PLATELET COUNT (BEAKER) (test 331 K/CU MM 150-450 code = 756) MEAN PLATELET VOLUME (BEAKER) 9.9 fL 9.4-12.3 (test code = 754) NUCLEATED RED BLOOD CELLS 0 /100 WBC 0-0 (BEAKER) (test code = 413) Glucose-Stat [id number] 00:27:09 Test Item Value Reference Range Interpretation Comments Glucose (test code = 2345-7) 103 mg/dL 70-110 Lab Interpretation (test code = Normal 70262-8) [facility] [id number] 00:27:09 Test Item Value Reference Range Interpretation Comments Glucose (test code = 2345-7) 103 mg/dL 70-110 Lab Interpretation (test code = Normal 98244-5) [facility] [id number] 00:27:09 Test Item Value Reference Range Interpretation Comments GLUCOSE RANDOM (BEAKER) (test code 103 mg/dL 70-110 = 652) BLOOD CULTURE IDENTIFICATION [id number] 21:40:50 Test Item Value Reference Interpretation Comments Range LISTERIA MONOCYTOGENES Not detected Not detected (test code = 2335604) STAPHYLOCOCCUS (test Detected Not detected A Coagula se negative code = [id number]) Staph specie s (CoNS)- methici llin resistantFirst- line therapy: Vancom ycin MecA DETECTED Possible contamination. The likelihood of pathogenicity i s increased if th e organism is observed in multiple blood cultures obtain ed from separate venipunctures. Reference Range : Not Detected STAPHYLOCOCCUS AUREUS Not detected Not detected (test code = 9556814) STREPTOCOCCUS (test code Not detected Not detected = [id number]) STREPTOCOCCUS AGALACTIAE Not detected Not detected (GROUP B) (test code = 7505493) STREPTOCOCCUS PNEUMONIAE Not detected Not detected (test code = 5584656) STREPTOCOCCUS PYOGENES Not detected Not detected (GROUP A) (test code = 1692162) ACINETOBACTER BAUMANNII Not detected Not detected (test code = 2446375) HAEMOPHILUS INFLUENZAE Not detected Not detected (test code = 1447297) NEISSERIA MENINGITIDIS Not detected Not detected (test code = 3744368) ENTEROBACTERIACEAE (test Not detected Not detected code = 6498765) ENTEROBACTER CLOACOE Not detected Not detected COMPLEX (test code = 8597542) KLEBSIELLA OXYTOCA (test Not detected Not detected code = 3078513) KLEBSIELLA PNEUMONIAE Not detected Not detected (test code = 1650) PROTEUS (test code = Not detected Not detected 1463415) SERRATIA MARCESCENS Not detected Not detected (test code = 1835072) LUBA ALBICANS (test Not detected Not detected code = 8785381) LUBA GLABRATA (test Not detected Not detected code = 3101058) LUBA KRUSEI (test Not detected Not detected code = 2851441) ULBA PARAPSILOSIS Not detected Not detected (test code = 5298245) LUBA TROPICALIS (BKR) Not detected Not detected (test code = 5242036) ESCHERICHIA COLI (test Not detected Not detected code = 2285066) METHICILLIN-RESISTANCE Detected Not detected A Note: Antimicrobial GENE (test code = resistance can [id number]) occur via multi ple mechanisms. A N ot Detected result for the [employer] antimicrobial resistance gene assays does not indicate antimicrobial susceptibility. Subculturing is required for species identification and susceptibility testing of isolates. VANCOMYCIN-RESISTANCE GENE (test code = 5184522) CARBAPENEM-RESISTANCE GENE (test code = 1319187) ENTEROCOCCUS-BEAKER Not detected Not detected (test code = 6424159) PSEUDOMONAS Not detected Not detected AERUGINOSA-BEAKER (test code = 4256931) Other bacteria and resistance markers not targeted by this PCR panel cannot be excluded; therefore clinical correlation and follow up of serology, culture results, and other molecular studies is required. The results are not intended to be used as the sole means for clinical diagnosis or patient management decisions. This sample was tested at the [facility] using the [employer] Blood Culture ID Panel. It is FDA cleared and has been verified and approved by the [facility] for clinical use. This laboratory is CLIA-certified and College ofAmerican Pathologists (CAP)-accredited to perform high complexity testing.FIBRINOGEN 2022-11-23 20:42:06 Test Item Value Reference Range Interpretation Comments FIBRINOGEN LEVEL (BEAKER) (test 232 mg/dl 225-434 code = 658) [id number] 20:41:44 Test Item Value Reference Range Interpretation Comments PARTIAL THROMBOPLASTIN TIME 28.4 seconds 22.5-36.0 (BEAKER) (test code = 760) PROTHROMBIN [id number] 20:41:06 Test Item Value Reference Range Interpretation Comments PROTIME (BEAKER) 16.9 seconds 11.9-14.2 H (test code = 759) INR (BEAKER) (test 1.46 See_Comment [Automat ed message] code = 370) The system sourceasy generated this result transmitted ref erence range: <=5.90. The reference range was not used to int erpret this result as normal/abnormal . RECOMMENDED COUMADIN/WARFARIN INR THERAPY RANGESSTANDARD DOSE: 2.0 - 3.0 Includes: PROPHYLAXIS for venous thrombosis, systemic embolization; TREATMENT for venous thrombosis and/or pulmonary embolus.HIGH RISK: Target INR is 2.5-3.5 for patients with mechanical heart valves.CBC (HEMOGRAM ONLY)2022-11-23 20:29:15 Test Item Value Reference Range Interpretation Comments WHITE BLOOD CELL COUNT (BEAKER) 8.7 K/ L 3.5-10.5 (test code = 775) RED BLOOD CELL COUNT (BEAKER) 3.07 M/ L 3.93-5.22 L (test code = 761) HEMOGLOBIN (BEAKER) (test code = 7.2 GM/DL 11.2-15.7 L 410) HEMATOCRIT (BEAKER) (test code = 24.1 % 34.1-44.9 L 411) MEAN CORPUSCULAR VOLUME (BEAKER) 79 fL 79-95 (test code = 753) MEAN CORPUSCULAR HEMOGLOBIN 23.5 pg 25.6-32.2 L (BEAKER) (test code = 751) MEAN CORPUSCULAR HEMOGLOBIN CONC 29.9 GM/DL 32.2-35.5 L (BEAKER) (test code = 752) RED CELL DISTRIBUTION WIDTH 20.3 % 11.7-14.4 H (BEAKER) (test code = 412) PLATELET COUNT (BEAKER) (test 354 K/CU MM 150-450 code = 756) MEAN PLATELET VOLUME (BEAKER) 10.2 fL 9.4-12.3 (test code = 754) NUCLEATED RED BLOOD CELLS 0 /100 WBC 0-0 (BEAKER) (test code = 413) COMPREHENSIVE METABOLIC [id number] 20:17:09 Test Item Value Reference Range Interpretation Comments TOTAL PROTEIN 4.7 gm/dL 6.0-8.3 L (BEAKER) (test code = 770) ALBUMIN (BEAKER) 2.3 g/dL 3.5-5.0 L (test code = 1145) ALKALINE 43 U/L 40-150 PHOSPHATASE (BEAKER) (test code = 346) BILIRUBIN TOTAL 0.5 mg/dL 0.2-1.2 (BEAKER) (test code = 377) SODIUM (BEAKER) 136 meq/L 136-145 (test code = 381) POTASSIUM (BEAKER) 3.8 meq/L 3.5-5.1 (test code = 379) CHLORIDE (BEAKER) 109 meq/L 98-107 H (test code = 382) CO2 (BEAKER) (test 22 meq/L 22-29 code = 355) BLOOD UREA 14 mg/dL 7-21 NITROGEN (BEAKER) (test code = 354) CREATININE 0.74 mg/dL 0.57-1.25 (BEAKER) (test code = 358) GLUCOSE RANDOM 117 mg/dL 70-105 H (BEAKER) (test code = 652) CALCIUM (BEAKER) 7.9 mg/dL 8.4-10.2 L (test code = 697) AST (SGOT) 30 U/L 5-34 (BEAKER) (test code = 353) ALT (SGPT) 11 U/L 6-55 (BEAKER) (test code = 347) EGFR (BEAKER) 84 Interpretatio n of eGFR (test code = 1092) mL/min/1.[address] age Description sq m Result G1 Aline l or high >=90 G2 Mildly decreased 60-89 G3a Mildl y to moderately 45-5 9 G3b Moderately to s everely 30-44 G4 Severl y decreased 15-29 G5 Kidney failure <15Reported eGF R is based on the CKD-EPI 2020 equation that d oes not use a race coefficientEsti mated GFR is not as accur ate as Creatinine Aparna jonathan in predicting glom erular filtration rate . Estimated GFR is not appl icable for dialysis patien ts C Developer ID - [id number] 20:15:16 Test Item Value Reference Range Interpretation Comments MAGNESIUM (BEAKER) (test code = 2.1 mg/dL 1.6-2.6 627) C Developer ID - BSLACTIC ACID, [id number] 20:07:18 Test Item Value Reference Range Interpretation Comments LACTATE BLOOD ARTERIAL (2) 0.9 mmol/L 0.5-2.2 (BEAKER) (test code = 2874) C Developer ID - BSCALCIUM, [id number] 19:38:02 Test Item Value Reference Range Interpretation Comments CALCIUM IONIZED (BEAKER) (test 1.06 mmol/L 1.12-1.27 L code = 698) PH, BLOOD (BEAKER) (test code = 7.32 1810) BLOOD GAS, [id number] 19:37:57 Test Item Value Reference Range Interpretation Comments PH VENOUS (BEAKER) (test code = 7.33 7.32-7.42 701) PCO2 VENOUS (BEAKER) (test code = 50 mm Hg 41-51 755) PO2 VENOUS (BEAKER) (test code = 34 mm Hg 25-40 702) O2 SATURATION VENOUS (BEAKER) 61.8 % 40.0-70.0 (test code = 703) HCO3 VENOUS (BEAKER) (test code = 26 mmol/L 21-29 705) BASE EXCESS VENOUS (BEAKER) (test -0.7 mmol/L -2.0-3.0 code = 704) PATIENT TEMPERATURE (BEAKER) 36.4 (test code = 1818) FIO2 (BEAKER) (test code = 1819) 52.0 Sputum Culture + Gram [id number] 17:35:11 Test Item Value Reference Range Interpretation Comments Result (test code = Oropharyngeal 6463-4) contamination, specimen rejected. Recollect requested. Gram Stain Result 1+ gram negative rods (test code = 1123) [facility] [id number] 17:35:11 Test Item Value Reference Range Interpretation Comments Result (test code = Oropharyngeal 6463-4) contamination, specimen rejected. Recollect requested. Gram Stain Result 1+ gram negative rods (test code = 1123) [facility]AM [id number] 17:35:11 Test Item Value Reference Range Interpretation Comments CULTURE (BEAKER) Oropharyngeal (test code = 1095) contamination, specimen rejected. Recollect requested. GRAM STAIN RESULT >25/LPF epithelial cells (BEAKER) (test code = 1123) GRAM STAIN RESULT 1+ WBCs (BEAKER) (test code = 08504) GRAM STAIN RESULT 2+ gram positive cocci in (BEAKER) (test code chains, pairs and = 37550) clusters GRAM STAIN RESULT 1+ gram positive rods (BEAKER) (test code = 560032) GRAM STAIN RESULT 1+ gram negative rods (BEAKER) (test code = 539866) Urinalysis Microscopic [id number] 16:42:59RBC, UA<1/HPF11/23/2022 4:42 PM [facility], [facility]PF[facility]/23/2022 4:[address] [facility] Ep[facility]hel, UA<1/HPF11/23/2022 4:42 PM [facility] Urinalysis Microscopic [id number] 16:42:59RBC, UA<1/HPF11/23/2022 4:42 PM [facility], UA<1/HPF11/23/2022 4:[address] [facility] Ep[facility]hel, UA<1/HPF11/23/2022 4:42 PM [facility] URINALYSIS [id number] 16:42:59 Test Item Value Reference Range Interpretation Comments RBC UA (BEAKER) (test code = 519) < /HPF WBC UA (BEAKER) (test code = 520) < /HPF SQUAMOUS EPITHELIAL (BEAKER) (test < /HPF code = 516) Urinalysis with Microscopic If [id number] 16:42:28 Test Item Value Reference Range Interpretation Comments Color, UA (test code = Yellow 5778-6) Clarity, UA (test code = Clear 5767-9) Specific [place], UA (test 1.048 1.001-1.035 H code = 5811-5) pH, UA (test code = 6.0 5.0-8.0 5803-2) Protein, UA (test code = 20 mg/dL Negative A 27651-2) Glucose, UA (test code = Negative Negative 365) Ketones, UA (test code = Negative Negative 2514-8) Bilirubin, UA (test code = Negative Negative 31973-5) Blood, UA (test code = Negative Negative 38771-6) Nitrite, UA (test code = Negative Negative 5802-4) Leukocytes, UA (test code Negative Negative = 5799-2) Urobilinogen, UA (test 0.2 0.2-1.0 code = 58778-1) Specimen Source (test code = 2795) MARANDA (test code = MARANDA) C Developer ID - [auto] Lab Interpretation (test Abnormal code = 67896-0) [facility] If [id number] 16:42:28 Test Item Value Reference Range Interpretation Comments Color, UA (test code = Yellow 5778-6) Clarity, UA (test code = Clear 5767-9) Specific [place], UA (test 1.048 1.001-1.035 H code = 5811-5) pH, UA (test code = 6.0 5.0-8.0 5803-2) Protein, UA (test code = 20 mg/dL Negative A 22717-5) Glucose, UA (test code = Negative Negative 365) Ketones, UA (test code = Negative Negative 2514-8) Bilirubin, UA (test code = Negative Negative 56610-2) Blood, UA (test code = Negative Negative 51434-7) Nitrite, UA (test code = Negative Negative 5802-4) Leukocytes, UA (test code Negative Negative = 5799-2) Urobilinogen, UA (test 0.2 0.2-1.0 code = 40130-1) Specimen Source (test code = 2795) MARANDA (test code = MARANDA) C Developer ID - [auto] Lab Interpretation (test Abnormal code = 13853-3) [facility]OSCOPIC IF [id number] 16:42:28 Test Item Value Reference Range Interpretation Comments COLOR (BEAKER) (test code = 470) Yellow CLARITY (BEAKER) (test code = 469) Clear SPECIFIC GRAVITY UA (BEAKER) (test 1.048 1.001-1.035 H code = 468) PH UA (BEAKER) (test code = 467) 6.0 5.0-8.0 PROTEIN UA (BEAKER) (test code = 20 mg/dL Negative A 464) GLUCOSE UA (BEAKER) (test code = Negative Negative 365) KETONES UA (BEAKER) (test code = Negative Negative 371) BILIRUBIN UA (BEAKER) (test code = Negative Negative 462) BLOOD UA (BEAKER) (test code = 461) Negative Negative NITRITE UA (BEAKER) (test code = Negative Negative 465) LEUKOCYTE ESTERASE UA (BEAKER) (test Negative Negative code = 466) UROBILINOGEN UA (BEAKER) (test code 0.2 0.2-1.0 = 463) SOURCE(BEAKER) (test code = 2795) C Developer ID - [auto]IRON, TIBC, % SAT. (WITHOUT FERRITIN)2022-11-23 16:17:10 Test Item Value Reference Range Interpretation Comments IRON (BEAKER) (test code = 547) 17.0 ug/dL 40.0-160.0 L TOTAL IRON BINDING CAPACITY 199 ug/dL 250-450 L (BEAKER) (test code = 769) IRON % SATURATION (2) (BEAKER) 9 % 20-55 L (test code = 2590) C Developer ID - BSOperator ID - BSPOCT-GLUCOSE [id number] 15:55:13 Test Item Value Reference Range Interpretation Comments POC-GLUCOSE METER 127 mg/dL 70-110 H : TESTED A T [facility] 6720 (BEAKER) (test code = [place], 1538) [address]: C Developer/Techni eli ID = [id number] for UY ASHLIE CBC (HEMOGRAM ONLY)2022-11-23 15:49:47 Test Item Value Reference Range Interpretation Comments WHITE BLOOD CELL COUNT (BEAKER) 9.8 K/ L 3.5-10.5 (test code = 775) RED BLOOD CELL COUNT (BEAKER) 2.95 M/ L 3.93-5.22 L (test code = 761) HEMOGLOBIN (BEAKER) (test code = 7.0 GM/DL 11.2-15.7 L 410) HEMATOCRIT (BEAKER) (test code = 22.7 % 34.1-44.9 L 411) MEAN CORPUSCULAR VOLUME (BEAKER) 77 fL 79-95 L (test code = 753) MEAN CORPUSCULAR HEMOGLOBIN 23.7 pg 25.6-32.2 L (BEAKER) (test code = 751) MEAN CORPUSCULAR HEMOGLOBIN CONC 30.8 GM/DL 32.2-35.5 L (BEAKER) (test code = 752) RED CELL DISTRIBUTION WIDTH 20.5 % 11.7-14.4 H (BEAKER) (test code = 412) PLATELET COUNT (BEAKER) (test 316 K/CU MM 150-450 code = 756) MEAN PLATELET VOLUME (BEAKER) 9.9 fL 9.4-12.3 (test code = 754) NUCLEATED RED BLOOD CELLS 0 /100 WBC 0-0 (BEAKER) (test code = 413) Antibody [id number] 14:15:00 Test Item Value Reference Range Interpretation Comments ANTIBODY ID (BEAKER) Anti-K (test code = 2253) Antibody Consult SIGNED OUT Anti K caus es RBC (test code = 2479) injury, t ransfuse K negative RBCs. Electronic Sign ature: Dakota Le M.D . [facility] CenterAntibody [id number] 14:15:00 Test Item Value Reference Range Interpretation Comments ANTIBODY ID (BEAKER) Anti-K (test code = 2253) Antibody Consult SIGNED OUT Anti K caus es RBC (test code = 2479) injury, t ransfuse K negative RBCs. Electronic Sign ature: Sonido Briscoe [facility] (HEMOGRAM ONLY)2022-11-23 12:27:01 Test Item Value Reference Range Interpretation Comments WHITE BLOOD CELL COUNT (BEAKER) 14.2 K/ L 3.5-10.5 H (test code = 775) RED BLOOD CELL COUNT (BEAKER) 3.09 M/ L 3.93-5.22 L (test code = 761) HEMOGLOBIN (BEAKER) (test code = 7.3 GM/DL 11.2-15.7 L 410) HEMATOCRIT (BEAKER) (test code = 24.1 % 34.1-44.9 L 411) MEAN CORPUSCULAR VOLUME (BEAKER) 78 fL 79-95 L (test code = 753) MEAN CORPUSCULAR HEMOGLOBIN 23.6 pg 25.6-32.2 L (BEAKER) (test code = 751) MEAN CORPUSCULAR HEMOGLOBIN CONC 30.3 GM/DL 32.2-35.5 L (BEAKER) (test code = 752) RED CELL DISTRIBUTION WIDTH 20.7 % 11.7-14.4 H (BEAKER) (test code = 412) PLATELET COUNT (BEAKER) (test 341 K/CU MM 150-450 code = 756) MEAN PLATELET VOLUME (BEAKER) 10.2 fL 9.4-12.3 (test code = 754) NUCLEATED RED BLOOD CELLS 0 /100 WBC 0-0 (BEAKER) (test code = 413) POCT-GLUCOSE [id number] 12:26:55 Test Item Value Reference Range Interpretation Comments POC-GLUCOSE METER 106 mg/dL 70-110 : TESTED A T [facility] 6720 (BEAKER) (test code = CHRISTOPHE ARTIS ID, 1538) [address]: C Developer/Techni eli ID = [id number] for UY , ASHLIE HEMOGLOBIN [id number] 11:55:42 Test Item Value Reference Range Interpretation Comments HEMOGLOBIN A1C 4.9 % See_Comment [Automated m essage] ELECTROPHORESIS (BEAKER) The system which (test code = 3811) generated this result transmitted ref erence range: <=5.6%. The reference range was not used to int erpret this result as normal/abnormal . "The A1c is measured using a [facility]certified method. HbA1c value equal to or greater than 6.5% as thediagnosis cutoff for diabetes. An HbA1c value of 5.7- 6.4% indicates increased risk for diabetes (prediabetes)."C Developer ID - [email or web address] (HEMOGRAM ONLY)2022-11-23 08:32:25 Test Item Value Reference Range Interpretation Comments WHITE BLOOD CELL COUNT 13.5 K/ L 3.5-10.5 H (BEAKER) (test code = 775) RED BLOOD CELL COUNT 3.14 M/ L 3.93-5.22 L (BEAKER) (test code = 761) HEMOGLOBIN (BEAKER) 7.3 GM/DL 11.2-15.7 L (test code = 410) HEMATOCRIT (BEAKER) 24.4 % 34.1-44.9 L (test code = 411) MEAN CORPUSCULAR 78 fL 79-95 L discordant results VOLUME (BEAKER) (test compar ed to code = 753) previous, clini alvin correlation required. MEAN CORPUSCULAR 23.2 pg 25.6-32.2 L HEMOGLOBIN (BEAKER) (test code = 751) MEAN CORPUSCULAR 29.9 GM/DL 32.2-35.5 L HEMOGLOBIN CONC (BEAKER) (test code = 752) RED CELL DISTRIBUTION 21.2 % 11.7-14.4 H WIDTH (BEAKER) (test code = 412) PLATELET COUNT 357 K/CU MM 150-450 (BEAKER) (test code = 756) MEAN PLATELET VOLUME 10.5 fL 9.4-12.3 (BEAKER) (test code = 754) NUCLEATED RED BLOOD 0 /100 WBC 0-0 CELLS (BEAKER) (test code = 413) POCT-GLUCOSE [id number] 08:22:00 Test Item Value Reference Range Interpretation Comments POC-GLUCOSE METER 119 mg/dL 70-110 H : TESTED A T [facility] 6720 (BEAKER) (test code = CHRISTOPHE ARTIS ID, 1538) 42[address]: C Developer/Techni eli ID = [id number] for ASHLIE RING RAD, CHEST, 1 VIEW, NON [id number] 07:43:00Reason for exam:->lung evalShould this be performed at the bedside?->Yes [facility] 1945 Sex: FFINAL REPORT RAD, CHEST, 1 VIEW, NON DEPT INDICATION: lung eval COMPARISON: 01/31/2022 FINDINGS: Portable frontal view of the chest. IMPRESSION: Support Lines: Overlying leads/monitors. Lungs and pleura: Lungs are clear No significant pneumothorax. Heart and mediastinum: Stable contours. Additional findings: None. Signed: Alee Westfall Verified Date/Time: 11/23/2022 07:43:13 Reading Location: [address] Reading Room HIGH SENSITIVITY TROPONIN [id number] 02:46:15 Test Item Value Reference Range Interpretation Comments HIGH SENSITIVITY 12 pg/ml See_Comment [Automated message] TROPONIN I (test code = The system which [id number]) generated this result transmitted ref erence range: <=17. Th e reference range was not used to int erpret this result as normal/abnormal . C Developer ID - BSThe RN CASE MANAGER STAT High Sensitivity Troponin-I results should be used in conjunctionwith other diagnostic information such as ECG, clinical observations and information, and patient symptoms to aid in the diagnosis of ME.RAD, ABDOMEN/KUB, 1 VIEW [id number] 02:46:00Reason for exam:->concerns for bowel obstruction [facility] : 1945 Sex: FFINAL REPORT CLINICAL HISTORY: concerns for bowel obstruction COMPARISON: None. FINDINGS: A single supine image of the abdomen is submitted. There is extensive gaseous distention of the small bowel. Stool and gas is present in portions of the colon. The appearance is nonspecific butcould reflect early/partial small bowel obstruction or ileus. Excreted IV contrast is present in theurinary bladder. Surgical clips overlie the right upper quadrant. There is no acute bony abnormality. Signed: Yeison Garrison MDReport Verified Date/Time: 11/23/2022 02:46:11 CBC (HEMOGRAM ONLY)2022-11-23 02:18:47 Test Item Value Reference Range Interpretation Comments WHITE BLOOD CELL COUNT (BEAKER) 15.5 K/ L 3.5-10.5 H (test code = 775) RED BLOOD CELL COUNT (BEAKER) 3.16 M/ L 3.93-5.22 L (test code = 761) HEMOGLOBIN (BEAKER) (test code = 6.9 GM/DL 11.2-15.7 L 410) HEMATOCRIT (BEAKER) (test code = 23.3 % 34.1-44.9 L 411) MEAN CORPUSCULAR VOLUME (BEAKER) 74 fL 79-95 L (test code = 753) MEAN CORPUSCULAR HEMOGLOBIN 21.8 pg 25.6-32.2 L (BEAKER) (test code = 751) MEAN CORPUSCULAR HEMOGLOBIN CONC 29.6 GM/DL 32.2-35.5 L (BEAKER) (test code = 752) RED CELL DISTRIBUTION WIDTH 21.3 % 11.7-14.4 H (BEAKER) (test code = 412) PLATELET COUNT (BEAKER) (test 380 K/CU MM 150-450 code = 756) MEAN PLATELET VOLUME (BEAKER) 10.4 fL 9.4-12.3 (test code = 754) NUCLEATED RED BLOOD CELLS 0 /100 WBC 0-0 (BEAKER) (test code = 413) SARS-CoV2/RT-PCR (Asymptomatic ONLY)2022-11-23 02:15:18 Test Item Value Reference Interpretation Comments Range SARS-COV2/RT-PCR Negative Negative The SARS-Co V-2 (test code = target nucleic 23435-9) acids are not detected in thi s specimen. Negat kanwal results do not preclude SARS-C oV-2 infection and should not be u sed as the sole bas is for patient management decisions. Nega tive results must be combined with clinical observations, patient history , and epidemiolog ical information. A false negative result may occu r if a specimen is improperly collected, transported or handled. This S ARS CoV-2 test is a rapid, real-ernesto e RT-PCR test intended for th e qualitative detection of nucleic acid fr om SARS-CoV-2 in a nasopharyngeal swab specimen collec sheela from individual s suspected of COVID-19 by the ir healthcare provider. MARANDA (test code = This test has been MARANDA) authorized by FDA under an EUA for use by authorized laboratories. This test is only authorized for the duration of the declaration that circumstances exist justifying the authorization of emergency use of in vitro diagnostic tests for detection and/or diagnosis of COVID-19 under Section 564(b)(1) of the Federal Food, Drug and Cosmetic Act, 21 U.S.C. 360bbb-3(b)(1), unless the authorization is terminated or revoked sooner. Fact Sheet for Healthcare Providers: https://www.[employer]/Documents/Xp ert%20Xpress%20SAR S%20CoV-2/Fact%20S heets/302-3062%20S ARS-COV-2%20HEALTH CARE%20PROVIDERS%2 0FACT%20SHEET.pdf Fact Sheet for Healthcare Patients: https://www.[employer]/Documents/Xp ert%20Xpress%20SAR S%20CoV-2/Fact%20S heets/302-3801%20S ARS-COV-2%20PATIEN T%20FACT%20SHEET.p df Lab Interpretation Normal (test code = 12076-1) [facility]2022-11-23 02:15:18 Test Item Value Reference Interpretation Comments Range SARS-COV2/RT-PCR Negative Negative The SARS-Co V-2 (test code = target nucleic 05093-5) acids are not detected in thi s specimen. Negat kanwal results do not preclude SARS-C oV-2 infection and should not be u sed as the sole bas is for patient management decisions. Nega tive results must be combined with clinical observations, patient history , and epidemiolog ical information. A false negative result may occu r if a specimen is improperly collected, transported or handled. This S ARS CoV-2 test is a rapid, real-ernesto e RT-PCR test intended for th e qualitative detection of nucleic acid fr om SARS-CoV-2 in a nasopharyngeal swab specimen collec shelea from individual s suspected of COVID-19 by the ir healthcare provider. MARANDA (test code = This test has been MARANDA) authorized by FDA under an EUA for use by authorized laboratories. This test is only authorized for the duration of the declaration that circumstances exist justifying the authorization of emergency use of in vitro diagnostic tests for detection and/or diagnosis of COVID-19 under Section 564(b)(1) of the Federal Food, Drug and Cosmetic Act, 21 U.S.C. 360bbb-3(b)(1), unless the authorization is terminated or revoked sooner. Fact Sheet for Healthcare Providers: https://www.[employer]/Documents/Xp ert%20Xpress%20SAR S%20CoV-2/Fact%20S heets/3023802%20S ARS-COV-2%20HEALTH CARE%20PROVIDERS%2 0FACT%20SHEET.pdf Fact Sheet for Healthcare Patients: https://www.[employer]/Documents/Xp ert%20Xpress%20SAR S%20CoV-2/Fact%20S heets/302-3801%20S ARS-COV-2%20PATIEN T%20FACT%20SHEET.p df Lab Interpretation Normal (test code = 47055-9) [facility] REF LAB[facility])2022-11-23 02:15:18 Test Item Value Reference Range Interpretation Comments SARS-COV2/RT-PCR Negative Negative The SARS-Co V-2 target (test code = nucleic acids a re not 1065835) detected in thi s specimen. Negative result s do not preclude SARS-C oV-2 infection and s hould not be used as the maria alejandra e basis for patient managem ent decisions. Nega tive results must be combine d with clinical observ ations, patient history , and epidemiological information. A false negativ e result may occur if a spec imen is improperly cristine ected, transported or handled. This SARS CoV-2 test is a rapid, real-time RT-PC R test intended for th e qualitative detection of nu cleic acid from SARS-CoV-2 in a nasopharyngeal swab specimen collected from individuals suspected of CO VID-19 by their healthcar e provider. This test has been authorized by FDA under an EUA for use by authorized laboratories. This test is only authorized for the duration of the declaration that circumstances exist justifying the authorization of emergency use of in vitro diagnostic tests for detection and/or diagnosis of COVID-19 under Section 564(b)(1) of the Federal Food, Drug and Cosmetic Act, 21 U.S.C. 360bbb-3(b)(1), unless the authorization is terminated or revoked sooner. Fact Sheet for Healthcare Providers: https://www.[employer] m/Documents/Xpert%20Xpress%20SARS%20CoV-2/Fact%20Sheets/3023802%41XHPQ-PWU-9%20 HEALTHCARE%20PROVIDERS%20FACT%20SHEET.pdf Fact Sheet for Healthcare Patients: https://www.[employer]/Documents/Xpert%20Xp ress%20SARS%20CoV-2/Fact%20Sheets/302-3801%31MGGR-NXG-1%20PATIENT%20FACT%20SHEET .[id number] 01:52:05 Test Item Value Reference Range Interpretation Comments PROCALCITONIN (BEAKER) (test code 0.06 ng/mL <0.05 H = 3036) SEPSIS RISK (ng/mL)Low: 0.05-0.50Intermediate: 0.51-2.00High: >=2.01 COMPREHENSIVE METABOLIC [id number] 01:49:27 Test Item Value Reference Range Interpretation Comments TOTAL PROTEIN 5.1 gm/dL 6.0-8.3 L (BEAKER) (test code = 770) ALBUMIN (BEAKER) 2.5 g/dL 3.5-5.0 L (test code = 1145) ALKALINE 53 U/L 40-150 PHOSPHATASE (BEAKER) (test code = 346) BILIRUBIN TOTAL 0.4 mg/dL 0.2-1.2 (BEAKER) (test code = 377) SODIUM (BEAKER) 135 meq/L 136-145 L (test code = 381) POTASSIUM (BEAKER) 4.2 meq/L 3.5-5.1 (test code = 379) CHLORIDE (BEAKER) 106 meq/L 98-107 (test code = 382) CO2 (BEAKER) (test 22 meq/L 22-29 code = 355) BLOOD UREA 24 mg/dL 7-21 H NITROGEN (BEAKER) (test code = 354) CREATININE 0.84 mg/dL 0.57-1.25 (BEAKER) (test code = 358) GLUCOSE RANDOM 134 mg/dL 70-105 H (BEAKER) (test code = 652) CALCIUM (BEAKER) 7.5 mg/dL 8.4-10.2 L (test code = 697) AST (SGOT) 27 U/L 5-34 (BEAKER) (test code = 353) ALT (SGPT) 12 U/L 6-55 (BEAKER) (test code = 347) EGFR (BEAKER) 72 Interpretatio n of eGFR (test code = 1092) mL/min/1.[address] age Description sq m Result G1 Aline l or high >=90 G2 Mildly decreased 60-89 G3a Mild ly to moderately 45-5 9 G3b Moderately to s everely 30-44 G4 Severl y decreased 15-29 G5 Kidney failure <15Reported eGF R is based on the CKD-EPI 2020 equation that d oes not use a race coefficientEsti mated GFR is not as accur ate as Creatinine Aparna jonathan in predicting glom erular filtration rate . Estimated GFR is not appl icable for dialysis patien ts C Developer ID - [id number] 01:42:46 Test Item Value Reference Range Interpretation Comments LIPASE (BEAKER) (test code = 749) 4 U/L 8-78 L C Developer ID - [id number] 01:42:45 Test Item Value Reference Range Interpretation Comments MAGNESIUM (BEAKER) (test code = 2.1 mg/dL 1.6-2.6 627) C Developer ID - [id number] 01:42:45 Test Item Value Reference Range Interpretation Comments PHOSPHORUS (BEAKER) (test code = 4.3 mg/dL 2.3-4.7 604) C Developer ID - BSPT/[id number] 01:35:39 Test Item Value Reference Range Interpretation Comments PROTIME (BEAKER) (test 17.4 seconds 11.9-14.2 H code = 759) INR (BEAKER) (test 1.52 See_Comment [Automat ed code = 370) message] The sy stem which generated this result transmitted reference range : <=5.90. The reference range was not used to interpret this result as normal/abnormal . PARTIAL THROMBOPLASTIN 25.8 seconds 22.5-36.0 TIME (BEAKER) (test code = 760) RECOMMENDED COUMADIN/WARFARIN INR THERAPY RANGESSTANDARD DOSE: 2.0 - 3.0 Includes: PROPHYLAXIS for venous thrombosis, systemic embolization; TREATMENT for venous thrombosis and/or pulmonary embolus.HIGH RISK: Target INR is 2.5-3.5 for patients with mechanical heart valves.[id number] 01:35:38 Test Item Value Reference Range Interpretation Comments FIBRINOGEN LEVEL (BEAKER) (test 259 mg/dl 225-434 code = 658) LACTIC ACID, [id number] 01:33:58 Test Item Value Reference Range Interpretation Comments LACTATE BLOOD ARTERIAL (2) 0.9 mmol/L 0.5-2.2 (BEAKER) (test code = 2874) C Developer ID - BSCALCIUM, [id number] 01:11:12 Test Item Value Reference Range Interpretation Comments CALCIUM IONIZED (BEAKER) (test 0.91 mmol/L 1.12-1.27 L code = 698) PH, BLOOD (BEAKER) (test code = 7.43 1810) BLOOD GAS, [id number] 01:11:12 Test Item Value Reference Range Interpretation Comments PH VENOUS (BEAKER) (test code = 7.42 7.32-7.42 701) PCO2 VENOUS (BEAKER) (test code = 39 mm Hg 41-51 L 755) PO2 VENOUS (BEAKER) (test code = 41 mm Hg 25-40 H 702) O2 SATURATION VENOUS (BEAKER) 76.6 % 40.0-70.0 H (test code = 703) HCO3 VENOUS (BEAKER) (test code = 25 mmol/L 21-29 705) BASE EXCESS VENOUS (BEAKER) (test 0.7 mmol/L -2.0-3.0 code = 704) PATIENT TEMPERATURE (BEAKER) (test 37.4 code = 1818) FIO2 (BEAKER) (test code = 1819) 21.0 Basic Metabolic [id number] 06:55:45 Test Item Value Reference Range Interpretation Comments Sodium (test code = 140 meq/L 715-712 2408-2) Potassium (test code = 3.4 meq/L 3.5-5.1 L 2823-3) Chloride (test code = 111 meq/L 98-107 H 2075-0) CO2 (test code = 23 meq/L 22-29 2028-9) BUN (test code = 4 mg/dL 7-21 L 3094-0) Creatinine (test code 0.53 mg/dL 0.57-1.25 L = 2160-0) Glucose (test code = 76 mg/dL 70-105 2345-7) Calcium (test code = 7.6 mg/dL 8.4-10.2 L 38850-8) EGFR (test code = 113 mL/min/1.73 [place] [address]-2) NOT ACCURATE CREATININE CLEARANCE IN PREDICTING GLOMERULAR FILTRATION RATE . ESTIMATED GFR I S NOT APPLICABLE FOR DIALYSIS PATIENTS. MARANDA (test code = MARANDA) C Developer ID - GAL W Lab Interpretation Abnormal (test code = 16386-0) [facility] [id number] 06:55:45 Test Item Value Reference Range Interpretation [...] S NOT APPLICABLE FOR DIALYSIS PATIEN TS. C Developer ID - GAL WCBC with platelet count + automated [id number] 06:11:51 Test Item Value Reference Range Interpretation Comments WBC (test code = 6690-2) 7.8 See_Comment [A utomated message] The system sourceasy generated this result transmitted ref erence range: 3.5 - 10 .5 K/L. The refe rence range was not u sed to interpret this result as normal/abnor mal. RBC (test code = 789-8) 4.55 See_Comment [Au tomated message] The system sourceasy generated this result transmitted ref erence range: 3.93 - 5 .22 M/L. The refe rence range was not u sed to interpret this result as normal/abnor mal. MCHC (test code = 786-4) 27.6 See_Comment L [A utomated message] The system sourceasy generated this result transmitted ref erence range: [...] See_Comment [Aut omated message] 777-3) The system sourceasy generated this result transmitted ref erence range: 150 - 45 0 K/CU MM. The referen ce range was not u sed to interpret this result as normal/abnor mal. MPV (test code = [place] [address]-0) to abnormal Meena telet population distribution. nRBC (test code = 413) 0 See_Comment [Aut omated message] The system sourceasy generated this result transmitted ref erence range: [...] See_Comment [Aut omated message] 670) The system sourceasy generated this result transmitted ref erence range: 1.56 - 6 .13 K/L. The refe rence range was not u sed to interpret this result as normal/abnor mal. # Lymphs (test code = 1.99 See_Comment [Auto mated message] 414) The system sourceasy generated this result transmitted ref erence range: 1.18 - 3 .74 K/L. The refe rence range was not u sed to interpret this result as normal/abnor mal. # Monos (test code = 0.66 See_Comment H [Autom ated message] 415) The system sourceasy generated this result transmitted ref erence range: 0.24 - 0 .36 K/L. The refe rence range was not u sed to interpret this result as normal/abnor mal. # Eos (test code = 416) 0.10 See_Comment [Au tomated message] The system sourceasy generated this result transmitted ref erence range: 0.04 - 0 .36 K/L. The refe rence range was not u sed to interpret this result as normal/abnor mal. # Baso (test code = 417) 0.06 See_Comment [A utomated message] The system sourceasy generated this result transmitted ref erence range: 0.01 - 0 .08 K/L. The refe rence range was not u sed to interpret this result as normal/abnor mal. Immature 0 % 0-1 Granulocytes-Relative (test code = 2801) Lab Interpretation (test Abnormal code = 49326-8) [facility] W/PLT COUNT & AUTO [id number] 06:11:51 Test Item Value Reference Range Interpretation [...] PERCENT (BEAKER) (test code = 2801) Manual [id number] 08:46:10 Test Item Value Reference Range Interpretation Comments % Neutros (manual) (test 89 % code = 1359) % Lymphs (manual) (test 9 % code = 1360) % Monos (manual) (test 2 % code = 1361) # Neutros (manual) (test 10.50 See_Comment H [A utomated message] code = 1365) The system sourceasy generated this result transmitted ref erence range: 1.80 - 8 .00 K/L. The refe rence range was not u sed to interpret this result as normal/abnor mal. # Lymphs (manual) (test 1.06 See_Comment L [Au tomated message] code = 1366) The system sourceasy generated this result transmitted ref erence range: 1.48 - 4 .50 K/L. The refe rence range was not u sed to interpret this result as normal/abnor mal. # Monos (manual) (test 0.24 See_Comment [Aut omated message] code = 1367) The system sourceasy generated this result transmitted ref erence range: 0.00 - 1 .30 K/L. The refe rence range was not u sed to interpret this result as normal/abnor mal. Total Counted (test code 100 = 1351) WBC Morphology (test Normal code = 487) Platelet Morphology Normal (test code = 486) RBC Morphology (test Normal code = 762) Lab Interpretation (test Abnormal code = 49894-8) [facility] W/PLT COUNT & AUTO [id number] 08:46:10 Test Item Value Reference Range Interpretation [...] report due WIDTH (BEAKER) (test to abno al RBC code = 412) population distribution. [...] (test code Normal = 762) BASIC METABOLIC [id number] 05:55:30 Test Item Value Reference Range Interpretation [...] S NOT APPLICABLE FOR DIALYSIS PATIEN TS. C Developer ID - PIAYA LPeripheral Blood Smear - Path [id number] 10:55:06 Test Item Value Reference Interpretation Comments Range RBC PolychromasiaAnisocytosisPoikilocytosis Morphology Elliptocytes (test code = 2846) WBC Unremarkable Morphology (test code = 2847) Platelet Unremarkable Morphology (test code = 2848) Pathologist Cell counts confirmed. There is Review (test microcytic hypochromic anemia with code = 3260) polychromasia and mild anisopoikilocytosis. Schistocytes are not increased (<1%). Correlation with the ancillary findings including iron studies are recommended. Pathologist: Palmer Levi M.D. (test code = 2849) [facility] - PATHOLOGIST [id number] 10:55:06 Test Item Value Reference Range Interpretation Comments RBC MORPHOLOGY Polychromasia (BEAKER) (test code = 2846) RBC MORPHOLOGY Anisocytosis (BEAKER) (test code = 34426) RBC MORPHOLOGY Poikilocytosis (BEAKER) (test code = 70162) RBC MORPHOLOGY Elliptocytes (BEAKER) (test code = 71126) WBC MORPHOLOGY Unremarkable (BEAKER) (test code = 2847) PLT MORPHOLOGY Unremarkable (BEAKER) (test code = 2848) PERIPHERAL SMR REVIEW Cell counts confirmed. (BEAKER) (test code = There is microcytic 2640) hypochromic anemia with polychromasia and mild anisopoikilocytosis. Schistocytes are not increased (<1%). Correlation with the ancillary findings including iron studies are recommended. [id number] Palmer Levi M.D. (BEAKER) (test code = 2849) RAD, CHEST, 1 VIEW, NON [id number] 10:48:00Reason for exam:->r/o pnaShould this be performed at the bedside?->Yes [facility] 1945 Sex: FFINAL [...] and without patient rotation is recommended. Signed: Kaila Boles MDReport Verified Date/Time: 01/31/2022 10:48:19 Reading Location: [facility] C013Y CT Body Reading Room BASIC METABOLIC [id number] 08:36:06 Test Item Value Reference Range Interpretation [...] S NOT APPLICABLE FOR DIALYSIS PATIEN TS. C Developer ID - DBManual [id number] 08:01:47 Test Item Value Reference Range Interpretation [...] 3445) Lab Interpretation (test code = Abnormal 87479-3) [facility] W/PLT COUNT & AUTO [id number] 08:01:47 Test Item Value Reference Range Interpretation [...] to report due WIDTH (BEAKER) (test to [facility] RBC code = 412) population [...] (test code = 3445) BUN and Creatinine w/[id number] 17:45:47 Test Item Value Reference Range Interpretation [...] code = 110 mL/min/1.73 [place] [address]-0) NOT ACCURATE CREATININE CLEARANCE IN PREDICTING GLOMERULAR FILTRATION RATE . ESTIMATED GFR I S NOT APPLICABLE FOR DIALYSIS PATIENTS. MARANDA (test code = MARANDA) C Developer ID - ADMIN Lab Interpretation Abnormal (test code = 15646-8) [facility] Center[facility]AT[facility] [id number] 17:45:47 Test Item Value Reference Range Interpretation Comments BLOOD UREA NITROGEN 9 mg/dL 7- (BEAKER) (test code = 354) CREATININE (BEAKER) 0.54 mg/dL 0.57-1.25 L (test code = 358) BUN/CREAT RATIO 17 For a normal (BEAKER) (test code individu al on a = 2524166706) normal diet, t he reference inter gladis for the mass ra jc ranges between 12:1 and 20:1 (BUN i n mg/dL/creatinin e in mg/dL) EGFR (BEAKER) (test 110 mL/min/1.73 ESTIM ATED GFR IS code = 1092) sq m NOT ACCURATE CREATININE CLEARANCE IN PREDICTING GLOMERULAR FILTRATION RATE . ESTIMATED GFR I S NOT APPLICABLE FOR DIALYSIS PATIEN TS. C Developer ID - ADMINHemoglobin and [id number] 10:15:08 Test Item Value Reference Range Interpretation Comments Hemoglobin (test code 7.9 See_Comment L [Auto mated = 786-4) message] The system which generated this result transmit sheela reference range : 11.2 - 15.7 GM/ DL. The reference range was not u sed to interpret th is result as normal/abnormal . Hematocrit (test code 27.7 % 34.1-44.9 L = 4544-3) MARANDA (test code = MARANDA) C Developer ID - [id number] ID - [id number] Lab Interpretation Abnormal (test code = 17895-9) [facility] CenterHEMOGLOBIN AND [id number] 10:15:08 Test Item Value Reference Range Interpretation Comments HEMOGLOBIN (BEAKER) (test code = 7.9 GM/DL 11.2-15.7 L 410) HEMATOCRIT (BEAKER) (test code = 27.7 % 34.1-44.9 L 411) C Developer ID - [id number] ID - [id number] 09:51:28 Test Item Value Reference Range Interpretation Comments Haptoglobin (test code = 161 mg/dL 14-258 4542-7) MARANDA (test code = MARANDA) C Developer ID - HILARIO M Lab Interpretation (test Normal code = 36815-2) [facility] CenterHAPTOGLOBIN2022-03-12 09:51:28 Test Item Value Reference Range Interpretation Comments HAPTOGLOBIN (BEAKER) (test code = 161 mg/dL 14-258 366) C Developer ID - HILARIO [facility] W/PLT COUNT & AUTO [id number] 09:01:38 Test Item Value Reference Range Interpretation [...] PERCENT (BEAKER) (test code = 2801) POC-Glucose [id number] 07:43:08 Test Item Value Reference Range Interpretation Comments POC-Glucose Meter (test 93 mg/dL 70-110 : TE STED AT [facility] code = 1538) [address] [facility] [place], [address]: C Developer/Techni eli ID = [id number] for WOODS, LISAROSALBA Suero Lab Interpretation (test Normal code = 14235-3) [facility] CenterPOCT-GLUCOSE [id number] 07:43:08 Test Item Value Reference Range Interpretation Comments POC-GLUCOSE METER 93 mg/dL 70-110 : TESTED A T [facility] [address] (BEAKER) (test code = [place], 1538) [address]: C Developer/Techni eli ID = [id number] for RM SALES [id number] 07:20:27 Test Item Value Reference Range Interpretation Comments Ferritin (test code = 9.28 ng/mL 5.00-275.00 2276-4) MARANDA (test code = MARANDA) C Developer ID - HILARIO M Lab Interpretation (test Normal code = 90201-6) [facility] CenterFERRITIN2022-03-12 07:20:27 Test Item Value Reference Range Interpretation Comments FERRITIN (BEAKER) (test code = 9.28 ng/mL 5.00-275.00 361) C Developer ID - HILARIO epatic function [id number] 07:05:48 Test Item Value Reference Range Interpretation Comments Protein, Total (test 5.3 See_Comment L [Autom ated code = 2885-2) message] The system which generated this result transmit sheela reference range : 6.0 - 8.3 gm/dL . The reference range was not u sed to interpret th is result as normal/abnormal . Albumin (test code = 2.5 g/dL 3.5-5.0 L 67199-1) Total Bilirubin (test 1.2 mg/dL 0.2-1.2 code = 1975-2) Bilirubin, Direct 0.5 mg/dL 0.1-0.5 (test code = 1968-7) Alkaline Phosphatase 68 U/L 40-150 (test code = 6768-6) AST (test code = 11 U/L 5-34 1920-8) ALT (test code = <6 6-55 L 1742-6) MARANDA (test code = MARANDA) C Developer ID - HILARIO Lab Interpretation Abnormal (test code = 67005-3) [facility] CenterHEPATIC FUNCTION [id number] 07:05:48 Test Item Value Reference Range Interpretation [...] code = < U/L 6-55 L 347) C Developer SARAH RICH MBASIC METABOLIC [id number] 07:04:57 Test Item Value Reference Range Interpretation [...] 697) EGFR (BEAKER) (test 94 mL/min/1.73 ESTIMA SHEELA GFR IS code = 1092) sq m NOT ACCURATE CREATININE CLEARANCE IN PREDICTING GLOMERULAR FILTRATION RATE . ESTIMATED GFR I S NOT APPLICABLE FOR DIALYSIS PATIEN TS. C Developer SARAH RICH MLactate dehydrogenase (LDH)2022-01-30 07:00:03 Test Item Value Reference Range Interpretation Comments LDH (test code = 2532-0) 222 U/L 125-220 H MARANDA (test code = MARANDA) C Developer SARAH RICH M Lab Interpretation (test Abnormal code = 15425-6) [facility] CenterLACTATE DEHYDROGENASE (LDH)2022-01-30 07:00:03 Test Item Value Reference Range Interpretation Comments LACTATE DEHYDROGENASE (BEAKER) (test 222 U/L 125-220 H code = 635) C Developer SARAH RICH [place], TIBC, % sat. (without ferritin)2022-01-30 06:59:26 Test Item Value Reference Range Interpretation Comments Iron (test code = 2498-4) 16.0 ug/dL 40.0-160.0 L TIBC (test code = 2500-7) 279 ug/dL 250-450 Iron % Saturation (test 6 % 20-55 L code = 2502-3) MARANDA (test code = MARANDA) C Developer ID - HILARIO M Lab Interpretation (test Abnormal code = 16884-8) [facility] CenterIRON, TIBC, % SAT. (WITHOUT FERRITIN)2022-01-30 06:59:26 Test Item Value Reference Range Interpretation Comments IRON (BEAKER) (test code = 547) 16.0 ug/dL 40.0-160.0 L TOTAL IRON BINDING CAPACITY 279 ug/dL 250-450 (BEAKER) (test code = 769) IRON % SATURATION (2) (BEAKER) 6 % 20-55 L (test code = 2590) C Developer ID - HILARIO MReticulocyte sbjfe1597-03-18 06:37:58 Test Item Value Reference Range Interpretation Comments % Retic (test code = 1.2 % 0.5-1.7 03647-1) MARANDA (test code = MARANDA) C Developer ID - [id number] Lab Interpretation (test Normal code = 17172-6) [facility] CenterRETICULOCYTE [id number] 06:37:58 Test Item Value Reference Range Interpretation Comments RETICULOCYTE COUNT PCT (BEAKER) (test 1.2 % 0.5-1.7 code = 575) C Developer ID - [id number]-GLUCOSE [id number] 06:28:00 Test Item Value Reference Range Interpretation Comments POC-GLUCOSE METER 96 mg/dL 70-110 : Notified RN/MD: TESTED (BEAKER) (test code = AT [facility] [address] [facility] [address]) [facility] [address] [facility]: C Developer/Techni eli ID = [id number] for DORIS RUSS POCT-GLUCOSE [id number] 00:00:00 Test Item Value Reference Range Interpretation Comments POC-GLUCOSE METER 101 mg/dL 70-110 : Notified RN/MD: (BEAKER) (test code = TESTED AT [facility] 67[address] 1538) [facility], [address]: C Developer/Techni eli ID = [id number] for L[place], EUNICE ICE RAD, SHOULDER, COMPLETE (MIN 2 VIEWS), [id number] 13:20:00Reason for exam:- >Right shoulder pain [facility] : 1945 Sex: FFINAL [...] Longoria Verified Date/Time: 10/02/2020 13:20:31 Reading Location: [facility] Radiology Reading Room POCT-GLUCOSE [id number] 06:23:00 Test Item Value Reference Range Interpretation Comments POC-GLUCOSE METER 103 mg/dL 70-110 : Notified RN/MD: (SHAMIR) (test code = TESTED AT [facility] 67[address] 1538) [facility], [address]: C Developer/Techni eli ID = [id number] for EUNICE SNIDER ICE PT/[id number] 04:55:00 Test Item Value Reference Range Interpretation [...] for patients wiht mechanical heart valves.BASIC METABOLIC [id number] 04:39:00 Test Item Value Reference Range Interpretation [...] 697) EGFR (BEAKER) (test 79 mL/min/1.73 ESTIMA SHEELA GFR IS code = 1092) sq m NOT ACCURATE CREATININE CLEARANCE IN PREDICTING GLOMERULAR FILTRATION RATE . ESTIMATED GFR I S NOT APPLICABLE FOR DIALYSIS PATIEN TS. C Developer ID - HILARIO [facility] W/PLT COUNT & AUTO [id number] 04:08:00 Test Item Value Reference Range Interpretation [...] (BEAKER) (test code = 2801) URINALYSIS W/ [id number] 00:08:00 Test Item Value Reference Range Interpretation [...] 516) SOURCE(BEAKER) (test code = Urine, Voided 6438) C Developer ID - [auto]POCT-GLUCOSE [id number] 23:59:00 Test Item Value Reference Range Interpretation Comments POC-GLUCOSE METER 93 mg/dL 70-110 : Notified RN/: TESTED (BEAKER) (test code = AT [facility] [address] [facility] [address]) [facility], [facility] 30: C Developer/Techni eli ID = [id number] for EDIN BRIDGE, DORIS CT, BRAIN, WITHOUT [id number] 21:38:00Unlisted Reason for Exam - Click Yes and Enter Reason Below->No [facility] : 1945 Sex: FFINAL [...] mass effect. There is a 2 mm ktno-go-oletj midline shift at the level of the [...] hematomas. Associated parenchymal mass effect. 2 mm xunx-pm-agbxt midline shift. Multiple chronic infarcts as described. Mild linear hyperdensity in the left posterior temporal lobe favored to represent mineralization rather than acute hemorrhage. Short-term follow-up is recommended. Nohydrocephalus. Signed: Raz Mccauley MDReport Verified Date/Time: 10/01/2020 21:38:28 Electronicallysigned by: RAZ MCCAULEY MD on 10/01/2020 09:38 PMRAD, CHEST, 1 VIEW, NON DEPT 2020-10-01 20:22:00Reason for exam:->coughShould this be performed at the bedside?->Yes[facility] : 1945 Sex: FFINAL [...] MDReport Verified Date/Time: 10/01/2020 20:22:05 Reading Location: [facility] C013W Consult Reading Room
--- NOTE | 2023-08-04 00:44 | ER ---
Nurse's Notes [facility] Name: Carey Mcdaniel Age: 78 yrs Sex: Female : 1945 Arrival Date: 08/03/2023 Time: 21:59 Bed 6 Private MD: Tai Ann Diagnosis: Cough Presentation: 08/03 22:17 Chief complaint: Patient's son or daughter states: "she was coughing so much earlier as6 and I know she has so much mucous in her throat that we can't get out". Coronavirus screen: At this time, the client does not indicate any symptoms associated with coronavirus-19. Ebola Screen: No symptoms or risks identified at this time. Initial Sepsis Screen: Does the patient meet any 2 criteria? No. Patient's initial sepsis screen is negative. Does the patient have a suspected source of infection? No. Patient's initial sepsis screen is negative. Risk Assessment: Do you want to hurt yourself or someone else? Patient reports no desire to harm self or others. Onset of symptoms was August 03, 2023. 22:17 Acuity: EKATERINA 3 as6 22:17 Method Of Arrival: Wheelchair as6 Historical: - Allergies: 22:17 Hydrocodone-Acetaminophen; as6 - PMHx: 22:17 CVA; Right sided weakness; Dementia; Hypertension; as6 - PSHx: 22:17 None; as6 - Immunization history:: Client reports having NOT received the Covid vaccine. - Social history:: Smoking status: Patient denies any tobacco usage or history of. Screenin:57 [facility] ED Fall Risk Assessment (Adult) History of falling in the last 3 months, rv including since admission No falls in past 3 months (0 pts) Confusion or Disorientation Yes (5 pts) Intoxicated or Sedated No (0 pts) Impaired Gait Yes (1 pt) Mobility Assist Device Used No (0 pt) Altered Elimination No (0 pt) Score/Fall Risk Level 0 - 2 = Low Risk Oriented to surroundings, Maintained a safe environment, Educated pt \\T\\ family on fall prevention, incl call for assistance when getting out of bed, Assessed \\T\\ reinforced patient's understanding of fall precautions, Provided non-skid footwear, Hourly rounding (assess needs \\T\\ fall precautionary measures) done, Used ambulatory aids as needed (educated on \\T\\ assisted with), Used gait belt as appropriate. Abuse screen: Denies threats or abuse. Denies injuries from another. Nutritional screening: No deficits noted. Tuberculosis screening: No symptoms or risk factors identified. Assessment: 22:56 General: Appears comfortable, Behavior is calm, cooperative. Pain: Denies pain. Neuro: rv Level of Consciousness is awake, alert. Cardiovascular: Capillary refill < 3 seconds Patient's skin is warm and dry. Respiratory: Airway is patent Respiratory effort is even, unlabored, Breath sounds are clear bilaterally. Derm: Skin is intact. 08/04 00:24 Reassessment: Patient and/or family updated on plan of care and expected duration. Pain ha1 level reassessed. Patient is alert, oriented x 3, equal unlabored respirations, skin warm/dry/pink. 01:01 Reassessment: Patient and/or family updated on plan of care and expected duration. Pain ha1 level reassessed. Patient is alert, oriented x 3, equal unlabored respirations, skin warm/dry/pink. Vital Signs: 08/03 22:17 BP 130 / 79; Pulse 94; Resp 16; Temp 98.1; Pulse Ox 94% ; Weight 40.82 kg; Height 4 ft. as6 2 in. ; 08/04 00:20 BP 127 / 77; Pulse 79; Resp 19 S; Pulse Ox 98% ; ha1 08/03 22:17 Body Mass Index 25.31 (40.82 kg, 127 cm) as6 ED Course: 08/03 22:01 Patient arrived in ED. mr 22:01 Tai Ann, is Private Physician. mr 22:03 Micah Beauchamp PA is PHCP. cp 22:03 Franklin Rutledge MD is Attending Physician. cp 22:17 Arm band placed on. as6 22:19 Triage completed. as6 22:38 Jose Juan Marinelli, LON is Primary Nurse. rv 22:41 Chest Single View In Process Unspecified. EDMS 22:57 Patient has correct armband on for positive identification. Client placed on continuous rv cardiac and pulse oximetry monitoring. NIBP monitoring applied. library monitor on. 22:57 No provider procedures requiring assistance completed. Patient did not have IV access rv during this emergency room visit. 08/04 01:03 Provided Education on: medication administration . ha1 Administered Medications: No medications were administered Medication: 08/03 22:57 VIS not applicable for this client. rv Outcome: 08/04 00:44 Discharge ordered by . cp 01:01 Discharged to home via wheelchair, with family. ha1 01:01 Condition: stable 01:01 Discharge instructions given to patient, family, Instructed on discharge instructions, follow up and referral plans. medication usage, Demonstrated understanding of instructions, follow-up care, medications, Prescriptions given X 1. 01:03 Patient left the ED. ha1 Signatures: Dispatcher [employer] EDVA JassoAnupama cotto Corey, SUSANNA PA Jose Juan Selby RN RN Jeronimo Brady RN RN as6 Shelia Baez RN RN ha1
--- NOTE | 2023-08-04 00:44 | EDPHYS ---
Physician Documentation [facility] Name: Carey Mcdaniel Age: 78 yrs Sex: Female : 1945 Arrival Date: 08/03/2023 Time: 21:59 Bed 6 Private MD: Seth [facility] ED Physician Franklin Rutledge HPI: 08/03 22:35 This 78 yrs old Female presents to ER via Wheelchair with complaints of cp Congestion. 22:35 The patient or guardian reports cough, that is intermittent, sounds productive. Onset: cp The symptoms/episode began/occurred today. 22:35 Associated signs and symptoms: Pertinent negatives: chest pain, diarrhea, fever, sore cp throat, vomiting. Historical: - Allergies: 22:17 Hydrocodone-Acetaminophen; as6 - PMHx: 22:17 CVA; Right sided weakness; Dementia; Hypertension; as6 - PSHx: 22:17 None; as6 - Immunization history:: Client reports having NOT received the Covid vaccine. - Social history:: Smoking status: Patient denies any tobacco usage or history of. ROS: 22:50 Respiratory: Positive for cough, "sounds productive", Negative for wheezing. cp 22:50 Eyes: Negative for injury, pain, redness, and discharge. cp 22:50 Constitutional: Negative for fever, poor PO intake. 22:50 ENT: Negative for drainage from ear(s), difficulty swallowing, difficulty handling secretions. 22:50 Cardiovascular: Negative for chest pain. 22:50 Abdomen/GI: Negative for vomiting, diarrhea, constipation. 22:50 Neuro: Negative for altered mental status. 22:50 All other systems are negative. Exam: 22:53 Constitutional: The patient appears in no acute distress, alert, awake, cp non-diaphoretic, non-toxic, well developed, frail. 22:53 Head/Face: Normocephalic, atraumatic. cp 22:53 Eyes: Periorbital structures: appear normal, Conjunctiva: normal, no exudate, no injection, Sclera: no appreciated abnormality, Lids and lashes: appear normal, bilaterally. 22:53 ENT: External ear(s): are unremarkable, Ear canal(s): are normal, clear, TM's: dullness, bilaterally, Nose: is normal, Mouth: Lips: moist, Oral mucosa: pink and intact, moist, Posterior pharynx: Airway: no evidence of obstruction, patent, swelling, is not appreciated, erythema, is not appreciated, exudate, is not appreciated. 22:53 Neck: ROM/movement: is normal, is supple, no meningismus, no nuchal rigidity, Lymph nodes: no appreciated lymphadenopathy. 22:53 Chest/axilla: Inspection: normal, Palpation: is normal, no crepitus, no tenderness. 22:53 Cardiovascular: Rate: normal, Rhythm: regular. 22:53 Respiratory: the patient does not display signs of respiratory distress, Respirations: normal, no use of accessory muscles, no retractions, labored breathing, is not present, Breath sounds: decreased breath sounds, are not appreciated, stridor, is not appreciated, wheezing: is not appreciated. 22:53 Abdomen/GI: Inspection: abdomen appears normal, Palpation: abdomen is soft and non-tender, in all quadrants. Vital Signs: 22:17 BP 130 / 79; Pulse 94; Resp 16; Temp 98.1; Pulse Ox 94% ; Weight 40.82 kg; Height 4 ft. as6 2 in. ; 08/04 00:20 BP 127 / 77; Pulse 79; Resp 19 S; Pulse Ox 98% ; ha1 08/03 22:17 Body Mass Index 25.31 (40.82 kg, 127 cm) as6 MDM: 08/03 22:25 Patient medically screened. cp 23:00 Differential Diagnosis: Bronchitis Influenza Upper Respiratory Infection Otitis Media cp Viral Syndrome Pneumonia. 08/04 00:42 Data reviewed: vital signs, nurses notes, lab test result(s), radiologic studies, plain cp films. 00:42 Independent interpretation of the following test(s) in the Emergency Department X-Ray: cp My interpretation is image of chest negative for infiltrates. Historians other than the Patient: Daughter/Son: daughter provides HPI. Care significantly affected by the following chronic conditions: Hypertension, dementia. Counseling: I had a detailed discussion with the patient and/or guardian regarding the historical points, exam findings, and any diagnostic results supporting the discharge/admit diagnosis, lab results, radiology results, to return to the emergency department if symptoms worsen or persist or if there are any questions or concerns that arise at home. ED course: VSS. Patient appears non-toxic and no signs of respiratory distress. Will discharge to home for continued monitoring. 08/03 22:26 Order name: COVID-19 SARS RT PCR cp 08/03 22:26 Order name: Influenza Screen (a \\T\\ B) cp 08/03 22:26 Order name: Strep cp 08/03 23:37 Order name: Throat Culture EDRI 08/03 22:36 Order name: Chest Single View EDMS Administered Medications: No medications were administered Disposition Summary: 08/04/23 00:44 Discharge Ordered Location: Home cp Problem: new cp Symptoms: have improved cp Condition: Stable cp Diagnosis - Cough cp Followup: cp - With: Private Physician - When: 2 - 3 days - Reason: Recheck today's complaints Discharge Instructions: - Discharge Summary Sheet cp - Cough, Adult cp Forms: - Medication Reconciliation Form cp - Thank You Letter cp - Antibiotic Education cp - Prescription Opioid Use cp - Patient Portal Instructions cp - Leadership Thank You Letter cp Prescriptions: - Bromfed DM 2-30-10 mg/5 mL Oral syrup - administer 5 milliliter by ORAL route every 4 to 6 hours As needed as needed cp for cold symptoms; 150 milliliter; Refills: 0, Product Selection Permitted Addendum: 08/05/2023 02:35 Co-signature as Attending Physician, Franklin Rutledge MD I reviewed the patient's care r n provided by the Advanced Practice Provider and agree with the diagnosis and treatment plan. Signatures: Dispatcher [employer] Franklin Terrazas MD MD rn Page, Corey, PA PA cp Jeronimo Lofton RN RN as6 Corrections: (The following items were deleted from the chart) 08/03 22:36 22:26 Chest Pa And Lat (2 Views)+[email or web address] ordered. [facility] 08/04 23:14 08/03 22:50 Differential Diagnosis: Bronchitis Influenza Upper Respiratory Infection cp Otitis Media Viral Syndrome Pneumonia cp
[2023-08-04 01:22] VITALS: BP 161/93; TEMP 98; O2SAT 99
--- NOTE | 2023-08-05 11:48 | RAD REPORT ---
EXAM DESCRIPTION: RAD - Chest Single View - 08/03/2023 10:40 pm CLINICAL HISTORY: Cough.. TECHNIQUE: AP portable chest x-ray upright on 08/03/2023, at 22: 38. COMPARISON: 06/03/2022. FINDINGS: Heart: Normal size and configuration. Mediastinal Structures: There is atherosclerosis of the thoracic aorta. Lung Nicole: No active disease. Pulmonary Vascularity: Normal. Pleural Space: No active disease. Bony Structures: There is old rib fracture on the left. There is an old left clavicular fracture. IMPRESSION: 1. No acute cardiopulmonary disease. 2. There is atherosclerosis of the aortic arch. Electronically signed by: Bertrand Cisneros MD 08/03/2023 10:52 PM CDT Due to temporary technical issues with the PACS/Fluency reporting system, reports are being signed by the in house radiologists without review as a courtesy to insure prompt reporting. The interpreting radiologist is fully responsible for the content of the report.
== END 2023-08-04 01:03 | disposition home or self-care (01) ==
LOC: ER 21:59
DX: R05.9 Cough, unspecified (principal); I10 Essential (primary) hypertension; F03.90 Unspecified dementia, unspecified severity, without behavioral disturbance, psychotic disturbance, mood disturbance, and anxiety; Z20.822 Contact with and (suspected) exposure to COVID-19; Z88.5 Allergy status to narcotic agent; Z86.73 Personal history of transient ischemic attack (TIA), and cerebral infarction without residual deficits
CPT/HCPCS: 71045; 87070; 87081; 87635; 87804; 99284

== ENCOUNTER → 2023-11-26 | Emergency (ER) | payer OTHER ==
--- NOTE | 2023-11-26 17:01 | RAD REPORT ---
EXAM DESCRIPTION: RAD - Chest Single View - 11/26/2023 4:55 pm CLINICAL HISTORY: COUGH Chest pain. COMPARISON: Chest Single View dated 08/03/2023; Chest Single View dated 07/19/2023; Chest Single View dated 07/19/2023; Chest Single View dated 07/17/2023 FINDINGS: Portable technique limits examination quality. Mild bilateral pulmonary opacities are present which may represent pneumonia or pulmonary edema. The heart is mildly enlarged in size. No displaced fractures.
[2023-11-26 17:16] LABS: Absolute Lymphocytes (CBC) 1.1 K/uL (0.7-4.9); Hematocrit 27.7 % (36.0-45.0); Lymphocytes % 29.6 % (15.3-44.8); MCV 66.9 fL (80-100); MPV 6.9 fL (7.6-11.3); Platelets 451 thou/uL (152-406); RBC Red Blood Cell Count 4.14 M/uL (3.86-4.86)
[2023-11-26 17:24] LABS: Albumin 2.3 g/dL (3.4-5.0); Bilirubin Total 0.2 mg/dL (0.2-1.0); Potassium 4.1 mEq/L (3.5-5.1); Protein, Total 6.3 g/dL (6.4-8.2)
[2023-11-26 17:28] LABS: SARS-CoV-2 Antigen Rapid Res Negative (Negative)
--- NOTE | 2023-11-26 18:30 | EDPHYS ---
Physician Documentation [facility] Name: Carey Mcdaniel Age: 78 yrs Sex: Female : 1945 Arrival Date: 11/26/2023 Time: 15:28 Bed 19 Private MD: ED Physician Jg Angelo HPI: 11/26 16:38 This 78 yrs old Female presents to ER via Wheelchair with complaints of Flu ec2 Symptoms - Bad Night Time. 16:38 Patient arrives today due to concern for cough and cold symptoms. Patient with history ec2 of dementia, unable provide any information, brought in by daughter/caregiver. Patient reportedly is having increased fatigue as well as persistent cough. Patient having issues laying flat due to other congestion. Patient with baseline p.o. intake. No urinary complaints.. Historical: - Allergies: 16:09 Hydrocodone-Acetaminophen; cm10 - PMHx: 16:09 CVA; Right sided weakness; Dementia; Hypertension; cm10 - Immunization history:: Adult Immunizations up to date. - Social history:: Smoking status: Patient denies any tobacco usage or history of. ROS: 16:38 Constitutional: as per hpi ec2 Exam: 16:38 Constitutional: GEN: NAD Head: atraumatic Eyes: EOMI Ears: External ears are normal. ec2 Nose: Significant congestion noted CV: regular rate LUNGS: no respiratory distress ABD: non-distended SKIN: no evidence of rashes MSK: no evidence of trauma Vital Signs: 16:09 BP 117 / 66; Pulse 78; Resp 18; Temp 98.2; Pulse Ox 98% on R/A; Weight 40.82 kg (R); cm10 17:58 BP 135 / 64; Pulse 69; Resp 18; Pulse Ox 94% on R/A; db 18:40 BP 134 / 71; Pulse 77; Resp 18; Pulse Ox 94% on R/A; db MDM: 16:14 Patient medically screened. ec2 16:38 Data reviewed: vital signs. ED course: Patient arrives today for URI signs and ec2 symptoms. Examination remarkable for well-appearing nontoxic individual is otherwise in no acute distress. Will obtain lab work, chest x-ray, viral swabs. Suspect viral infection, lower suspicion for pneumonia given lack of focal lung sounds. Additionally considering dehydration. . 18:26 ED course: CBC shows slight anemia with hemoglobin 8.9. Metabolic profile is ec2 reassuring, patient is positive for influenza. Negative COVID testing. Chest x-ray shows bilateral patchy opacities, will treat for influenza given the URI signs symptoms as well as a chest x-ray. Patient discharged home. Return precautions given. . 11/26 16:15 Order name: CBC with Diff ec2 11/26 16:15 Order name: CMP; Complete Time: 18:25 ec2 11/26 16:15 Order name: SARS RAPID; Complete Time: 18:25 ec2 11/26 16:15 Order name: Influenza Screen (a \T\ B); Complete Time: 18:25 ec2 11/26 16:15 Order name: CXR XRAY; Complete Time: 18:25 ec2 Administered Medications: No medications were administered Disposition Summary: 11/26/23 18:29 Discharge Ordered Notes: Location: Home ec2 Condition: Stable ec2 Diagnosis - Influenza due to other identified influenza virus with other respiratory ec2 manifestations Followup: ec2 - With: Private Physician - When: - Reason: Re-evaluation by your physician Discharge Instructions: - Discharge Summary Sheet ec2 - Influenza, Adult ec2 Forms: - Medication Reconciliation Form ec2 - Thank You Letter ec2 - Antibiotic Education ec2 - Prescription Opioid Use ec2 - Patient Portal Instructions ec2 - Leadership Thank You Letter ec2 Prescriptions: - Tamiflu 6 mg/mL Oral Suspension for Reconstitution - take 10 milliliters ORAL route every 12 hours for 5 days; 120 milliliter; ec2 Refills: 0, Product Selection Permitted Signatures: Dispatcher [employer] Delmy Rm RN RN cm10 Jg Angelo MD MD ec2 Corrections: (The following items were deleted from the chart) 18:25 16:38 Patient arrives today due to concern for cough and cold symptoms. Patient with ec2 history of dementia, unable provide any information, brought in by daughter/caregiver. Patient reportedly is having increased fatigue as well as persistent cough. Patient having issues laying flat due to other congestion. Patient with baseline p.o. intake. No urinary complaints.. ec2
--- NOTE | 2023-11-26 18:30 | ER ---
Nurse's Notes [facility] Name: Carey Mcdaniel Age: 78 yrs Sex: Female : 1945 Arrival Date: 11/26/2023 Time: 15:28 Bed 19 Private MD: Diagnosis: Influenza due to other identified influenza virus with other respiratory manifestations Presentation: 11/26 16:09 Chief complaint: Patient's son or daughter states: Cough and congestion onset 2 days cm10 ago. Pt's daughter states that pt was around grand kids at home that were sick. At home COVID test negative. Low grade fevers. Coronavirus screen: Vaccine status: Patient reports receiving the 2nd dose of the covid vaccine. Client denies travel out of the [place] in the last 14 days. Ebola Screen: Patient denies travel to an Ebola-affected area in the 21 days before illness onset. No symptoms or risks identified at this time. Initial Sepsis Screen: Does the patient meet any 2 criteria? No. Patient's initial sepsis screen is negative. Does the patient have a suspected source of infection? No. Patient's initial sepsis screen is negative. Risk Assessment: Do you want to hurt yourself or someone else? Patient reports no desire to harm self or others. Onset of symptoms was November 26, 2023. 16:09 Method Of Arrival: Wheelchair cm10 16:09 Acuity: EKATERINA 3 cm10 Historical: - Allergies: 16:09 Hydrocodone-Acetaminophen; cm10 - PMHx: 16:09 CVA; Right sided weakness; Dementia; Hypertension; cm10 - Immunization history:: Adult Immunizations up to date. - Social history:: Smoking status: Patient denies any tobacco usage or history of. Screenin:08 [facility] ED Fall Risk Assessment (Adult) History of falling in the last 3 months, db including since admission No falls in past 3 months (0 pts) Confusion or Disorientation No (0 pts) Intoxicated or Sedated No (0 pts) Impaired Gait Yes (1 pt) Mobility Assist Device Used Yes (1 pt) Altered Elimination Yes (1 pt) Score/Fall Risk Level 3 or more points = High Risk Oriented to surroundings, Maintained a safe environment. Abuse screen: Denies threats or abuse. Denies injuries from another. Nutritional screening: No deficits noted. Tuberculosis screening: No symptoms or risk factors identified. Assessment: 17:30 Reassessment: Patient appears in no apparent distress at this time. Patient and/or db family updated on plan of care and expected duration. Pain level reassessed. General: Appears in no apparent distress. comfortable, Behavior is calm, cooperative. Pain: Unable to use pain scale. NON VERBAL. Neuro: Level of Consciousness is awake, alert, Oriented to none. Respiratory: Airway is patent Respiratory effort is even, unlabored, Respiratory pattern is regular, symmetrical. 18:40 Reassessment: Patient appears in no apparent distress at this time. Patient and/or db family updated on plan of care and expected duration. Pain level reassessed. Vital Signs: 16:09 BP 117 / 66; Pulse 78; Resp 18; Temp 98.2; Pulse Ox 98% on R/A; Weight 40.82 kg (R); cm10 17:58 BP 135 / 64; Pulse 69; Resp 18; Pulse Ox 94% on R/A; db 18:40 BP 134 / 71; Pulse 77; Resp 18; Pulse Ox 94% on R/A; db ED Course: 15:32 Patient arrived in ED. mg5 15:49 Jg Angelo MD is Attending Physician. ec2 16:12 Triage completed. cm10 16:12 Arm band placed on Patient placed in an exam room. cm10 16:45 Jazmine Abdalla, LON is Primary Nurse. db 16:45 Missed attempt(s): 24 gauge in left wrist. Bleeding controlled, band aid applied, mb4 catheter tip intact. 16:48 Missed attempt(s): 24 gauge in left forearm. Bleeding controlled, band aid applied, mb4 catheter tip intact. 16:57 CXR XRAY In Process Unspecified. EDMS 16:58 Influenza Screen (a \T\ B) Sent. mb4 16:58 SARS RAPID Sent. mb4 16:59 Initial lab(s) drawn, by ED staff, sent to lab. Inserted saline lock: 22 gauge in left mb4 antecubital area, using aseptic technique. Blood collected. 18:40 Patient has correct armband on for positive identification. Bed in low position. Call db light in reach. Side rails up X2. Provided Education on: DISCHARGE INSTRUCTIONS AND FLU . Pulse ox on. NIBP on. 18:40 No provider procedures requiring assistance completed. IV discontinued, intact, db bleeding controlled, No redness/swelling at site. Administered Medications: No medications were administered Medication: 18:40 VIS not applicable for this client. db Outcome: 18:29 Discharge ordered by . ec2 18:40 Discharged to home via wheelchair, with family, db 18:40 Condition: stable 18:40 Discharge instructions given to family, Instructed on discharge instructions, follow up and referral plans. Prescriptions given X 1, 18:43 Patient left the ED. db Signatures: Dispatcher [employer] EDSonali Li mb4 Jazmine Abdalla, RN RN Delmy Ball RN RN cm10 Karmen Villar mg5 Jg Angelo MD MD ec2
[2023-11-26 19:30] LABS: Anisocytosis 1+; Blood Morphology Comment NOTED (NOT SEEN); Hypochromasia 1+; Ovalocytes 1+; Platelet Estimate INCR; Poikilocytosis 1+; White Blood Cell Scan OK (OK)
[2023-11-26 21:01] VITALS: TEMP 98.2
[2023-11-26 21:11] VITALS: BP 134/71; O2SAT 94
== END ==
LOC: ER 15:28
DX: J10.1 Influenza due to other identified influenza virus with other respiratory manifestations (principal); Z11.52 Encounter for screening for COVID-19; I10 Essential (primary) hypertension; F03.90 Unspecified dementia, unspecified severity, without behavioral disturbance, psychotic disturbance, mood disturbance, and anxiety; Z86.73 Personal history of transient ischemic attack (TIA), and cerebral infarction without residual deficits; Z88.5 Allergy status to narcotic agent
CPT/HCPCS: 36415; 71045; 80053; 85025; 87804; 87811; 99284

== ENCOUNTER → 2023-12-20 | Emergency (ER) | payer OTHER ==
[~2023-12-20] MED LIST: LEVALBUTEROL 1.25 MG/3 ML NEB ONE; METHYLPREDNISOLONE 125 MG INJ ONE
--- NOTE | 2023-12-20 21:17 | RAD REPORT ---
EXAM DESCRIPTION: RAD - Chest Single View - 12/20/2023 9:02 pm CLINICAL HISTORY: CHEST PAIN Chest pain. COMPARISON: Chest Single View dated 11/26/2023; Chest Single View dated 08/03/2023; Chest Single View d ated 07/19/2023; Chest Single View dated 07/19/2023 FINDINGS: Portable technique limits examination quality. The lungs are emphysematous but grossly clear. The heart is normal in size. No displaced fractures. IMPRESSION: COPD.
[2023-12-20 21:22] LABS: Absolute Lymphocytes (CBC) 1.4 K/uL (0.7-4.9); Hematocrit 29.7 % (36.0-45.0); Lymphocytes % 16.4 % (15.3-44.8); MCV 68.2 fL (80-100); MPV 7.2 fL (7.6-11.3); Platelets 536 thou/uL (152-406); RBC Red Blood Cell Count 4.36 M/uL (3.86-4.86)
[2023-12-20 21:38] LABS: ALT/SGPT 33 U/L (13-56); AST/SGOT 26 U/L (15-37); Albumin 2.3 g/dL (3.4-5.0); Alkaline Phosphatase 76 U/L (45-117); BUN Blood Urea Nitrogen 7 mg/dL (7-18); Bicarbonate 29 mEq/L (21-32); Bilirubin Total 0.2 mg/dL (0.2-1.0); Creatine Phosphokinase 100 U/L (26-192); Glomerular Filtration Rate 95 ml/min (=/>90); Glucose Level 111 mg/dL (74-106); Lipase 26 U/L (13-75); Magnesium 2.1 mg/dL (1.6-2.4); NT PRO-BNP 1287 pg/mL (<450); Protein, Total 7.1 g/dL (6.4-8.2); Sodium Level 139 mEq/L (136-145); Troponin High Sensitivity 20.1 pg/mL (<58.9)
[2023-12-20 21:42] LABS: Bilirubin Direct < 0.1 mg/dL (0-0.2); Bilirubin Indirect, Calculated ND mg/dL (0.2-0.8)
[2023-12-20 21:56] LABS: Protime INR 1.07
--- NOTE | 2023-12-20 22:14 | EDPHYS ---
Physician Documentation [facility] Name: Carey Mcdaniel Age: 78 yrs Sex: Female : 1945 Arrival Date: 12/20/2023 Time: 20:35 Bed 18 Private MD: ED Physician Guillaume Mcgraw HPI: 12/20 20:38 This 78 yrs old Female presents to ER via Unassigned with complaints of sp4 Breathing Difficulty. 20:39 Allergies: 16:09 Hydrocodone-Acetaminophen; PMHx: 16:09 CVA; Right sided weakness; sp4 Dementia; Hypertension;. 22:05 78-year-old female with history of right-sided hemiparesis prior CVA dementia nonverbal sp4 status nonambulatory, brought in by her family to be evaluated for acute choking episode at home. Patient seemed short of breath at home after she choked on her food. Patient does not have gastrostomy tube. Patient is elderly debilitated female with right-sided hemiparesis who is nonverbal at baseline nonambulatory at home.. Historical: - Allergies: 20:44 Hydrocodone-Acetaminophen; kc6 - PMHx: 20:44 CVA; Right sided weakness; Dementia; Hypertension; non verbal (Hypertension); kc6 - PSHx: 20:44 None; kc6 - Immunization history:: Adult Immunizations up to date. - Social history:: Smoking status: Patient denies any tobacco usage or history of. - Family history:: not pertinent. ROS: 22:05 Constitutional: Negative for fever, chills, and weight loss, positive for shortness of sp4 breath and acute choking episode 22:05 All other systems are negative, Exam: 22:01 ECG was reviewed by the Attending Physician. EKG time 2057, normal sinus rhythm, sp4 22:05 Constitutional: This is a well developed, well nourished patient who is awake, alert, sp4 positive elderly debilitated female is nonverbal, cachectic appearing, right-sided hemiparesis with contractures from hemiparesis.. Patient is nonambulatory signs of advanced physical debility. Head/Face: Normocephalic, atraumatic. Eyes: Pupils equal round and reactive to light, extra-ocular motions intact. Lids and lashes normal. Conjunctiva and sclera are not injected. Cornea within normal limits. Periorbital areas with no swelling, redness, or edema. ENT: Nares patent. No nasal discharge, no septal abnormalities noted. Tympanic membranes are normal and external auditory canals are clear. Oropharynx with no redness, swelling, or masses, exudates, or evidence of obstruction, uvula midline. Mucous membranes moist. Patient is edentulous Neck: Trachea midline, no thyromegaly or masses palpated, and no cervical lymphadenopathy. Patient has negative neck tenderness and contractures of the neck secondary to immobility. Chest/axilla: Normal chest wall appearance and motion. Nontender with no deformity. No lesions are appreciated. Cardiovascular: Regular rate and rhythm with a normal S1 and S2. No gallops, murmurs, or rubs. Normal PMI, no JVD. No pulse deficits. Respiratory: Lungs have equal breath sounds bilaterally, clear to auscultation and percussion. No rales, rhonchi or wheezes noted. No increased work of breathing, no retractions or nasal flaring. Abdomen/GI: Soft, non-tender, with normal bowel sounds. No distension or tympany. No guarding or rebound. No evidence of tenderness throughout. Back: No spinal tenderness. No costovertebral tenderness. Skin: Warm, dry with normal turgor. Normal color with no rashes, no lesions, and no evidence of cellulitis. MS/ Extremity: Pulses equal, no cyanosis. Multiple contractures from immobility. Exam is negative for acute deformities Neuro: Awake and alert, understands commands but not able to cooperate, extensive right-sided contractures on the right sided hemiparesis, also contractures associated with prolonged immobility. No new neurologic deficits reported Vital Signs: 20:43 BP 155 / 91; Pulse 98; Resp 16 S; Pulse Ox 98% on R/A; Weight 40.82 kg (R); Height 4 kc6 ft. 6 in. (R); 21:00 BP 160 / 68; Pulse 73; Resp 16; Pulse Ox 100% on R/A; cm10 21:30 BP 157 / 69; Pulse 73; Resp 18; Pulse Ox 96% on R/A; cm10 22:00 BP 153 / 86; Pulse 78; Resp 16; Pulse Ox 98% on R/A; cm10 20:43 Body Mass Index 21.70 (40.82 kg, 137.16 cm) kc6 MDM: 20:40 Patient medically screened. sp4 22:05 Differential diagnosis: Anxiety Reaction asthma, Bronchitis CHF exacerbation, Chronic sp4 Obstructive Pulmonary Disease. Antibiotic administration: Not indicated. Data reviewed: vital signs, nurses notes, old medical records, lab test result(s), EKG, radiologic studies, plain films. ED course: Patient has stable oxygenation, she is not short of breath on evaluation, she has clear lung exam, patient is stable for discharge home. Workup today is unremarkable.. 12/20 20:39 Order name: BMP; Complete Time: 21:56 sp4 12/20 20:39 Order name: CBC with Diff sp4 12/20 20:39 Order name: CPK; Complete Time: 21:56 sp4 12/20 20:39 Order name: Hepatic Function; Complete Time: 21:56 sp4 12/20 20:39 Order name: Lipase; Complete Time: 21:56 sp4 12/20 20:39 Order name: Magnesium; Complete Time: 21:56 sp4 12/20 20:39 Order name: NT PRO-BNP; Complete Time: 21:56 sp4 12/20 20:39 Order name: PT-INR sp4 12/20 20:39 Order name: Ptt, Activated 4 12/20 20:39 Order name: Troponin HS; Complete Time: 21:56 sp4 12/20 20:39 Order name: XRAY CXR (1 view); Complete Time: 21:56 sp4 12/20 20:39 Order name: EKG; Complete Time: 20:40 sp4 12/20 20:39 Order name: Cardiac monitoring; Complete Time: 21:39 sp4 12/20 20:39 Order name: EKG - Nurse/Tech; Complete Time: 21:00 sp4 12/20 20:39 Order name: IV Saline Lock; Complete Time: 21:15 sp4 12/20 20:39 Order name: Labs collected and sent; Complete Time: 21:15 sp4 12/20 20:39 Order name: O2 Per Protocol; Complete Time: 21:00 sp4 12/20 20:39 Order name: O2 Sat Monitoring; Complete Time: 21:00 sp4 EC:01 Rate is 90 beats/min. Rhythm is regular, Normal Sinus Rhythm. QRS [place] is Normal. [place] sp4 interval is normal. QRS interval is normal. QT interval is normal. No Q waves. T waves are Flattened in leads V3, V4, V5, V6. Clinical impression: No evidence of ischemia. Interpreted by me. Reviewed by me. Administered Medications: No medications were administered Disposition Summary: 12/20/23 22:13 Discharge Ordered Notes: Location: Home sp4 Problem: new sp4 Symptoms: have improved sp4 Condition: Stable sp4 Diagnosis - Acute bronchospasm sp4 - Acute choking episode sp4 Followup: sp4 - With: Private Physician - When: 7 - 10 days - Reason: Recheck today's complaints Discharge Instructions: - Discharge Summary Sheet sp4 - Choking, Adult sp4 Forms: - Patient Portal Instructions sp4 Signatures: Dispatcher [employer] Sue Rivas RN RN kc6 Guillaume Mcgraw MD MD sp4 Corrections: (The following items were deleted from the chart) 21:01 20:40 Arterial Blood Gas+[id number].BRZ ordered. EDMS EDMS
--- NOTE | 2023-12-20 22:14 | ER ---
Nurse's Notes [facility] Name: Carey Mcdaniel Age: 78 yrs Sex: Female : 1945 Arrival Date: 12/20/2023 Time: 20:35 Bed 18 Private MD: Diagnosis: Acute bronchospasm;Acute choking episode Presentation: 12/20 20:43 Chief complaint: Patient's son or daughter states: p was eating dinner at about 1900 kc6 when she began to cough. daughter states she has been gasping for air since then. SPO2 98% in triage. Coronavirus screen: At this time, the client does not indicate any symptoms associated with coronavirus-19. Ebola Screen: No symptoms or risks identified at this time. Initial Sepsis Screen: Does the patient meet any 2 criteria? No. Patient's initial sepsis screen is negative. Does the patient have a suspected source of infection? No. Patient's initial sepsis screen is negative. Risk Assessment: Do you want to hurt yourself or someone else? Patient reports no desire to harm self or others. Onset of symptoms was December 20, 2023. 20:43 Method Of Arrival: Wheelchair kc6 20:43 Acuity: EKATERINA 3 kc6 Triage Assessment: 20:44 General: Appears in no apparent distress. comfortable, well groomed, well developed, kc6 Behavior is calm, cooperative, appropriate for age. Pain: Unable to use pain scale. Patient appears quiet. EENT: No signs and/or symptoms were reported regarding the EENT system. Neuro: Level of Consciousness is awake, alert, Oriented to person, Appropriate for age. Cardiovascular: Capillary refill < 3 seconds. Respiratory: Reports cough that is pain with cough Airway is patent Trachea midline Respiratory effort is even, unlabored, Respiratory pattern is regular, symmetrical, Onset: The symptoms/episode began/occurred today, the patient has mild shortness of breath. GI: No signs and/or symptoms were reported involving the gastrointestinal system. : No signs and/or symptoms were reported regarding the genitourinary system. Derm: No signs and/or symptoms reported regarding the dermatologic system. Skin is intact, is healthy with good turgor, Skin is pink, warm \T\ dry. Musculoskeletal: No signs and/or symptoms reported regarding the musculoskeletal system. Circulation, motion, and sensation intact. Capillary refill < 3 seconds, Range of motion: intact in all extremities. Historical: - Allergies: 20:44 Hydrocodone-Acetaminophen; kc6 - PMHx: 20:44 CVA; Right sided weakness; Dementia; Hypertension; non verbal (Hypertension); kc6 - PSHx: 20:44 None; kc6 - Immunization history:: Adult Immunizations up to date. - Social history:: Smoking status: Patient denies any tobacco usage or history of. - Family history:: not pertinent. Screenin:46 [facility] ED Fall Risk Assessment (Adult) History of falling in the last 3 months, kc6 including since admission No falls in past 3 months (0 pts) Confusion or Disorientation Yes (5 pts) Intoxicated or Sedated No (0 pts) Impaired Gait Yes (1 pt) Mobility Assist Device Used Yes (1 pt) Altered Elimination No (0 pt) Score/Fall Risk Level 3 or more points = High Risk. Abuse screen: Denies threats or abuse. Denies injuries from another. Nutritional screening: No deficits noted. Tuberculosis screening: No symptoms or risk factors identified. Assessment: 21:54 Reassessment: Assumed care of patient at this time. Pt's daughter (caregiver) at cm10 bedside at this time. Caregiver states that pt was eating dinner tonight and started having a choking episode. Pt's respirations even and unlabored on RA at this time. Pt on continuous cardiac monitoring. General: Appears in no apparent distress. comfortable, Behavior is calm, cooperative. Neuro: No deficits noted. Level of Consciousness is awake, alert, Oriented to Pt non-verbal. Cardiovascular: No deficits noted. Patient's skin is warm and dry. Rhythm is regular. Respiratory: Airway is patent Respiratory effort is even, unlabored, Respiratory pattern is regular, symmetrical, Breath sounds are clear bilaterally. GI: No deficits noted. No signs and/or symptoms were reported involving the gastrointestinal system. : No deficits noted. No signs and/or symptoms were reported regarding the genitourinary system. EENT: No deficits noted. No signs and/or symptoms were reported regarding the EENT system. Derm: No deficits noted. No signs and/or symptoms reported regarding the dermatologic system. Skin is intact, Skin is pink, warm \T\ dry. Musculoskeletal: No deficits noted. No signs and/or symptoms reported regarding the musculoskeletal system. Vital Signs: 20:43 BP 155 / 91; Pulse 98; Resp 16 S; Pulse Ox 98% on R/A; Weight 40.82 kg (R); Height 4 kc6 ft. 6 in. (R); 21:00 BP 160 / 68; Pulse 73; Resp 16; Pulse Ox 100% on R/A; cm10 21:30 BP 157 / 69; Pulse 73; Resp 18; Pulse Ox 96% on R/A; cm10 22:00 BP 153 / 86; Pulse 78; Resp 16; Pulse Ox 98% on R/A; cm10 20:43 Body Mass Index 21.70 (40.82 kg, 137.16 cm) kc6 ED Course: 20:36 Patient arrived in ED. jj6 20:38 Guillaume Mcgraw MD is Attending Physician. sp4 20:44 Triage completed. kc6 20:44 Arm band placed on. kc6 20:46 Patient has correct armband on for positive identification. Placed in gown. Bed in low kc6 position. Call light in reach. Side rails up X2. Adult w/ patient. Client placed on continuous cardiac and pulse oximetry monitoring. NIBP monitoring applied. environmental monitoring specialist on. 20:46 Patient maintains SpO2 saturation greater than 95% on room air. kc6 21:04 XRAY CXR (1 view) In Process Unspecified. EDMS 21:15 Inserted saline lock: 22 gauge in left antecubital area, using aseptic technique. Blood km8 collected. 21:54 Delmy Kim, RN is Primary Nurse. cm10 21:57 Provided Education on: ER process and procedures. . cm10 22:34 No provider procedures requiring assistance completed. IV discontinued, intact, cm10 bleeding controlled, No redness/swelling at site. Pressure dressing applied. Administered Medications: No medications were administered Medication: 21:57 VIS not applicable for this client. cm10 Outcome: 22:13 Discharge ordered by . sp4 22:34 Discharged to home via wheelchair, with family, cm10 22:34 Condition: good 22:34 Discharge instructions given to bed worker, Instructed on discharge instructions, follow up and referral plans. Demonstrated understanding of instructions, follow-up care, 22:34 Patient left the ED. cm10 Signatures: Dispatcher [employer] EDMS Kae Price jj6 Sue Vee, RN RN kc6 Guillaume Mcgraw MD MD sp4 Delmy Kim, RN RN cm10 Missy Delgadillo, RN RN km8
[2023-12-20 22:52] LABS: Anisocytosis 2+; Blood Morphology Comment NOTED (NOT SEEN); Hypochromasia 2+; Platelet Estimate ADEQ; White Blood Cell Scan OK (OK)
[2023-12-21 11:20] VITALS: BP 153/86; O2SAT 98
--- NOTE | 2023-12-22 13:27 | EKG ---
Test Date: 2023-12-20 Test Time: 20:58:12 Insulation Machine Operator: SARAH MEASUREMENT RESULTS: Intervals: Rate: 90 UT: 154 QRSD: 76 QT: 368 QTc: 450 [place]: P: 37 UT: 154 QRS: -1 T: 85 INTERPRETIVE STATEMENTS: Normal sinus rhythm Possible Anterior infarct, age undetermined Abnormal ECG Compared to ECG 07/17/2023 22:38:53 Myocardial infarct finding now present T-wave abnormality no longer present Electronically Signed On 12-22-23 13:23:04 FARM ADVISOR by Jeff Espino
== END ==
LOC: ER 20:35
DX: J98.01 Acute bronchospasm (principal); T17.920A Food in respiratory tract, part unspecified causing asphyxiation, initial encounter; I69.351 Hemiplegia and hemiparesis following cerebral infarction affecting right dominant side; F03.90 Unspecified dementia, unspecified severity, without behavioral disturbance, psychotic disturbance, mood disturbance, and anxiety; Z88.5 Allergy status to narcotic agent
CPT/HCPCS: 36415; 71045; 80048; 80076; 82550; 83690; 83735; 83880; 84484; 85025; 85610; 85730; 93005

== ENCOUNTER 2023-12-21 13:53 | Inpatient (IN) | payer OTHER ==
[2023-12-21 14:56] LABS: Absolute Lymphocytes (CBC) 1.1 K/uL (0.7-4.9); Hematocrit 29.6 % (36.0-45.0); MCV 68.9 fL (80-100); MPV 7.2 fL (7.6-11.3); Platelets 455 thou/uL (152-406); RBC Red Blood Cell Count 4.29 M/uL (3.86-4.86)
[2023-12-21 15:10] LABS: Potassium 3.4 mEq/L (3.5-5.1)
[2023-12-21 15:22] LABS: Platelet Estimate ADEQ; White Blood Cell Scan OK (OK)
[2023-12-21 15:23] LABS: Anisocytosis 2+; Blood Morphology Comment NOTED (NOT SEEN); Hypochromasia 1+
--- NOTE | 2023-12-21 15:41 | RAD REPORT ---
EXAM DESCRIPTION: CT - Chest For Pe Angio - 12/21/2023 2:56 pm CLINICAL HISTORY: Chest pain /cough COMPARISON: November 2022 TECHNIQUE: Dynamically enhanced axial 3 mm thick images of the chest were obtained during administra tion of 80 mL Isovue 370 IV contrast. Coronal and oblique reconstruction images were generated and re viewed. Exam utilizes a protocol for optimal evaluation of pulmonary arterial tree. Maximum intensity projections 3D imaging was utilized All CT scans are performed using dose optimization technique as appropriate and may include automated exposure control or mA/KV adjustment according to patient size. FINDINGS: A pulmonary embolus is not seen. A thoracic aortic aneurysm is not noted. A pleural effusion is not seen. A pericardial effusion is not seen. Mild left lower lobe atelectasis The esophagus is markedly dilated. IMPRESSION: Negative for a pulmonary embolism. Marked esophageal dilatation. Direct visualization of the region of the GE junction recommended
--- NOTE | 2023-12-21 15:44 | RAD REPORT ---
EXAM DESCRIPTION: CT - Soft Tissue Neck W/Contr - 12/21/2023 2:56 pm CLINICAL HISTORY: Neck pain/difficulty swallowing COMPARISON: None. TECHNIQUE: Computed axial tomography of the neck was obtained. 50 cc Isovue 300 was administered in travenously. Coronal and sagittal reconstruction was performed. All CT scans are performed using dose optimization technique as appropriate and may include automated exposure control or mA/KV adjustment according to patient size. FINDINGS: The pharynx, tongue base, larynx and subglottic trachea appear unremarkable The parotid, submandibular and thyroid glands appear unremarkable. No lymphadenopathy is seen Distal dilatation of the thoracic esophagus 3 centimeter low-density area left occipital lobe may represent an old infarct IMPRESSION: Marked dilatation of the distal thoracic esophagus. Refer to the CT chest report on same date for additional findings
--- NOTE | 2023-12-21 16:02 | RAD REPORT ---
EXAM DESCRIPTION: [facility] Single View12/21/2023 2:37 pm CLINICAL HISTORY: cough COMPARISON: May 20, 2024 FINDINGS: Mild left lower lobe atelectasis The remainder of the lungs appear clear of acute infiltrate. The heart is normal size
--- NOTE | 2023-12-21 16:23 | ER ---
Nurse's Notes [facility] Name: Carey Mcdaniel Age: 78 yrs Sex: Female : 1945 Arrival Date: 12/21/2023 Time: 13:53 Bed 2 Private MD: Diagnosis: Esophageal dilatation;Dyspnea, unspecified;Cough Presentation: 12/21 13:58 Chief complaint: Patient's son or daughter states: pt was discharged from here last kc6 night for difficulty breathing and coughing after eating dinner. daughter thought she was choking on her food. EMS states the daughter says the same thing is still happening. MILVIA treatment given en route. Coronavirus screen: At this time, the client does not indicate any symptoms associated with coronavirus-19. Ebola Screen: No symptoms or risks identified at this time. Initial Sepsis Screen: Does the patient meet any 2 criteria? No. Patient's initial sepsis screen is negative. Does the patient have a suspected source of infection? No. Patient's initial sepsis screen is negative. Risk Assessment: Do you want to hurt yourself or someone else? Patient reports no desire to harm self or others. Onset of symptoms was December 21, 2023. 13:58 Method Of Arrival: EMS: [facility] kc6 13:58 Acuity: EKATERINA 3 kc6 Triage Assessment: 14:00 General: Appears in no apparent distress. comfortable, slender, well groomed, well kc6 developed, Behavior is calm, cooperative, appropriate for age. Pain: Unable to use pain scale. Does not appear to understand pain scale. FLACC scale score is 0 out of 10. EENT: No signs and/or symptoms were reported regarding the EENT system. Neuro: Level of Consciousness is awake, alert, Oriented to person, Appropriate for age. Cardiovascular: Capillary refill < 3 seconds. Respiratory: Reports cough that is productive, Airway is patent Trachea midline Respiratory effort is even, unlabored, Respiratory pattern is regular, symmetrical, Onset: The symptoms/episode began/occurred just prior to arrival, the patient has mild shortness of breath. GI: No signs and/or symptoms were reported involving the gastrointestinal system. : No signs and/or symptoms were reported regarding the genitourinary system. Derm: No signs and/or symptoms reported regarding the dermatologic system. Skin is intact, is healthy with good turgor, Skin is pink, warm \T\ dry. Musculoskeletal: No signs and/or symptoms reported regarding the musculoskeletal system. Circulation, motion, and sensation intact. Capillary refill < 3 seconds, Range of motion: intact in all extremities. Historical: - Allergies: 14:00 Hydrocodone-Acetaminophen; kc6 - PMHx: 14:00 CVA; Right sided weakness; Dementia; Hypertension; non verbal (Hypertension); kc6 - PSHx: 14:00 None; kc6 - Immunization history:: Adult Immunizations unknown. - Social history:: Smoking status: unknown. - History obtained from: EMS. Screenin:02 [facility] ED Fall Risk Assessment (Adult) History of falling in the last 3 months, kc6 including since admission No falls in past 3 months (0 pts) Confusion or Disorientation Yes (5 pts) Intoxicated or Sedated No (0 pts) Impaired Gait Yes (1 pt) Mobility Assist Device Used Yes (1 pt) Altered Elimination No (0 pt) Score/Fall Risk Level 3 or more points = High Risk. Abuse screen: Denies threats or abuse. Denies injuries from another. Nutritional screening: No deficits noted. Tuberculosis screening: No symptoms or risk factors identified. Assessment: 14:03 Reassessment: please see triage assessment. kc6 15:03 Reassessment: Patient appears in no apparent distress at this time. No changes from 6 previously documented assessment. Patient and/or family updated on plan of care and expected duration. Pain level reassessed. 16:03 Reassessment: Patient appears in no apparent distress at this time. No changes from 6 previously documented assessment. Patient and/or family updated on plan of care and expected duration. Pain level reassessed. 16:52 Reassessment: attempted to call report to 4th floor. no answer at this time. kc6 16:59 Reassessment: attempted to call report to 4th floor. no answer at this time. kc6 Vital Signs: 13:58 BP 153 / 79; Pulse 80; Resp 16 S; Pulse Ox 98% on R/A; Weight 40.82 kg (M); Height 4 kc6 ft. 6 in. (R); 15:52 BP 132 / 74; Pulse 79; Resp 16 S; Pulse Ox 98% on R/A; kc6 13:58 Body Mass Index 21.70 (40.82 kg, 137.16 cm) kc6 ED Course: 13:57 Patient arrived in ED. ld1 13:59 Franklin Rutledge MD is Attending Physician. rn 14:00 Triage completed. kc6 14:00 Arm band placed on. kc6 14:02 Patient has correct armband on for positive identification. Placed in gown. Bed in low kc6 position. Call light in reach. Side rails up X2. Adult w/ patient. Client placed on continuous cardiac and pulse oximetry monitoring. NIBP monitoring applied. 14:02 Patient maintains SpO2 saturation greater than 95% on room air. kc6 14:39 XRAY Chest (1 view) In Process Unspecified. EDMS 14:50 Sue Vee, RN is Primary Nurse. kc6 14:50 Inserted saline lock: 20 gauge in left antecubital area, using aseptic technique. Blood kc6 collected. 14:58 CT Chest For PE Angio In Process Unspecified. EDMS 14:58 Soft Tissue Neck W/Contr CT In Process Unspecified. EDMS 16:22 Carroll Rutledge MD is Hospitalizing Provider. rn 17:36 No provider procedures requiring assistance completed. Patient admitted, IV remains in kc6 place. Administered Medications: 14:50 Drug: MethylPrednisoLONE IVP 125 mg IVP once Route: IVP; Site: left antecubital; kc6 15:52 Follow up: Response: No adverse reaction kc6 15:05 Drug: Levalbuterol Inhalation 1.25 mg Inhalation once Route: Inhalation; kc6 15:52 Follow up: Response: No adverse reaction [facility] Medication: 17:36 VIS not applicable for this client. [facility] Outcome: 16:23 Decision to Hospitalize by Provider. rn 17:36 Admitted to Med/surg accompanied by tech, via stretcher, with chart, Report called to topher encarnacion rn 17:36 Condition: good 17:36 Instructed on the need for admit, 17:36 Patient left the ED. [facility] Signatures: Dispatcher [employer] EDMS Franklin Rutledge MD MD rn Sims, Lauren, RN RN ld1 Sue Vee RN RN kc6
--- NOTE | 2023-12-21 16:23 | EDPHYS ---
Physician Documentation [facility] Name: Carye Mcdaniel Age: 78 yrs Sex: Female : 1945 Arrival Date: 12/21/2023 Time: 13:53 Bed 2 Private MD: ED Physician Franklin Rutledge HPI: 12/21 14:25 This 78 yrs old Female presents to ER via EMS with complaints of Breathing rn Difficulty, Cough. 14:25 The patient has shortness of breath at rest. Onset: The symptoms/episode began/occurred rn yesterday. Duration: The symptoms are intermittent. The patient's shortness of breath is aggravated by coughing, is alleviated by sitting up. Severity of symptoms: At their worst the symptoms were moderate in the emergency department the symptoms have improved. The patient has experienced a previous episode. Patient brought in by EMS for persistent coughing and apparent difficulty breathing. Seen here last night for same problem and discharged home. Per EMS report, family noted patient to seem choking and having difficulty breathing with cough. Per report patient has history of stroke and nonverbal. No feeding tube. No fever.. Historical: - Allergies: 14:00 Hydrocodone-Acetaminophen; kc6 - PMHx: 14:00 CVA; Right sided weakness; Dementia; Hypertension; non verbal (Hypertension); kc6 - PSHx: 14:00 None; kc6 - Immunization history:: Adult Immunizations unknown. - Social history:: Smoking status: unknown. - History obtained from: EMS. ROS: 14:25 Unable to obtain ROS due to altered mental status, rn Exam: 14:25 Constitutional: Cachectic female, no acute distress Head/Face: Normocephalic, rn atraumatic. ENT: Dry mucous membranes, no pooling of secretions but planing of sublingual secretions present Cardiovascular: Regular rate and rhythm. No pulse deficits. Respiratory: No increased work of breathing, no retractions or nasal flaring. Clear bilateral breath sounds. No retractions Abdomen/GI: Soft, non-tender MS/ Extremity: Pulses equal, no cyanosis. Neuro: Awake and alert Vital Signs: 13:58 BP 153 / 79; Pulse 80; Resp 16 S; Pulse Ox 98% on R/A; Weight 40.82 kg (M); Height 4 kc6 ft. 6 in. (R); 15:52 BP 132 / 74; Pulse 79; Resp 16 S; Pulse Ox 98% on R/A; kc6 13:58 Body Mass Index 21.70 (40.82 kg, 137.16 cm) kc6 MDM: 14:00 Patient medically screened. rn 16:20 Differential diagnosis: pneumonia, Pneumothorax Psychogenic achalasia, esophageal rn obstruction, aspiration. Data reviewed: vital signs, nurses notes, lab test result(s), radiologic studies, CT scan, plain films, and as a result, I will admit patient. Consideration of Admission/Observation Patient was admitted/placed on observation. Escalation of care including admission/observation considered. Counseling: I had a detailed discussion with the patient and/or guardian regarding the historical points, exam findings, and any diagnostic results supporting the discharge/admit diagnosis, lab results, radiology results, the need for further work-up and treatment in the hospital. Response to treatment: There is no appreciated change of the patient's symptoms at this time. ED course: Patient with severe and marked dilatation of esophagus. Would explain her inability to eat or drink. Surprisingly no signs of aspiration at this time. Patient afebrile. Imaging does not show infiltrate. Will keep n.p.o. and admit to hospitalist service for GI consultation and scope. 12/21 14:07 Order name: CBC with Diff; Complete Time: 15:24 12/21 14:07 Order name: Basic Metabolic Panel; Complete Time: 15:24 12/21 15:00 Order name: CBC Smear Scan; Complete Time: 15:24 [facility] 12/21 14:07 Order name: XRAY Chest (1 view); Complete Time: 16:05 12/21 14:07 Order name: CT Chest For PE Angio; Complete Time: 16:05 12/21 14:08 Order name: Soft Tissue Neck W/Contr CT; Complete Time: 16:05 12/21 16:46 Order name: CONS Physician Consult [facility] 12/21 14:07 Order name: IV Start; Complete Time: 14:50 rn Administered Medications: 14:50 Drug: MethylPrednisoLONE IVP 125 mg IVP once Route: IVP; Site: left antecubital; kc6 15:52 Follow up: Response: No adverse reaction [facility] 15:05 Drug: Levalbuterol Inhalation 1.25 mg Inhalation once Route: Inhalation; kc6 15:52 Follow up: Response: No adverse reaction kc6 Disposition Summary: 12/21/23 16:23 Hospitalization Ordered Notes: Hospitalization Status: Inpatient Admission rn Provider: Carroll Rutledge rn Location: Telemetry/MedSurg (Inpatient) rn Condition: Stable rn Problem: an ongoing problem rn Symptoms: have worsened rn Bed/Room Type: Standard rn Room Assignment: 403(12/21/23 16:40) bd Diagnosis - Esophageal dilatation rn - Dyspnea, unspecified rn - Cough rn Forms: - Medication Reconciliation Form rn - SBAR form rn - Leadership Thank You Letter rn Signatures: Dispatcher [employer] EDKandace Mario Roman, MD MD rn Campbell, Kaitlyn, RN RN kc6 Corrections: (The following items were deleted from the chart) 16:40 16:23 rn bd
--- NOTE | 2023-12-21 16:53 | P.HP ---
Certification for Inpatient Patient admitted to: Inpatient With expected LOS: >2 Midnights Patient will require the following post-hospital care: None Practitioner: I am a practitioner with admitting privileges, knowledge of patient current condition, hospital course, and medical plan of care. Services: Services provided to patient in accordance with Admission requirements found in Title 42 Section 412.3 of the Code of Federal Regulations Patient History Date of Service: 12/21/23 Reason for admission: Esophageal obstruction History of Present Illness: 78-year-old female with history of remote CVA, nonverbal at baseline, history of GI bleeding/gastric ulcers, hypertension presents emerged department chief complaint of not being able to tolerate anything by mouth. Family reports she been having difficulty swallowing for approximately 1 year now but last 2 weeks has been unable to keep anything down especially last 1 week that is worst with coughing/choking/vomiting anytime she tries to eat or drink anything. She was evaluated in the emergency department her labs are significant for hemoglobin 9.3 hematocrit 29.6 platelets 455 potassium 3.4 CTA of the chest was performed which revealed marked esophageal dilatation. Direct visualization of the region of the GE junction recommended. ED provider wishes to admit the patient for further evaluation management Allergies hydrocodone Allergy (Verified 07/18/23 02:03) Nausea/Vomiting Home Medications: Quetiapine Fumarate [Seroquel] 1 tab PO BEDTIME 07/18/23 Ferrous Sulfate 325 mg PO DAILY #30 07/21/23 Pantoprazole Sodium 40 mg PO BID #60 tab 07/21/23 Sucralfate [Carafate*] 10 ml PO QID #1200 ml 07/21/23 - Past Medical/Surgical History Diabetic: No -: Hypertension -: CVA 2009 -: Dementia -: Failure to thrive -: GI bleed -: Cholecystectomy Psychosocial/ Personal History: Patient is home with her family-daughter Taylor is primary caregiver, she has a hospital bed, wheelchair at home - Family History Mother -: Hypertension, Diabetes - Social History Alcohol use: No CD- Drugs: No Caffeine use: No Place of Residence: Home Review of Systems is unable to be obtained Physical Examination - Physical Exam General: Alert, Cachectic HEENT: Atraumatic Neck: Supple Respiratory: Clear to auscultation bilaterally Cardiovascular: No edema, Normal S1 S2 Capillary refill: <2 Seconds Gastrointestinal: Normal bowel sounds, No tenderness Musculoskeletal: No erythema, No tenderness Integumentary: No cyanosis Neurological: Other (Right arm contracted, bilateral lower extremities weak at baseline, nonverbal at baseline) - Studies Laboratory Data (last 24 hrs) 12/21/23 12/21/23 14:48 14:48 WBC 5.70 Hgb 9.3 L Hct 29.6 L Plt Count 455 H Sodium 140 Potassium 3.4 L D BUN 8 Creatinine 0.77 Glucose 106 Assessment and Plan - Plan Assessment: Suspected esophageal/GE junction obstruction History of gastric ulcer/GI bleeding Malnutrition Hypertension History of CVA-2009 Plan: Suspected esophageal/GE junction obstruction History of gastric ulcer/GI bleeding GI consulted, strict n.p.o. Continue gentle IV fluid Continue IV PPI Anticipate endoscopy Malnutrition Will need early nutrition depending on results of endoscopy with GI Family reports very poor oral intake last 2 weeks Patient is cachectic Hypertension As needed IV pain medications until tolerating p.o. History of CVA Bedbound, nonverbal at baseline Right arm contracted Limited use of lower extremities Daughter Taylor's caregiver at home-hospital bed/wheelchair at home DVT PPX: Heparin subcu Code status: Full Discharge Plan: Home Plan to discharge in: Greater than 2 days - Advance Directives Does patient have a Living Will: No Does patient have a Durable POA for Healthcare: No - Code Status/Comfort Care Code Status Assessed: Yes (Full code) Critical Care: No Time Spent Managing Pts Care (In Minutes): 70
[2023-12-21] MEDS ORDERED: SODIUM CHLORIDE 0.9% 10ML INJ IV PRN (18:09)
[2023-12-21] MEDS ORDERED: ONDANSETRON 4 MG/2 ML VIAL IV PRN (18:09)
[2023-12-21] MEDS: D5 0.45 NS 1,000 ML IV SCH (18:32)
[2023-12-21 19:12] VITALS: BMI 18.3
[2023-12-21] MEDS: DIPHENHYDRAMINE 50 MG/ML VIAL IV SCH (20:41)
[2023-12-21] MEDS: HEPARIN 5000 UNIT/ML 1 ML VIAL SQ SCH (20:41)
[2023-12-22 05:36] LABS: Absolute Lymphocytes (CBC) 1.9 K/uL (0.7-4.9); Hematocrit 26.2 % (36.0-45.0); Lymphocytes % 30.3 % (15.3-44.8); MCV 67.9 fL (80-100); MPV 7.6 fL (7.6-11.3); Platelets 441 thou/uL (152-406); RBC Red Blood Cell Count 3.86 M/uL (3.86-4.86)
[2023-12-22 05:59] LABS: Albumin 2.1 g/dL (3.4-5.0); Bilirubin Total 0.3 mg/dL (0.2-1.0); Magnesium 2.1 mg/dL (1.6-2.4); Phosphorus 3.3 mg/dL (2.5-4.9); Potassium 3.3 mEq/L (3.5-5.1); Protein, Total 6.5 g/dL (6.4-8.2)
[2023-12-22] MEDS: KCL 20 MEQ/100 mL IVPB 20 MEQ/100 ML BAG IV SCH ×2 (07:31→10:31)
[2023-12-22] MEDS: PANTOPRAZOLE 40 MG INJ IVP SCH (07:32)
[2023-12-22] MEDS: HEPARIN 5000 UNIT/ML 1 ML VIAL SQ SCH ×2 (07:32→20:12)
[2023-12-22] MEDS: D5 0.45 NS 1,000 ML IV SCH ×2 (07:32→20:12)
--- NOTE | 2023-12-22 11:33 | P.PN ---
Date of Service: 12/22/23 Subjective: Nonverbal Dyspneic eye contact ROS: 10 point ROS as noted above, otherwise negative Physical exam GEN: Alert, nonverbal at baseline, right arm contracted, cachectic HEENT: Normal conjunctiva, sclera anicteric CV: Regular rate and rhythm, no edema Pulm: Nonlabored respirations on room air ABD: Soft, nontender, nondistended MSK: Right arm contracture Integumentary: No rashes Neuro: Normal speech, normal affect Vitals reviewed Assessment: Suspected esophageal/GE junction obstruction History of gastric ulcer/GI bleeding Malnutrition Hypertension History of CVA-2009 Plan: Suspected esophageal/GE junction obstruction History of gastric ulcer/GI bleeding GI consulted, strict n.p.o. Continue gentle IV fluid Continue IV PPI Anticipate endoscopy Malnutrition Will need early nutrition depending on results of endoscopy with GI Family reports very poor oral intake last 2 weeks Patient is cachectic Hypertension As needed IV pain medications until tolerating p.o. History of CVA-2009 Bedbound, nonverbal at baseline Right arm contracted Limited use of lower extremities Daughter Taylor's caregiver at home-hospital bed/wheelchair at home DVT PPX: Heparin subcu Code status: Full Discharge Plan: Home Plan to discharge in: Greater than 2 days Time Spent Managing Pts Care (In Minutes): 35
[2023-12-22] MEDS: DIPHENHYDRAMINE 50 MG/ML VIAL IV SCH (20:12)
[2023-12-22] MEDS ORDERED: HYDRALAZINE HCL 20 MG/ML VIAL IV ONE (20:49)
[2023-12-23] MEDS ORDERED: Ringers Lactate 1,000 ML IV ONE (07:59)
[2023-12-23] MEDS ORDERED: LIDOCAINE 1% MPF 5 ML VIAL ONE (08:41)
[2023-12-23] MEDS ORDERED: propofoL 200 MG/20 ML VIAL IV ONE (08:41)
--- NOTE | 2023-12-23 08:43 | P.PN ---
Date of Service: 12/23/23 Subjective: Nonverbal Does make eye contact No acute events overnight awaiting EGD ROS: 10 point ROS as noted above, otherwise negative Physical exam GEN: Alert, nonverbal at baseline, right arm contracted, cachectic HEENT: Normal conjunctiva, sclera anicteric CV: Regular rate and rhythm, no edema Pulm: Nonlabored respirations on room air ABD: Soft, nontender, nondistended MSK: Right arm contracture Integumentary: No rashes Neuro: Normal speech, normal affect Vitals reviewed Assessment: Suspected esophageal/GE junction obstruction History of gastric ulcer/GI bleeding Malnutrition Hypertension History of CVA-2009 Plan: Suspected esophageal/GE junction obstruction History of gastric ulcer/GI bleeding GI consulted, strict n.p.o. Continue gentle IV fluid Continue IV PPI Anticipate endoscopy to be performed today Will likely place speech consult after EGD Malnutrition Will need early nutrition depending on results of endoscopy with GI Family reports very poor oral intake last 2 weeks Patient is cachectic Hypertension As needed IV pain medications until tolerating p.o. History of CVA Bedbound, nonverbal at baseline Right arm contracted Limited use of lower extremities Daughter Taylor's caregiver at home-hospital bed/wheelchair at home DVT PPX: Heparin subcu Code status: Full Discharge Plan: Home Plan to discharge in: Greater than 2 days Time Spent Managing Pts Care (In Minutes): 35
[2023-12-23] MEDS: PANTOPRAZOLE 40 MG INJ IVP SCH ×2 (09:00→20:18)
[2023-12-23] MEDS ORDERED: GLYCOPYRROLATE 0.2 MG/ML SYR ONE (09:29)
[2023-12-23] MEDS: D5 0.45 NS 1,000 ML IV SCH ×2 (10:09→16:44)
[2023-12-23 11:02] LABS: Albumin 2.3 g/dL (3.4-5.0); Bilirubin Total 0.3 mg/dL (0.2-1.0); Phosphorus 2.8 mg/dL (2.5-4.9); Potassium 3.1 mEq/L (3.5-5.1); Protein, Total 6.7 g/dL (6.4-8.2)
[2023-12-23] MEDS: HEPARIN 5000 UNIT/ML 1 ML VIAL SQ SCH ×2 (11:07→20:17)
[2023-12-23] MEDS: SUCRALFATE 1GM/10ML UCUP PO SCH ×3 (11:07→20:17)
[2023-12-23] MEDS: DIPHENHYDRAMINE 50 MG/ML VIAL IV SCH (20:17)
[2023-12-23] MEDS: ENSURE ENLIVE 237 ML CAN PO SCH (20:17)
[2023-12-23] MEDS ORDERED: POTASSIUM 25 MEQ EFFERV TAB PO ONE (21:00)
[2023-12-24] MEDS: PANTOPRAZOLE 40 MG INJ IVP SCH ×2 (08:36→19:40)
[2023-12-24] MEDS: HEPARIN 5000 UNIT/ML 1 ML VIAL SQ SCH ×2 (08:39→19:39)
[2023-12-24] MEDS: SUCRALFATE 1GM/10ML UCUP PO SCH ×4 (08:40→19:39)
[2023-12-24] MEDS: ENSURE ENLIVE 237 ML CAN PO SCH ×3 (09:00→19:42)
[2023-12-24 09:22] LABS: Albumin 2.1 g/dL (3.4-5.0); Bilirubin Total 0.2 mg/dL (0.2-1.0); Magnesium 1.9 mg/dL (1.6-2.4); Phosphorus 2.5 mg/dL (2.5-4.9); Potassium 3.3 mEq/L (3.5-5.1)
[2023-12-24 09:24] LABS: Ferritin 17.2 ng/mL (8-388)
[2023-12-24] MEDS ORDERED: KCL 20 MEQ/100 mL IVPB 20 MEQ/100 ML BAG IV SCH (10:24)
[2023-12-24] MEDS ORDERED: NA CHLORIDE 0.9% 0 ML ONE (10:43)
--- NOTE | 2023-12-24 11:25 | P.PN ---
Date of Service: 12/24/23 Subjective: Nonverbal Does make eye contact No acute events overnight ROS: 10 point ROS as noted above, otherwise negative Physical exam GEN: Alert, nonverbal at baseline, right arm contracted, cachectic HEENT: Normal conjunctiva, sclera anicteric CV: Regular rate and rhythm, no edema Pulm: Nonlabored respirations on room air ABD: Soft, nontender, nondistended MSK: Right arm contracture Integumentary: No rashes Neuro: Normal speech, normal affect Vitals reviewed Assessment: Suspected esophageal/GE junction obstruction History of gastric ulcer/GI bleeding Malnutrition Hypertension History of CVA-2009 Plan: Suspected esophageal/GE junction obstruction History of gastric ulcer/GI bleeding EGD shows gastric ulcers, moderate hiatal hernia GI recommends twice daily PPI, liquid Carafate GI and speech evaluated patient recommend pured diet Malnutrition Continue pured diet Discuss further with family Hypertension As needed IV pain medications until tolerating p.o. History of CVA-2009 Bedbound, nonverbal at baseline Right arm contracted Limited use of lower extremities Daughter Taylor's caregiver at home-hospital bed/wheelchair at home DVT PPX: Heparin subcu Code status: Full Discharge Plan: Home Plan to discharge in: 1-2 days Time Spent Managing Pts Care (In Minutes): 35
[2023-12-24] MEDS: D5 0.45 NS 1,000 ML IV SCH ×2 (12:49→19:41)
[2023-12-24] MEDS: SOD FERRIC GLUC COMPLX/SUCROSE 125 MG in NA CHLORIDE 0.9% 100 ML IV SCH (13:05)
[2023-12-24 16:56] LABS: Absolute Lymphocytes (CBC) 1.4 K/uL (0.7-4.9); Hematocrit 29.9 % (36.0-45.0); Lymphocytes % 26.7 % (15.3-44.8); MPV 8.1 fL (7.6-11.3); Platelets 418 thou/uL (152-406)
[2023-12-24 17:02] LABS: MCV 69.6 fL (80-100)
[2023-12-24] MEDS: DIPHENHYDRAMINE 50 MG/ML VIAL IV SCH (19:40)
[2023-12-25 07:31] LABS: Bilirubin Total 0.1 mg/dL (0.2-1.0); Potassium 3.2 mEq/L (3.5-5.1); Protein, Total 5.5 g/dL (6.4-8.2)
--- NOTE | 2023-12-25 08:32 | RAD REPORT ---
EXAM DESCRIPTION: Lucas Single View12/25/2023 7:58 am CLINICAL HISTORY: Cough COMPARISON: November 2022 FINDINGS: The lungs appear clear of acute infiltrate. The heart is normal size IMPRESSION: No acute abnormalities displayed
[2023-12-25] MEDS ORDERED: FERROUS SULFATE 325 MG TAB PO SCH (09:00)
[2023-12-25] MEDS: SUCRALFATE 1GM/10ML UCUP PO SCH ×2 (09:49→12:03)
[2023-12-25] MEDS: HEPARIN 5000 UNIT/ML 1 ML VIAL SQ SCH (09:49)
[2023-12-25] MEDS: PANTOPRAZOLE 40 MG INJ IVP SCH (09:49)
[2023-12-25] MEDS: ENSURE ENLIVE 237 ML CAN PO SCH ×2 (09:49→12:03)
[2023-12-25] MEDS: SOD FERRIC GLUC COMPLX/SUCROSE 125 MG in NA CHLORIDE 0.9% 100 ML IV SCH (09:50)
[2023-12-25 10:54] VITALS: BP 112/52; TEMP 97.4
--- NOTE | 2023-12-25 11:30 | P.DS ---
Admission Date: 12/21/23 Discharge Date: 12/25/23 Disposition: ROUTINE DISCHARGE Discharge Condition: GOOD Reason for Admission: Esophageal obstruction Consultations: GIDr. Sanchez Procedures: EGD 12/23/2023 Brief History of Present Illness: 78-year-old female with history of remote CVA, nonverbal at baseline, history of GI bleeding/gastric ulcers, hypertension presents emerged department chief complaint of not being able to tolerate anything by mouth. Family reports she been having difficulty swallowing for approximately 1 year now but last 2 weeks has been unable to keep anything down especially last 1 week that is worst with coughing/choking/vomiting anytime she tries to eat or drink anything. She was evaluated in the emergency department her labs are significant for hemoglobin 9.3 hematocrit 29.6 platelets 455 potassium 3.4 CTA of the chest was performed which revealed marked esophageal dilatation. Direct visualization of the region of the GE junction recommended. ED provider wishes to admit the patient for further evaluation management Hospital Course: Assessment: Suspected esophageal/GE junction obstruction History of gastric ulcer/GI bleeding Malnutrition Hypertension History of CVA-2009 Dysphagia secondary to reflux esophagitis, gastritis, moderate to large hiatal hernia Malnutrition Hypertension History of CVA-2009 Patient was admitted to the hospital for dysphagia, intolerance of oral intake. She seen by GI who performed EGD which showed reflux esophagitis, grade C present in the mid esophagus and in the distal esophagus. Multiple ulcers were visualized in the distal esophagus. A medium to large hiatal hernia was found in the distal esophagus. Mild patchy gastritis was seen in the stomach. The bulb and second portion duodenum were normal with no ulcers or masses. GI recommends pured and for liquid diet as well as twice daily PPI and liquid Carafate 4 times daily. Patient is also evaluated by speech who agrees with pured diet. Patient tolerated diet last 2 days and has been her baseline. Of note patient was found to be anemic and she was severely iron deficient with an iron level of 11, transferrin 188, transferrin saturation percentage 4.2. She was given 2 doses of IV iron during her hospitalization and she will need to continue her p.o. iron at home. Please follow-up with your primary doctor in 1 to 2 weeks Please follow-up with Dr. Shields in 2 to 3 weeks Prescriptions for Protonix 40 mg by mouth twice daily and Carafate 10 mL by mouth 4 times daily sent to [facility] in [place]. Vital Signs/Physical Exam: Temp Pulse Resp BP Pulse Ox 97.4 F 61 16 112/52 L 97 12/25/23 08:00 12/25/23 08:00 12/25/23 08:00 12/25/23 08:00 12/25/23 08:00 General: Alert, In no apparent distress, Cachectic, Other (Nonverbal at baseline) HEENT: Atraumatic, PERRLA Neck: Supple, JVD not distended Respiratory: Clear to auscultation bilaterally, Normal air movement Cardiovascular: Regular rate/rhythm, Normal S1 S2 Gastrointestinal: Normal bowel sounds, No tenderness Musculoskeletal: No tenderness Integumentary: No rashes Neurological: Other (Right arm contracted) Laboratory Data at Discharge: WBC 5.30 thou/uL (4.3-10.9) 12/24/23 16:20 Hgb 9.3 g/dL (12.0-15.0) L 12/24/23 16:20 Hct 29.9 % (36.0-45.0) L 12/24/23 16:20 Plt Count 418 thou/uL (152-406) H 12/24/23 16:20 Sodium 142 mEq/L (136-145) 12/25/23 06:50 Potassium 3.2 mEq/L (3.5-5.1) L 12/25/23 06:50 BUN 14 mg/dL (7-18) 12/25/23 06:50 Creatinine 0.57 mg/dL (0.55-1.02) 12/25/23 06:50 Glucose 92 mg/dL (74-106) 12/25/23 06:50 Phosphorus 2.5 mg/dL (2.5-4.9) 12/24/23 08:47 Magnesium 1.9 mg/dL (1.6-2.4) 12/24/23 08:47 Total Bilirubin 0.1 mg/dL (0.2-1.0) L 12/25/23 06:50 AST 19 U/L (15-37) 12/25/23 06:50 ALT 26 U/L (13-56) 12/25/23 06:50 Alkaline Phosphatase 60 U/L (45-117) 12/25/23 06:50 Home Medications: Quetiapine Fumarate [Seroquel] 1 tab PO BEDTIME 07/18/23 Ferrous Sulfate 325 mg PO DAILY #30 07/21/23 Pantoprazole Sodium 40 mg PO BID #60 tab 07/21/23 Sucralfate [Carafate*] 10 ml PO QID #1200 ml 07/21/23 Pantoprazole [Protonix Tab] 40 mg PO BID #60 tab 12/25/23 Sucralfate [Carafate Liq] 10 ml PO QID #1200 ml 12/25/23 New Medications: Sucralfate [Carafate Liq] 10 ml PO QID #1200 ml Pantoprazole [Protonix Tab] 40 mg PO BID #60 tab Physician Discharge Instructions: Patient was admitted to the hospital for dysphagia, intolerance of oral intake. She seen by GI who performed EGD which showed reflux esophagitis, grade C present in the mid esophagus and in the distal esophagus. Multiple ulcers were visualized in the distal esophagus. A medium to large hiatal hernia was found in the distal esophagus. Mild patchy gastritis was seen in the stomach. The bulb and second portion duodenum were normal with no ulcers or masses. GI recommends pured and for liquid diet as well as twice daily PPI and liquid Carafate 4 times daily. Patient is also evaluated by speech who agrees with pured diet. Patient tolerated diet last 2 days and has been her baseline. Of note patient was found to be anemic and she was severely iron deficient with an iron level of 11, transferrin 188, transferrin saturation percentage 4.2. She was given 2 doses of IV iron during her hospitalization and she will need to continue her p.o. iron at home. Please follow-up with your primary doctor in 1 to 2 weeks Please follow-up with Dr. Shields in 2 to 3 weeks Prescriptions for Protonix 40 mg by mouth twice daily and Carafate 10 mL by mouth 4 times daily sent to [facility] in [place]. Diet: pureed Activity: Bedrest Followup: Tai Ann, [Primary Care Provider] - 1-2 Weeks Jewel Chamberlain MD [ACTIVE - CAN ADMIT] - Time spent managing pt's care (in minutes): 35
[2023-12-25] MEDS ORDERED: NA CHLORIDE 0.9% 500 ML IV ONE (12:00)
[2023-12-25] MEDS: KCL 20 MEQ/100 mL IVPB 20 MEQ/100 ML BAG IV SCH ×2 (12:03→14:00)
[2023-12-25 12:59] VITALS: O2SAT 98
== END 2023-12-25 15:45 | disposition home or self-care (01) | DRG 381 ==
LOC: ER 13:53 → 4TH 16:42
PROVIDERS: ADMIT Hospitalist; ATTEND Hospitalist
PROC: 0DB68ZX Excision of Stomach, Via Natural or Artificial Opening Endoscopic, Diagnostic (ICD-10-PCS; 2023-12-23)
PROC: 0DB38ZX Excision of Lower Esophagus, Via Natural or Artificial Opening Endoscopic, Diagnostic (ICD-10-PCS; principal; 2023-12-23 10:30)
DX: K22.10 Ulcer of esophagus without bleeding (principal); E46 Unspecified protein-calorie malnutrition; I69.351 Hemiplegia and hemiparesis following cerebral infarction affecting right dominant side; Z68.1 Body mass index [BMI] 19.9 or less, adult; R64 Cachexia; K21.00 Gastro-esophageal reflux disease with esophagitis, without bleeding; K29.70 Gastritis, unspecified, without bleeding; K44.9 Diaphragmatic hernia without obstruction or gangrene; D50.9 Iron deficiency anemia, unspecified; I10 Essential (primary) hypertension; K22.89 Other specified disease of esophagus; R62.7 Adult failure to thrive; Z88.5 Allergy status to narcotic agent; Z90.49 Acquired absence of other specified parts of digestive tract; Z74.01 Bed confinement status; Z79.899 Other long term (current) drug therapy
CPT/HCPCS: 36415; 70491; 71045; 71275; 80048; 80053; 80076; 82550; 82728; 83540; 83690; 83735; 83880; 84100; 84466; 84484; 85025; 85610; 85730; 88305; 88312; 92610; 93005; C9113; J0360; J1200; J1644; J2001; J2704; J2916; J3480; J7040; J7120; J7799; Q9967

== ENCOUNTER 2024-05-21 13:47 | Emergency (ER) | payer OTHER ==
[2024-05-21 14:38] LABS: Absolute Lymphocytes (CBC) 1.2 K/uL (0.7-4.9); Absolute Monocytes 1.1 K/uL (0.1-1.3); Absolute Neutrophil 10.3 K/uL (1.8-8.0); Basophils % 0.3 % (0-1.3); Hematocrit 33.7 % (36.0-45.0); Hemoglobin 10.5 g/dL (12.0-15.0); Lymphocytes % 9.6 % (15.3-44.8); MCH 23.5 pg (27.0-35.0); MCHC 31.2 g/dL (32.0-36.0); MCV 75.4 fL (80-100); MPV 7.7 fL (7.6-11.3); Monocytes % 8.4 % (3.3-12.3); Neutrophils % 81.7 % (41.7-73.7); Nucleated Red Blood Cells % 0.1 % (0-0); Platelets 514 thou/uL (152-406); RBC Red Blood Cell Count 4.47 M/uL (3.86-4.86); Red Cell Distribution Width 18.6 % (12.1-15.2)
[2024-05-21 15:17] LABS: Specific Gravity 1.015 (1.005-1.030); Sqamous Epithelial <5 /HPF (None Seen); Urine Bacteria 20-50 /HPF (<20); Urine Bilirubin NEGATIVE (Negative); Urine Blood Negative (Negative); Urine Clarity Extremely Turbid (Clear); Urine Color Yellow (Yellow); Urine Culture Reflex Order REFLEXED; Urine Glucose NEGATIVE (Negative); Urine Ketones NEGATIVE (Negative); Urine Microscopic Reflex YN ORDER UMIC; Urine Nitrite NEGATIVE (Negative); Urine Protein TRACE (Negative); Urine RBC <5 /HPF (None Seen); Urine Urobilinogen Normal (Normal); Urine WBC 20-50 /HPF (<5)
[2024-05-21 16:30] LABS: Albumin 2.4 g/dL (3.4-5.0); Albumin/Globulin Ratio 0.6 (1.1-1.8); Anion Gap 10.7 mEq/L (5.0-15.0); Bilirubin Total 0.4 mg/dL (0.2-1.0); Globulin 4.1 g/dL (2.3-3.5); Protein, Total 6.5 g/dL (6.4-8.2)
[2024-05-21 16:31] LABS: Potassium 4.7 mEq/L (3.5-5.1)
--- NOTE | 2024-05-21 17:02 | RAD REPORT ---
EXAM DESCRIPTION: CTAbdomen Pelvis W Contrast - 05/21/2024 4:49 pm CLINICAL HISTORY: Abdominal pain. ABDOMINAL DISTENTION COMPARISON: Abdomen Pelvis W Contrast dated 09/01/2022; Chest For Pe Angio dated 12/21/2023; Soft T issue Neck W/Contr dated 12/21/2023 TECHNIQUE: Biphasic CT imaging of the abdomen and pelvis was performed with 100 ml non-ionic IV cont rast. All CT scans are performed using dose optimization technique as appropriate and may include automated exposure control or mA/KV adjustment according to patient size. FINDINGS: Small bilateral pleural effusions.Moderate hiatal hernia. Cholecystectomy clips. The liver, spleen, pancreas, adrenal glands and kidneys are within normal limits. Right renal cyst. Quite severe stool retention throughout the colon with a rectal fecal impaction distended to 12 centi meters. No free air appreciated. Fibroid uterus. No suspicious bony findings. IMPRESSION: Extremely severe rectal fecal impaction and constipation pattern as detailed.
--- NOTE | 2024-05-21 18:53 | EDPHYS ---
Physician Documentation [facility] Name: Carey Mcdaniel Age: 78 yrs Sex: Female : 1945 Arrival Date: 05/21/2024 Time: 13:47 Bed 16 Private MD: ED Physician Rajesh Tejada HPI: 05/21 13:59 This 78 yrs old Female presents to ER via Unassigned with complaints of ms3 Constipation. 13:59 78-year-old female with past medical history of CVA, dementia, hypertension, nonverbal ms3 presents to the emergency department with her daughter for abdominal distention that is been ongoing for 1 week. Patient's daughter notes today patient pushed her hand away when she was touching her stomach. Patient's daughter denies patient having fevers, vomiting, diarrhea. She endorses constipation. Historical: - Allergies: 13:58 Hydrocodone-Acetaminophen; ll1 - PMHx: 13:58 CVA; Right sided weakness; Dementia; Hypertension; non verbal (Hypertension); ll1 - Immunization history:: Adult Immunizations. - Social history:: Smoking status: Patient denies any tobacco usage or history of. ROS: 13:59 Unable to obtain ROS due to baseline dementia, ms3 Exam: 13:59 Constitutional: This is a well developed, well nourished patient who is awake, alert, ms3 and in no acute distress. Cardiovascular: Regular rate and rhythm with a normal S1 and S2. No gallops, murmurs, or rubs. Normal PMI, no JVD. No pulse deficits. Respiratory: Lungs have equal breath sounds bilaterally, clear to auscultation and percussion. No rales, rhonchi or wheezes noted. No increased work of breathing, no retractions or nasal flaring. 13:59 Abdomen/GI: Inspection: distension, that is moderate, in the abdomen, Bowel sounds: normal, Palpation: soft, in all quadrants, Vital Signs: 13:58 BP 103 / 68; Pulse 66; Resp 16; Temp 98.1; Pulse Ox 98% on R/A; Weight 40.82 kg; Height ll1 4 ft. 11 in. ; Pain 4/10; 14:15 BP 112 / 70; Pulse 95; Resp 16; Pulse Ox 99% on R/A; db 15:00 BP 102 / 62; Pulse 93; Resp 16; Pulse Ox 99% on R/A; db 16:00 BP 101 / 63; Pulse 96; Resp 18; Pulse Ox 99% on R/A; db 19:19 BP 114 / 76; Pulse 103; Resp 20 S; Pulse Ox 94% on R/A; ha1 13:58 Body Mass Index 18.18 (40.82 kg, 149.86 cm) ll1 13:58 Pain Scale: Adult ll1 MDM: 13:59 Patient medically screened. ms3 13:59 Differential diagnosis: bowel obstruction, diverticulitis, non-specific abd pain. ms3 18:52 Data reviewed: vital signs, nurses notes, and as a result, I will discharge patient. I ms3 considered the following discharge prescriptions or medication management in the emergency department Medications were administered in the Emergency Department. See MAR. Historians other than the Patient: Daughter/Son: Patient's daughter. Care significantly affected by the following chronic conditions: Hypertension. Counseling: I had a detailed discussion with the patient and/or guardian regarding the historical points, exam findings, and any diagnostic results supporting the discharge/admit diagnosis, lab results, radiology results, the need for outpatient follow up, to return to the emergency department if symptoms worsen or persist or if there are any questions or concerns that arise at home. ED course: Discussed digital disimpaction of patient with her daughter and her daughter declines at this time. Discussed positive urine, labs, CT results with patient's daughter. Patient to follow-up with her primary care physician 2 to 3 days. Patient's daughter understands and agrees with plan. All questions were answered. Return precautions discussed include worsening symptoms, or any other concerns.. 05/21 13:59 Order name: CBC with Diff; Complete Time: 16:12 ms3 05/21 13:59 Order name: CMP; Complete Time: 17:16 ms3 05/21 13:59 Order name: Lipase; Complete Time: 17:16 ms3 05/21 13:59 Order name: Urinalysis w/ reflexes; Complete Time: 16:12 ms3 05/21 15:19 Order name: Urine Culture EDID 05/21 13:59 Order name: CT Abd/Pelvis - IV Contrast Only; Complete Time: 17:16 ms3 05/21 13:59 Order name: IV Saline Lock; Complete Time: 14:18 ms3 05/21 13:59 Order name: Labs collected and sent; Complete Time: 14:18 ms3 Administered Medications: 18:05 Drug: soap suds 1 application MD bolus Route: MD; db 19:18 Follow up: Response: No adverse reaction ha1 19:10 Drug: Rocephin IV 1 grams IV at calculated rate once; Given slow IV push per pharmacy ha1 instructions Route: IV; Rate: calculated rate; Site: left antecubital; 19:25 Follow up: Response: No adverse reaction; IV Status: Completed infusion; IV Intake: [id number] Disposition: 22:02 Chart complete. ms3 Disposition Summary: 05/21/24 18:52 Discharge Ordered Notes: Location: Home ms3 Condition: Stable ms3 Diagnosis - Constipation, unspecified ms3 - UTI/ Urinary tract infection, site not specified ms3 Followup: ms3 - With: Private Physician - When: 2 - 3 days - Reason: Recheck today's complaints Discharge Instructions: - Discharge Summary Sheet ms3 - Constipation, Adult ms3 - Urinary Tract Infection, Adult ms3 Forms: - Medication Reconciliation Form ms3 - Antibiotic Education ms3 - Prescription Opioid Use ms3 - Patient Portal Instructions ms3 - Leadership Thank You Letter ms3 Prescriptions: - Lactulose 10 gram/15 mL Oral Solution - take 30 milliliters ORAL route once daily; 300 milliliter; Refills: 0, Product ms3 Selection Permitted - cefpodoxime 200 mg Oral tablet - take 1 tablet ORAL route every 12 hours with food; 14 tablet; Refills: 0, ms3 Product Selection Permitted Signatures: Dispatcher [employer] Leona Peterson RN RN 1 Rajesh Tejada DO DO ms3 Shelia Baez RN RN ha1 Jazmine Abdalla RN RN db
--- NOTE | 2024-05-21 18:53 | ER ---
Nurse's Notes [facility] Name: Carey Mcdaniel Age: 78 yrs Sex: Female : 1945 Arrival Date: 05/21/2024 Time: 13:47 Bed 16 Private MD: Diagnosis: Constipation, unspecified;UTI/ Urinary tract infection, site not specified Presentation: 05/21 13:58 Chief complaint: Patient's son or daughter states: Abdominal pain, distension, ll1 constipation for 1 week. No fever or vomiting. Coronavirus screen: Client denies travel out of the [place] in the last 14 days. At this time, the client does not indicate any symptoms associated with coronavirus-19. Ebola Screen: Patient denies travel to an Ebola-affected area in the 21 days before illness onset. Initial Sepsis Screen: Does the patient meet any 2 criteria? No. Patient's initial sepsis screen is negative. Does the patient have a suspected source of infection? No. Patient's initial sepsis screen is negative. Risk Assessment: Do you want to hurt yourself or someone else? Patient reports no desire to harm self or others. Onset of symptoms was May 14, 2024. 13:58 Method Of Arrival: Wheelchair ll1 13:58 Acuity: EKATERINA 3 ll1 Triage Assessment: 13:59 General: Appears. General: Appears uncomfortable, Behavior is calm, cooperative, ll1 appropriate for age. Pain: Complains of pain in abdomen Quality of pain is described as aching, pressure. Neuro: No deficits noted. Cardiovascular: No deficits noted. GI: Parent/caregiver reports the patient having bloating, diarrhea. Historical: - Allergies: 13:58 Hydrocodone-Acetaminophen; ll1 - PMHx: 13:58 CVA; Right sided weakness; Dementia; Hypertension; non verbal (Hypertension); ll1 - Immunization history:: Adult Immunizations. - Social history:: Smoking status: Patient denies any tobacco usage or history of. Screenin:00 [facility] ED Fall Risk Assessment (Adult) History of falling in the last 3 months, db including since admission No falls in past 3 months (0 pts) Confusion or Disorientation Yes (5 pts) Intoxicated or Sedated No (0 pts) Impaired Gait Yes (1 pt) Mobility Assist Device Used No (0 pt) Altered Elimination No (0 pt) Score/Fall Risk Level 3 or more points = High Risk Oriented to surroundings, Maintained a safe environment, Hourly rounding (assess needs \T\ fall precautionary measures) done, Utilized family, sitter, or virtual page technician as indicated. Abuse screen: Denies threats or abuse. Denies injuries from another. Nutritional screening: No deficits noted. Tuberculosis screening: No symptoms or risk factors identified. Assessment: 14:00 Reassessment: Patient appears in no apparent distress at this time. Patient and/or db family updated on plan of care and expected duration. Pain level reassessed. Patient is alert, oriented x 3, equal unlabored respirations, skin warm/dry/pink. General: Appears in no apparent distress. comfortable, Behavior is calm, cooperative. Neuro: Level of Consciousness is awake, alert, obeys commands, Oriented to person, place, time, situation. Respiratory: Airway is patent Respiratory effort is even, unlabored, Respiratory pattern is regular, symmetrical. GI: Bowel sounds Abd is soft Abd is non tender Reports constipation. 19:00 General: Appears comfortable, Behavior is calm, cooperative. Pain: Unable to use pain ha1 scale. FLACC scale score is 0 out of 10. Neuro: Level of Consciousness is awake, alert, obeys commands, Oriented to person, place, time, situation. Respiratory: Airway is patent Respiratory effort is even, unlabored, Respiratory pattern is regular, symmetrical. GI: Abdomen is round distended, Parent/caregiver reports the patient having constipation. Vital Signs: 13:58 BP 103 / 68; Pulse 66; Resp 16; Temp 98.1; Pulse Ox 98% on R/A; Weight 40.82 kg; Height ll1 4 ft. 11 in. ; Pain 4/10; 14:15 BP 112 / 70; Pulse 95; Resp 16; Pulse Ox 99% on R/A; db 15:00 BP 102 / 62; Pulse 93; Resp 16; Pulse Ox 99% on R/A; db 16:00 BP 101 / 63; Pulse 96; Resp 18; Pulse Ox 99% on R/A; db 19:19 BP 114 / 76; Pulse 103; Resp 20 S; Pulse Ox 94% on R/A; ha1 13:58 Body Mass Index 18.18 (40.82 kg, 149.86 cm) ll1 13:58 Pain Scale: Adult ll1 ED Course: 13:50 Patient arrived in ED. mg5 13:51 Rajesh Tejada DO is Attending Physician. ms3 13:52 Jazmine Abdalla, LON is Primary Nurse. db 13:52 Arm band placed on Patient placed in an exam room, on a stretcher. ll1 13:59 Triage completed. ll1 14:17 Initial lab(s) drawn, by me, sent to lab. db 14:19 Inserted saline lock: 22 gauge in left antecubital area, using aseptic technique. Blood db collected. 14:57 Urine collected: straight cath specimen. db 14:59 Straight cath inserted, using sterile technique, 14 Fr. Specimen obtained. Patient db tolerated well. 16:51 CT Abd/Pelvis - IV Contrast Only In Process Unspecified. EDMS 16:[address] via stretcher. db 16:58 Patient has correct armband on for positive identification. Placed in gown. Bed in low db position. Side rails up X 1. Provided Education on: LABS AND RADIOLOGY. Pulse ox on. NIBP on. Warm blanket given. Pillow given. 19:20 No provider procedures requiring assistance completed. IV discontinued, intact, ha1 bleeding controlled, No redness/swelling at site. Pressure dressing applied. Administered Medications: 18:05 Drug: soap suds 1 application ND bolus Route: ND; db 19:18 Follow up: Response: No adverse reaction ha1 19:10 Drug: Rocephin IV 1 grams IV at calculated rate once; Given slow IV push per pharmacy ha1 instructions Route: IV; Rate: calculated rate; Site: left antecubital; 19:25 Follow up: Response: No adverse reaction; IV Status: Completed infusion; IV Intake: [id number] Medication: 16:58 VIS not applicable for this client. db Intake: 19:25 IV: 50ml; Total: 50ml. ha1 Outcome: 18:52 Discharge ordered by MD. ms3 19:20 Discharged to home via wheelchair, with family, ha1 19:20 Condition: stable 19:20 Discharge instructions given to patient, family, Instructed on discharge instructions, follow up and referral plans. medication usage, Demonstrated understanding of instructions, follow-up care, medications, Prescriptions given X 2, 19:21 Patient left the ED. ha1 Signatures: Dispatcher [employer] Leona Peterson RN RN ll1 Rajesh Tejada DO DO ms3 Shelia Baez RN RN ha1 Jamzine Abdalla RN RN db Karmen Villar mg5 Corrections: (The following items were deleted from the chart) 14:59 14:57 Urine collected: straight cath specimen, db db 22:12 19:25 Response: No adverse reaction ha1 ha1 22:12 22:12 Response: No adverse reaction; IV Status: Completed infusion; IV Intake: 50ml ha1 ha1
[2024-05-21] MEDS ORDERED: CEFTRIAXONE 1000 MG/VIAL ONE (19:07)
[2024-05-21 19:33] VITALS: BP 114/76; TEMP 98.1; O2SAT 94
== END 2024-05-21 19:21 | disposition home or self-care (01) ==
LOC: ER 13:47
DX: K59.00 Constipation, unspecified (principal); N39.0 Urinary tract infection, site not specified; Z88.5 Allergy status to narcotic agent
CPT/HCPCS: 87088; 85025; 81001; 87086; 36415; 83690; 80053; 74177; 51702; 96374; 99285; Q9967; J0696; 87077; 87186

== ENCOUNTER 2024-05-21 22:09 | Emergency (ER) | payer OTHER ==
[2024-05-21] MEDS ORDERED: NA CHLORIDE 0.9% 500 ML ONE (23:24)
[2024-05-22] MEDS ORDERED: FLEET ENEMA ADULT PR ONE (00:02)
[2024-05-22] MEDS ORDERED: NA CHLORIDE 0.9% 1,000 ML ONE (00:02)
[2024-05-22] MEDS ORDERED: ALBUMIN HUMAN 25% 100 ML IV ONE (00:03)
[2024-05-22 00:05] LABS: PT Prothrombin Time 16.1 SECONDS (9.4-12.5); Protime INR 1.48
[2024-05-22 00:06] LABS: Absolute Lymphocytes (CBC) 0.7 K/uL (0.7-4.9); Absolute Monocytes 0.8 K/uL (0.1-1.3); Basophils % 0.1 % (0-1.3); Hematocrit 25.4 % (36.0-45.0); Lymphocytes % 4.5 % (15.3-44.8); MCH 23.8 pg (27.0-35.0); MCHC 31.6 g/dL (32.0-36.0); MCV 75.2 fL (80-100); MPV 7.6 fL (7.6-11.3); Monocytes % 5.1 % (3.3-12.3); Neutrophils % 90.3 % (41.7-73.7); Platelets 396 thou/uL (152-406); RBC Red Blood Cell Count 3.38 M/uL (3.86-4.86); Red Cell Distribution Width 18.3 % (12.1-15.2)
[2024-05-22 00:18] LABS: Albumin/Globulin Ratio 0.6 (1.1-1.8); Alkaline Phosphatase 74 U/L (45-117); Anion Gap 9.9 mEq/L (5.0-15.0); BUN Blood Urea Nitrogen 23 mg/dL (7-18); Bicarbonate 24 mEq/L (21-32); Bilirubin Total 0.3 mg/dL (0.2-1.0); Globulin 3.3 g/dL (2.3-3.5); Glomerular Filtration Rate 80 ml/min (=/>90); Glucose Level 178 mg/dL (74-106); Magnesium 2.3 mg/dL (1.6-2.4); NT PRO-BNP 1196 pg/mL (<450); Potassium 3.9 mEq/L (3.5-5.1); Protein, Total 5.3 g/dL (6.4-8.2); Sodium Level 131 mEq/L (136-145)
[2024-05-22 00:19] LABS: ALT/SGPT < 14 U/L (13-56); AST/SGOT < 10 U/L (15-37); Bilirubin Direct < 0.2 mg/dL (0-0.2); Bilirubin Indirect, Calculated 0.1 mg/dL (0.2-0.8)
[2024-05-22 01:27] LABS: Band Neutrophils 22 % (0-1); Differential Total Cells Count 100; Lymphocytes 5 % (15-42); Monocytes 3 % (0-10); Segmented Neutrophils 70 % (40-80)
[2024-05-22 01:28] LABS: Blood Morphology Comment NOTED (NOT SEEN); Microcytosis 1+; Platelet Estimate ADEQ
--- NOTE | 2024-05-22 02:55 | EDPHYS ---
Physician Documentation [facility] Name: Carey Mcdaniel Age: 78 yrs Sex: Female : 1945 Arrival Date: 05/21/2024 Time: 22:09 Bed 19 Private MD: ED Physician Guillaume Mcgraw HPI: 05/21 22:17 This 78 yrs old Female presents to ER via Unassigned with complaints of sp4 constipation and abdominal distention . 05/22 00:10 78-year-old female well-known to me from prior visit with history of CVA right-sided sp4 hemiparesis, she with a history of prolonged immobility, severe physical debility, dementia, nonverbal patient, hypertension presents with abdominal distention associated with generalized weakness. Patient was here earlier today and was diagnosed with fecal impaction moderate to severe constipation but her family has refused fecal disimpaction and patient was discharged home. She now returns with worsening condition. . Patient is nonverbal not able to provide any history.. Historical: - Allergies: 05/21 22:45 Hydrocodone-Acetaminophen; tm6 - PMHx: 22:45 CVA; Right sided weakness; Dementia; Hypertension; non verbal (Hypertension); tm6 - Immunization history:: Client reports having NOT received the Covid vaccine. - Infectious Disease History:: Denies. - Social history:: Smoking status: Patient denies any tobacco usage or history of. Patient/guardian denies using alcohol. - Family history:: not pertinent. ROS: 05/22 00:10 Constitutional: Positive for generalized weakness, positive abdominal distention. Full sp4 review of systems is not obtainable secondary to nonverbal status All other systems are negative, Unable to obtain ROS due to baseline dementia, Exam: 00:05 ECG was reviewed by the Attending Physician. EKG 2356 significant muscle artifact sp4 but reveals sinus rhythm at a rate of [address] elevation or depression no ectopy. 00:10 Constitutional: Frail elderly female, signs of prolonged immobility, longstanding sp4 right-sided hemiparesis, diffuse muscle atrophy, distended tympanitic abdomen, signs of moderate dehydration, signs of cachexia. Head/Face: Normocephalic, atraumatic. Eyes: Pupils equal round and reactive to light, extra-ocular motions intact. Lids and lashes normal. Conjunctiva and sclera are not injected. ENT: Nares patent. No nasal discharge, no septal abnormalities noted. Tympanic membranes are normal and external auditory canals are clear. Oropharynx with no redness, swelling, or masses, exudates, or evidence of obstruction, uvula midline. Dry mucous membranes, patient is edentulous Neck: Trachea midline, no thyromegaly or masses palpated, and no cervical lymphadenopathy. Supple, full range of motion without nuchal rigidity, or vertebral point tenderness. Chest/axilla: Normal chest wall appearance and motion. Nontender with no deformity. No lesions are appreciated. Cardiovascular: Regular rate and rhythm with a normal S1 and S2. No gallops, murmurs, or rubs. Normal PMI, no JVD. No pulse deficits. Respiratory: Lungs have equal breath sounds bilaterally, clear to auscultation and percussion. No rales, rhonchi or wheezes noted. No increased work of breathing, no retractions or nasal flaring. Abdomen/GI: Distended abdomen, tense distention with tympany, diminished bowel sounds throughout. Diffuse tenderness throughout. Rectal examination reveals large sized soft to formed fecal impaction. Back: No spinal tenderness. No costovertebral tenderness. Female : Normal external genitalia. Skin: Warm, dry with poor skin turgor associated with signs of significant dehydration. MS/ Extremity: Pulses equal, no cyanosis. Right-sided hemiparesis with chronic physical debility diffuse muscle atrophy right-sided muscular contractures flexion contractures of the right arm. Neuro: Awake and nonverbal status, signs of moderate to severe dementia, longstanding right-sided hemiparesis, exam is limited but no new neurologic deficits reported acutely. Vital Signs: 05/21 23:13 BP 76 / 48; Pulse 86; Resp 19; Temp 97.1(TE); Pulse Ox 100% on R/A; MAP 58 mmHg; tm6 23:49 BP 92 / 54; MAP 65 mmHg; tm6 05/22 00:10 BP 93 / 53; Pulse 91; Resp 14; Pulse Ox 93% on R/A; MAP 66 mmHg; tm6 01:18 BP 115 / 57; Pulse 89; Resp 15; tm6 02:19 BP 121 / 71; Pulse 97; Resp 16; Temp 96.9(TE); Pulse Ox 100% on R/A; MAP 87 mmHg; Pain tm6 0/10; 02:53 BP 124 / 61; Pulse 97; Resp 15; MAP 78 mmHg; ha1 02:19 Pain Scale: Adult tm6 Viral Coma Score: 00:10 Eye Response: spontaneous(4). Motor Response: localizes pain(5). Verbal Response: sp4 none(1). Total: 10. Procedures: 00:16 Fecal disimpaction: digital disimpaction was performed, with a large amount of stool sp4 expressed. The patient tolerated the intervention well, Fecal disimpaction performed without complications. Large amount of formed fecal impaction evacuated. MDM: 05/21 22:20 Patient medically screened. sp4 05/22 00:08 ED course: CT today on prior visit - Reason for Exam: ABDOMINAL DISTENTION Report sp4 Status: Signed EXAM DESCRIPTION: CTAbdomen Pelvis W Contrast - 05/21/2024 4:49 pm TECHNIQUE: Biphasic CT imaging of the abdomen and pelvis was performed with 100 ml non-ionic IV contrast. All CT scans are performed using dose optimization technique as appropriate and may include automated exposure control or mA/KV adjustment according to patient size. FINDINGS: Small bilateral pleural effusions.Moderate hiatal hernia. Cholecystectomy clips. The liver, spleen, pancreas, adrenal glands and kidneys are within normal limits. Right renal cyst. Quite severe stool retention throughout the colon with a rectal fecal impaction distended to 12 centimeters. No free air appreciated. Fibroid uterus. No suspicious bony findings. IMPRESSION: Extremely severe rectal fecal impaction and constipation pattern as detailed. Dictated By: Dom Leavitt MD 05/21/24 1702. 02:50 ED course: CT today = IMPRESSION: 1. Limited exam secondary to streak artifacts from sp4 patient's arms and paucity of mesenteric fat limiting detailed evaluation of the abdominal contents. 2. Severe diffuse fecal impaction throughout the entire colon with mild diffuse colonic dilatation. No definite evidence for small bowel dilatation. 3. Right lower quadrant solid masses versus rightward displaced myomatous uterus versus loops of small bowel, incompletely assessed given the aforementioned limitations. After disimpaction and resolution of fecal impaction consider follow-up imaging with oral contrast to help differentiate findings within the right lower quadrant. 4. Moderate size hiatal hernia. Fluid-filled moderately distended esophagus. 5. Small bilateral pleural effusions. Mild bibasilar subsegmental atelectasis. 6. Status post cholecystectomy. Electronically signed by: Bill Tamez MD 05/21/2024 11:50 PM. 02:56 Differential Diagnosis altered mental status, sepsis, flu, fecal impaction . Data sp4 reviewed: vital signs, nurses notes, lab test result(s), radiologic studies, CT scan. Consideration of Admission/Observation Escalation of care including admission/observation considered. ED course: Patient's blood pressure has stabilized and patient is feeling much improved. Patient managed to large size bowel movement in fact several large size bowel movements and abdomen is soft now, stable for discharge home with as needed glycerin suppositories. Advised to continue cefpodoxime and lactulose prescribed on prior visit.. 05/21 23:21 Order name: Basic Metabolic Panel; Complete Time: 01:18 sp4 05/21 23:21 Order name: CBC with Diff; Complete Time: 02:14 sp4 05/21 23:21 Order name: LFT's; Complete Time: 01:18 sp4 05/21 23:21 Order name: Magnesium; Complete Time: 01:18 sp4 05/21 23:21 Order name: NT PRO-BNP; Complete Time: 01:18 sp4 05/21 23:21 Order name: PT-INR; Complete Time: 01:18 sp4 05/21 23:21 Order name: Troponin HS; Complete Time: 01:18 sp4 05/22 00:09 Order name: Manual Differential; Complete Time: 02:14 EDMS 05/21 22:17 Order name: CT Chest Abdomen Pelvis W/O Contrast 4 05/21 23:21 Order name: EKG; Complete Time: 23:21 sp4 05/21 23:21 Order name: Cardiac monitoring; Complete Time: 00:11 sp4 05/21 23:21 Order name: EKG - Nurse/Tech; Complete Time: 00:11 sp4 05/21 23:21 Order name: IV Saline Lock; Complete Time: 23:49 sp4 05/21 23:21 Order name: Labs collected and sent; Complete Time: 23:49 sp4 05/21 23:21 Order name: O2 Per Protocol; Complete Time: 23:49 sp4 05/21 23:21 Order name: O2 Sat Monitoring; Complete Time: 23:49 sp4 EC:05 Rate is 95 beats/min. Rhythm is regular, Normal Sinus Rhythm. QRS [place] is Normal. [place] sp4 interval is normal. QRS interval is normal. QT interval is normal. No Q waves. T waves are Normal. No ST changes noted. Clinical impression: No evidence of ischemia. Interpreted by me. Reviewed by me. Administered Medications: 05/21 23:50 Drug: NS 0.9% IV 500 ml IV at bolus once Route: IV; Rate: bolus; Site: Other; 6 05/22 00:11 Follow up: IV Status: Completed infusion; IV Intake: 500ml tm6 02:00 Follow up: Response: No adverse reaction; IV Status: Completed infusion; IV Intake: ha1 500ml 00:11 Drug: NS 0.9% IV 1000 ml IV at 125 ml/hr continuous Route: IV; Rate: 125 ml/hr; Site: [facility] Other; 02:00 Follow up: Response: No adverse reaction; IV Status: Completed infusion; IV Intake: ha1 650ml 00:11 Drug: Albumin IVPB 25 grams 100 ml IVPB once; (Note: Albumin 25% concentration) Volume: tm6 100 ml; Route: IVPB; Site: Other; 02:00 Follow up: Response: No adverse reaction; IV Status: Completed infusion; IV Intake: ha1 100ml 00:20 Drug: Albumin IVPB 25 grams 100 ml IVPB once; (Note: Albumin 25% concentration) Volume: tm6 100 ml; Route: IVPB; Site: Other; 02:00 Follow up: Response: No adverse reaction; IV Status: Completed infusion; IV Intake: [id number] 01:18 Drug: Fleet Enema AZ 133 ml AZ once Route: AZ; tm6 02:00 Follow up: Response: No adverse reaction; Marked relief of symptoms ha1 01:18 Drug: Fleet Enema AZ 133 ml AZ once Route: AZ; tm6 02:00 Follow up: Response: No adverse reaction; Marked relief of symptoms ha1 Disposition Summary: 05/22/24 02:54 Discharge Ordered Notes: Location: Home sp4 Problem: new sp4 Symptoms: have improved sp4 Condition: Stable sp4 Diagnosis - Fecal impaction sp4 - Obstipation, fecal impaction of colon of the rectum, hypertensive episode , sp4 moderate dehydration, anemia of chronic disease Followup: sp4 - With: Private Physician - When: 7 - 10 days - Reason: Recheck today's complaints Discharge Instructions: - Discharge Summary Sheet sp4 - Fecal Impaction sp4 Forms: - Patient Portal Instructions sp4 Prescriptions: - glycerin (adult) suppository - insert 1 suppository RECTAL route once daily at bedtime as needed for sp4 constipation; 12 suppository; Refills: 0, Product Selection Permitted Signatures: Dispatcher [employer] Guillaume Cee MD MD sp4 Sherlyn Mccann RN RN tm6 Shelia Baez RN ha1 Corrections: (The following items were deleted from the chart) 05/21 22:17 22:17 Chest Abdomen Pelvis Wo Con+CT.RAD.BRZ ordered. EDMS EDMS
--- NOTE | 2024-05-22 02:55 | ER ---
Nurse's Notes [facility] Name: Carey Mcdaniel Age: 78 yrs Sex: Female : 1945 Arrival Date: 05/21/2024 Time: 22:09 Bed 19 Private MD: Diagnosis: Fecal impaction;Obstipation, fecal impaction of colon of the rectum, hypertensive episode , moderate dehydration, anemia of chronic disease Presentation: 05/21 22:43 Chief complaint: EMS states: patient discharged from this ER a few hours ago. Daughter tm6 called EMS again due to patient "not breathing right.". Coronavirus screen: Vaccine status: Patient reports being unvaccinated. Ebola Screen: Patient negative for fever greater than or equal to 101.5 degrees Fahrenheit, and additional compatible Ebola Virus Disease symptoms Patient denies exposure to infectious person. Patient denies travel to an Ebola-affected area in the 21 days before illness onset. No symptoms or risks identified at this time. Initial Sepsis Screen: Does the patient meet any 2 criteria? No. Patient's initial sepsis screen is negative. Does the patient have a suspected source of infection? No. Patient's initial sepsis screen is negative. Risk Assessment: Do you want to hurt yourself or someone else? Patient reports no desire to harm self or others. Onset of symptoms was May 21, 2024. 22:43 Method Of Arrival: [id number] 22:43 Acuity: EKATERINA 3 tm6 Triage Assessment: 22:45 General: Appears uncomfortable, slender, Behavior is cooperative. Pain: Denies pain. tm6 Unable to use pain scale. Patient appears quiet, non-verbal. EENT: No signs and/or symptoms were reported regarding the EENT system. Neuro: Level of Consciousness is awake, alert, obeys commands, Oriented to non-verbal. Cardiovascular: Patient's skin is warm and dry. Respiratory: Airway is patent Respiratory effort is even, unlabored, Respiratory pattern is regular, symmetrical. GI: Abdomen is round distended, Abd is rigid X 4 quads. Parent/caregiver reports the patient having constipation. : No signs and/or symptoms were reported regarding the genitourinary system. Derm: No signs and/or symptoms reported regarding the dermatologic system. Musculoskeletal: No signs and/or symptoms reported regarding the musculoskeletal system. Historical: - Allergies: 22:45 Hydrocodone-Acetaminophen; tm6 - PMHx: 22:45 CVA; Right sided weakness; Dementia; Hypertension; non verbal (Hypertension); tm6 - Immunization history:: Client reports having NOT received the Covid vaccine. - Infectious Disease History:: Denies. - Social history:: Smoking status: Patient denies any tobacco usage or history of. Patient/guardian denies using alcohol. - Family history:: not pertinent. Screenin:47 [facility] ED Fall Risk Assessment (Adult) History of falling in the last 3 months, tm6 including since admission No falls in past 3 months (0 pts) Confusion or Disorientation Yes (5 pts) Intoxicated or Sedated No (0 pts) Impaired Gait Yes (1 pt) Mobility Assist Device Used No (0 pt) Altered Elimination Yes (1 pt) Score/Fall Risk Level 3 or more points = High Risk Oriented to surroundings, Maintained a safe environment, Educated pt \\T\\ family on fall prevention, incl call for assistance when getting out of bed. Abuse screen: Denies threats or abuse. Denies injuries from another. Nutritional screening: No deficits noted. Tuberculosis screening: No symptoms or risk factors identified. Assessment: 22:34 General: Pt transported to CT . kd3 22:37 General: Pt's daughter is at the bedside and states that the patient just had a bowl kd3 movement and would prefer to wait until her CT comes back to administer additional enema. . 22:47 Reassessment: see triage assessment. tm6 05/22 01:18 Reassessment: Patient and/or family updated on plan of care and expected duration. Pain tm6 level reassessed. Patient is alert, oriented x 3, equal unlabored respirations, skin warm/dry/pink. 01:19 Reassessment: large amount of stool came out of patient after receiving enemas. Patient tm6 cleaned and placed in brief. Patient turned with pillow, to prevent pressure ulcers. 02:49 Reassessment: Patient and/or family updated on plan of care and expected duration. Pain ha1 level reassessed. Vital Signs: 05/21 23:13 BP 76 / 48; Pulse 86; Resp 19; Temp 97.1(TE); Pulse Ox 100% on R/A; MAP 58 mmHg; tm6 23:49 BP 92 / 54; MAP 65 mmHg; tm6 07 00:10 BP 93 / 53; Pulse 91; Resp 14; Pulse Ox 93% on R/A; MAP 66 mmHg; tm6 01:18 BP 115 / 57; Pulse 89; Resp 15; tm6 02:19 BP 121 / 71; Pulse 97; Resp 16; Temp 96.9(TE); Pulse Ox 100% on R/A; MAP 87 mmHg; Pain tm6 0/10; 02:53 BP 124 / 61; Pulse 97; Resp 15; MAP 78 mmHg; ha1 02:19 Pain Scale: Adult tm6 Viral Coma Score: 00:10 Eye Response: spontaneous(4). Motor Response: localizes pain(5). Verbal Response: sp4 none(1). Total: 10. ED Course: 05/21 22:14 Patient arrived in ED. kmf 22:16 Guillaume Mcgraw MD is Attending Physician. sp4 22:42 Sherlyn Mccann RN is Primary Nurse. tm6 22:45 Triage completed. tm6 22:45 Arm band placed on right wrist. tm6 22:47 Patient has correct armband on for positive identification. Placed in gown. Bed in low tm6 position. Call light in reach. Side rails up X2. Adult w/ patient. Provided Education on: plan of care. Client placed on continuous cardiac and pulse oximetry monitoring. NIBP monitoring applied. Pulse ox on. NIBP on. Door closed. Noise minimized. Warm blanket given. 23:01 CT Chest Abdomen Pelvis W/O Contrast In Process Unspecified. EDMS 23:49 Initial lab(s) drawn, by nc, sent to lab. Inserted saline lock: 20 gauge in left ,using cm10 aseptic technique. Ankle Blood collected. 23:49 Served as a guest laundry attendant during rectal exam. Assisted provider with: Fecal disimpaction. cm10 23:49 Magnesium Sent. tm6 23:50 Basic Metabolic Panel Sent. tm6 23:50 CBC with Diff Sent. tm6 23:50 LFT's Sent. tm6 23:50 NT PRO-BNP Sent. tm6 23:50 PT-INR Sent. tm6 23:50 Troponin HS Sent. tm6 05/22 00:09 EKG done, by ED staff, reviewed by Guillaume Mcgraw MD. tm6 00:10 Repositioned patient. Cleaned of incontinence. One-on-one care X 45 minutes. tm6 02:31 Cleaned of incontinence. ha1 03:20 IV discontinued, intact, bleeding controlled, No redness/swelling at site. Pressure ha1 dressing applied. Administered Medications: 05/21 23:50 Drug: NS 0.9% IV 500 ml IV at bolus once Route: IV; Rate: bolus; Site: Other; tm6 05/22 00:11 Follow up: IV Status: Completed infusion; IV Intake: 500ml tm6 02:00 Follow up: Response: No adverse reaction; IV Status: Completed infusion; IV Intake: ha1 500ml 00:11 Drug: NS 0.9% IV 1000 ml IV at 125 ml/hr continuous Route: IV; Rate: 125 ml/hr; Site: [facility] Other; 02:00 Follow up: Response: No adverse reaction; IV Status: Completed infusion; IV Intake: ha1 650ml 00:11 Drug: Albumin IVPB 25 grams 100 ml IVPB once; (Note: Albumin 25% concentration) Volume: tm6 100 ml; Route: IVPB; Site: Other; 02:00 Follow up: Response: No adverse reaction; IV Status: Completed infusion; IV Intake: ha1 100ml 00:20 Drug: Albumin IVPB 25 grams 100 ml IVPB once; (Note: Albumin 25% concentration) Volume: tm6 100 ml; Route: IVPB; Site: Other; 02:00 Follow up: Response: No adverse reaction; IV Status: Completed infusion; IV Intake: [id number] 01:18 Drug: Fleet Enema AK 133 ml AK once Route: AK; tm6 02:00 Follow up: Response: No adverse reaction; Marked relief of symptoms ha1 01:18 Drug: Fleet Enema AK 133 ml AK once Route: AK; tm6 02:00 Follow up: Response: No adverse reaction; Marked relief of symptoms ha1 Medication: 05/21 22:47 VIS not applicable for this client. tm6 Intake: 05/22 00:11 IV: 500ml; Total: 500ml. tm6 02:00 IV: 100ml; Total: 600ml. ha1 02:00 IV: 50ml; Total: 650ml. ha1 02:00 IV: 650ml; Total: 1300ml. ha1 02:00 IV: 500ml; Total: 1800ml. ha1 Outcome: 02:54 Discharge ordered by . merlin 03:20 Discharged to home via wheelchair, with family, ha1 03:20 Condition: stable 03:20 Discharge instructions given to patient, family, Instructed on discharge instructions, follow up and referral plans. medication usage, Demonstrated understanding of instructions, follow-up care, medications, Prescriptions given X 1, 03:21 Patient left the ED. ha1 Signatures: Dispatcher [employer] EDSherri Lopez RN RN kd3 Shelia Baez RN RN [email or web address] Guillaume cMgraw MD MD sp4 Delmy Kim RN RN cm10 [facility] Sherlyn Mccann RN RN tm6
[2024-05-22 04:12] VITALS: BP 124/61; TEMP 96.9; O2SAT 100
--- NOTE | 2024-05-22 14:33 | EKG ---
Test Date: 2024-05-21 Test Time: 23:56:45 Director Of Provider Relations: DIONNA MEASUREMENT RESULTS: Intervals: Rate: 95 SD: 146 QRSD: 60 QT: 380 QTc: 477 Melvern: P: 27 SD: 146 QRS: -9 T: 28 INTERPRETIVE STATEMENTS: Sinus rhythm Cannot rule out Anterior infarct, age undetermined Abnormal ECG Compared to ECG 03/02/2024 16:41:46 Myocardial infarct finding now present T-wave abnormality no longer present Electronically Signed On 05-22-24 14:32:02 CDT by Jeff Espino
--- NOTE | 2024-05-22 17:27 | RAD REPORT ---
EXAM DESCRIPTION: CT - Chest Abd Pelvis Wo Con - 05/22/2024 6:24 am CLINICAL HISTORY: 78 years Female, ABDOMINAL DISTENTION TECHNIQUE: Helical CT axial images are obtained from the thoracic inlet to the pubic symphysis witho ut IV contrast. No oral contrast was administered. Multiplanar reconstruction. This exam was pe rformed according to our departmental dose-optimization program, which includes automated exposure co ntrol, adjustment of the mA and/or kV according to patient size and/or use of iterative reconstructio n technique. COMPARISON: CT abdomen pelvis with contrast performed earlier same day FINDINGS: Limited exam secondary to streak artifacts from patient's arms and paucity of mesenteric f at limiting detailed evaluation of the abdominal contents. CHEST: LUNGS: Mild bibasilar subsegmental atelectasis. Mild linear scarring right lower lobe. No confluent areas of acute consolidation. No pulmonary masses or suspicious nodules. MEDIASTINUM: Fluid-filled moderately distended esophagus. No abnormally enlarged mediastinal or hilar lymph nodes. PLEURA: Small bilateral pleural effusions. No pneumothorax. CARDIAC: Normal heart size. No pericardial effusion. VASCULAR: Thoracic aorta is normal in caliber without aneurysm. The pulmonary vasculature demonstrate s no significant dilatation. CHEST WALL: Chest wall is intact. No abnormal axillary lymphadenopathy. ABDOMEN/PELVIS: LIVER: Normal in size. Homogenous attenuation. No focal masses. HEPATOBILIARY: Status post cholecystectomy. No intra- or extrahepatic ductal dilatation. SPLEEN: Normal size. PANCREAS: Not well seen due to paucity of mesenteric fat and lack of intravenous contrast, ADRENAL GLANDS: Not well visualized due to paucity of mesenteric fat and lack of intravenous contrast . KIDNEYS: No obstructing calculi or hydronephrosis bilaterally. No nephrolithiasis. Moderate sized l eft parapelvic renal cysts and a few scattered small bilateral parenchymal cysts, for which no furthe r workup is warranted. BOWEL AND MESENTERY: Paucity of mesenteric fat and lack of oral contrast limits detailed evaluation o f the GI tract. Moderate size hiatal hernia. Severe diffuse fecal impaction throughout the entire c olon with mild diffuse colonic dilatation. No definite evidence for small bowel dilatation. Right low er quadrant solid masses versus rightward displaced myomatous uterus versus loops of small bowel, inc ompletely assessed given the aforementioned limitations. No free fluid or pneumoperitoneum. RETROPERITONEUM: Normal caliber abdominal aorta without aneurysm. No abnormal retroperitoneal lymphad enopathy. PELVIS: Opacified urinary bladder from intravenous contrast administered earlier same day. Please s ee bowel section for possible myomatous uterus. ABDOMINAL WALL: The abdominal wall is intact. BONES: No suspicious osseous lytic or blastic lesions seen. IMPRESSION: 1. Limited exam secondary to streak artifacts from patient's arms and paucity of mesen teric fat limiting detailed evaluation of the abdominal contents. 2. Severe diffuse fecal impaction throughout the entire colon with mild diffuse colonic dilatation. No definite evidence for small bowel dilatation. 3. Right lower quadrant solid masses versus rightward displaced myomatous uterus versus loops of sm all bowel, incompletely assessed given the aforementioned limitations. After disimpaction and resolut ion of fecal impaction consider follow-up imaging with oral contrast to help differentiate findings w ithin the right lower quadrant. 4. Moderate size hiatal hernia. Fluid-filled moderately distended esophagus. 5. Small bilateral pleural effusions. Mild bibasilar subsegmental atelectasis. 6. Status post cholecystectomy. Electronically signed by: Bill Tamez MD 05/21/2024 11:50 PM CDT N Due to temporary technical issues with the PACS/Fluency reporting system, reports are being signed by the in house radiologists without review as a courtesy to insure prompt reporting. The interpreting radiologist is fully responsible for the content of the report.
== END 2024-05-22 03:21 | disposition home or self-care (01) ==
LOC: ER 22:09
DX: K56.41 Fecal impaction (principal); E86.0 Dehydration; D64.9 Anemia, unspecified; I10 Essential (primary) hypertension; Z88.5 Allergy status to narcotic agent
CPT/HCPCS: 93005; 85025; 80048; 36415; 83735; 85610; 80076; 84484; 83880; 71250; 74176; P9047; J7040; J7030

== ENCOUNTER 2024-08-06 16:33 | Inpatient (IN) | payer OTHER ==
[2024-08-06] MEDS ORDERED: NA CHLORIDE 0.9% 500 ML ONE (17:21)
[2024-08-06] MEDS ORDERED: PANTOPRAZOLE 40 MG INJ ONE (17:21)
[2024-08-06] MEDS ORDERED: D5 0.9 NS 1,000 ML IV ONE (17:22)
[2024-08-06 17:52] LABS: Absolute Monocytes 0.3 K/uL (0.1-1.3); Absolute Neutrophil 2.9 K/uL (1.8-8.0); Basophils % 0.8 % (0-1.3); Eosinophils % 0.4 % (0-4.4); Hematocrit 24.9 % (36.0-45.0); Hemoglobin 7.3 g/dL (12.0-15.0); Lymphocytes % 23.4 % (15.3-44.8); MCH 18.2 pg (27.0-35.0); MCHC 29.4 g/dL (32.0-36.0); MCV 61.9 fL (80-100); MPV 8.7 fL (7.6-11.3); Monocytes % 7.1 % (3.3-12.3); Neutrophils % 68.3 % (41.7-73.7); Nucleated Red Blood Cells % 0.2 % (0-0); Platelets 362 thou/uL (152-406); RBC Red Blood Cell Count 4.03 M/uL (3.86-4.86); Red Cell Distribution Width 20.7 % (12.1-15.2)
[2024-08-06 17:55] LABS: PT Prothrombin Time 12.4 SECONDS (9.4-12.5); PTT, Activated Partial Thromb 19.5 SECONDS (24.3-36.9); Protime INR 1.11
[2024-08-06 17:59] LABS: Anion Gap 8.8 mEq/L (5.0-15.0); Potassium 3.8 mEq/L (3.5-5.1)
--- NOTE | 2024-08-06 18:59 | RAD REPORT ---
EXAM: Thorax W/ Con CLINICAL INDICATION: Female, 79 years old. [facility] MAIN n/a unable to swallow Bed Name: IW2 N TECHNIQUE: Routine CT scan of the chest with intravenous contrast. One or more of the following dose reduction techniques were used: Automated exposure control, adjustment of the mA and/or kV according to patient size, and/or iterative reconstruction. Unless otherwise specified, incidental fi ndings do not require dedicated imaging follow-up. COMPARISON: CT chest 05/21/2024. Chest radiograph 03/02/2024 FINDINGS: LUNGS: Mild secretions layering along the right aspect of the trachea. No evidence of airspace or int erstitial process. No suspicious nodules. PLEURA: No pleural effusion. No pneumothorax. MEDIASTINUM AND LYMPH NODES: No mediastinal mass or fluid collection. Normal size mediastinal, hilar, and axillary lymph nodes. OSSEOUS STRUCTURES AND CHEST WALL: Intact. UPPER ABDOMEN: Mild to moderate distention of small bowel loops in the left upper quadrant. Status po st cholecystectomy. IMPRESSION: No acute or significant abnormalities in the chest, apart from mild secretions along the trachea. Mild to moderate distention of small bowel loops in the left upper quadrant, nonspecific.
--- NOTE | 2024-08-06 19:05 | RAD REPORT ---
EXAM: Soft Tissue Neck W/Contr INDICATION: HS MAIN n/a unable to swallow Bed Name: IW2 TECHNIQUE: Helical CT examination of the neck with IV contrast. Sagittal and coronal reformations wer e generated. This exam was performed according to our departmental dose-optimization program, which includes automated exposure control, adjustment of the mA and/or kV according to patient size and/or use of iterative reconstruction technique. COMPARISON: 03/02/[address] Soft tissue neck CT 12/21/2023. FINDINGS: Motion artifact somewhat limits evaluation. Mucosal spaces: Nasopharynx, oropharynx, oral cavity, larynx and hypopharynx are normal. No suspiciou s masses. Epiglottis is normal in configuration.True vocal cords cords are normally situated. Piriform sinuses are well-aerated. Lymph Nodes: No pathologic appearing cervical lymph nodes. Salivary Glands: Unremarkable. Thyroid Gland: Normal Included Intracranial Structures: Encephalomalacia in the included occipitoparietal regions, worse on the left. These appear stable compared to the 03/02/2024 exam and suggest sequelae of remote ischemia. Included Orbits: Normal Paranasal Sinuses: Predominantly clear Tympanomastoid Cavities: Normal Vascular Structures: Normal Osseous Structures: No acute osseous abnormality. Included Lung Apices: Normal IMPRESSION: No acute abnormalities in the neck within limits of motion. Incidentally noted encephalomalacia in the occipitoparietal regions of the brain, stable.
[2024-08-06 19:19] LABS: Anisocytosis 2+; Blood Morphology Comment NOTED (NOT SEEN); Hypochromasia 1+; Microcytosis 1+; Platelet Estimate ADEQ; White Blood Cell Scan OK (OK)
--- NOTE | 2024-08-06 20:02 | ER ---
Nurse's Notes [facility] Name: Carey Mcdaniel Age: 79 yrs Sex: Female : 1945 Arrival Date: 08/06/2024 Time: 16:33 Bed 6 Private MD: Diagnosis: Vomiting;Gastro-esophageal reflux disease with esophagitis Presentation: 08/06 16:44 Chief complaint: Patient's son or daughter states: Difficulty swallowing X2 days. cm10 Coronavirus screen: Client denies travel out of the [place] in the last 14 days. Ebola Screen: Patient denies travel to an Ebola-affected area in the 21 days before illness onset. No symptoms or risks identified at this time. Initial Sepsis Screen: Does the patient meet any 2 criteria? No. Patient's initial sepsis screen is negative. Does the patient have a suspected source of infection? No. Patient's initial sepsis screen is negative. Risk Assessment: Do you want to hurt yourself or someone else? Patient reports no desire to harm self or others. Onset of symptoms was August 06, 2024. 16:44 Method Of Arrival: Wheelchair cm10 16:44 Acuity: EKATERINA 3 cm10 Triage Assessment: 16:45 General: Appears in no apparent distress. comfortable, Behavior is calm, cooperative. cm10 Neuro: No deficits noted. Level of Consciousness is awake, alert. Respiratory: No deficits noted. Airway is patent Respiratory effort is even, unlabored, Respiratory pattern is regular, symmetrical. Historical: - Allergies: 16:45 Hydrocodone-Acetaminophen; cm10 - PMHx: 16:45 CVA; Right sided weakness; Dementia; Hypertension; non verbal (Hypertension); cm10 - Immunization history:: Adult Immunizations up to date. - Infectious Disease History:: Denies. - Social history:: Smoking status: Patient denies any tobacco usage or history of. - Family history:: not pertinent. - Hospitalizations: : No recent hospitalization is reported. Screenin:00 [facility] ED Fall Risk Assessment (Adult) History of falling in the last 3 months, bp including since admission No falls in past 3 months (0 pts) Confusion or Disorientation No (0 pts) Intoxicated or Sedated No (0 pts) Impaired Gait No (0 pts) Mobility Assist Device Used No (0 pt) Altered Elimination No (0 pt) Score/Fall Risk Level 0 - 2 = Low Risk. Abuse screen: Denies threats or abuse. Denies injuries from another. Nutritional screening: No deficits noted. Tuberculosis screening: No symptoms or risk factors identified. Assessment: 17:00 General: Appears in no apparent distress. Behavior is unresponsive. Pain: Unable to use bp pain scale. Does not appear to understand pain scale. Neuro: AT BASELINE. 18:00 Reassessment: Patient appears in no apparent distress at this time. Patient is alert, bp oriented x 3, equal unlabored respirations, skin warm/dry/pink. 19:31 General: Appears in no apparent distress. comfortable, Behavior is calm, cooperative. al5 Pain: Denies pain. Neuro: Level of Consciousness is awake, alert, obeys commands, Oriented to baseline, nonverbal. Cardiovascular: Capillary refill < 3 seconds Patient's skin is warm and dry. Respiratory: Airway is patent Respiratory effort is even, unlabored, Respiratory pattern is regular, symmetrical. GI: Abdomen is flat, non-distended. GI:. : No signs and/or symptoms were reported regarding the genitourinary system. EENT: No signs and/or symptoms were reported regarding the EENT system. Derm: Skin is intact, Skin is pink, warm \T\ dry. normal. Musculoskeletal: No signs and/or symptoms reported regarding the musculoskeletal system. Vital Signs: 16:44 BP 127 / 64; Pulse 76; Resp 16; Temp 97.5(IR); Pulse Ox 95% on R/A; Weight 45.36 kg; cm10 Height 4 ft. 11 in. ; 18:30 BP 139 / 56; Pulse 62; Resp 18; Pulse Ox 100% ; bp 19:31 BP 140 / 70; Pulse 62; Resp 18; Pulse Ox 100% ; al5 16:44 Body Mass Index 20.20 (45.36 kg, 149.86 cm) cm10 ED Course: 16:36 Patient arrived in ED. ra3 16:44 Franklin Rutledge MD is Attending Physician. rn 16:45 Triage completed. cm10 16:46 Arm band placed on Patient placed in an exam room, on a stretcher. cm10 17:01 Gibson Wick, RN is Primary Nurse. bp 17:34 Initial lab(s) drawn, by me, sent to lab. Inserted saline lock: 22 gauge in left bp forearm, using aseptic technique. Blood collected. Flushed with 10 mL NS. 18:00 Patient has correct armband on for positive identification. bp 18:41 CT Chest W/ Con In Process Unspecified. EDMS 18:41 CT Soft Tissue Neck W/contr In Process Unspecified. EDMS 19:32 No provider procedures requiring assistance completed. al5 20:01 Attending Physician role handed off by Franklin Rutledge MD gb1 20:01 Susan Saez MD is Attending Physician. gb1 20:01 Enio Kaplan MD is Hospitalizing Provider. gb1 22:54 Provided Education on: need for admit. bm8 22:54 Patient admitted, IV remains in place. bm8 Administered Medications: 17:34 Drug: NS 0.9% IV 500 ml IV at bolus once Route: IV; Rate: bolus; Site: right forearm; bp 22:55 Follow up: Response: No adverse reaction; IV Status: Completed infusion; IV Intake: bm8 1000ml 17:34 Drug: Pantoprazole IVP 40 mg IVP once Route: IVP; Site: left forearm; bp 22:54 Follow up: Response: No adverse reaction bm8 18:00 Drug: D5-NS IV 1000 ml IV at 125 ml/hr continuous Route: IV; Rate: 125 ml/hr; Site: bp left forearm; 22:55 Follow up: Response: No adverse reaction; IV Status: Completed infusion; Infusion bm8 continued upon admission; IV Intake: 250ml Medication: 19:32 VIS not applicable for this client. al5 Intake: 22:55 IV: 250ml; Total: 250ml. bm8 22:55 IV: 1000ml; Total: 1250ml. bm8 Outcome: 20:02 Decision to Hospitalize by Provider. gb1 22:53 Admitted to Med/surg accompanied by nurse, via stretcher, room 223, bm8 22:53 Condition: stable 22:53 Instructed on follow up and referral plans. the need for admit, safety practices, Demonstrated understanding of instructions, follow-up care, medications, 22:56 Patient left the ED. bm8 Signatures: Dispatcher [employer] EDMS Franklin Rutledge MD MD rn Peltier, Brian, RN RN bp Martinez, Clarissa, RN RN cm10 Susan Saez MD MD 1 Margot Lee [facility] Guido Walton RN RN bm8 Susanne Arriaga, RN RN al5
--- NOTE | 2024-08-06 20:02 | EDPHYS ---
Physician Documentation [facility] Name: Carey Mcdaniel Age: 79 yrs Sex: Female : 1945 Arrival Date: 08/06/2024 Time: 16:33 Bed 6 Private MD: ED Physician Susan Saez HPI: 08/06 17:13 This 79 yrs old Female presents to ER via Wheelchair with complaints of rn Difficulty Swallowing. 17:13 The patient presents with dysphagia, of solids, of liquids, of both solids and liquids. rn Onset: The symptoms/episode began/occurred 2 day(s) ago. Severity of symptoms: At their worst the symptoms were severe, in the emergency department the symptoms are unchanged. Modifying factors: The symptoms are alleviated by. 17:16 Associated signs and symptoms: Pertinent positives: dysphagia, Pertinent negatives rn fever, rhinorrhea, shortness of breath. The patient has experienced a previous episode. The patient has not recently seen a physician. Family member reports trouble swallowing for 2 days. Has happened before and treated for esophagitis with antacids. For 1 year has been strictly taking pured foods, for the last 2 days unable to even take water. No vomiting but family member states water seems to pull and throat and she assists patient in throwing up. Patient exhibiting generalized weakness. Patient is nonverbal. Has dementia.. Historical: - Allergies: 16:45 Hydrocodone-Acetaminophen; cm10 - PMHx: 16:45 CVA; Right sided weakness; Dementia; Hypertension; non verbal (Hypertension); cm10 - Immunization history:: Adult Immunizations up to date. - Infectious Disease History:: Denies. - Social history:: Smoking status: Patient denies any tobacco usage or history of. - Family history:: not pertinent. - Hospitalizations: : No recent hospitalization is reported. ROS: 17:16 Unable to obtain ROS due to baseline dementia, Nonverbal, rn Exam: 17:16 Constitutional: Thin female, no acute distress, sitting in wheelchair ENT: Dry mucous rn membranes, no stridor, no pooled secretions Cardiovascular: Regular rate and rhythm. No pulse deficits. Respiratory: No respiratory distress Neuro: Awake and alert Vital Signs: 16:44 BP 127 / 64; Pulse 76; Resp 16; Temp 97.5(IR); Pulse Ox 95% on R/A; Weight 45.36 kg; cm10 Height 4 ft. 11 in. ; 18:30 BP 139 / 56; Pulse 62; Resp 18; Pulse Ox 100% ; bp 19:31 BP 140 / 70; Pulse 62; Resp 18; Pulse Ox 100% ; al5 16:44 Body Mass Index 20.20 (45.36 kg, 149.86 cm) cm10 MDM: 16:44 Patient medically screened. rn 20:02 Data reviewed: radiologic studies, CT scan, Received this patient in turnover from Dr. windy Rey at [address] scan of the soft tissue neck and chest. There are no acute findings on either study and I will admit the patient to the observation telemetry unit of Dr. Dayday Kaplan with IV fluids secondary to the patient not being p.o. tolerant.. 08/06 16:51 Order name: CBC with Diff; Complete Time: 19:59 08/06 16:51 Order name: Basic Metabolic Panel; Complete Time: 19:59 08/06 16:51 Order name: Protime (+inr); Complete Time: 19:59 08/06 16:51 Order name: Ptt, Activated; Complete Time: 19:59 08/06 19:19 Order name: CBC Smear Scan; Complete Time: 19:59 EDMO 08/06 20:46 Order name: Urinalysis w/ reflexes EDMO 08/06 20:46 Order name: CBC with Automated Diff EDMO 08/06 20:46 Order name: CBC with Automated Diff EDMO 08/06 20:46 Order name: Comprehensive Metabolic Panel [facility] 08/06 20:46 Order name: Comprehensive Metabolic Panel [facility] 08/06 16:53 Order name: CT Chest W/ Con; Complete Time: 19:59 08/06 16:53 Order name: CT Soft Tissue Neck W/contr; Complete Time: 19:59 08/06 16:51 Order name: IV Start; Complete Time: 17:34 rn Administered Medications: 17:34 Drug: NS 0.9% IV 500 ml IV at bolus once Route: IV; Rate: bolus; Site: right forearm; bp 22:55 Follow up: Response: No adverse reaction; IV Status: Completed infusion; IV Intake: bm8 1000ml 17:34 Drug: Pantoprazole IVP 40 mg IVP once Route: IVP; Site: left forearm; bp 22:54 Follow up: Response: No adverse reaction bm8 18:00 Drug: D5-NS IV 1000 ml IV at 125 ml/hr continuous Route: IV; Rate: 125 ml/hr; Site: bp left forearm; 22:55 Follow up: Response: No adverse reaction; IV Status: Completed infusion; Infusion bm8 continued upon admission; IV Intake: 250ml Disposition Summary: 08/06/24 20:02 Hospitalization Ordered Notes: Hospitalization Status: Observation gb1 Provider: Enio Kaplan gb1 Location: Telemetry/MedSurg (observation) gb1 Condition: Fair gb1 Problem: an acute exacerbation gb1 Symptoms: have worsened gb1 Bed/Room Type: Standard [facility] Room Assignment: 223(08/06/24 20:52) rv1 Diagnosis - Vomiting gb1 - Gastro-esophageal reflux disease with esophagitis gb1 Forms: - Medication Reconciliation Form gb1 - SBAR form gb1 - Leadership Thank You Letter gb1 Signatures: Dispatcher [employer] EDMS Franklin Rutledge MD MD rn Peltier, Gibson, RN RN Elinor Harmon rv1 Delmy Kim RN RN cm10 Susan Saez MD MD gb1 Guido Walton RN bm8 Corrections: (The following items were deleted from the chart) 16:52 16:52 CBC+H.LAB.BRZ ordered. EDMS EDMS 16:52 16:52 BASIC METABOLIC PANEL+C.LAB.BRZ ordered. EDMS EDMS 16:52 16:52 PROTIME (+INR)+COAG.LAB.BRZ ordered. EDMS EDMS 16:52 16:52 PTT, ACTIVATED+COAG.LAB.BRZ ordered. EDMS EDMS 16:53 16:53 Thorax W/ Con+CT.RAD.BRZ ordered. EDMS EDMS 20:52 20:02 gb1 rv1
[2024-08-06] MEDS ORDERED: ACETAMINOPHEN 325 MG TABLET PO PRN (20:42)
[2024-08-06] MEDS ORDERED: ONDANSETRON 4 MG/2 ML VIAL IV PRN (20:42)
--- NOTE | 2024-08-06 20:42 | P.HP ---
Certification for Inpatient Patient admitted to: Inpatient With expected LOS: >2 Midnights Practitioner: I am a practitioner with admitting privileges, knowledge of patient current condition, hospital course, and medical plan of care. Services: Services provided to patient in accordance with Admission requirements found in Title 42 Section 412.3 of the Code of Federal Regulations Patient History Date of Service: 08/07/24 Reason for admission: Difficulty in swallowing , Dehydration History of Present Illness: 79 yrs old Female with past medical history of hypertension, CVA, dementia, history of GERD, history of esophagitis who was on pured diet at home brought to ER with dysphagia and difficulty in swallowing which has been getting progressively getting worse and has not been given tolerating water. Denies any fever or chills. Patient is a poor historian hence most of the history is obtained from the chart review and also talking to the ER physician. The patient presents with dysphagia, of solids, of liquids, of both solids and liquids, started 2 days ago and has been progressively getting worse Denies any fever, rhinorrhea, shortness of breath. She had a similar episode and was treated for esophagitis with antacids and PPI. Denies any vomiting. No chest pain or shortness of breath. Patient was looking dehydrated and was admitted for further measures Allergies hydrocodone Allergy (Verified 07/18/23 02:03) Nausea/Vomiting Home medications list reviewed: Yes Home Medications: Quetiapine Fumarate [Seroquel] 300 mg PO BEDTIME 08/06/24 - Past Medical/Surgical History Diabetic: No Past Medical History: Reviewed- Non-Contributory -: Hypertension -: CVA 2009 -: Dementia -: Failure to thrive -: GI bleed Past Surgical History: Reviewed- Non-Contributory -: Cholecystectomy Psychosocial/ Personal History: Patient is home with her family-daughter Taylor is primary caregiver, she has a hospital bed, wheelchair at home - Family History Mother -: Hypertension, Diabetes - Social History Smoking Status: Never smoker Alcohol use: No CD- Drugs: No Caffeine use: No Review of Systems is unable to be obtained Physical Examination - Vital Signs Temperature: 97.5 F Blood Pressure: 127/64 Pulse: 76 Respirations: 18 Pulse Ox (%): 94 - Physical Exam General: Alert, Mild distress HEENT: Atraumatic, Normocephalic Neck: Supple Respiratory: Clear to auscultation bilaterally Cardiovascular: Regular rate/rhythm, Normal S1 S2 Capillary refill: <2 Seconds Gastrointestinal: Soft and benign, W/out hepatosplenomegaly Musculoskeletal: No clubbing, No swelling Integumentary: No rashes, No breakdown Neurological: Dementia Lymphatics: No axilla or inguinal lymphadenopathy - Studies Laboratory Data (last 24 hrs) 08/06/24 08/06/24 08/06/24 17:33 17:33 17:33 WBC 4.20 L Hgb 7.3 L Hct 24.9 L Plt Count 362 PT 12.4 INR 1.11 APTT 19.5 L Sodium 135 L Potassium 3.8 BUN 17 Creatinine 0.42 L Glucose 87 Assessment and Plan - Plan Dysphagia History of esophagitis Will start on PPI Speech evaluation IV hydration Monitor closely Hyponatremia Dehydration IV hydration Monitor electrolytes and replace accordingly Moderate protein calorie malnutrition Nutritional consult May need PEG tube if patient fails swallow well Dementia Supportive measures GI/DVT prophylaxis Advanced directive full code Discharge Plan: Home Plan to discharge in: 48 Hours - Advance Directives Does patient have a Living Will: No Does patient have a Durable POA for Healthcare: No - Code Status/Comfort Care Code Status: Full Code Time Spent Managing Pts Care (In Minutes): 48
[2024-08-06] MEDS: NA CHLORIDE 0.9% 1,000 ML IV SCH (21:00)
[2024-08-06] MEDS: QUETIAPINE 100MG TAB PO SCH (22:44)
[2024-08-07] MEDS ORDERED: PANTOPRAZOLE 40 MG INJ IVP SCH (02:30)
[2024-08-07] MEDS ORDERED: LORazepam 2 MG/ML VIAL IV PRN (02:31)
[2024-08-07 04:49] LABS: Absolute Lymphocytes (CBC) 1.2 K/uL (0.7-4.9); Absolute Monocytes 0.4 K/uL (0.1-1.3); Absolute Neutrophil 1.5 K/uL (1.8-8.0); Basophils % 1.3 % (0-1.3); Eosinophils % 0.4 % (0-4.4); Hematocrit 24.5 % (36.0-45.0); Hemoglobin 7.1 g/dL (12.0-15.0); Lymphocytes % 38.4 % (15.3-44.8); MCH 18.1 pg (27.0-35.0); MCHC 28.8 g/dL (32.0-36.0); MPV 8.1 fL (7.6-11.3); Monocytes % 12.9 % (3.3-12.3); Platelets 343 thou/uL (152-406); RBC Red Blood Cell Count 3.91 M/uL (3.86-4.86); Red Cell Distribution Width 21.1 % (12.1-15.2)
[2024-08-07 04:55] LABS: MCV 62.7 fL (80-100)
[2024-08-07 05:04] LABS: Albumin 2.1 g/dL (3.4-5.0); Albumin/Globulin Ratio 0.6 (1.1-1.8); Anion Gap 7.5 mEq/L (5.0-15.0); Bilirubin Total 0.3 mg/dL (0.2-1.0); Globulin 3.5 g/dL (2.3-3.5); Potassium 3.5 mEq/L (3.5-5.1); Protein, Total 5.6 g/dL (6.4-8.2)
[2024-08-07] MEDS: PANTOPRAZOLE 40 MG INJ IVP SCH (05:39)
[2024-08-07 08:48] VITALS: BMI 20.2
--- NOTE | 2024-08-07 10:12 | P.DS ---
Admission Date: 08/06/24 Discharge Date: 08/11/24 Disposition: ROUTINE DISCHARGE Reason for Admission: Difficulty in swallowing , Dehydration Brief History of Present Illness: 79 yrs old Female with past medical history of hypertension, CVA, dementia, history of GERD, history of esophagitis who was on pured diet at home brought to ER with dysphagia and difficulty in swallowing which has been getting progressively getting worse and has not been given tolerating water. Denies any fever or chills. Patient is a poor historian hence most of the history is obtained from the chart review and also talking to the ER physician. The patient presents with dysphagia, of solids, of liquids, of both solids and liquids, started 2 days ago and has been progressively getting worse Denies any fever, rhinorrhea, shortness of breath. She had a similar episode and was treated for esophagitis with antacids and PPI. Denies any vomiting. No chest pain or shortness of breath. - Physical Exam General: Alert, oriented x 3 HEENT: Atraumatic, Normocephalic Neck: Supple Respiratory: Clear to auscultation bilaterally Cardiovascular: Regular rate/rhythm, Normal S1 S2 Capillary refill: <2 Seconds Gastrointestinal: Soft and benign, W/out hepatosplenomegaly Musculoskeletal: No clubbing, No swelling Integumentary: No rashes, No breakdown Neurological: Dementia Lymphatics: No axilla or inguinal lymphadenopathy Hospital Course: 79 yrs old Female with past medical history of hypertension, CVA, dementia, history of GERD, history of esophagitis who was on pured diet at home brought to ER with dysphagia and difficulty in swallowing which has been getting progressively getting worse and has not been given tolerating water. Denies any fever or chills. Patient is a poor historian hence most of the history is obtained from the chart review and also talking to the ER physician. The patient presents with dysphagia, of solids, of liquids, of both solids and liquids, started 2 days ago and has been progressively getting worse Denies any fever, rhinorrhea, shortness of breath. She had a similar episode and was treated for esophagitis with antacids and PPI. Vital Signs/Physical Exam: Temp Pulse Resp BP Pulse Ox 97.7 F 50 17 149/61 H 100 08/07/24 04:00 08/07/24 04:00 08/07/24 04:00 08/07/24 04:00 08/07/24 04:00 Laboratory Data at Discharge: WBC 3.20 thou/uL (4.3-10.9) L 08/07/24 04:13 Hgb 7.1 g/dL (12.0-15.0) L 08/07/24 04:13 Hct 24.5 % (36.0-45.0) L 08/07/24 04:13 Plt Count 343 thou/uL (152-406) 08/07/24 04:13 PT 12.4 SECONDS (9.4-12.5) 08/06/24 17:33 INR 1.11 08/06/24 17:33 APTT 19.5 SECONDS (24.3-36.9) L 08/06/24 17:33 Sodium 139 mEq/L (136-145) 08/07/24 04:13 Potassium 3.5 mEq/L (3.5-5.1) 08/07/24 04:13 BUN 12 mg/dL (7-18) 08/07/24 04:13 Creatinine 0.38 mg/dL (0.55-1.02) L 08/07/24 04:13 Glucose 111 mg/dL (74-106) H 08/07/24 04:13 Total Bilirubin 0.3 mg/dL (0.2-1.0) 08/07/24 04:13 AST 17 U/L (15-37) 08/07/24 04:13 ALT 19 U/L (13-56) 08/07/24 04:13 Alkaline Phosphatase 108 U/L (45-117) 08/07/24 04:13 Home Medications: Quetiapine Fumarate [Seroquel] 300 mg PO BEDTIME 08/06/24 Followup: Tai Ann DO [Primary Care Provider] - Time spent managing pt's care (in minutes): 55
--- NOTE | 2024-08-07 10:24 | P.PN ---
Date of Service: 08/07/24 subjective N.p.o. for swallow eval, speech therapy to follow Review of Systems is unable to be obtained Physical Examination - Vital Signs Reviewed - Physical Exam General: Alert, responds to verbal, no acute distress, cachectic HEENT: Atraumatic, Normocephalic Neck: Supple Respiratory: Clear to auscultation bilaterally Cardiovascular: Regular rate/rhythm, Normal S1 S2 Capillary refill: <2 Seconds Gastrointestinal: Soft and benign, W/out hepatosplenomegaly Musculoskeletal: No clubbing, No swelling Integumentary: No rashes, No breakdown Neurological: Dementia Lymphatics: No axilla or inguinal lymphadenopathy Assessment and Plan - Plan Dysphagia esophagitis Will start on PPI Speech evaluation-pured diet, thin liquid IV hydration Monitor closely Hyponatremia Dehydration IV hydration Monitor electrolytes and replace accordingly Moderate protein calorie malnutrition Anemia Nutritional consult-calorie count, Ensure May need PEG tube if patient fails swallow well Iron studies Dementia Supportive measures GI/DVT prophylaxis Advanced directive full code Discharge Plan: Home Plan to discharge in: 48 Hours Disposition patient resides at home with a full-time caregiver - Advance Directives Does patient have a Living Will: No Does patient have a Durable POA for Healthcare: No - Code Status/Comfort Care Code Status: Full Code Time Spent Managing Pts Care (In Minutes): 35 <Yolanda Ulrich - Last Filed: 08/11/24 17:24> Patient was seen and examined. Events of the last 24 hours have been noted. Spoke with with SOFIA regarding patient's clinical picture after evaluating and examining the patient independently. I performed a substantial part of the MDM during this patient's care today. I personally made or approved the documented management plan and acknowledge its risk of complications. I agree with the findings and documentation provided in the SOFIA's notes. Swallow evaluation <Prudence Ang - Last Filed: 08/26/24 21:30>
[2024-08-07] MEDS: ENSURE ENLIVE 237 ML CAN PO SCH (20:15)
[2024-08-08 09:27] LABS: Absolute Monocytes 0.5 K/uL (0.1-1.3); Absolute Neutrophil 14.4 K/uL (1.8-8.0); Basophils % 0.3 % (0-1.3); Hematocrit 28.2 % (36.0-45.0); Hemoglobin 7.9 g/dL (12.0-15.0); Lymphocytes % 6.4 % (15.3-44.8); MCH 17.8 pg (27.0-35.0); MCHC 28.1 g/dL (32.0-36.0); MCV 63.4 fL (80-100); MPV 8.5 fL (7.6-11.3); Monocytes % 3.3 % (3.3-12.3); Nucleated Red Blood Cells % 0.1 % (0-0); Percent Reticulocyte Count 1.65 % (0.4-2.05); Platelets 364 thou/uL (152-406); RBC Red Blood Cell Count 4.46 M/uL (3.86-4.86); Red Cell Distribution Width 20.7 % (12.1-15.2)
[2024-08-08 09:35] LABS: PT Prothrombin Time 12.9 SECONDS (9.4-12.5); Protime INR 1.16
[2024-08-08] MEDS: SOD FERRIC GLUC COMPLX/SUCROSE 125 MG in NA CHLORIDE 0.9% 100 ML IV SCH (09:45)
[2024-08-08 10:06] LABS: Albumin 2.4 g/dL (3.4-5.0); Albumin/Globulin Ratio 0.6 (1.1-1.8); Anion Gap 7.9 mEq/L (5.0-15.0); Bilirubin Total 0.2 mg/dL (0.2-1.0); Globulin 3.9 g/dL (2.3-3.5); Potassium 3.9 mEq/L (3.5-5.1); Protein, Total 6.3 g/dL (6.4-8.2)
[2024-08-08 10:09] LABS: Thyroid Stimulating Hormone 4.58 uIU/mL (0.358-3.740)
[2024-08-08 12:39] LABS: Atypical Lymphocytes 1 %; Band Neutrophils 10 % (0-1); Differential Total Cells Count 100; Lymphocytes 7 % (15-42); Monocytes 4 % (0-10); Platelet Estimate ADEQ; Segmented Neutrophils 78 % (40-80)
[2024-08-08 12:40] LABS: Anisocytosis 1+; Blood Morphology Comment NOTED (NOT SEEN); Hypochromasia 2+; Microcytosis 2+
--- NOTE | 2024-08-09 05:59 | P.PN ---
Date of Service: 08/08/24 subjective Swallow study to evaluate Review of Systems is unable to be obtained Physical Examination - Vital Signs Reviewed - Physical Exam General: Alert, oriented x 2, no acute distress, cachectic HEENT: Atraumatic, Normocephalic Neck: Supple Respiratory: Equal, unlabored Cardiovascular: Regular rate/rhythm, Normal S1 S2 Capillary refill: <2 Seconds Gastrointestinal: Soft and benign, W/out hepatosplenomegaly Musculoskeletal: No clubbing, No swelling Integumentary: No rashes, No breakdown Neurological: Dementia Lymphatics: No axilla or inguinal lymphadenopathy Assessment and Plan - Plan Dysphagia esophagitis Will start on PPI Speech evaluation-pured diet, thin liquid IV hydration Monitor closely Hyponatremia Dehydration IV hydration Monitor electrolytes and replace accordingly Moderate protein calorie malnutrition Anemia Nutritional consult-calorie count May need PEG tube if patient fails swallow well Iron studies Ensure supplements Dementia Supportive measures GI/DVT prophylaxis Advanced directive full code Discharge Plan: Home Plan to discharge in: 48 Hours Disposition patient resides at home with a full-time caregiver - Advance Directives Does patient have a Living Will: No Does patient have a Durable POA for Healthcare: No - Code Status/Comfort Care Code Status: Full Code Time Spent Managing Pts Care (In Minutes): 25 <Yolanda Ulrich - Last Filed: 08/11/24 17:22> Patient was seen and examined. Events of the last 24 hours have been noted. Spoke with with SOFIA regarding patient's clinical picture after evaluating and examining the patient independently. I performed a substantial part of the MDM during this patient's care today. I personally made or approved the documented management plan and acknowledge its risk of complications. I agree with the findings and documentation provided in the SOFIA's notes. Continue with nutritional support. PEG tube and DC planning <Prudence Ang - Last Filed: 08/26/24 21:30>
--- NOTE | 2024-08-09 11:34 | RAD REPORT ---
Modified barium swallow exam with speech pathology service HISTORY: [facility] MAIN dysphagia Fluoroscopy Time: 4 minutes IMPRESSION: Please see the speech pathology service report for details. Barium contrast of multiple consistencies was provided the patient orally by the speech pathology dep artment. Fluoroscopic observation was performed during swallowing. The radiologist was not present for the examination. Laryngeal penetration cleared with thin liquid. Pharyngeal residue vallecular py riform. Reduced tongue base retraction with excessive pharyngeal residue. Tongue pumping to generate swallow, spontaneous additional swallows to clear residue.
[2024-08-09] MEDS: FUROSEMIDE 40 MG/4 ML VIAL IV ONE (22:38)
--- NOTE | 2024-08-10 01:28 | RAD REPORT ---
EXAM: XR Chest, 1 View CLINICAL HISTORY: The patient is 79 years old and is Female; Cough TECHNIQUE: Frontal view of the chest. COMPARISON: XR Chest dated August 03 2023 FINDINGS: LIMITATIONS: The patient is rotated which limits evaluation. LUNGS: The lungs are hyperinflated. Coarse interstitial markings are present. Perihilar and infra hilar opacities are noted. Peribronchial cuffing is noted. PLEURAL SPACE: Unremarkable. No pneumothorax. HEART: Unremarkable. No cardiomegaly. MEDIASTINUM: Unremarkable. Normal mediastinal contour. BONES/JOINTS: Multilevel degenerative change of the spine is present. No acute fracture. VASCULATURE: Atherosclerosis of the aorta is present. UPPER ABDOMEN: Residual contrast is present within the bowel in midabdomen. IMPRESSION: Findings suggest development of a mild infectious versus inflammatory process. Electronically signed by: Ghazal Bianchi MD 08/10/2024 01:18 AM CDT Due to temporary technical issues with the PACS/AudioCaseFiles reporting system, reports are being yoandy d by the in-house radiologist without review as a courtesy to ensure prompt reporting the interpreting radiologist is fully responsible for the content of the report. Transcribed Date/Time: 08/10/2024 1:28 AM
--- NOTE | 2024-08-10 05:58 | P.PN ---
Date of Service: 08/09/24 subjective Failed swallow study, aspirating, possible PEG placement with surgery Review of Systems is unable to be obtained Physical Examination - Vital Signs Reviewed - Physical Exam General: Alert, no acute distress noted, HEENT: Atraumatic, Neck: Supple Respiratory: Clear to auscultation bilaterally Cardiovascular: Regular rate/rhythm, Normal S1 S2 Capillary refill: <2 Seconds Gastrointestinal: Soft and benign, W/out hepatosplenomegaly Musculoskeletal: No clubbing, No swelling Integumentary: No rashes, No breakdown Neurological: Dementia Lymphatics: No axilla or inguinal lymphadenopathy Assessment and Plan - Plan Dysphagia esophagitis Will start on PPI Speech evaluation-pured diet, thin liquid-L swallow study, IV hydration Monitor closely Discussion for plan for PEG placement with family Hyponatremia Dehydration IV hydration Monitor electrolytes and replace accordingly Moderate protein calorie malnutrition Anemia Nutritional consult-calorie count May need PEG tube if patient fails swallow well Iron studies Dementia With total care Supportive measures Fall precautions, GI/DVT prophylaxis Advanced directive full code Discharge Plan: Home Plan to discharge in: 48 Hours Disposition patient resides at home with a full-time caregiver - Advance Directives Does patient have a Living Will: No Does patient have a Durable POA for Healthcare: No - Code Status/Comfort Care Code Status: Full Code Time Spent Managing Pts Care (In Minutes): 35 <Yolanda Ulrich - Last Filed: 08/11/24 17:21> Patient was seen and examined. Events of the last 24 hours have been noted. Spoke with with SOFIA regarding patient's clinical picture after evaluating and examining the patient independently. I performed a substantial part of the MDM during this patient's care today. I personally made or approved the documented management plan and acknowledge its risk of complications. I agree with the findings and documentation provided in the SOFIA's notes. Continue with nutritional support. PEG tube and DC planning <Prudence Ang - Last Filed: 08/26/24 21:29>
[2024-08-10 06:41] LABS: Absolute Lymphocytes (CBC) 0.5 K/uL (0.7-4.9); Absolute Monocytes 0.6 K/uL (0.1-1.3); Absolute Neutrophil 23.1 K/uL (1.8-8.0); Basophils % 0.1 % (0-1.3); Hematocrit 28.3 % (36.0-45.0); MCH 17.6 pg (27.0-35.0); MCHC 28.3 g/dL (32.0-36.0); MCV 62.2 fL (80-100); MPV 8.9 fL (7.6-11.3); Monocytes % 2.5 % (3.3-12.3); Neutrophils % 95.4 % (41.7-73.7); Nucleated Red Blood Cells % 0.1 % (0-0); Platelets 391 thou/uL (152-406); RBC Red Blood Cell Count 4.54 M/uL (3.86-4.86)
[2024-08-10 08:40] LABS: PT Prothrombin Time 15.2 SECONDS (9.4-12.5); Protime INR 1.37
[2024-08-10 08:52] LABS: Anisocytosis 1+; Band Neutrophils 3 % (0-1); Blood Morphology Comment NOTED (NOT SEEN); Differential Total Cells Count 100; Hypochromasia 3+; Lymphocytes 2 % (15-42); Microcytosis 2+; Monocytes 3 % (0-10); Platelet Estimate INCR; Poikilocytosis 1+; Polychromasia 1+; Segmented Neutrophils 92 % (40-80)
[2024-08-10 08:57] LABS: Albumin 2.7 g/dL (3.4-5.0); Albumin/Globulin Ratio 0.7 (1.1-1.8); Anion Gap 8.9 mEq/L (5.0-15.0); Bilirubin Total 0.6 mg/dL (0.2-1.0); Globulin 3.9 g/dL (2.3-3.5); Potassium 2.9 mEq/L (3.5-5.1); Protein, Total 6.6 g/dL (6.4-8.2)
[2024-08-10] MEDS: KCL 20 MEQ/100 mL IVPB 20 MEQ/100 ML BAG IV SCH (11:53)
--- NOTE | 2024-08-11 07:10 | P.PN ---
Date of Service: 08/10/24 subjective Failed swallow study, position discussed nutrition with family possible PEG placement, Review of Systems is unable to be obtained Physical Examination - Vital Signs Reviewed - Physical Exam General: Alert, eyes open to verbal, cachectic, afebrile HEENT: Atraumatic, Normocephalic Neck: Supple Respiratory: Unlabored, equal Cardiovascular: Regular rate/rhythm, Normal S1 S2 Capillary refill: <2 Seconds Gastrointestinal: Soft and benign, W/out hepatosplenomegaly Musculoskeletal: No clubbing, No swelling Integumentary: No rashes, No breakdown Neurological: Dementia Assessment and Plan - Plan Dysphagia esophagitis Will start on PPI Speech evaluation-pured diet, aspiration precautions, IV hydration Monitor closely Plan for PEG tube placement per family's request Plan to discuss hospice with family and physician Hyponatremia Hypokalemia Dehydration IV hydration Monitor electrolytes and replace accordingly Moderate protein calorie malnutrition Anemia Nutritional consult-calorie count Iron studies Dementia Supportive measures GI/DVT prophylaxis Advanced directive full code Discharge Plan: Home Plan to discharge in: 48 Hours Disposition patient resides at home with a full-time caregiver - Advance Directives Does patient have a Living Will: No Does patient have a Durable POA for Healthcare: No - Code Status/Comfort Care Code Status: Full Code Time Spent Managing Pts Care (In Minutes): 20 <Yolanda Ulrich - Last Filed: 08/11/24 17:15> Patient was seen and examined. Events of the last 24 hours have been noted. Spoke with with SOFIA regarding patient's clinical picture after evaluating and examining the patient independently. I performed a substantial part of the MDM during this patient's care today. I personally made or approved the documented management plan and acknowledge its risk of complications. I agree with the findings and documentation provided in the SOFIA's notes. Continue with nutritional support. PEG tube and DC planning <Prudence Ang - Last Filed: 08/26/24 21:29>
[2024-08-11 07:26] LABS: Albumin 2.2 g/dL (3.4-5.0); Albumin/Globulin Ratio 0.6 (1.1-1.8); Anion Gap 7.6 mEq/L (5.0-15.0); Bilirubin Total 0.5 mg/dL (0.2-1.0); Globulin 3.4 g/dL (2.3-3.5); Potassium 3.6 mEq/L (3.5-5.1); Protein, Total 5.6 g/dL (6.4-8.2)
[2024-08-11 08:18] LABS: Absolute Lymphocytes (CBC) 1.6 K/uL (0.7-4.9); Absolute Monocytes 0.4 K/uL (0.1-1.3); Absolute Neutrophil 7.7 K/uL (1.8-8.0); Basophils % 0.4 % (0-1.3); Eosinophils % 0.2 % (0-4.4); Hemoglobin 6.1 g/dL (12.0-15.0); Lymphocytes % 16.3 % (15.3-44.8); MCH 18.1 pg (27.0-35.0); MCHC 29.2 g/dL (32.0-36.0); MCV 62.2 fL (80-100); MPV 8.4 fL (7.6-11.3); Monocytes % 3.8 % (3.3-12.3); Neutrophils % 79.3 % (41.7-73.7); Nucleated Red Blood Cells % 0.1 % (0-0); Platelets 317 thou/uL (152-406); RBC Red Blood Cell Count 3.38 M/uL (3.86-4.86); Red Cell Distribution Width 21.1 % (12.1-15.2)
[2024-08-11] MEDS ORDERED: NA CHLORIDE 0.9% 250 ML IV SCH (09:00)
--- NOTE | 2024-08-11 17:14 | P.PN ---
Date of Service: 08/11/24 subjective Severe anemia, type and cross, transfuse 2 unit Plan for PEG, Review of Systems is unable to be obtained Physical Examination - Vital Signs Reviewed - Physical Exam General: Alert, eyes open to verbal, cachectic, HEENT: Atraumatic, Normocephalic Neck: Supple Respiratory: Diminished unlabored, Cardiovascular: Regular rate/rhythm, Normal S1 S2 Capillary refill: <2 Seconds Gastrointestinal: Soft and benign, W/out hepatosplenomegaly Musculoskeletal: No clubbing, No swelling Integumentary: No rashes, No breakdown Neurological: Dementia Lymphatics: No axilla or inguinal lymphadenopathy Assessment and Plan - Plan Dysphagia esophagitis Will start on PPI Speech evaluation-pured diet, thin liquid IV hydration Monitor closely Severe anemia Transfused 2 units, Type and cross Hyponatremia Dehydration IV hydration Monitor electrolytes and replace accordingly Moderate protein calorie malnutrition Anemia Nutritional consult-calorie count May need PEG tube if patient fails swallow well Iron studies Dementia Supportive measures GI/DVT prophylaxis Advanced directive full code Discharge Plan: Home Plan to discharge in: 48 Hours Disposition patient resides at home with a full-time caregiver - Advance Directives Does patient have a Living Will: No Does patient have a Durable POA for Healthcare: No - Code Status/Comfort Care Code Status: Full Code Time Spent Managing Pts Care (In Minutes): 25 <Yolanda Ulrich - Last Filed: 08/11/24 17:11> Patient was seen and examined. Events of the last 24 hours have been noted. Spoke with with SOFIA regarding patient's clinical picture after evaluating and examining the patient independently. I performed a substantial part of the MDM during this patient's care today. I personally made or approved the documented management plan and acknowledge its risk of complications. I agree with the findings and documentation provided in the SOFIA's notes. Continue with nutritional support. PEG tube and DC planning <Prudence Ang - Last Filed: 08/26/24 21:28>
--- NOTE | 2024-08-12 07:37 | P.PN ---
Date of Service: 08/12/24 subjective Pending PEG placement with surgery Anemia, no active bleeding Review of Systems is unable to be obtained Physical Examination - Vital Signs Reviewed - Physical Exam General: Alert, responds to verbal, no acute distress, cachectic HEENT: Atraumatic, Normocephalic Neck: Supple Respiratory: Clear to auscultation bilaterally Cardiovascular: Regular rate/rhythm, Normal S1 S2 Capillary refill: <2 Seconds Gastrointestinal: Soft and benign, W/out hepatosplenomegaly Musculoskeletal: Moderate to severe generalized weakness, total care, contractures of the right arm Integumentary: Bruising from repeated blood draws, upper extremity Neurological: Dementia Lymphatics: No axilla or inguinal lymphadenopathy Assessment and Plan - Plan Dysphagia esophagitis Will start on PPI Speech evaluation-pured diet, thin liquid IV hydration Monitor closely Severe anemia Type and cross 2 units, trend H&H Hyponatremia Dehydration IV hydration Monitor electrolytes and replace accordingly Moderate protein calorie malnutrition Anemia Nutritional consult-calorie count, Ensure May need PEG tube if patient fails swallow well Iron studies Dementia Supportive measures GI/DVT prophylaxis Advanced directive full code Discharge Plan: Home Plan to discharge in: 48 Hours Disposition patient resides at home with a full-time caregiver - Advance Directives Does patient have a Living Will: No Does patient have a Durable POA for Healthcare: No - Code Status/Comfort Care Code Status: Full Code Time Spent Managing Pts Care (In Minutes): 35 <Yolanda Ulrich - Last Filed: 08/12/24 10:48> Patient was seen and examined. Events of the last 24 hours have been noted. Spoke with with SOFIA regarding patient's clinical picture after evaluating and examining the patient independently. I performed a substantial part of the MDM during this patient's care today. I personally made or approved the documented management plan and acknowledge its risk of complications. I agree with the findings and documentation provided in the SOFIA's notes. Continue with IVFs and arrange for PEG tube placement <Prudence Ang - Last Filed: 08/26/24 21:33>
[2024-08-12 13:29] LABS: Absolute Lymphocytes (CBC) 0.7 K/uL (0.7-4.9); Absolute Monocytes 0.3 K/uL (0.1-1.3); Absolute Neutrophil 7.5 K/uL (1.8-8.0); Basophils % 0.3 % (0-1.3); Hematocrit 36.7 % (36.0-45.0); Hemoglobin 11.2 g/dL (12.0-15.0); Lymphocytes % 8.1 % (15.3-44.8); MCH 21.8 pg (27.0-35.0); MCHC 30.5 g/dL (32.0-36.0); MCV 71.4 fL (80-100); MPV 8.6 fL (7.6-11.3); Monocytes % 3.9 % (3.3-12.3); Neutrophils % 87.7 % (41.7-73.7); Nucleated Red Blood Cells % 0.1 % (0-0); Platelets 286 thou/uL (152-406); RBC Red Blood Cell Count 5.15 M/uL (3.86-4.86); Red Cell Distribution Width 28.3 % (12.1-15.2)
[2024-08-12 13:55] LABS: Albumin 2.4 g/dL (3.4-5.0); Albumin/Globulin Ratio 0.6 (1.1-1.8); Anion Gap 10.9 mEq/L (5.0-15.0); Bilirubin Total 1.3 mg/dL (0.2-1.0); Potassium 2.9 mEq/L (3.5-5.1); Protein, Total 6.4 g/dL (6.4-8.2)
[2024-08-12] MEDS: NA CHLORIDE 0.9% 1,000 ML IV SCH (18:35)
[2024-08-12] MEDS: KCL 20 MEQ/100 mL IVPB 20 MEQ/100 ML BAG IV SCH (21:26)
[2024-08-13 07:16] LABS: PT Prothrombin Time 13.8 SECONDS (9.4-12.5); PTT, Activated Partial Thromb 25.2 SECONDS (24.3-36.9); Protime INR 1.24
[2024-08-13 07:18] LABS: Absolute Basophils 0.1 K/uL (0-0.5); Absolute Lymphocytes (CBC) 0.9 K/uL (0.7-4.9); Absolute Monocytes 0.5 K/uL (0.1-1.3); Basophils % 1.3 % (0-1.3); Eosinophils % 0.3 % (0-4.4); Hematocrit 34.7 % (36.0-45.0); Hemoglobin 10.4 g/dL (12.0-15.0); Lymphocytes % 9.3 % (15.3-44.8); MCH 21.3 pg (27.0-35.0); MCHC 30.1 g/dL (32.0-36.0); MCV 70.7 fL (80-100); MPV 8.9 fL (7.6-11.3); Monocytes % 4.8 % (3.3-12.3); Neutrophils % 84.3 % (41.7-73.7); Nucleated Red Blood Cells % 0.1 % (0-0); Platelets 250 thou/uL (152-406); Red Cell Distribution Width 28.5 % (12.1-15.2)
[2024-08-13 07:26] LABS: Anion Gap 13.6 mEq/L (5.0-15.0); Magnesium 1.9 mg/dL (1.6-2.4); Potassium 3.6 mEq/L (3.5-5.1)
[2024-08-13 08:53] LABS: Anisocytosis 2+; Blood Morphology Comment NOTED (NOT SEEN); Microcytosis 1+; Platelet Estimate ADEQ; White Blood Cell Scan OK (OK)
[2024-08-13 08:54] LABS: Hypochromasia 1+; Polychromasia SLIGHT
--- NOTE | 2024-08-13 09:14 | P.PN ---
Date of Service: 08/12/24 Spoke with the daughter who had a hard time agreed to a PEG tube. Her father had a PEG tube and she would really appreciate help the end of his life when as he did so for quite a bit. She does not want that for her mother. However, her sister states that need to at least try to give her some nutrition to see if she can strengthen up a little bit. We will go ahead and proceed with PEG tube per Dr. soares. NPO and gentle hydration at this time.
--- NOTE | 2024-08-13 11:06 | P.PN ---
Subjective Date of Service: 08/13/24 Chief Complaint: Difficulty in swallowing , Dehydration Subjective: Worsening (pt continues with difficulty swallowing, has developed lung infection, family would like PEG. Pt is side lying, cachectic with skin fold hanging from t-spine) <Julieth Wells - Last Filed: 08/13/24 11:19> Date of Service: 08/13/24 <Carlos Gonzalez C - Last Filed: 08/13/24 14:43> Review of Systems is unable to be obtained General: Weakness, Malaise ENT: As per HPI Neurological: Weakness, As per HPI <Julieth Wells - Last Filed: 08/13/24 11:19> Physical Examination - Vital Signs Temperature: 98.8 F Blood Pressure: 133/70 Pulse: 80 Respirations: 15 Pulse Ox (%): 97 - Physical Exam General: Cachectic HEENT: Atraumatic, Normocephalic Neck: Supple Respiratory: Normal air movement Cardiovascular: No edema Capillary refill: >2 Seconds Gastrointestinal: Soft and benign Musculoskeletal: Other (Muscle wasting apparent) Integumentary: No rashes Neurological: Abnormal strength, Abnormal tone, Abnormal affect Lymphatics: No axilla or inguinal lymphadenopathy External genitalia: Deferred Rectal: Deferred <Julieth Wells - Last Filed: 08/13/24 11:19> Assessment And Plan - Plan Assessment and Plan - Plan Dysphagia History of esophagitis Will start on PPI Speech evaluation IV hydration Monitor closely Hyponatremia Dehydration IV hydration Monitor electrolytes and replace accordingly, 08/13/2024 electrolytes/creatinine stable Moderate protein calorie malnutrition Nutritional consult May need PEG tube if patient fails swallow. Dr. Subramanian consulted for PEG Dementia Supportive measures GI/DVT prophylaxis Advanced directive full code Discharge Plan: Home Plan to discharge in: 48 Hours - Advance Directives Does patient have a Living Will: No Does patient have a Durable POA for Healthcare: No - Code Status/Comfort Care Code Status: Full Code <Julieth Wells - Last Filed: 08/13/24 11:19> - Plan Pt seen and examined. I agree with the note by the HIGHBALLER. Pt has left sided weakness. SHe failed swallow eval. Gen surgeon will place PEG tube today. She is severely malnourished. Pt needs to eat more. Will continue IVF and supportive care. <Carlos Gonzalez - Last Filed: 08/13/24 14:43>
[2024-08-13] MEDS ORDERED: propofoL 200 MG/20 ML VIAL IV ONE (13:35)
[2024-08-13] MEDS ORDERED: LIDOCAINE 1% MPF 5 ML VIAL ONE (13:35)
[2024-08-13] MEDS: CEFAZOLIN SODIUM 1 GM/VIAL ONE (13:41)
[2024-08-13] MEDS: Ringers Lactate 1,000 ML IV ONE (13:41)
[2024-08-13] MEDS ORDERED: Mupirocin NASAL 2 APPL/1 GM TUBE NAS SCH (21:00)
[2024-08-13] MEDS: Mupirocin NASAL 2 APPL/1 GM TUBE NAS SCH ×2 (21:00→22:58)
--- NOTE | 2024-08-13 21:15 | RAD REPORT ---
EXAMINATION: ONE VIEW CHEST XR CLINICAL INDICATION: Female, 79 years old. PICC LIne Placement. [facility] MAIN PICC LIne Placement TECHNIQUE: Frontal chest projection is submitted. Examination is limited by patient positioning and t echnique. COMPARISON: 08/10/2024 FINDINGS: Mild opacities in the right upper lobe appear mildly progressive since prior study. The heart is mild ly enlarged in size. Left-sided PICC line likely has its tip in the SVC. IMPRESSION: Left-sided PICC line likely has its tip in the SVC. Exam is mildly limited due to patient rotation toward the left.
[2024-08-14 05:29] LABS: Absolute Lymphocytes (CBC) 1.3 K/uL (0.7-4.9); Absolute Monocytes 0.4 K/uL (0.1-1.3); Absolute Neutrophil 4.8 K/uL (1.8-8.0); Basophils % 0.7 % (0-1.3); Eosinophils % 0.1 % (0-4.4); Hematocrit 32.8 % (36.0-45.0); Hemoglobin 10.1 g/dL (12.0-15.0); Lymphocytes % 20.5 % (15.3-44.8); MCH 22.1 pg (27.0-35.0); MCHC 30.9 g/dL (32.0-36.0); MCV 71.3 fL (80-100); MPV 8.3 fL (7.6-11.3); Monocytes % 6.1 % (3.3-12.3); Neutrophils % 72.6 % (41.7-73.7); Nucleated Red Blood Cells % 0.1 % (0-0); Platelets 243 thou/uL (152-406)
[2024-08-14 05:31] LABS: Red Cell Distribution Width 28.6 % (12.1-15.2)
[2024-08-14 05:51] LABS: Anion Gap 8.8 mEq/L (5.0-15.0); Potassium 2.8 mEq/L (3.5-5.1)
[2024-08-14] MEDS: POTASSIUM CL 40 MEQ in NA CHLORIDE 0.9% 500 ML IV SCH ×2 (06:00→11:44)
[2024-08-14] MEDS: KCL 20 MEQ/100 mL IVPB 20 MEQ/100 ML BAG IV SCH (06:22)
[2024-08-14] MEDS: PIPER TAZO 3.375 GM in NA CHLORIDE 0.9% 100 ML IV SCH (06:22)
--- NOTE | 2024-08-14 06:25 | P.PN ---
Subjective Date of Service: 08/14/24 Chief Complaint: Difficulty in swallowing , Dehydration Subjective: Other (unable to place PEG, esophagus to stomach filled with thick liquid per Dr. Subramanian. PICC placement overnight for TPN, CXR shows placement ok, worsening infiltrates) <Chary Wellsaniyah Leonard - Last Filed: 08/14/24 07:30> Date of Service: 08/14/24 <Carlos Gonzalez Asia - Last Filed: 08/14/24 10:24> Review of Systems 10-point ROS is otherwise unremarkable General: As per HPI Eyes: Unremarkable ENT: Unremarkable Respiratory: Unremarkable Cardiovascular: Unremarkable Gastrointestinal: Other (Unable to swallow/take p.o./malnourished) Genitourinary: Unremarkable Musculoskeletal: Unremarkable Integumentary: Other (Hanging from bones) Neurological: Weakness, Other (Dysphagia/poorly responsive) <Chary Wellsy Horacio - Last Filed: 08/14/24 07:30> Physical Examination - Vital Signs Temperature: 99.7 F Blood Pressure: 133/63 Pulse: 66 Respirations: 13 Pulse Ox (%): 96 - Physical Exam General: Cachectic, Other (obtunded) HEENT: Atraumatic, Normocephalic Neck: Supple Respiratory: Normal air movement Cardiovascular: Regular rate/rhythm Capillary refill: <2 Seconds Gastrointestinal: Hypoactive, Other (strict NPO) Musculoskeletal: No clubbing, No swelling, Contractures Integumentary: No rashes Neurological: Abnormal tone, Abnormal affect Lymphatics: No axilla or inguinal lymphadenopathy External genitalia: Deferred Rectal: Deferred <Chary Wellsaniyah Leonard - Last Filed: 08/14/24 07:30> Assessment And Plan - Plan Assessment and Plan - Plan Dysphagia History of esophagitis Will start on PPI Speech evaluation -failed p.o. challenge, failed barium swallow, unable to place PEG secondary to barium and thick liquid filling the esophagus IV hydration -PEG placed overnight for TPN Monitor closely Hyponatremia Dehydration IV hydration Monitor electrolytes and replace accordingly, 08/13/2024 electrolytes/creatinine stable, 08/14/2024 severe hypokalemia with normal magnesium, replacement ordered per PICC Moderate protein calorie malnutrition Nutritional consult -unable to take p.o. will begin TPN Dr. Subramanian unable to place PEG safely secondary to barium and thick fluid filling esophagus and stomach, large hiatal hernia with stomach contents mostly in chest cavity Again discussed hospice with family, declined at this time, preferred TPN nutrition and repeat attempt at PEG when safer. 08/14/24 Discussed with Daughter the extemely poor prognosis Dementia Supportive measures GI/DVT prophylaxis Advanced directive full code Discharge Plan: Home Plan to discharge in: 48 Hours - Advance Directives Does patient have a Living Will: No Does patient have a Durable POA for Healthcare: No - Code Status/Comfort Care Code Status: Full Code <Julieth Wells - Last Filed: 08/14/24 07:30> - Plan Pt seen and examined. I agree with the note by the PASSPORT SUPPORT ASSOCIATE. Pt has left sided weakness. She failed swallow eval. Gen surgeon was unable to place PEG tube on 08/14/24. Will start TPN today. She is severely malnourished. Pt needs to eat more. Will continue replete potassium, continue IVF and supportive care. magnesium is 1.8. Will replete. <Carlos Gonzalez - Last Filed: 08/14/24 10:24>
[2024-08-14 08:22] LABS: Magnesium 1.8 mg/dL (1.6-2.4)
[2024-08-14] MEDS ORDERED: PIPER TAZO 2.25 GM in NA CHLORIDE 0.9% 50 ML IV SCH (09:00)
[2024-08-14] MEDS ORDERED: CEFTRIAXONE 1,000 MG in NA CHLORIDE 0.9% 50 ML IVPB SCH (09:00)
[2024-08-14] MEDS: MAGNESIUM SULFATE 1 gm IVPB 1 GM/100 ML BAG IV SCH (11:00)
[2024-08-14] MEDS: AMINO ACIDS 5 %/DEXTROSE 20 % 2,000 ML, Lipids 20% 250 ML with MULTIVITAMINS INJ 10 ML,... IV SCH (16:56)
[2024-08-14] MEDS ORDERED: AMINO ACIDS 5 %/DEXTROSE 20 % 2,000 ML, Lipids 20% 250 ML with MULTIVITAMINS INJ 10 ML,... IV SCH (17:00)
[2024-08-15 04:38] LABS: Phosphorus 1.1 mg/dL (2.5-4.9)
[2024-08-15 06:29] LABS: Absolute Lymphocytes (CBC) 0.9 K/uL (0.7-4.9); Absolute Monocytes 0.7 K/uL (0.1-1.3); Absolute Neutrophil 6.3 K/uL (1.8-8.0); Basophils % 0.2 % (0-1.3); Eosinophils % 0.2 % (0-4.4); Hematocrit 32.1 % (36.0-45.0); Hemoglobin 10.1 g/dL (12.0-15.0); Lymphocytes % 11.1 % (15.3-44.8); MCH 23.3 pg (27.0-35.0); MCHC 31.4 g/dL (32.0-36.0); MCV 74.2 fL (80-100); MPV 8.4 fL (7.6-11.3); Monocytes % 8.8 % (3.3-12.3); Neutrophils % 79.7 % (41.7-73.7); Nucleated Red Blood Cells % 0.1 % (0-0); Platelets 240 thou/uL (152-406); RBC Red Blood Cell Count 4.33 M/uL (3.86-4.86); Red Cell Distribution Width 29.5 % (12.1-15.2)
[2024-08-15] MEDS ORDERED: POTASSIUM PHOS 30 MM in NA CHLORIDE 0.9% 500 ML IV ONE (07:00)
[2024-08-15 07:45] LABS: Albumin 2.1 g/dL (3.4-5.0); Albumin/Globulin Ratio 0.6 (1.1-1.8); Anion Gap 9.7 mEq/L (5.0-15.0); Bilirubin Total 0.7 mg/dL (0.2-1.0); Globulin 3.6 g/dL (2.3-3.5); Potassium 2.7 mEq/L (3.5-5.1); Protein, Total 5.7 g/dL (6.4-8.2)
[2024-08-15] MEDS: POTASSIUM PHOS 30 MM in NA CHLORIDE 0.9% 500 ML IV SCH (09:50)
[2024-08-15] MEDS ORDERED: D50W 25 GM/50 ML SYRINGE IV PRN (10:17)
[2024-08-15] MEDS ORDERED: GLUCAGON 1 MG/VIAL IM PRN (10:17)
--- NOTE | 2024-08-15 10:34 | P.PN ---
Subjective Date of Service: 08/15/24 Chief Complaint: Difficulty in swallowing , Dehydration Subjective: No new changes (Significant electrolyte imbalance) <Julieth Wells - Last Filed: 08/15/24 10:21> Date of Service: 08/15/24 <Carlos Gonzalez - Last Filed: 08/15/24 12:28> Review of Systems is unable to be obtained General: Malaise Musculoskeletal: Atrophy <Julieth Wellslen - Last Filed: 08/15/24 10:21> Physical Examination - Vital Signs Temperature: 97.4 F Blood Pressure: 153/57 Pulse: 45 Respirations: 14 Pulse Ox (%): 96 - Physical Exam General: Cachectic, Other (Obtunded) HEENT: Atraumatic, Other (Hallow cheeks) Neck: Supple Respiratory: Normal air movement Cardiovascular: No edema, Regular rate/rhythm Capillary refill: >2 Seconds Gastrointestinal: Hypoactive Musculoskeletal: No clubbing, Other (Skeletal frame visible) Integumentary: Other (Loose skin) Neurological: Abnormal strength, Abnormal tone, Abnormal affect Lymphatics: No axilla or inguinal lymphadenopathy External genitalia: Deferred Rectal: Deferred <Julieth Wells - Last Filed: 08/15/24 10:21> Assessment And Plan - Plan Assessment and Plan - Plan Dysphagia History of esophagitis Will start on PPI Speech evaluation -failed p.o. challenge, failed barium swallow, unable to place PEG secondary to barium and thick liquid filling the esophagus IV hydration -PICC placed overnight for TPN, PEG unsuccessful second to patient condition Monitor closely Hyponatremia Dehydration IV hydration Monitor electrolytes and replace accordingly, 08/13/2024 electrolytes/creatinine stable, 08/14/2024 severe hypokalemia with normal magnesium, replacement ordered per PICC Moderate protein calorie malnutrition Nutritional consult -unable to take p.o. will begin TPN Dr. Subramanian unable to place PEG safely secondary to barium and thick fluid filling esophagus and stomach, large hiatal hernia with stomach contents mostly in chest cavity Again discussed hospice with family, declined at this time, preferred TPN nutrition and repeat attempt at PEG when safer. 08/14/24 Discussed with Daughter the extemely poor prognosis 08/15/24 significant electrolyte derangement (K 2.7, Phos 1.1) Kphos infusing. Will verify again with Daughter code status and then will need to move pt to ICU for insulin drip for conjunction with TPN Dementia Supportive measures GI/DVT prophylaxis Advanced directive full code Discharge Plan: prognosis extremely poor. LTAC VS SNF Plan to discharge in: 48 Hours - Advance Directives Does patient have a Living Will: No Does patient have a Durable POA for Healthcare: No - Code Status/Comfort Care Code Status: Full Code <Julieth Wells - Last Filed: 08/15/24 10:21> - Plan Pt seen and examined. I agree with the note by the FREIGHT CAR LOADER. Pt has left sided weakness. She failed swallow eval. Gen surgeon was unable to place PEG tube on 08/14/24. We started TPN on 08/14/24. She is severely malnourished. Will continue to replete potassium, continue IVF and supportive care. Repleted magnesium. Will continue accuchek and SSI for hyperglycemia. <Carlos Gonzalez - Last Filed: 08/15/24 12:28>
[2024-08-15] MEDS ORDERED: INSULIN REGULAR, HUMAN 100 UNIT in NA CHLORIDE 0.9% 100 ML IV SCH (11:00)
[2024-08-15] MEDS: AMINO ACIDS 5 %/DEXTROSE 20 % 2,000 ML, Lipids 20% 250 ML with MULTIVITAMINS INJ 10 ML,... IV SCH (16:57)
[2024-08-15 17:47] LABS: Phosphorus 2.4 mg/dL (2.5-4.9); Potassium 2.7 mEq/L (3.5-5.1)
[2024-08-15] MEDS: INSULIN REGULAR (HUMAN) 100 UNIT/ML SQ SCH (18:11)
[2024-08-15] MEDS: KCL 20 MEQ/100 mL IVPB 20 MEQ/100 ML BAG IV SCH (18:12)
[2024-08-16 00:17] LABS: Magnesium 1.9 mg/dL (1.6-2.4); Phosphorus 1.6 mg/dL (2.5-4.9); Potassium 3.3 mEq/L (3.5-5.1)
[2024-08-16] MEDS: KCL 20 MEQ/100 mL IVPB 20 MEQ/100 ML BAG IV SCH (03:32)
[2024-08-16] MEDS ORDERED: NA CHLORIDE 0.9% 250 ML ONE (04:02)
[2024-08-16 06:24] LABS: Absolute Monocytes 0.4 K/uL (0.1-1.3); Absolute Neutrophil 2.3 K/uL (1.8-8.0); Basophils % 0.8 % (0-1.3); Eosinophils % 1.3 % (0-4.4); Hematocrit 30.7 % (36.0-45.0); Hemoglobin 9.5 g/dL (12.0-15.0); Lymphocytes % 26.2 % (15.3-44.8); MCH 23.2 pg (27.0-35.0); MCHC 30.9 g/dL (32.0-36.0); MCV 74.9 fL (80-100); MPV 8.5 fL (7.6-11.3); Neutrophils % 61.7 % (41.7-73.7); Nucleated Red Blood Cells % 0.1 % (0-0); Platelets 165 thou/uL (152-406); RBC Red Blood Cell Count 4.09 M/uL (3.86-4.86); Red Cell Distribution Width 30.8 % (12.1-15.2)
[2024-08-16 07:39] LABS: Albumin 1.9 g/dL (3.4-5.0); Albumin/Globulin Ratio 0.6 (1.1-1.8); Anion Gap 5.3 mEq/L (5.0-15.0); Bilirubin Total 0.5 mg/dL (0.2-1.0); Globulin 3.3 g/dL (2.3-3.5); Magnesium 2.1 mg/dL (1.6-2.4); Potassium 4.3 mEq/L (3.5-5.1); Protein, Total 5.2 g/dL (6.4-8.2)
[2024-08-16 07:51] LABS: Phosphorus 1.5 mg/dL (2.5-4.9)
[2024-08-16] MEDS: SODIUM PHOSPHATE 30 MM in NA CHLORIDE 0.9% 500 ML IV SCH (08:53)
[2024-08-16 09:02] LABS: Anisocytosis 3+; Blood Morphology Comment NOTED (NOT SEEN); Hypochromasia 1+; Microcytosis 1+; Platelet Estimate ADEQ; Polychromasia SLIGHT; White Blood Cell Scan OK (OK)
[2024-08-16] MEDS ORDERED: AMINO ACIDS IV SCH ×2 (17:00)
[2024-08-16] MEDS ORDERED: MAGNESIUM IV SCH ×2 (17:00)
[2024-08-16] MEDS ORDERED: POTASSIUM ACET IV SCH ×2 (17:00)
[2024-08-16] MEDS ORDERED: DEXTROSE IV SCH ×2 (17:00)
[2024-08-16 17:12] LABS: Phosphorus 5.8 mg/dL (2.5-4.9); Potassium 4.5 mEq/L (3.5-5.1)
[2024-08-16] MEDS: DEXTROSE IV SCH (17:34)
[2024-08-16] MEDS: AMINO ACIDS IV SCH (17:34)
[2024-08-16] MEDS: POTASSIUM ACET IV SCH (17:34)
[2024-08-16] MEDS: MAGNESIUM IV SCH (17:34)
--- NOTE | 2024-08-16 17:43 | P.PN ---
Subjective Date of Service: 08/16/24 Chief Complaint: Difficulty in swallowing , Dehydration Subjective: No new changes <Julieth Wellslen - Last Filed: 08/16/24 17:38> Date of Service: 08/16/24 <Carlos Gonzalez Asia - Last Filed: 08/16/24 18:24> Review of Systems is unable to be obtained <Julieth Wellslen - Last Filed: 08/16/24 17:38> Physical Examination - Vital Signs Temperature: 97 F Blood Pressure: 95/49 Pulse: 71 Respirations: 16 Pulse Ox (%): 98 - Physical Exam General: Cachectic, Demented, Other (opens eyes) HEENT: Atraumatic, Normocephalic Neck: Supple Respiratory: Normal air movement Cardiovascular: No edema, Normal S1 S2 Capillary refill: <2 Seconds Gastrointestinal: Non-distended Musculoskeletal: No clubbing Integumentary: No rashes Neurological: Abnormal speech, Abnormal tone, Abnormal affect Lymphatics: No axilla or inguinal lymphadenopathy External genitalia: Deferred Rectal: Deferred <Julieth Wellslen - Last Filed: 08/16/24 17:38> Assessment And Plan - Plan Assessment and Plan - Plan Dysphagia History of esophagitis PPI - BID Speech evaluation -failed p.o. challenge, failed barium swallow, unable to place PEG secondary to barium and thick liquid filling the esophagus IV hydration -PICC placed overnight for TPN, PEG unsuccessful second to patient condition, Unable to place NG tube per Surgery unless Fluoro guided NG, unable per IR. Will continue to await electrolytes to stabilize for OR peg placement Monitor closely Hyponatremia Dehydration IV hydration Monitor electrolytes and replace accordingly, 08/13/2024 electrolytes/creatinine stable, 08/14/2024 severe hypokalemia with normal magnesium, replacement ordered per PICC Stable 08/17/24 Moderate protein calorie malnutrition Nutritional consult -unable to take p.o. will begin TPN Dr. Subramanian unable to place PEG safely secondary to barium and thick fluid filling esophagus and stomach, large hiatal hernia with stomach contents mostly in chest cavity Again discussed hospice with family, declined at this time, preferred TPN nutrition and repeat attempt at PEG when safer. 08/14/24 Discussed with Daughter the extemely poor prognosis 08/15/24 significant electrolyte derangement (K 2.7, Phos 1.1) Kphos infusing. Will verify again with Daughter code status and then will need to move pt to ICU for insulin drip for conjunction with TPN. Declined ICU, doing SSI, q4 hour phos levels, low again this am at 1.5. Daughter agreeable to LTAC/SNF post peg placement Dementia Supportive measures GI/DVT prophylaxis Advanced directive full code Discharge Plan: prognosis extremely poor. LTAC VS SNF Plan to discharge in: 48 Hours - Advance Directives Does patient have a Living Will: No Does patient have a Durable POA for Healthcare: No - Code Status/Comfort Care Code Status: Full Code <Julieth Wells - Last Filed: 08/16/24 17:38> - Plan Pt seen and examined. I agree with the note by the NATURAL GAS INSPECTOR. Pt has left sided weakness. She failed swallow eval. Gen surgeon was unable to place PEG tube on 08/14/24. We started TPN on 08/14/24. She is severely malnourished. Will continue to replete potassium, continue IVF and supportive care. Repleted phosphate due to refeeding syndrome. Will continue accuchek and SSI for hyperglycemia. Her daughter agreed to SNF / LTAC placement after PEG tube placement. <Carlos Gonzalez - Last Filed: 08/16/24 18:24>
[2024-08-16 23:20] LABS: Potassium 3.7 mEq/L (3.5-5.1)
[2024-08-16 23:23] LABS: Phosphorus 1.4 mg/dL (2.5-4.9)
[2024-08-17 06:11] LABS: ALT/SGPT 33 U/L (13-56); AST/SGOT 56 U/L (15-37); Albumin 1.8 g/dL (3.4-5.0); Albumin/Globulin Ratio 0.5 (1.1-1.8); Alkaline Phosphatase 80 U/L (45-117); Anion Gap 4.9 mEq/L (5.0-15.0); BUN Blood Urea Nitrogen 13 mg/dL (7-18); Bicarbonate 24 mEq/L (21-32); Bilirubin Total 0.7 mg/dL (0.2-1.0); Globulin 3.3 g/dL (2.3-3.5); Glucose Level 108 mg/dL (74-106); Magnesium 2.2 mg/dL (1.6-2.4); Potassium 2.9 mEq/L (3.5-5.1); Protein, Total 5.1 g/dL (6.4-8.2); Sodium Level 138 mEq/L (136-145)
[2024-08-17 06:13] LABS: Glomerular Filtration Rate 114 ml/min (=/>90)
[2024-08-17] MEDS: POTASSIUM PHOS IN 0.9 % NACL 15 MMOL/250 ML BAG IV ONE (06:27)
[2024-08-17] MEDS: KCL 20 MEQ/100 mL IVPB 20 MEQ/100 ML BAG IV SCH (07:00)
[2024-08-17] MEDS: POTASSIUM PHOS 30 MM in NS 500 ML IV SCH (08:00)
[2024-08-17 10:09] LABS: Absolute Eosinophils 0.1 K/uL (0-0.5); Absolute Lymphocytes (CBC) 0.9 K/uL (0.7-4.9); Absolute Monocytes 0.3 K/uL (0.1-1.3); Absolute Neutrophil 2.3 K/uL (1.8-8.0); Basophils % 0.6 % (0-1.3); Eosinophils % 2.2 % (0-4.4); Hematocrit 30.3 % (36.0-45.0); Hemoglobin 9.2 g/dL (12.0-15.0); MCHC 30.5 g/dL (32.0-36.0); MCV 72.3 fL (80-100); MPV 8.2 fL (7.6-11.3); Monocytes % 7.4 % (3.3-12.3); Neutrophils % 64.8 % (41.7-73.7); Platelets 149 thou/uL (152-406); RBC Red Blood Cell Count 4.19 M/uL (3.86-4.86); Red Cell Distribution Width 30.4 % (12.1-15.2)
--- NOTE | 2024-08-17 12:12 | P.PN ---
Subjective Date of Service: 08/18/24 Chief Complaint: Difficulty in swallowing , Dehydration Subjective: No new changes (electrolyte derangement, pt skeletal, weak. Unable to get fluoro dobhoff.) awake at intervals <Chary Wellsaniyah Leonard - Last Filed: 08/18/24 10:05> Date of Service: 08/18/24 <Carlos Gonzalez C - Last Filed: 08/18/24 11:56> Review of Systems is unable to be obtained General: Weakness, Other (unable to swallow presently, awaiting electrolyte stability for PEG) Musculoskeletal: Other (moves upper extremities) Neurological: Other (does open eyes and look around vacantly at times) Lymphatics: Unremarkable <WellsJulieth - Last Filed: 08/18/24 10:05> Physical Examination - Vital Signs Temperature: 97.4 F Blood Pressure: 145/65 Pulse: 51 Respirations: 12 Pulse Ox (%): 98 - Physical Exam General: Cachectic, Demented HEENT: Atraumatic, Normocephalic Neck: Supple Respiratory: Normal air movement Cardiovascular: No edema Capillary refill: <2 Seconds Gastrointestinal: Hypoactive, Non-distended Musculoskeletal: Other (Muscle wasting) Integumentary: No rashes Neurological: Abnormal strength, Abnormal tone, Dementia Lymphatics: No axilla or inguinal lymphadenopathy External genitalia: Deferred Rectal: Deferred <Julieth Wellslen - Last Filed: 08/18/24 10:05> Assessment And Plan - Plan Assessment and Plan - Plan Dysphagia History of esophagitis CT findings 08/06/24PLEURA: No pleural effusion. No pneumothorax. CXR 08/09/24 s/p barium swallow - LUNGS: The lungs are hyperinflated. Coarse interstitial markings are present. Perihilar and infrahilar opacities are noted. Peribronchial cuffing is noted. - Concern for aspiration pneumonia - Zosyn started PPI - BID Speech evaluation -failed p.o. challenge, failed barium swallow, unable to place PEG secondary to barium and thick liquid filling the esophagus IV hydration -PICC placed overnight for TPN, PEG unsuccessful second to patient condition, Unable to place NG tube per Surgery unless Fluoro guided NG, unable per IR. Will continue to await electrolytes to stabilize for OR peg placement CXR 08/13/24 for PICC for TPN location - proved aspiration pneumonia with findings: "Mild opacities in the right upper lobe appear mildly progressive since prior study. The heart is mildly enlarged in size. Left-sided PICC line likely has its tip in the SVC" Monitor closely Hyponatremia Dehydration IV hydration Monitor electrolytes and replace accordingly, 08/13/2024 electrolytes/creatinine stable, 08/14/2024 severe hypokalemia with normal magnesium, replacement ordered per PICC Stable 08/17/24 Moderate protein calorie malnutrition Nutritional consult -unable to take p.o. will begin TPN Dr. Subramanian unable to place PEG safely secondary to barium and thick fluid filling esophagus and stomach, large hiatal hernia with stomach contents mostly in chest cavity Again discussed hospice with family, declined at this time, preferred TPN nutrition and repeat attempt at PEG when safer. 08/14/24 Discussed with Daughter the extemely poor prognosis 08/15/24 significant electrolyte derangement (K 2.7, Phos 1.1) Kphos infusing. Will verify again with Daughter code status and then will need to move pt to ICU for insulin drip for conjunction with TPN. Declined ICU, doing SSI, q4 hour phos levels, low again this am at 1.5. Daughter agreeable to LTAC/SNF post peg placement 08/17/24 Electrolyte derangement - phos down to 1.0, replacing aggressively, phosphorus and potassium reevaluation every 6h Dementia Supportive measures GI/DVT prophylaxis Advanced directive full code Discharge Plan: prognosis extremely poor. LTAC VS SNF Plan to discharge in: 48 Hours - Advance Directives Does patient have a Living Will: No Does patient have a Durable POA for Healthcare: No - Code Status/Comfort Care Code Status: Full Code <Julieth Wells - Last Filed: 08/18/24 10:05> - Plan Pt seen and examined. I agree with the note by the SKULL GRINDER. Pt has left sided weakness. She failed swallow eval. Gen surgeon was unable to place PEG tube on 08/14/24. We started TPN on 08/14/24. She is severely malnourished. Will continue to replete potassium, continue IVF and supportive care. Repleted phosphate ( 1.4) due to refeeding syndrome. Will continue accuchek and SSI for hyperglycemia. Gen surgeon will re-attempt PEG tube placement after correction of electrolytes. Her daughter agreed to SNF / LTAC placement after PEG tube placement. <Carlos Gonzalez - Last Filed: 08/18/24 11:56>
[2024-08-17 14:01] LABS: Phosphorus 2.8 mg/dL (2.5-4.9); Potassium 3.7 mEq/L (3.5-5.1)
[2024-08-17] MEDS: KCL 20 MEQ/100 mL IVPB 100 ML IV SCH (15:39)
[2024-08-17] MEDS: AMINO ACIDS 5 %/DEXTROSE 20 % 2,000 ML, Lipids 20% 250 ML with MULTIVITAMINS INJ 10 ML,... IV SCH (17:34)
[2024-08-17 19:07] LABS: Phosphorus 1.6 mg/dL (2.5-4.9)
[2024-08-18 01:15] LABS: Potassium 3.7 mEq/L (3.5-5.1)
[2024-08-18 01:21] LABS: Phosphorus 1.4 mg/dL (2.5-4.9)
[2024-08-18] MEDS: POTASSIUM PHOS IN 0.9 % NACL 15 MMOL/250 ML BAG IV ONE ×2 (01:23→09:10)
[2024-08-18 06:25] LABS: Absolute Eosinophils 0.1 K/uL (0-0.5); Absolute Lymphocytes (CBC) 0.9 K/uL (0.7-4.9); Absolute Monocytes 0.2 K/uL (0.1-1.3); Absolute Neutrophil 1.7 K/uL (1.8-8.0); Basophils % 0.8 % (0-1.3); Eosinophils % 3.3 % (0-4.4); Hematocrit 27.7 % (36.0-45.0); Hemoglobin 8.7 g/dL (12.0-15.0); Lymphocytes % 29.4 % (15.3-44.8); MCH 22.7 pg (27.0-35.0); MCHC 31.3 g/dL (32.0-36.0); MCV 72.3 fL (80-100); MPV 8.4 fL (7.6-11.3); Monocytes % 8.5 % (3.3-12.3); Nucleated Red Blood Cells % 0.1 % (0-0); Platelets 156 thou/uL (152-406); RBC Red Blood Cell Count 3.83 M/uL (3.86-4.86); Red Cell Distribution Width 30.9 % (12.1-15.2)
[2024-08-18 06:42] LABS: ALT/SGPT 47 U/L (13-56); AST/SGOT 61 U/L (15-37); Albumin 1.9 g/dL (3.4-5.0); Albumin/Globulin Ratio 0.6 (1.1-1.8); Alkaline Phosphatase 82 U/L (45-117); Anion Gap 4.9 mEq/L (5.0-15.0); BUN Blood Urea Nitrogen 10 mg/dL (7-18); Bicarbonate 27 mEq/L (21-32); Bilirubin Total 0.7 mg/dL (0.2-1.0); Globulin 3.1 g/dL (2.3-3.5); Glucose Level 94 mg/dL (74-106); Phosphorus 2.1 mg/dL (2.5-4.9); Potassium 3.9 mEq/L (3.5-5.1); Sodium Level 142 mEq/L (136-145)
[2024-08-18 06:43] LABS: Glomerular Filtration Rate 114 ml/min (=/>90)
--- NOTE | 2024-08-18 10:12 | P.PN ---
Subjective Date of Service: 08/18/24 Chief Complaint: Difficulty in swallowing , Dehydration Subjective: Demented awake all night per RN. Awake and held my hand on assessment this am. Tried to speak as well. <RussellJulieth Leonard - Last Filed: 08/18/24 10:07> Date of Service: 08/18/24 <Carlos Gonzalez Asia - Last Filed: 08/18/24 11:57> Review of Systems 10-point ROS is otherwise unremarkable General: Weakness, Malaise, Other (Cachectic) Eyes: Other (Opens (and follows occasionally)), Unremarkable ENT: Unremarkable Respiratory: As per HPI Gastrointestinal: Other (TPN), Unremarkable Genitourinary: Unremarkable Musculoskeletal: Unremarkable Integumentary: Unremarkable Neurological: Other (Dementia) Lymphatics: Unremarkable <Julieth Wells - Last Filed: 08/18/24 10:07> Physical Examination - Vital Signs Temperature: 97.4 F Blood Pressure: 145/65 Pulse: 51 Respirations: 12 Pulse Ox (%): 98 - Physical Exam General: Alert, Other (Held my hand this morning with left hand, eyes open occasionally follows, tried speaking) HEENT: Atraumatic, Normocephalic Neck: Supple Respiratory: Normal air movement Cardiovascular: Regular rate/rhythm, Normal S1 S2 Capillary refill: <2 Seconds Gastrointestinal: Other (Scaphoid/cachectic, unable to swallow, unable to place NG, awaiting PEG, on TPN) Musculoskeletal: No clubbing Integumentary: No rashes Neurological: Abnormal speech, Abnormal strength, Abnormal tone, Dementia External genitalia: Deferred Rectal: Deferred <Julieth Wells - Last Filed: 08/18/24 10:07> Assessment And Plan - Plan Assessment and Plan - Plan Dysphagia History of esophagitis CT findings 08/06/24PLEURA: No pleural effusion. No pneumothorax. CXR 08/09/24 s/p barium swallow - LUNGS: The lungs are hyperinflated. Coarse interstitial markings are present. Perihilar and infrahilar opacities are noted. Peribronchial cuffing is noted. - Concern for aspiration pneumonia - Zosyn started PPI - BID Speech evaluation -failed p.o. challenge, failed barium swallow, unable to place PEG secondary to barium and thick liquid filling the esophagus IV hydration -PICC placed overnight for TPN, PEG unsuccessful second to patient condition, Unable to place NG tube per Surgery unless Fluoro guided NG, unable per IR. Will continue to await electrolytes to stabilize for OR peg placement CXR 08/13/24 for PICC for TPN location - proved aspiration pneumonia with findings: "Mild opacities in the right upper lobe appear mildly progressive since prior study. The heart is mildly enlarged in size. Left-sided PICC line likely has its tip in the SVC" Monitor closely 08/18/2024 no respiratory distress, more responsive, awaiting PEG, electrolytes stabilizing at present Hyponatremia Dehydration IV hydration Monitor electrolytes and replace accordingly, 08/13/2024 electrolytes/creatinine stable, 08/14/2024 severe hypokalemia with normal magnesium, replacement ordered per PICC Stable 08/17/24 08/18/2024 sodium Phos infusing Moderate protein calorie malnutrition Nutritional consult -unable to take p.o. will begin TPN Dr. Subramanian unable to place PEG safely secondary to barium and thick fluid filling esophagus and stomach, large hiatal hernia with stomach contents mostly in chest cavity Again discussed hospice with family, declined at this time, preferred TPN nutrition and repeat attempt at PEG when safer. 08/14/24 Discussed with Daughter the extemely poor prognosis 08/15/24 significant electrolyte derangement (K 2.7, Phos 1.1) Kphos infusing. Will verify again with Daughter code status and then will need to move pt to ICU for insulin drip for conjunction with TPN. Declined ICU, doing SSI, q4 hour phos levels, low again this am at 1.5. Daughter agreeable to LTAC/SNF post peg placement 08/17/24 Electrolyte derangement - phos down to 1.0, replacing aggressively, phosphorus and potassium reevaluation every 6h 08/18/2024 electrolytes improved this morning, Dr. Subramanian notified Dementia Supportive measures GI/DVT prophylaxis Advanced directive full code Discharge Plan: prognosis extremely poor. LTAC VS SNF Plan to discharge in: 48 Hours - Advance Directives Does patient have a Living Will: No Does patient have a Durable POA for Healthcare: No - Code Status/Comfort Care Code Status: Full Code Discharge Plan: LTAC Plan to discharge in: 48 Hours - Code Status/Comfort Care Code Status Assessed: Yes (Full) <Wells,Julieth Horacio - Last Filed: 08/18/24 10:07> - Plan Pt seen and examined. I agree with the note by the SUPERVISOR [employer] SERVICES. Pt has left sided weakness. She failed swallow eval. Gen surgeon was unable to place PEG tube on 08/14/24. We started TPN on 08/14/24. She is severely malnourished. Will continue IVF and supportive care. Will replete phosphate ( 2.1<- 1.4) due to refeeding syndrome. Will continue accuchek and SSI for hyperglycemia. Gen surgeon will re- attempt PEG tube placement after correction of electrolytes. Her daughter agreed to SNF / LTAC placement after PEG tube placement. <Carlos Gonzalez - Last Filed: 08/18/24 11:57>
[2024-08-18 13:35] LABS: Phosphorus 2.9 mg/dL (2.5-4.9); Potassium 4.2 mEq/L (3.5-5.1)
[2024-08-18] MEDS: AMINO ACIDS 5 %/DEXTROSE 20 % 2,000 ML with POTASSIUM PHOS 66 MEQ, MAGNESIUM 50% 2 GM IV SCH (17:26)
[2024-08-18] MEDS: NA CHLORIDE 0.9% 250 ML ONE (23:44)
[2024-08-19 04:57] LABS: Hematocrit 38.2 % (36.0-45.0); Hemoglobin 12.3 g/dL (12.0-15.0)
[2024-08-19 05:09] LABS: Magnesium 2.1 mg/dL (1.6-2.4); Phosphorus 1.6 mg/dL (2.5-4.9)
[2024-08-19] MEDS: D10W 125 ML IV PRN (05:42)
[2024-08-19] MEDS: POTASSIUM PHOS IN 0.9 % NACL 15 MMOL/250 ML BAG IV ONE (09:35)
--- NOTE | 2024-08-19 11:15 | P.PN ---
Subjective Date of Service: 08/19/24 Chief Complaint: Difficulty in swallowing , Dehydration awake all night per RN. Awake and held my hand on assessment this am. Tried to speak as well. 08/19/24 more alert, awake, makes eye contact <Julieth Wells - Last Filed: 08/19/24 11:10> Date of Service: 08/19/24 <AngAngelicanaeem Sanya - Last Filed: 08/26/24 21:48> Review of Systems is unable to be obtained <Julieth Wells - Last Filed: 08/19/24 11:10> Physical Examination - Vital Signs Temperature: 97.4 F Blood Pressure: 111/67 Pulse: 50 Respirations: 16 Pulse Ox (%): 94 - Physical Exam General: Alert, Cachectic, Demented HEENT: Atraumatic, Normocephalic Neck: Supple Respiratory: Normal air movement, Crackles/rales, Other (Congested cough) Cardiovascular: No edema, Normal S1 S2 Capillary refill: <2 Seconds Gastrointestinal: Other (Scaphoidstrict n.p.o. on TPN) Musculoskeletal: No swelling, Contractures Integumentary: No rashes Neurological: Other (Makes eye contact), Abnormal speech, Abnormal strength, Dementia Lymphatics: No axilla or inguinal lymphadenopathy External genitalia: Deferred Rectal: Deferred <Julieth Wells - Last Filed: 08/19/24 11:10> Assessment And Plan - Plan Assessment and Plan - Plan Dysphagia History of esophagitis CT findings 08/06/24PLEURA: No pleural effusion. No pneumothorax. CXR 08/09/24 s/p barium swallow - LUNGS: The lungs are hyperinflated. Coarse interstitial markings are present. Perihilar and infrahilar opacities are noted. Peribronchial cuffing is noted. - Concern for aspiration pneumonia - Zosyn started PPI - BID Speech evaluation -failed p.o. challenge, failed barium swallow, unable to place PEG secondary to barium and thick liquid filling the esophagus IV hydration -PICC placed overnight for TPN, PEG unsuccessful second to patient condition, Unable to place NG tube per Surgery unless Fluoro guided NG, unable per IR. Will continue to await electrolytes to stabilize for OR peg placement CXR 08/13/24 for PICC for TPN location - proved aspiration pneumonia with findings: "Mild opacities in the right upper lobe appear mildly progressive since prior study. The heart is mildly enlarged in size. Left-sided PICC line likely has its tip in the SVC" Monitor closely 08/18/2024 no respiratory distress, more responsive, awaiting PEG, electrolytes stabilizing at present 08/19/2024 congested cough, more responsive and making eye contact, awaiting PEG, goal for Tuesday Hyponatremia Dehydration IV hydration Monitor electrolytes and replace accordingly, 08/13/2024 electrolytes/creatinine stable, 08/14/2024 severe hypokalemia with normal magnesium, replacement ordered per PICC Stable 08/17/24 08/18/2024 sodium Phos infusing 08/19/2020 replacement protocol continue to monitor closely Moderate protein calorie malnutrition Nutritional consult -unable to take p.o. will begin TPN Dr. Subramanian unable to place PEG safely secondary to barium and thick fluid filling esophagus and stomach, large hiatal hernia with stomach contents mostly in chest cavity Again discussed hospice with family, declined at this time, preferred TPN nutrition and repeat attempt at PEG when safer. 08/14/24 Discussed with Daughter the extemely poor prognosis 08/15/24 significant electrolyte derangement (K 2.7, Phos 1.1) Kphos infusing. Will verify again with Daughter code status and then will need to move pt to ICU for insulin drip for conjunction with TPN. Declined ICU, doing SSI, q4 hour phos levels, low again this am at 1.5. Daughter agreeable to LTAC/SNF post peg placement 08/17/24 Electrolyte derangement - phos down to 1.0, replacing aggressively, phosphorus and potassium reevaluation every 6h 08/18/2024 electrolytes improved this morning, Dr. Subramanian notified 08/19/2024 electrolytes remain labile, orders to hold insulin protocol for blood sugar less than 160, replacement of phosphorus, potassium, mag continue, prealbumin and CRP ordered daily Dementia Supportive measures GI/DVT prophylaxis Advanced directive full code Discharge Plan: prognosis extremely poor. LTAC VS SNF Plan to discharge in: 48 Hours - Advance Directives Does patient have a Living Will: No Does patient have a Durable POA for Healthcare: No - Code Status/Comfort Care Code Status: Full Code <Julieth Wells - Last Filed: 08/19/24 11:10> Date of Service: 08/19/24 Patient was seen and examined. Events of the last 24 hours have been noted. Spoke with with [facility] regarding patient's clinical picture after evaluating and examining the patient independently. I performed a substantial part of the MDM during this patient's care today. I personally made or approved the documented management plan and acknowledge its risk of complications. I agree with the findings and documentation provided in the SOFIA's notes. Continue with IVFs and arrange for PEG tube placement <Prudence Ang - Last Filed: 08/26/24 21:48>
[2024-08-19 13:19] LABS: Anion Gap 7.4 mEq/L (5.0-15.0); BUN Blood Urea Nitrogen 12 mg/dL (7-18); Bicarbonate 25 mEq/L (21-32); Glomerular Filtration Rate 114 ml/min (=/>90); Glucose Level 116 mg/dL (74-106); Potassium 3.4 mEq/L (3.5-5.1); Sodium Level 143 mEq/L (136-145)
[2024-08-19 14:03] LABS: Phosphorus 2.7 mg/dL (2.5-4.9)
[2024-08-19] MEDS: SODIUM PHOSPHATE IV ONE (15:38)
[2024-08-19] MEDS: NA CHLORIDE IV ONE (15:38)
[2024-08-19 15:50] LABS: ALT/SGPT 46 U/L (13-56); AST/SGOT 42 U/L (15-37); Albumin 2.2 g/dL (3.4-5.0); Albumin/Globulin Ratio 0.6 (1.1-1.8); Alkaline Phosphatase 91 U/L (45-117); Anion Gap 5.7 mEq/L (5.0-15.0); BUN Blood Urea Nitrogen 11 mg/dL (7-18); Bicarbonate 28 mEq/L (21-32); Bilirubin Total 1.1 mg/dL (0.2-1.0); Globulin 3.7 g/dL (2.3-3.5); Glucose Level 92 mg/dL (74-106); Potassium 3.7 mEq/L (3.5-5.1); Protein, Total 5.9 g/dL (6.4-8.2); Sodium Level 140 mEq/L (136-145)
[2024-08-19 15:52] LABS: Glomerular Filtration Rate 114 ml/min (=/>90)
[2024-08-20 06:18] LABS: Absolute Eosinophils 0.1 K/uL (0-0.5); Absolute Lymphocytes (CBC) 0.7 K/uL (0.7-4.9); Absolute Monocytes 0.2 K/uL (0.1-1.3); Absolute Neutrophil 2.1 K/uL (1.8-8.0); Basophils % 0.9 % (0-1.3); Eosinophils % 1.8 % (0-4.4); Hematocrit 35.2 % (36.0-45.0); Hemoglobin 11.4 g/dL (12.0-15.0); Lymphocytes % 22.1 % (15.3-44.8); MCH 24.2 pg (27.0-35.0); MCHC 32.3 g/dL (32.0-36.0); MCV 74.9 fL (80-100); MPV 8.4 fL (7.6-11.3); Monocytes % 7.3 % (3.3-12.3); Neutrophils % 67.9 % (41.7-73.7); Nucleated Red Blood Cells % 0.1 % (0-0); Platelets 164 thou/uL (152-406); RBC Red Blood Cell Count 4.69 M/uL (3.86-4.86); Red Cell Distribution Width 30.1 % (12.1-15.2)
[2024-08-20 06:49] LABS: ALT/SGPT 40 U/L (13-56); AST/SGOT 32 U/L (15-37); Albumin 1.9 g/dL (3.4-5.0); Albumin/Globulin Ratio 0.6 (1.1-1.8); Alkaline Phosphatase 72 U/L (45-117); BUN Blood Urea Nitrogen 12 mg/dL (7-18); Bicarbonate 27 mEq/L (21-32); Bilirubin Total 0.8 mg/dL (0.2-1.0); C-Reactive Protein 3.25 mg/L (<3.00); Globulin 3.3 g/dL (2.3-3.5); Glucose Level 176 mg/dL (74-106); Phosphorus 2.6 mg/dL (2.5-4.9); Protein, Total 5.2 g/dL (6.4-8.2); Sodium Level 141 mEq/L (136-145)
[2024-08-20 06:51] LABS: Glomerular Filtration Rate 114 ml/min (=/>90)
[2024-08-20] MEDS: KCL 20 MEQ/100 mL IVPB 20 MEQ/100 ML BAG IV SCH (08:14)
--- NOTE | 2024-08-20 09:20 | P.PN ---
Date of Service: 08/20/24 subjective Admitted with protein malnutrition, PEG placed Review of Systems is unable to be obtained Physical Examination - Vital Signs Reviewed - Physical Exam General: Alert, responds to verbal, no acute distress, cachectic HEENT: Atraumatic, Normocephalic Neck: Supple Respiratory: Clear to auscultation bilaterally Cardiovascular: Regular rate/rhythm, Normal S1 S2 Capillary refill: <2 Seconds Gastrointestinal: Soft and benign, W/out hepatosplenomegaly Musculoskeletal: Moderate to severe generalized weakness, total care, contractures of the right arm Integumentary: Bruising from repeated blood draws, upper extremity Neurological: Dementia Lymphatics: No axilla or inguinal lymphadenopathy Assessment and Plan - Plan Dysphagia esophagitis Will start on PPI Speech evaluation-pured diet, thin liquid IV hydration Monitor closely Severe anemia Type and cross 2 units, trend H&H Hyponatremia Dehydration IV hydration Monitor electrolytes and replace accordingly Moderate protein calorie malnutrition Anemia Nutritional consult-calorie count, Ensure May need PEG tube if patient fails swallow well Iron studies Dementia Supportive measures GI/DVT prophylaxis Advanced directive full code Discharge Plan: Home Plan to discharge in: 48 Hours Disposition patient resides at home with a full-time caregiver - Advance Directives Does patient have a Living Will: No Does patient have a Durable POA for Healthcare: No - Code Status/Comfort Care Code Status: Full Code Time Spent Managing Pts Care (In Minutes): 35 <Yolanda Ulrich - Last Filed: 08/20/24 09:02> Pt seen and examined. I agree with the note by the W[employer]ING [employer] SUPERVISOR. Pt has left sided weakness. Pt failed swallow eval. Gen surgeon was unable to place PEG tube on 08/14/24. We started TPN on 08/14/24. She is severely malnourished. Will continue TPN, IVF and supportive care. Will replete phosphate ( 2.6<- 2.1<- 1.4) due to refeeding syndrome. Pt has hypoglycemia. Will add dextrose to the TPN and q2h accuchek. Gen surgeon will re-attempt PEG tube placement after correction of electrolytes. Her daughter agreed to SNF / LTAC placement after PEG tube placement. Consulted showcase trimmer <Carlos Gonzalez - Last Filed: 08/20/24 12:48>
[2024-08-20] MEDS: POTASSIUM PHOS 30 MM in NA CHLORIDE 0.9% 500 ML IV ONE (10:10)
[2024-08-20] MEDS: AMINO ACIDS 5 %/DEXTROSE 20 % 2,000 ML, Lipids 20% 250 ML with MULTIVITAMINS INJ 10 ML,... IV SCH (16:57)
[2024-08-21 05:33] LABS: Absolute Eosinophils 0.1 K/uL (0-0.5); Absolute Lymphocytes (CBC) 1.5 K/uL (0.7-4.9); Absolute Monocytes 0.4 K/uL (0.1-1.3); Absolute Neutrophil 2.2 K/uL (1.8-8.0); Basophils % 1.2 % (0-1.3); Eosinophils % 1.4 % (0-4.4); Hematocrit 37.6 % (36.0-45.0); Hemoglobin 11.9 g/dL (12.0-15.0); Lymphocytes % 36.1 % (15.3-44.8); MCH 23.8 pg (27.0-35.0); MCHC 31.7 g/dL (32.0-36.0); MPV 8.2 fL (7.6-11.3); Monocytes % 9.9 % (3.3-12.3); Neutrophils % 51.4 % (41.7-73.7); Nucleated Red Blood Cells % 0.1 % (0-0); Platelets 182 thou/uL (152-406); RBC Red Blood Cell Count 5.02 M/uL (3.86-4.86)
[2024-08-21 05:35] LABS: Red Cell Distribution Width 31.6 % (12.1-15.2)
[2024-08-21 05:46] LABS: ALT/SGPT 48 U/L (13-56); AST/SGOT 43 U/L (15-37); Albumin 2.2 g/dL (3.4-5.0); Albumin/Globulin Ratio 0.6 (1.1-1.8); Alkaline Phosphatase 85 U/L (45-117); Anion Gap 3.1 mEq/L (5.0-15.0); BUN Blood Urea Nitrogen 13 mg/dL (7-18); Bicarbonate 27 mEq/L (21-32); Bilirubin Total 0.7 mg/dL (0.2-1.0); Globulin 3.7 g/dL (2.3-3.5); Glucose Level 70 mg/dL (74-106); Magnesium 2.2 mg/dL (1.6-2.4); Potassium 4.1 mEq/L (3.5-5.1); Protein, Total 5.9 g/dL (6.4-8.2); Sodium Level 139 mEq/L (136-145)
[2024-08-21 05:47] LABS: Glomerular Filtration Rate 114 ml/min (=/>90)
--- NOTE | 2024-08-21 08:14 | P.PN ---
Date of Service: 08/21/24 subjective Pending PEG tube placement, on IV TPN Cachectic, total care, turn every 2 hours Review of Systems is unable to be obtained Physical Examination - Vital Signs Reviewed - Physical Exam General: Alert, responds to verbal, no acute distress, cachectic HEENT: Atraumatic, Normocephalic Respiratory: Clear to auscultation bilaterally Cardiovascular: Regular rate/rhythm, Normal S1 S2 Capillary refill: <2 Seconds Gastrointestinal: Soft and benign, W/out hepatosplenomegaly Musculoskeletal: Moderate to severe generalized weakness, total care, contractures of the right arm Integumentary: Bruising from repeated blood draws, upper extremity Neurological: Dementia Assessment and Plan - Plan Dysphagia esophagitis Will start on PPI Speech evaluation-fail diet IV hydration Monitor closely Pending PEG tube placement Severe anemia Type and cross 2 units, t Trend H&H Hyponatremia Dehydration IV hydration Monitor electrolytes and replace accordingly IV TPN Moderate protein calorie malnutrition Anemia Nutritional consult-calorie count, Ensure Iron studies Pending PEG tube placement Total care Dementia Supportive measures Turn every 2 hours, BMI 20 GI/DVT prophylaxis Advanced directive full code Discharge Plan: Home Plan to discharge in: 48 Hours Disposition patient resides at home with a full-time caregiver - Advance Directives Does patient have a Living Will: No Does patient have a Durable POA for Healthcare: No - Code Status/Comfort Care Code Status: Full Code Time Spent Managing Pts Care (In Minutes): 20
[2024-08-21] MEDS: MAGNESIUM IV SCH (17:27)
[2024-08-21] MEDS: AMINO ACIDS IV SCH (17:27)
[2024-08-21] MEDS: [UNRECOGNIZED DRUG - OTHER] IV SCH (17:27)
[2024-08-21] MEDS: POTASSIUM PHOS IV SCH (17:27)
[2024-08-21] MEDS: DEXTROSE IV SCH (17:27)
[2024-08-22 05:43] LABS: Absolute Lymphocytes (CBC) 1.4 K/uL (0.7-4.9); Absolute Monocytes 0.4 K/uL (0.1-1.3); Absolute Neutrophil 1.5 K/uL (1.8-8.0); Basophils % 1.1 % (0-1.3); Eosinophils % 1.2 % (0-4.4); Hematocrit 36.6 % (36.0-45.0); Hemoglobin 11.5 g/dL (12.0-15.0); Lymphocytes % 41.5 % (15.3-44.8); MCH 23.9 pg (27.0-35.0); MCHC 31.5 g/dL (32.0-36.0); MCV 76.1 fL (80-100); MPV 8.5 fL (7.6-11.3); Monocytes % 12.3 % (3.3-12.3); Neutrophils % 43.9 % (41.7-73.7); Nucleated Red Blood Cells % 0.3 % (0-0); Platelets 176 thou/uL (152-406); RBC Red Blood Cell Count 4.81 M/uL (3.86-4.86); Red Cell Distribution Width 30.8 % (12.1-15.2)
[2024-08-22 05:50] LABS: Albumin 2.1 g/dL (3.4-5.0); Albumin/Globulin Ratio 0.6 (1.1-1.8); Anion Gap 2.2 mEq/L (5.0-15.0); Bilirubin Total 0.7 mg/dL (0.2-1.0); Globulin 3.4 g/dL (2.3-3.5); Magnesium 2.2 mg/dL (1.6-2.4); Phosphorus 2.2 mg/dL (2.5-4.9); Potassium 4.2 mEq/L (3.5-5.1); Protein, Total 5.5 g/dL (6.4-8.2)
[2024-08-22 07:07] LABS: Anisocytosis 3+; Blood Morphology Comment NOTED (NOT SEEN); Platelet Estimate ADEQ; Teardrop Cell FEW; White Blood Cell Scan OK (OK)
[2024-08-22] MEDS: POTASSIUM PHOS IN 0.9 % NACL 15 MMOL/250 ML BAG IV ONE (07:54)
[2024-08-22] MEDS: NA CHLORIDE 0.9% 1,000 ML ONE (16:39)
[2024-08-22] MEDS ORDERED: ONDANSETRON 4 MG/2 ML VIAL ONE (17:03)
[2024-08-22] MEDS ORDERED: FENTANYL CITR 100 MCG/2 ML ONE (17:03)
[2024-08-22] MEDS ORDERED: propofoL 200 MG/20 ML VIAL IV ONE (17:03)
[2024-08-22] MEDS ORDERED: MIDAZOLAM HCL 2 MG/2 ML INJ ONE (17:03)
[2024-08-22] MEDS ORDERED: LIDOCAINE 1% MPF 5 ML VIAL ONE (17:03)
[2024-08-22] MEDS ORDERED: dexAMETHasone 4 MG/ML VIAL ONE (17:04)
[2024-08-22] MEDS: LIDOCAINE HCL/EPINEPHRINE 20 ML MDV ONE (17:15)
[2024-08-22] MEDS: LIDOCAINE 1% 20 ML MDV ONE (17:16)
--- NOTE | 2024-08-22 21:15 | CON ---
Date of Consultation: 08/12/2024 Brief History Of Present Illness: The patient is a 79-year-old woman with a past medical history of hypertension; CVA; dementia; history of GERD; esophagitis, on a pureed diet, who was brought in by [facility] with dysphagia, difficulty swallowing, getting progressively worse and having significant wasting a nd malnutrition. She is unable to speak and as such information is obtained from family and from the chart predominantly. She has been having significant dysphagia and an inability to tolerate p.o., a nd continuous progressive weight loss. Past Medical History: Hypertension, CVA, dementia, failure to thrive, GI bleeding. Allergies: TO HYDROCODONE. Home Medications: Included Seroquel. Past Surgical History: Included cholecystectomy. Social History: There is no history of smoking, alcohol, recreational drug use. Review of Systems: Ten-point review of systems unable to obtain. Physical Examination: General: At the time of examination, she is very thin and frail generally with some contractures of her upper extremities and lower extremities. Abdomen: Soft. Extremities: No clubbing, cyanosis, edema. Skin: Warm and dry. Cardiovascular: Regular rhythm. Pulmonary: Clear to auscultation bilaterally. Laboratory Data: She had a laboratory exam, which revealed a white blood cell count of 9.5, hemoglob in 10.4, hematocrit 34.7, platelet count was 250. Sodium 143, potassium 3.5, chloride 113, carbon di oxide 20, BUN 13, creatinine 0.4, glucose is 60. Assessment And Plan: This is a 79-year-old woman with severe malnutrition. 1.Continue supplementation with TPN. 2.I have explained the risks, benefits, and alternatives of percutaneous endoscopic gastrostomy tube including, but not limited to, bleeding, infection, damage to surrounding tissues, need for further operative procedures. If unable to complete percutaneous endoscopic gastrostomy tube, we will consid er open gastrostomy tube after discussion with the patient's family/medical power of attorney recruiter. This would include risks of bleeding, infection, damage to surrounding tissues, blood clots, heart attack, strokes, other unforeseen complication in the perioperative period, need for further surgery. The p lisette's family displayed understanding of the above-stated plan and agreed to proceed as indicated. SANTOS/EMA Voice ID: [id number] Report ID: [id number]
--- NOTE | 2024-08-23 03:39 | P.PN ---
Date of Service: 08/26/24 subjective PEG tube was placed today, surgery stated start tube feedings 24 hours after placement. Currently on TPN Review of Systems is unable to be obtained Physical Examination - Vital Signs Reviewed - Physical Exam General: Alert, responds to verbal, no acute distress, malnourished HEENT: Atraumatic, Normocephalic Respiratory: Clear to auscultation bilaterally Cardiovascular: Regular rate/rhythm, Normal S1 S2 Gastrointestinal: Soft and benign, W/out hepatosplenomegaly Musculoskeletal: Moderate to severe generalized weakness, total care, contractures of the right arm Integumentary: Bruising from repeated blood draws, upper extremity Neurological: Dementia Assessment and Plan - Plan Dysphagia esophagitis Will start on PPI Speech evaluation-eval diet, pending PEG placement IV hydration Severe anemia resolved Type and cross 2 units, trend H&H Hyponatremia resolved Dehydration resolved IV hydration Monitor electrolytes and replace accordingly Moderate protein calorie malnutrition Anemia Nutritional consult-calorie count, Ensure May need PEG tube if patient fails swallow well Iron studies Pending PEG placement today by surgery Dementia Supportive measures Fall precautions, Total care, GI/DVT prophylaxis Advanced directive full code Discharge Plan: Home Plan to discharge in: 48 Hours Disposition patient resides at home with a full-time caregiver - Advance Directives Does patient have a Living Will: No Does patient have a Durable POA for Healthcare: No - Code Status/Comfort Care Code Status: Full Code Time Spent Managing Pts Care (In Minutes): 35
--- NOTE | 2024-08-23 03:40 | P.PN ---
Date of Service: 08/22/24 subjective N.p.o. for surgical eval for PEG placement today, Patient on TPN, Review of Systems is unable to be obtained Physical Examination - Vital Signs Reviewed - Physical Exam General: Alert, responds to verbal, no acute distress, cachectic HEENT: Atraumatic, Normocephalic Respiratory: Clear to auscultation bilaterally Cardiovascular: Regular rate/rhythm, Normal S1 S2 Capillary refill: <2 Seconds Gastrointestinal: Soft and benign, W/out hepatosplenomegaly Musculoskeletal: Moderate to severe generalized weakness, total care, contractures of the right arm Integumentary: Bruising from repeated blood draws, upper extremity Neurological: Dementia Assessment and Plan - Plan Dysphagia esophagitis Will start on PPI Speech evaluation-failed diet pending PEG IV hydration Monitor closely Severe anemia improved Type and cross 2 units, trend H&H Hyponatremia improved Dehydration improved IV hydration Monitor electrolytes and replace accordingly On TPN Moderate protein calorie malnutrition Anemia Nutritional consult-calorie count, Ensure Failed swallow study planning on PEG placement today Dementia Supportive measures Fall precautions, turn every 2 hours GI/DVT prophylaxis Advanced directive full code Discharge Plan: Home Plan to discharge in: 48 Hours Disposition patient resides at home with a full-time caregiver - Advance Directives Does patient have a Living Will: No Does patient have a Durable POA for Healthcare: No - Code Status/Comfort Care Code Status: Full Code Time Spent Managing Pts Care (In Minutes): 30
[2024-08-23 04:52] LABS: Absolute Lymphocytes (CBC) 1.3 K/uL (0.7-4.9); Absolute Monocytes 0.4 K/uL (0.1-1.3); Basophils % 0.8 % (0-1.3); Eosinophils % 0.5 % (0-4.4); Hematocrit 35.1 % (36.0-45.0); Hemoglobin 11.4 g/dL (12.0-15.0); Lymphocytes % 21.7 % (15.3-44.8); MCH 24.5 pg (27.0-35.0); MCHC 32.4 g/dL (32.0-36.0); MCV 75.7 fL (80-100); MPV 8.5 fL (7.6-11.3); Monocytes % 7.6 % (3.3-12.3); Neutrophils % 69.4 % (41.7-73.7); Nucleated Red Blood Cells % 0.1 % (0-0); Platelets 212 thou/uL (152-406); RBC Red Blood Cell Count 4.64 M/uL (3.86-4.86)
[2024-08-23 04:53] LABS: Red Cell Distribution Width 31.9 % (12.1-15.2)
[2024-08-23 05:10] LABS: Albumin 2.2 g/dL (3.4-5.0); Albumin/Globulin Ratio 0.6 (1.1-1.8); Anion Gap 5.1 mEq/L (5.0-15.0); Bilirubin Total 0.6 mg/dL (0.2-1.0); Globulin 3.6 g/dL (2.3-3.5); Magnesium 2.1 mg/dL (1.6-2.4); Phosphorus 2.6 mg/dL (2.5-4.9); Potassium 4.1 mEq/L (3.5-5.1); Protein, Total 5.8 g/dL (6.4-8.2)
[2024-08-23] MEDS: LIDOCAINE HCL/EPINEPHRINE 20 ML MDV ONE (13:34)
[2024-08-23] MEDS ORDERED: propofoL 200 MG/20 ML VIAL IV ONE (13:36)
[2024-08-23] MEDS ORDERED: FENTANYL CITR 100 MCG/2 ML ONE (13:36)
[2024-08-23] MEDS ORDERED: LIDOCAINE 2% MPF 5 ML VIAL ONE (13:36)
[2024-08-23] MEDS ORDERED: ONDANSETRON 4 MG/2 ML VIAL ONE (13:36)
[2024-08-23] MEDS: CEFAZOLIN SODIUM 1 GM/VIAL ONE (14:01)
[2024-08-23] MEDS ORDERED: EPHEDRINE SULF 50 MG/ML VIAL ONE (14:20)
[2024-08-23] MEDS ORDERED: dexAMETHasone 4 MG/ML VIAL ONE (14:20)
[2024-08-23] MEDS ORDERED: ROCURONIUM 50 MG/5 ML VIAL IV ONE (14:21)
[2024-08-23] MEDS: SUGAMMADEX SODIUM 200 MG/2 ML VIAL IV ONE (14:23)
--- NOTE | 2024-08-23 15:06 | P.OP ---
Preoperative diagnosis: Need for Feeding Access / Malnutrition Postoperative diagnosis: Need for Feeding Access / Malnutrition Primary procedure: Open Gastrostomy Tube Placement Anesthesia: GETA + Local Estimated blood loss: <5cc Specimen: None Findings: Thin Frail patient, hiatal hernia Complications: None Implants: Gastrostomy Tube Transferred to: Recovery Room Condition: Good
[2024-08-23] MEDS ORDERED: MORPHINE 2 MG/ML SYR IV PRN (15:11)
--- NOTE | 2024-08-23 15:42 | OP ---
Date of Procedure: 08/23/2024 Surgeon: Nick Subramanian MD, Preoperative Diagnosis: Need for feeding access/malnutrition. Postoperative Diagnosis: Need for feeding access/malnutrition. Procedure: Open gastrostomy tube placement. Estimated Blood Loss: Less than 5 cc. Specimen: None. Findings: Thin and frail patient with hiatal hernia. Complications: None. Implant: Gastrostomy tube. Disposition: Patient transferred to recovery room in good condition. Procedure In Detail: After informed consent was obtained, patient was brought to the operating room, prepped and draped in the usual sterile fashion, after adequate anesthesia was achieved. I made an upper midline laparotomy incision with a 10 blade down to subcutaneous tissues. I then dissected kateryna n to expose the peritoneum through the fascial plane. It was opened sharply using Metzenbaum scissor s. I then entered the abdomen safely, at this point. I reduced the omentum which was found to be qu ite thin and translucent. I opened a window through this area allowing for visualization of the stom ach and the stomach was partially intrathoracic with a hiatal hernia. I was able to easily reduce it to a point at which the greater curvature of the stomach could be cannulated for tube. At this poin t, I made a separate stab incision in the left upper quadrant. I passed a TNA clamp through this are a and placed 3 circumferential 0 silk stay sutures through this area. I placed it to the stomach as well and left these as a parachute type on snaps. At this point, I then placed a 0 pursestring sutur e on the portion of the stomach to be cannulated. I then used the electrocautery to cannulate the st omach wall after cutting through the layers. I opened it with an additional hemostat to visualize th e mucosa. I then passed the gastrostomy tube through the plane and into the stomach. The balloon wa s inflated. I then pulled the balloon up and it had good apposition to the abdominal wall. I then r educed it at this point and ultimately tied the pursestring suture at this point, securing it and the n I secured it to the anterior abdominal wall with the stay sutures previously placed. I then pulled the balloon in a tied up position at this point on the abdominal wall and secured it with a 0 silk s uture and the flange was secured to the skin using interrupted 2-0 nylon sutures and a sterile dressi ng placed over top. At this point, the abdominal wall was closed using a single #1 looped PDS suture with good approximation of tissues. The area was copiously irrigated and closed with interrupted st aples. The patient tolerated the procedure well without incident or complication, transferred to PAC U in good condition. All counts were correct at the end of the case. SANTOS/EMA Voice ID: [id number] Report ID: [id number]
[2024-08-23] MEDS: MORPHINE 2 MG/ML SYR IV PRN (16:45)
[2024-08-23] MEDS: HYDRALAZINE HCL 20 MG/ML VIAL IV PRN (17:13)
[2024-08-23] MEDS: NA CHLORIDE 0.9% 1,000 ML IV ONE (18:01)
--- NOTE | 2024-08-24 08:11 | P.PN ---
Date of Service: 08/24/24 subjective GT placed, feeding started, increase as tolerated, head elevated 45 degrees, while on G-tube feeding Increase rate if no residuals per dietitian orders. Per nursing Total care, turn to q. every 2 hours avoid skin breakdown Review of Systems is unable to be obtained Physical Examination - Vital Signs Reviewed - Physical Exam General: Alert, responds to verbal, no acute distress, frail HEENT: Atraumatic, Normocephalic Neck: Supple Respiratory: Clear to auscultation bilaterally Cardiovascular: Regular rate/rhythm, Normal S1 S2 Capillary refill: <2 Seconds Gastrointestinal: Soft and benign, W/out hepatosplenomegaly, PEG tube placed, abdomen soft, Musculoskeletal: Moderate to severe generalized weakness, total care, contractures of the right arm Integumentary: Bruising from repeated blood draws, upper extremity Neurological: Dementia Assessment and Plan - Plan Dysphagia esophagitis Will start on PPI Speech evaluation-pured diet, thin liquid IV hydration Monitor closely Microcytic anemia resolved Type and cross 2 units, trend H&H Hyponatremia resolved Dehydration improved IV hydration Monitor electrolytes and replace accordingly On TPN Moderate protein calorie malnutrition Hypoalbuminemia Nutritional consult-calorie count, Ensure 10/3 PEG tube placed, started G-tube feedings Increase slowly, with checking residuals per dietary 1.) Begin Jevity 1.2 at 10 ml/hr - Increase by 10ml every 4hrs to goal rate of 45 ml/hr - Flush with 70ml water every 4hrs to provide a total of 1291ml water/day or as per MD 2.) Decrease TPN to 25 ml/hr and discontinue when EN is tolerated at 30 ml/hr 3.) Monitor EN tolerance and hydration Dementia Supportive measures GI/DVT prophylaxis Advanced directive full code Discharge Plan: Home Plan to discharge in: 48 Hours Disposition patient resides at home with a full-time caregiver - Advance Directives Does patient have a Living Will: No Does patient have a Durable POA for Healthcare: No - Code Status/Comfort Care Code Status: Full Code Time Spent Managing Pts Care (In Minutes): 25
[2024-08-24 10:16] LABS: Absolute Monocytes 0.5 K/uL (0.1-1.3); Absolute Neutrophil 4.4 K/uL (1.8-8.0); Basophils % 0.6 % (0-1.3); Eosinophils % 0.3 % (0-4.4); Hematocrit 34.5 % (36.0-45.0); Hemoglobin 11.2 g/dL (12.0-15.0); Lymphocytes % 17.1 % (15.3-44.8); MCHC 32.4 g/dL (32.0-36.0); MCV 77.2 fL (80-100); MPV 8.7 fL (7.6-11.3); Monocytes % 8.6 % (3.3-12.3); Neutrophils % 73.4 % (41.7-73.7); Nucleated Red Blood Cells % 0.1 % (0-0); Platelets 214 thou/uL (152-406); RBC Red Blood Cell Count 4.47 M/uL (3.86-4.86)
[2024-08-24 12:21] LABS: Albumin 2.3 g/dL (3.4-5.0); Anion Gap 4.6 mEq/L (5.0-15.0); Magnesium 2.2 mg/dL (1.6-2.4); Phosphorus 2.7 mg/dL (2.5-4.9); Potassium 4.6 mEq/L (3.5-5.1)
[2024-08-24] MEDS ORDERED: JEVITY 1.2 CAL LIQUID 1,000 ML BOT RTH SCH (14:00)
[2024-08-25 07:07] LABS: Absolute Basophils 0.1 K/uL (0-0.5); Absolute Monocytes 0.4 K/uL (0.1-1.3); Absolute Neutrophil 3.1 K/uL (1.8-8.0); Basophils % 1.3 % (0-1.3); Eosinophils % 0.7 % (0-4.4); Hematocrit 36.8 % (36.0-45.0); Hemoglobin 11.6 g/dL (12.0-15.0); Lymphocytes % 21.7 % (15.3-44.8); MCH 23.9 pg (27.0-35.0); MCHC 31.6 g/dL (32.0-36.0); MCV 75.7 fL (80-100); MPV 8.4 fL (7.6-11.3); Monocytes % 8.8 % (3.3-12.3); Neutrophils % 67.5 % (41.7-73.7); Nucleated Red Blood Cells % 0.1 % (0-0); Platelets 232 thou/uL (152-406); RBC Red Blood Cell Count 4.86 M/uL (3.86-4.86); Red Cell Distribution Width 34.2 % (12.1-15.2)
[2024-08-25 07:15] LABS: Albumin 2.4 g/dL (3.4-5.0); Magnesium 1.9 mg/dL (1.6-2.4); Phosphorus 1.9 mg/dL (2.5-4.9)
[2024-08-25] MEDS: POTASSIUM PHOS IN 0.9 % NACL 15 MMOL/250 ML BAG IV SCH (09:27)
[2024-08-25] MEDS: JEVITY 1.2 CAL LIQUID 1,000 ML BOT RTH SCH (22:30)
[2024-08-26] MEDS: SODIUM CHLORIDE 0.9% 10ML INJ IV PRN (05:34)
--- NOTE | 2024-08-26 07:33 | P.PN ---
Date of Service: 08/26/24 subjective GT placed, feeding started, increase as tolerated Review of Systems is unable to be obtained Physical Examination - Vital Signs Reviewed - Physical Exam General: Alert, responds to verbal, no acute distress, cachectic HEENT: Atraumatic, Normocephalic Neck: Supple Respiratory: Clear to auscultation bilaterally Cardiovascular: Regular rate/rhythm, Normal S1 S2 Capillary refill: <2 Seconds Gastrointestinal: Soft and benign, W/out hepatosplenomegaly Musculoskeletal: Moderate to severe generalized weakness, total care, contractures of the right arm Integumentary: Bruising from repeated blood draws, upper extremity Neurological: Dementia Lymphatics: No axilla or inguinal lymphadenopathy Assessment and Plan - Plan Dysphagia esophagitis Will start on PPI Speech evaluation-pured diet, thin liquid IV hydration Monitor closely Severe anemia Type and cross 2 units, trend H&H Hyponatremia Dehydration IV hydration Monitor electrolytes and replace accordingly Moderate protein calorie malnutrition Anemia Nutritional consult-calorie count, Ensure May need PEG tube if patient fails swallow well Iron studies Dementia Supportive measures GI/DVT prophylaxis Advanced directive full code Discharge Plan: Home Plan to discharge in: 48 Hours Disposition patient resides at home with a full-time caregiver - Advance Directives Does patient have a Living Will: No Does patient have a Durable POA for Healthcare: No - Code Status/Comfort Care Code Status: Full Code Time Spent Managing Pts Care (In Minutes): 35
[2024-08-26 09:15] LABS: Absolute Lymphocytes (CBC) 0.9 K/uL (0.7-4.9); Absolute Monocytes 0.4 K/uL (0.1-1.3); Absolute Neutrophil 2.3 K/uL (1.8-8.0); Eosinophils % 0.5 % (0-4.4); Hematocrit 33.6 % (36.0-45.0); Hemoglobin 10.6 g/dL (12.0-15.0); Lymphocytes % 23.8 % (15.3-44.8); MCH 24.3 pg (27.0-35.0); MCHC 31.5 g/dL (32.0-36.0); MCV 77.1 fL (80-100); MPV 8.5 fL (7.6-11.3); Monocytes % 11.8 % (3.3-12.3); Neutrophils % 62.9 % (41.7-73.7); Platelets 180 thou/uL (152-406); RBC Red Blood Cell Count 4.36 M/uL (3.86-4.86); Red Cell Distribution Width 34.2 % (12.1-15.2)
[2024-08-26 09:19] LABS: Albumin 2.1 g/dL (3.4-5.0); Anion Gap 6.1 mEq/L (5.0-15.0); Magnesium 1.7 mg/dL (1.6-2.4); Phosphorus 1.9 mg/dL (2.5-4.9); Potassium 4.1 mEq/L (3.5-5.1)
[2024-08-26 09:42] LABS: Anisocytosis 3+; Blood Morphology Comment NOTED (NOT SEEN); Platelet Estimate ADEQ; White Blood Cell Scan OK (OK)
[2024-08-26] MEDS: MAGNESIUM SULFATE 1 gm IVPB 1 GM/100 ML BAG IV SCH (10:52)
[2024-08-26] MEDS: SODIUM PHOSPHATE 15 MM in NA CHLORIDE 0.9% 250 ML IV SCH (10:52)
--- NOTE | 2024-08-26 14:55 | P.DS ---
Admission Date: 08/06/24 Discharge Date: 08/26/24 Disposition: DC HOME/HOME HEALTH CARE Discharge Condition: GOOD Reason for Admission: Difficulty in swallowing , Dehydration Brief History of Present Illness: 79 yrs old Female with past medical history of hypertension, CVA, dementia, history of GERD, history of esophagitis who was on pured diet at home brought to ER with dysphagia and difficulty in swallowing which has been getting progressively getting worse and has not been given tolerating water. Denies any fever or chills. Patient is a poor historian hence most of the history is obtained from the chart review and also talking to the ER physician. The patient presents with dysphagia, of solids, of liquids, of both solids and liquids, started 2 days ago and has been progressively getting worse Denies any fever, rhinorrhea, shortness of breath. She had a similar episode and was treated for esophagitis with antacids and PPI. Denies any vomiting. No chest pain or shortness of breath. Patient was looking dehydrated and was admitted for further measures - Physical Exam General: Alert, malnourished, confused, HEENT: Atraumatic, Normocephalic Neck: Supple Respiratory: Clear to auscultation bilaterally Cardiovascular: Regular rate/rhythm, Normal S1 S2 Capillary refill: <2 Seconds Gastrointestinal: Soft and benign, W/out hepatosplenomegaly Musculoskeletal: No clubbing, No swelling Integumentary: Redness, on bony areas, has dressing Neurological: Dementia Lymphatics: No axilla or inguinal lymphadenopathy Hospital Course: 79 yrs old Female with past medical history of hypertension, CVA, dementia, history of GERD, history of esophagitis who was on pured diet at home brought to ER with dysphagia and difficulty in swallowing which has been getting progressively getting worse and has not been given tolerating water. She failed several swallow studies, was evaluated by speech therapy, was treated with TPN for nutrition, PEG tube was placed 08/23 for enteral nutrition. Discharged home with family, she is a total care, turn every 2 hours to prevent bedsores, high risk for bedsores due to immobility, total care. Plan to discharge home with home health with PEG tube feedings. Discharge medications 1.) Ensure 1 can every 6h - Flush with 75ml water before and after every feed Ensure supplements Assessment Severe protein calorie malnutrition Dysphagia,Failed swallow studies,-treated with TPN for parenteral nutrition 10/3 PEG tube was placed, G-tube feedings were started, Dementia, total care, turn every 2 hours Stage II pressure ulcers, turn every 2 hours avoid skin breakdown due to severe protein calorie malnutrition Plan to discharge home with max protein Ensure every 6 hours Continue home medicines as previously prescribed GOAL: Clear understanding of disease process INSTRUCTIONS: Physician Discharge Instructions: -Follow-up with surgery after discharge for PEG tube placement -Follow-up with Surgery, Dr. Subramanian as needed -Follow-up with PCP in 1 to 2 weeks -Please call Dr. Ang at [phone] if any questions regarding hospital stay -Please call nursing station at [phone] if any nursing or medication questions -Return to the emergency room if symptoms worsen Diet: ADA, low sodium Activity: Fall precautions Vital Signs/Physical Exam: Temp Pulse Resp BP Pulse Ox 97.5 F 60 15 140/67 100 08/26/24 12:00 08/26/24 12:00 08/26/24 12:00 08/26/24 12:00 08/26/24 12:00 Laboratory Data at Discharge: WBC 3.70 thou/uL (4.3-10.9) L 08/26/24 08:54 Hgb 10.6 g/dL (12.0-15.0) L D 08/26/24 08:54 Hct 33.6 % (36.0-45.0) L 08/26/24 08:54 Plt Count 180 thou/uL (152-406) 08/26/24 08:54 PT 13.8 SECONDS (9.4-12.5) H 08/13/24 06:39 INR 1.24 08/13/24 06:39 APTT 25.2 SECONDS (24.3-36.9) 08/13/24 06:39 Sodium 140 mEq/L (136-145) 08/26/24 08:54 Potassium 4.1 mEq/L (3.5-5.1) 08/26/24 08:54 BUN 17 mg/dL (7-18) 08/26/24 08:54 Creatinine 0.31 mg/dL (0.55-1.02) L 08/26/24 08:54 Glucose 105 mg/dL (74-106) 08/26/24 08:54 Phosphorus 1.9 mg/dL (2.5-4.9) L 08/26/24 08:54 Magnesium 1.7 mg/dL (1.6-2.4) 08/26/24 08:54 Total Bilirubin 0.6 mg/dL (0.2-1.0) 08/23/24 04:23 AST 56 U/L (15-37) H 08/23/24 04:23 ALT 57 U/L (13-56) H 08/23/24 04:23 Alkaline Phosphatase 86 U/L (45-117) 08/23/24 04:23 Triglycerides 69 mg/dL (<150) 08/08/24 09:14 Cholesterol 139 mg/dL (<200) 08/08/24 09:14 HDL Cholesterol 55 mg/dL (40-60) 08/08/24 09:14 Cholesterol/HDL Ratio 2.53 08/08/24 09:14 Home Medications: Quetiapine Fumarate [Seroquel] 300 mg PO BEDTIME 08/06/24 Ensure Max Protein 330 ml PO Q6H #120 can 08/26/24 New Medications: Ensure Max Protein 330 ml PO Q6H #120 can Physician Discharge Instructions: PROBLEM: Pneumonia/dysphagia/Dehydration GOAL: Clear understanding of disease process INSTRUCTIONS: Diet: Tube feeds Activity: Fall precautions : -DC IV and DC home -Follow-up with PCP in 1 to 2 weeks -Follow-up with Surgery, Dr. Subramanian as needed -Arrange for hospice as an outpatient and comfort foods(ice cream and pudding) as tolerated -Please call Dr. Ang at [phone] if any questions regarding hospital stay -Please call nursing station at [phone] if any nursing or medication questions -Return to the emergency room if symptoms worsen Diet: Tube feeds Activity: Fall precautions Followup: Tai Ann, DO [Primary Care Provider] - Nick Subramanian MD [ACTIVE - CAN ADMIT] - Time spent managing pt's care (in minutes): 45
[2024-08-26 21:00] VITALS: O2SAT 97
[2024-08-27] MEDS: ENSURE MAX PROTEIN 330 ML LIQUID PO SCH (09:30)
[2024-08-27] MEDS: JEVITY 1.2 CAL LIQUID 1,000 ML BOT FT SCH (13:00)
[2024-08-27 16:29] VITALS: BP 136/63; TEMP 98.5
== END 2024-08-27 17:56 | disposition home health service (06) | DRG 391 ==
LOC: ER 16:33 → ERHOLD 20:42 → 2ND 22:18
PROVIDERS: ADMIT Family Medicine; ATTEND Hospitalist
PROC: 0DJ08ZZ Inspection of Upper Intestinal Tract, Via Natural or Artificial Opening Endoscopic (ICD-10-PCS; 2024-08-06)
PROC: 30233N1 Transfusion of Nonautologous Red Blood Cells into Peripheral Vein, Percutaneous Approach (ICD-10-PCS; 2024-08-12)
PROC: 3E0436Z Introduction of Nutritional Substance into Central Vein, Percutaneous Approach (ICD-10-PCS; 2024-08-13)
PROC: 02HV33Z Insertion of Infusion Device into Superior Vena Cava, Percutaneous Approach (ICD-10-PCS; principal; 2024-08-13 15:00)
PROC: 30233N1 Transfusion of Nonautologous Red Blood Cells into Peripheral Vein, Percutaneous Approach (ICD-10-PCS; 2024-08-18)
PROC: 0DH60UZ Insertion of Feeding Device into Stomach, Open Approach (ICD-10-PCS; 2024-08-23)
DX: K20.90 Esophagitis, unspecified without bleeding (principal); E43 Unspecified severe protein-calorie malnutrition; J69.0 Pneumonitis due to inhalation of food and vomit; R64 Cachexia; I69.351 Hemiplegia and hemiparesis following cerebral infarction affecting right dominant side; E87.1 Hypo-osmolality and hyponatremia; L89.222 Pressure ulcer of left hip, stage 2; R62.7 Adult failure to thrive; E86.0 Dehydration; F03.90 Unspecified dementia, unspecified severity, without behavioral disturbance, psychotic disturbance, mood disturbance, and anxiety; I10 Essential (primary) hypertension; D53.9 Nutritional anemia, unspecified; T18.128A Food in esophagus causing other injury, initial encounter; E87.8 Other disorders of electrolyte and fluid balance, not elsewhere classified; E87.6 Hypokalemia; K44.9 Diaphragmatic hernia without obstruction or gangrene; R13.10 Dysphagia, unspecified; Z68.20 Body mass index [BMI] 20.0-20.9, adult
CPT/HCPCS: 36415; 36430; 36569; 70491; 71045; 71260; 74230; 80048; 80053; 80061; 80069; 82607; 82947; 83540; 83735; 84100; 84132; 84134; 84439; 84443; 85014; 85018; 85025; 85044; 85610; 85730; 86140; 86141; 86850; 86870; 86900; 86901; 86902; 86920; 86922; 92526; 92610; 92611; 96365; 96366; 96375; 99285; A4216; J0360; J0690; J1100; J1940; J2001; J2250; J2270; J2405; J2470; J2543; J2704; J2916; J3010; J3475; J3480; J7030; J7040; J7042; J7050; J7120; P9016; Q9967

== ENCOUNTER 2024-08-30 08:34 | Inpatient (IN) | payer OTHER ==
[2024-08-30] MEDS ORDERED: PIPERACIL/TAZO 3.375 GM VIAL IV ONE (09:12)
[2024-08-30] MEDS ORDERED: NA CHLORIDE 0.9% 100 ML ONE (09:12)
[2024-08-30] MEDS ORDERED: NA CHLORIDE 0.9% 2,000 ML ONE (09:13)
--- NOTE | 2024-08-30 09:36 | RAD REPORT ---
EXAM: CT CHEST, ABDOMEN AND PELVIS WITHOUT CONTRAST CLINICAL INDICATION: Female, 79 years old COUGH TECHNIQUE: CT chest, abdomen and pelvis was performed, without IV contrast, as per department protoco l. Axial, sagittal and coronal reconstructions were obtained. One or more of the following dose reduction techniques were used: Automated exposure control, adjustment of the mA and/or kV according to the patient size, and/or iterative reconstruction. Unless otherwise specified, incidental findings do not require dedicated imaging follow-up. [id number]. COMPARISON: Multiple priors, most recent 08/06/2024 and 05/21/2024 FINDINGS: The lack of intravenous contrast limits the sensitivity of this exam for evaluation of solid visceral organs, vascular structures, and retroperitoneum. Chest: LOWER NECK/CHEST WALL: Visualized thyroid gland and soft tissues are normal. LUNGS AND AIRWAYS: Consolidated airspace disease in the right upper lobe. Nodular airspace disease in the right lower lobe. PLEURA: Small bilateral pleural effusions. MEDIASTINUM AND LYMPH NODES: No mediastinal mass or fluid collection. Normal size mediastinal, hilar, and axillary lymph nodes. Debris present in the esophagus. Thickened esophagus. THORACIC AORTA: Normal caliber and configuration. PULMONARY ARTERIES: Normal caliber. HEART: Unremarkable. Abdomen/Pelvis LIVER: Normal in size and contour. No focal lesion. GALLBLADDER/BILE DUCTS: No biliary ductal dilatation. Cholecystectomy. PANCREAS: No mass, ductal dilation, or mae-pancreatic fluid. SPLEEN: Normal size. No focal lesion. ADRENALS: Normal; no mass. KIDNEYS AND URETERS: Left-sided hydronephrosis. Right upper pole renal cyst. GASTROINTESTINAL TRACT: Contrast present within the colon. Large rectal stool burden likely reflectin g fecal impaction. Question jejunostomy tube. PERITONEUM: No free fluid. LYMPH NODES: No lymphadenopathy. ABDOMINAL AORTA AND OTHER VESSELS: Normal caliber aorta and IVC. URINARY BLADDER: Significant bladder wall thickening. REPRODUCTIVE ORGANS: Multiple right lower quadrant masses, compatible which are calcified and may ref lect multiple uterine fibroids with a displaced uterus. MUSCULOSKELETAL: Subacute versus remote appearing T12 and L1 compression fractures. Remote sternal fr acture. ADDITIONAL FINDINGS: None IMPRESSION: 1. Consolidative airspace disease in the right upper lobe and nodularity the right lower lobe concern ing for pneumonia or possibly pneumonitis secondary to aspiration. Particulate matter is present in the esophagus. 2. Very large rectal stool burden concerning for fecal impaction. 3. Left-sided hydronephrosis possibly due to fecal impaction. The bladder wall is also thickened. Cor relate for cystitis. 4. Masses in the right lower quadrant a be due to a displaced fibroid uterus. The findings aren't pre sent since at least 09/01/2022.
--- NOTE | 2024-08-30 09:41 | RAD REPORT ---
EXAMINATION: ONE VIEW CHEST XR CLINICAL INDICATION: Female, 79 years old.DYSPNEA TECHNIQUE: 1 View, AP supine, X-ray of the chest was performed. [id number]. COMPARISON: 08/13/24 FINDINGS: Lungs and pleura: Consolidative airspace disease in the right upper and right lower lobe. No effusio n. Heart and mediastinum: Normal heart size. Unremarkable mediastinal contours. Osseous structures: No acute abnormality. Tubes/lines: None Other: None. IMPRESSION: Airspace disease in the right lung concerning for pneumonia or pneumonitis, possibly secondary to asp iration. Reference same day chest CT.
[2024-08-30 10:09] LABS: SARS-CoV-2 Antigen CONTROL BLUE LINE VIS/BG OK; SARS-CoV-2 Antigen Rapid Res Negative (Negative)
[2024-08-30 10:22] LABS: Albumin 2.5 g/dL (3.4-5.0); Albumin/Globulin Ratio 0.6 (1.1-1.8); Anion Gap 12.3 mEq/L (5.0-15.0); Bilirubin Direct 0.4 mg/dL (0-0.2); Bilirubin Indirect, Calculated 0.6 mg/dL (0.2-0.8); Globulin 4.1 g/dL (2.3-3.5); Magnesium 1.7 mg/dL (1.6-2.4); Potassium 4.3 mEq/L (3.5-5.1); Protein, Total 6.6 g/dL (6.4-8.2); Troponin High Sensitivity 20.2 pg/mL (<58.9)
[2024-08-30 10:55] LABS: PT Prothrombin Time 14.3 SECONDS (9.4-12.5); Protime INR 1.29
[2024-08-30 11:17] LABS: Absolute Lymphocytes (CBC) 0.8 K/uL (0.7-4.9); Absolute Neutrophil 11.7 K/uL (1.8-8.0); Basophils % 0.1 % (0-1.3); Hematocrit 34.3 % (36.0-45.0); Hemoglobin 10.9 g/dL (12.0-15.0); Lymphocytes % 5.6 % (15.3-44.8); MCH 24.6 pg (27.0-35.0); MCHC 31.8 g/dL (32.0-36.0); MCV 77.5 fL (80-100); MPV 8.7 fL (7.6-11.3); Monocytes % 7.5 % (3.3-12.3); Neutrophils % 86.8 % (41.7-73.7); Nucleated Red Blood Cells % 0.1 % (0-0); Platelets 143 thou/uL (152-406); RBC Red Blood Cell Count 4.43 M/uL (3.86-4.86); Red Cell Distribution Width 35.3 % (12.1-15.2)
--- NOTE | 2024-08-30 11:54 | ER ---
Nurse's Notes [facility] Name: Carey Mcdaniel Age: 79 yrs Sex: Female : 1945 Arrival Date: 08/30/2024 Time: 08:34 Bed 3 Private MD: Diagnosis: Severe sepsis without septic shock;Pneumonia due to other specified bacteria-RIGHT UPPER , LOWER ASPIRATION;Elevated white blood cell count;Hydronephrosis with ureteral stricture, not elsewhere classified;Acute cystitis;Constipation-RECTAL IMPACTION;Leiomyoma of uterus, unspecified Presentation: 08/30 08:52 Chief complaint: Patient's son or daughter states: cough, congestion since yesterday, iw worse today. Coronavirus screen: Client presents with at least one sign or symptom that may indicate coronavirus-19. Ebola Screen: No symptoms or risks identified at this time. Initial Sepsis Screen: Does the patient meet any 2 criteria? Temp <36.0*C (96.8*F)) or > 38.3*C (100.9*F). HR > 90 bpm. Does the patient have a suspected source of infection? No. Patient's initial sepsis screen is negative. Risk Assessment: Do you want to hurt yourself or someone else? Patient reports no desire to harm self or others. Onset of symptoms was August 29, 2024. 08:52 Method Of Arrival: Wheelchair iw 08:52 Acuity: EKATERINA 3 iw Triage Assessment: 15:34 General: Appears in no apparent distress. Respiratory: Reports family reports cough tm6 Onset: The symptoms/episode began/occurred at an unknown time. the patient has mild shortness of breath. Historical: - Allergies: 08:55 Hydrocodone-Acetaminophen; iw - PMHx: 08:55 Dementia; CVA; Right sided weakness; Hypertension; non verbal; iw - Immunization history:: Client reports receiving the 2nd dose of the Covid vaccine. - Infectious Disease History:: Denies. - Social history:: Smoking status: . - Family history:: not pertinent. Screenin:[facility] ED Fall Risk Assessment (Adult) History of falling in the last 3 months, aa5 including since admission No falls in past 3 months (0 pts) Confusion or Disorientation Yes (5 pts) Intoxicated or Sedated No (0 pts) Impaired Gait No (0 pts) Mobility Assist Device Used No (0 pt) Altered Elimination Yes (1 pt) Score/Fall Risk Level 3 or more points = High Risk Oriented to surroundings, Maintained a safe environment, Educated pt \T\ family on fall prevention, incl call for assistance when getting out of bed, Hourly rounding (assess needs \T\ fall precautionary measures) done. Abuse screen: No signs of abuse noted. Nutritional screening: No oral intake, pt has PEG tube. Tuberculosis screening: No symptoms or risk factors identified. Assessment: 09:00 General: Appears comfortable, Behavior is cooperative. Pain: Unable to use pain scale. aa5 FLACC scale score is 0 out of 10. Neuro: Level of Consciousness is awake, confused, Pt is unable to follow commands and non-verbal. Cardiovascular: Heart tones S1 S2 present Rhythm is regular. Respiratory: Airway is patent Respiratory effort is even, unlabored, Respiratory pattern is regular, symmetrical, with congestion auscultated Parent/caregiver reports the patient having cough and pt is unable to cough up mucus. GI: Abdomen is non-distended, Abd is soft X 4 quads. : Brief noted. EENT: No signs and/or symptoms were reported regarding the EENT system. Derm: Skin is dry, Skin is normal, Skin temperature is hot. Musculoskeletal: Right arm is contracted. 09:57 Reassessment: Lab at bedside attempting to collect 2nd set of blood cultures and aa5 recollect PT and CBC.. 10:30 Reassessment: 2nd seamer panty hose at bedside to attempt blood cultures and labs. tm6 11:09 Reassessment: Patient and/or family updated on plan of care and expected duration. Pain tm6 level reassessed. Patient is alert, oriented x 3, equal unlabored respirations, skin warm/dry/pink. 13:19 Reassessment: Patient appears in no apparent distress at this time. No changes from tm6 previously documented assessment. 14:48 Reassessment: report faxed to 2nd, confirmed by Octavia. tm6 Vital Signs: 08:52 BP 93 / 61; Pulse 110; Resp 21; Temp 102.4(A); Pulse Ox 98% on R/A; iw 08:57 Weight 40.82 kg; Height 4 ft. 11 in. ; iw 11:09 BP 96 / 53; Pulse 83; Temp 98(A); Pulse Ox 98% on R/A; MAP 63 mmHg; tm6 13:18 BP 90 / 54; Pulse 78; Resp 26; Temp 98.5(Ca); Pulse Ox 95% on R/A; MAP 66 mmHg; tm6 14:42 BP 103 / 57; Pulse 81; Resp 18; Temp 99.3(Ca); Pulse Ox 95% on R/A; MAP 71 mmHg; tm6 08:57 Body Mass Index 18.18 (40.82 kg, 149.86 cm) iw ED Course: 08:37 Patient arrived in ED. im 08:37 Micah Dumas MD is Attending Physician. nida 08:47 Siobhan Islas, LON is Primary Nurse. aa5 08:50 XRAY Chest (1 view) In Process Unspecified. EDMS 08:54 Triage completed. iw 08:55 Arm band placed on. iw 09:00 Patient has correct armband on for positive identification. Bed in low position. Call aa5 light in reach. Side rails up X2. Adult w/ patient. Client placed on continuous cardiac and pulse oximetry monitoring. NIBP monitoring applied. corporate meeting planner on. Pulse ox on. NIBP on. 09:02 CT Chest Abdomen Pelvis W/O Contrast In Process Unspecified. EDMS 09:35 Missed attempt(s): 22 gauge in left forearm. Bleeding controlled, band aid applied, aa5 catheter tip intact. 09:42 Initial lab(s) drawn, by ak, sent to lab. First set of blood cultures drawn by ak. aa5 09:45 Inserted saline lock: 22 gauge in left upper arm, using aseptic technique. aa5 09:53 COVID swab sent to lab. Flu and/or RSV swab sent to lab. Strep swab sent to lab. aa5 10:03 Report given to LON Plata. aa5 11:52 Dangelo Ortega is Hospitalizing Provider. nida 13:14 Quinones cath inserted, using sterile technique, 16 Fr., by me, balloon inflated, to tm6 gravity drainage, urine specimen collected. Patient tolerated well. 13:19 Urinalysis w/ reflexes Sent. tm6 15:33 Provided Education on: need for admit. tm6 15:33 No provider procedures requiring assistance completed. Patient admitted, IV remains in tm6 place. Administered Medications: 09:50 Drug: NS 0.9% IV 1000 ml IV at 1 bolus Per protocol; 1000 mL bolus Route: IV; Rate: 1 aa5 bolus; Site: left upper arm; 12:02 Follow up: IV Status: Completed infusion; IV Intake: 1000ml tm6 10:53 Drug: Piperacillin-Tazobactam IVPB 3.375 grams IVPB once over 60 mins; (mix in NS 100 tm6 mL) Route: IVPB; Infused Over: 60 mins; Site: left upper arm; 12:02 Follow up: Response: No adverse reaction; IV Status: Completed infusion; IV Intake: tm6 100ml 12:02 Drug: NS 0.9% IV 1000 ml IV at 125 ml/hr continuous Route: IV; Rate: 125 ml/hr; Site: tm6 left upper arm; 15:35 Follow up: Response: No adverse reaction; IV Status: Infusion continued; IV Intake: tm6 250ml Medication: 15:34 VIS not applicable for this client. tm6 Intake: 12:02 IV: 1000ml; Total: 1000ml. tm6 12:02 IV: 100ml; Total: 1100ml. tm6 15:35 IV: 250ml; Total: 1350ml. tm6 Outcome: 11:53 Decision to Hospitalize by Provider. nida 15:33 Admitted to Med/surg accompanied by nurse, via stretcher, room 205, with chart, tm6 15:33 Condition: stable 15:33 Instructed on the need for admit, 15:33 Patient left the ED. ph Signatures: Dispatcher [employer] EDMS Micah Dumas MD MD cha Williams, Irene, LON FORREST Siobhan Islas RN RN aa5 Hall, Patricia, RN RN Susan Raphael Tawney RN RN tm6 Corrections: (The following items were deleted from the chart) 11:16 08:52 BP 93 / 61; Pulse 110bpm; Resp 21bpm; Pulse Ox 98% RA; Temp 102.4F; iw iw 15:10 14:48 Reassessment: report faxed to tm6 tm6
--- NOTE | 2024-08-30 11:54 | EDPHYS ---
Physician Documentation [facility] Name: Carey Mcdaniel Age: 79 yrs Sex: Female : 1945 Arrival Date: 08/30/2024 Time: 08:34 Bed 3 Private MD: ED Physician Micah Dumas HPI: 08/30 11:41 This 79 yrs old Female presents to ER via Wheelchair with complaints of nida Shortness Of Breath. 11:41 The patient has shortness of breath at rest. Onset: The symptoms/episode began/occurred nida 2 day(s) ago. Duration: The symptoms are continuous, and are steadily getting worse. The patient's shortness of breath is aggravated by nothing, is alleviated by nothing. Associated signs and symptoms: Pertinent positives: non-productive cough, fever. Severity of symptoms: At their worst the symptoms were moderate in the emergency department the symptoms are unchanged. The patient has experienced similar episodes in the past, several times. Historical: - Allergies: 08:55 Hydrocodone-Acetaminophen; iw - PMHx: 08:55 Dementia; CVA; Right sided weakness; Hypertension; non verbal; iw - Immunization history:: Client reports receiving the 2nd dose of the Covid vaccine. - Infectious Disease History:: Denies. - Social history:: Smoking status: . - Family history:: not pertinent. ROS: 11:41 Constitutional: Negative for fever, chills, and weight loss, Eyes: Negative for injury, nida pain, redness, and discharge, ENT: Negative for injury, pain, and discharge, Neck: Negative for injury, pain, and swelling, Cardiovascular: Negative for chest pain, palpitations, and edema, Abdomen/GI: Negative for abdominal pain, nausea, vomiting, diarrhea, and constipation, Back: Negative for injury and pain, : Negative for injury, bleeding, discharge, and swelling, MS/Extremity: Negative for injury and deformity, Skin: Negative for injury, rash, and discoloration, Psych: Negative for depression, anxiety, suicide ideation, homicidal ideation, and hallucinations, Allergy/Immunology: Negative for hives, rash, and allergies, Endocrine: Negative for neck swelling, polydipsia, polyuria, polyphagia, and marked weight changes, Hematologic/Lymphatic: Negative for swollen nodes, abnormal bleeding, and unusual bruising, 11:41 Respiratory: Positive for cough, shortness of breath, at rest. 11:41 Neuro: Positive for weakness, Exam: 11:41 Constitutional: This is a well developed, well nourished patient who is awake, alert, nida and in no acute distress. Head/Face: Normocephalic, atraumatic. Eyes: Pupils equal round and reactive to light, extra-ocular motions intact. Lids and lashes normal. Conjunctiva and sclera are non-icteric and not injected. Cornea within normal limits. Periorbital areas with no swelling, redness, or edema. ENT: Nares patent. No nasal discharge, no septal abnormalities noted. Tympanic membranes are normal and external auditory canals are clear. Oropharynx with no redness, swelling, or masses, exudates, or evidence of obstruction, uvula midline. Mucous membranes moist. Neck: Trachea midline, no thyromegaly or masses palpated, and no cervical lymphadenopathy. Supple, full range of motion without nuchal rigidity, or vertebral point tenderness. No Meningismus. Chest/axilla: Normal chest wall appearance and motion. Nontender with no deformity. No lesions are appreciated. Cardiovascular: Regular rate and rhythm with a normal S1 and S2. No gallops, murmurs, or rubs. Normal PMI, no JVD. No pulse deficits. Abdomen/GI: Soft, non-tender, with normal bowel sounds. No distension or tympany. No guarding or rebound. No evidence of tenderness throughout. Back: No spinal tenderness. No costovertebral tenderness. Full range of motion. Female : Normal external genitalia. Skin: Warm, dry with normal turgor. Normal color with no rashes, no lesions, and no evidence of cellulitis. Psych: Awake, alert, with orientation to person, place and time. Behavior, mood, and affect are within normal limits. 11:41 ECG was reviewed by the Attending Physician. 11:41 Respiratory: the patient does not display signs of respiratory distress, Respirations: labored breathing, is not present, Breath sounds: bronchial sounds, that are moderate, are heard in the right upper lobe, right middle lobe and right posterior upper lobe, rhonchi, that are mild, are scattered, stridor, is not appreciated, + upper airway congestion. Respiratory rate: 22 Vital Signs: 08:52 BP 93 / 61; Pulse 110; Resp 21; Temp 102.4(A); Pulse Ox 98% on R/A; iw 08:57 Weight 40.82 kg; Height 4 ft. 11 in. ; iw 11:09 BP 96 / 53; Pulse 83; Temp 98(A); Pulse Ox 98% on R/A; MAP 63 mmHg; tm6 13:18 BP 90 / 54; Pulse 78; Resp 26; Temp 98.5(Ca); Pulse Ox 95% on R/A; MAP 66 mmHg; tm6 14:42 BP 103 / 57; Pulse 81; Resp 18; Temp 99.3(Ca); Pulse Ox 95% on R/A; MAP 71 mmHg; tm6 08:57 Body Mass Index 18.18 (40.82 kg, 149.86 cm) iw MDM: 08:37 Patient medically screened. nida 08:49 Patient medically screened. nida 11:44 Differential diagnosis: Anemia Anxiety Reaction asthma, Bronchitis CHF exacerbation, nida Chronic Obstructive Pulmonary Disease pneumonia, pulmonary edema, reactive airway disease, Sepsis. Antibiotic administration: ZOSYN. Immunization status: Pneumococcal vaccine: within last 5 years. Influenza vaccine: within last 5 years. Data reviewed: vital signs, nurses notes, EMS record, lab test result(s), EKG, radiologic studies, CT scan, plain films. Consideration of Admission/Observation Patient was admitted/placed on observation. Escalation of care including admission/observation considered. I considered the following discharge prescriptions or medication management in the emergency department Medications were administered in the Emergency Department. See MAR. Independent interpretation of the following test(s) in the Emergency Department EKG: See my EKG interpretation above. Test considered but Not performed: Ultrasound NO ABD USG. Historians other than the Patient: Daughter/Son: DAUGHTER WELL INFORMED. Care significantly affected by the following chronic conditions: Hypertension, CVA, 40 KG, DEMENTIA, NON VERBAL. 08/30 08:39 Order name: Basic Metabolic Panel; Complete Time: 11:20 nida 08/30 08:39 Order name: CBC with Diff; Complete Time: 13:21 nida 08/30 08:39 Order name: LFT's; Complete Time: 11:20 nida 08/30 08:39 Order name: Magnesium; Complete Time: 11:20 nida 08/30 08:39 Order name: NT PRO-BNP; Complete Time: 11:20 nida 08/30 08:39 Order name: PT-INR; Complete Time: 11:20 [facility] 08/30 08:39 Order name: Troponin HS; Complete Time: 11:20 [facility] 08/30 08:39 Order name: Lipase; Complete Time: 11:20 [facility] 08/30 08:39 Order name: Flu; Complete Time: 11:20 [facility] 08/30 08:39 Order name: SARS RAPID; Complete Time: 11:20 [facility] 08/30 08:39 Order name: Urinalysis w/ reflexes [facility] 08/30 08:53 Order name: Strep; Complete Time: 11:20 [facility] 08/30 08:53 Order name: Lactate w/ 2H reflex if indic.; Complete Time: 11:20 [facility] 08/30 08:53 Order name: Blood Culture Adult (2) [facility] 08/30 10:12 Order name: Throat Culture EDMS 08/30 11:42 Order name: CBC Smear Scan; Complete Time: 13:21 EDMS 08/30 12:15 Order name: Ghost Lactate-NO COLLECT Timer; Complete Time: 13:21 EDMS 08/30 12:59 Order name: Lactate w/ 2H reflex if indic. EDMS 08/30 12:59 Order name: Urinalysis w/ reflexes EDMS 08/30 12:59 Order name: CBC with Automated Diff EDMS 08/30 12:59 Order name: CBC with Automated Diff EDMS 08/30 12:59 Order name: CBC with Automated Diff EDMS 08/30 12:59 Order name: CBC with Automated Diff EDMS 08/30 12:59 Order name: Comprehensive Metabolic Panel EDMS 08/30 12:59 Order name: Comprehensive Metabolic Panel EDMS 08/30 12:59 Order name: Comprehensive Metabolic Panel EDMS 08/30 12:59 Order name: Comprehensive Metabolic Panel EDMS 08/30 12:59 Order name: Lipid Profile EDMS 08/30 12:59 Order name: Lipid Profile EDMS 08/30 12:59 Order name: Magnesium EDMS 08/30 12:59 Order name: Magnesium EDMS 08/30 12:59 Order name: Magnesium EDMS 08/30 12:59 Order name: Magnesium EDMS 08/30 12:59 Order name: Phosphorus EDMS 08/30 12:59 Order name: Phosphorus EDMS 08/30 12:59 Order name: Phosphorus EDMS 08/30 12:59 Order name: Phosphorus EDMS 08/30 08:39 Order name: XRAY Chest (1 view); Complete Time: 11:20 [facility] 08/30 08:53 Order name: CT Chest Abdomen Pelvis W/O Contrast; Complete Time: 11:20 [facility] 08/30 08:39 Order name: EKG; Complete Time: 08:40 [facility] 08/30 12:45 Order name: Social Service Consult [facility] 08/30 12:45 Order name: Dietitian Consult [facility] 08/30 08:39 Order name: Cardiac monitoring; Complete Time: 09:46 [facility] 08/30 08:39 Order name: EKG - Nurse/Tech; Complete Time: 10:06 [facility] 08/30 08:39 Order name: IV Saline Lock; Complete Time: 09:46 [facility] 08/30 08:39 Order name: Labs collected and sent; Complete Time: 09:46 [facility] 08/30 08:39 Order name: O2 Per Protocol; Complete Time: 09:08 [facility] 08/30 08:39 Order name: O2 Sat Monitoring; Complete Time: 09:08 [facility] 08/30 09:55 Order name: Labs - recollect needed: lavender, blue; Complete Time: 10:46 [facility] 08/30 10:54 Order name: Labs - recollect needed: CBC; Complete Time: 11:08 08/30 11:39 Order name: Quinones; Complete Time: 13:14 [facility] EC:41 Rate is 89 beats/min. Rhythm is regular. QRS [place] is Normal. FL interval is normal. QRS nida interval is normal. QT interval is normal. No Q waves. T waves are Normal. No ST changes noted. Clinical impression: NSR w/ Non-specific ST/T Changes and No evidence of ischemia. Interpreted by me. Reviewed by me. Administered Medications: 09:50 Drug: NS 0.9% IV 1000 ml IV at 1 bolus Per protocol; 1000 mL bolus Route: IV; Rate: 1 aa5 bolus; Site: left upper arm; 12:02 Follow up: IV Status: Completed infusion; IV Intake: 1000ml tm6 10:53 Drug: Piperacillin-Tazobactam IVPB 3.375 grams IVPB once over 60 mins; (mix in NS 100 tm6 mL) Route: IVPB; Infused Over: 60 mins; Site: left upper arm; 12:02 Follow up: Response: No adverse reaction; IV Status: Completed infusion; IV Intake: tm6 100ml 12:02 Drug: NS 0.9% IV 1000 ml IV at 125 ml/hr continuous Route: IV; Rate: 125 ml/hr; Site: tm6 left upper arm; 15:35 Follow up: Response: No adverse reaction; IV Status: Infusion continued; IV Intake: tm6 250ml Disposition Summary: 08/30/24 11:53 Hospitalization Ordered Notes: Hospitalization Status: Inpatient Admission nida Provider: Dangelo Ortega cha Location: Telemetry/[facility] (Inpatient) nida Condition: Fair nida Problem: new nida Symptoms: have improved nida Bed/Room Type: Standard nida Room Assignment: 205(08/30/24 14:18) bc6 Diagnosis - Severe sepsis without septic shock nida - Pneumonia due to other specified bacteria - RIGHT UPPER , LOWER ASPIRATION nida - Elevated white blood cell count nida - Hydronephrosis with ureteral stricture, not elsewhere classified nida - Acute cystitis nida - Constipation - RECTAL IMPACTION nida - Leiomyoma of uterus, unspecified nida Forms: - Medication Reconciliation Form nida - SBAR form nida - Leadership Thank You Letter nida Signatures: Dispatcher [employer] EDMicah Gonzalez MD MD cha Williams, Irene, RN LON iw Siobhan Islas RN RN aa5 Betito Patel, SENIOR QUALITY METHODS SPECIALIST-C SENIOR QUALITY METHODS SPECIALIST-Carol1 Michelle Nagel bc6 Sherlyn Mccann, RN RN tm6 Corrections: (The following items were deleted from the chart) 08:40 08:40 BASIC METABOLIC PANEL+C.LAB.BRZ ordered. EDMS EDMS 08:40 08:40 CBC+H.LAB.BRZ ordered. EDMS EDMS 08:40 08:40 HEPATIC FUNCTION+C.LAB.BRZ ordered. EDMS EDMS 08:40 08:40 MAGNESIUM+C.LAB.BRZ ordered. EDMS EDMS 08:40 08:40 PROBNP+C.LAB.BRZ ordered. EDMS EDMS 08:40 08:40 PROTIME (+INR)+COAG.LAB.BRZ ordered. EDMS EDMS 08:40 08:40 Troponin High Sensitivity+C.LAB.BRZ ordered. EDMS EDMS 08:40 08:40 LIPASE+C.LAB.BRZ ordered. EDMS EDMS 08:40 08:40 Influenza Screen (A \T\ B)+BA.LAB.BRZ ordered. EDMS EDMS 08:40 08:40 SARS-COV-2 Antigen Rapid+I.LAB.BRZ ordered. EDMS EDMS 08:40 08:40 Urinalysis+U.LAB.BRZ ordered. EDMS EDMS 08:54 08:54 Chest Abdomen Pelvis Wo Con+CT.RAD.BRZ ordered. EDMS EDMS 14:18 11:53 nida bc6
[2024-08-30 12:18] LABS: Anisocytosis 3+; Blood Morphology Comment NOTED (NOT SEEN); Burr Cells FEW; Hypochromasia 1+; Platelet Estimate ADEQ; White Blood Cell Scan OK (OK)
--- NOTE | 2024-08-30 12:40 | P.HP ---
Certification for Inpatient Patient admitted to: Inpatient With expected LOS: >2 Midnights Patient will require the following post-hospital care: Custodial Practitioner: I am a practitioner with admitting privileges, knowledge of patient current condition, hospital course, and medical plan of care. Services: Services provided to patient in accordance with Admission requirements found in Title 42 Section 412.3 of the Code of Federal Regulations <Julieth Wells - Last Filed: 08/30/24 14:31> Patient History Date of Service: 08/30/24 Reason for admission: Aspiration pneumonia History of Present Illness: Ms. Mcdaniel is a 79-year-old female with a past medical history of hypertension, CVA, dementia, GERD with esophagitis, severe protein calorie malnutrition, and dysphagia. She was admitted on 08/06/2024 for dysphagia and could not tolerate p.o. feedings thus was on TPN until she was strong enough for G-tube placement on 08/23/2024. She was discharged on 08/26/2024 with Ensure 1 can every 6 hours with 75 mL of water before and after every feed. She presented to the emergency department department today with shortness of breath and is found to have aspiration pneumonia. Ms. Mcdaniel is more alert than the previous time I saw her. Discussed results with her Daughter, Kendra. She wants to keep her mother's code status as full. I discussed with her the difficulty in keeping her mother nourished when she is not able to tolerate po and now tube feedings. She states she will think about what is best for her Mom. Ms. Mcdaniel will be admitted for IV antibiotics, O2, and nebs. Labs: WBC 13.4 with 86.8% neutrophils, H/H 10.9/34.3, electrolytes unremarkable, alk phos 149, direct bili 0.4, albumin 2.5, proBNP 1057, flu negative, strep negative, SARS negative, lactate 2.3 Imaging: Chest x-ray impression "airspace disease in the right lung concerning for pneumonia or pneumonitis, possibly secondary to aspiration. Reference same- day's chest CT." CT chest abdomen pelvis without contrast: "Consolidative airspace disease in the right upper lobe and nodularity in the right upper lobe concerning for pneumonia or possibly pneumonitis secondary to aspiration. Particulate matter is present in the esophagus. Very large rectal stool burden concerning for fecal impaction. Left-sided hydronephrosis possibly due to fecal impaction. The bladder wall is also thickened. Correlate with for cystitis. Masses in the right lower quadrant may be due to a displaced fibroid uterus. These findings are present since at least 09/01/2022" Home medications list reviewed: Yes (Lisinopril and Seroquel) - Past Medical/Surgical History Has patient received pneumonia vaccine in the past: Yes Diabetic: No -: Hypertension -: CVA 2009 -: Dementia -: Failure to thrive -: GI bleed -: Aspiration pneumonia -: Hiatal hernia -: Cholecystectomy -: G-tube placed Psychosocial/ Personal History: Patient is home with her family-daughter Taylor is primary caregiver, she has a hospital bed, wheelchair at home - Family History Mother -: Hypertension, Diabetes - Social History Alcohol use: No CD- Drugs: No Caffeine use: No Place of Residence: Home <Julieth Wells - Last Filed: 08/30/24 14:31> Date of Service: 08/30/24 <michael bach - Last Filed: 08/30/24 17:38> Allergies hydrocodone Allergy (Verified 07/18/23 02:03) Nausea/Vomiting Home Medications: Quetiapine Fumarate [Seroquel] 300 mg PO BEDTIME 08/06/24 Ensure Max Protein 330 ml PO Q6H #120 can 08/26/24 Review of Systems 10-point ROS is otherwise unremarkable General: Weakness, Malaise Respiratory: Cough, Shortness of Breath Gastrointestinal: As per HPI Genitourinary: Unremarkable Musculoskeletal: Unremarkable Integumentary: Other (Pressure sore) <Julieth Wells - Last Filed: 08/30/24 14:31> Physical Examination - Physical Exam General: Alert, Cachectic, Demented, Other (nonverbal) HEENT: Normocephalic, Other (ecchymosis to left cheek) Neck: Supple Respiratory: Normal air movement Cardiovascular: No edema, Regular rate/rhythm, Normal S1 S2 Capillary refill: <2 Seconds Gastrointestinal: Hypoactive, Other (g tube with dressing) Musculoskeletal: No clubbing, No swelling Integumentary: No rashes, Other (did not turn pt, she was having funes inserted on assessment) Neurological: Abnormal speech, Abnormal affect Lymphatics: No axilla or inguinal lymphadenopathy Urinary: Funes catheter External genitalia: No edema, No lesions Rectal: Deferred - Studies Laboratory Data (last 24 hrs) 08/30/24 08/30/24 08/30/24 11:07 10:41 09:42 WBC 13.40 H Hgb 10.9 L Hct 34.3 L Plt Count 143 L PT 14.3 H INR 1.29 Sodium 135 L Potassium 4.3 BUN 29 H Creatinine 0.61 Glucose 85 Magnesium 1.7 Total Bilirubin 1.0 AST 35 ALT 42 Alkaline Phosphatase 149 H Lipase 58 Microbiology Data (last 24 hrs): 08/30/24 09:53 Nasopharnyx Influenza Type A Antigen Screen - Final 08/30/24 09:53 Nasopharnyx Influenza Type B Antigen Screen - Final 08/30/24 09:53 Throat Group A Streptococcus Rapid Screen - Final <Julieth Wells - Last Filed: 08/30/24 14:31> - Studies Laboratory Data (last 24 hrs) 08/30/24 08/30/24 08/30/24 11:07 10:41 09:42 WBC 13.40 H Hgb 10.9 L Hct 34.3 L Plt Count 143 L PT 14.3 H INR 1.29 Sodium 135 L Potassium 4.3 BUN 29 H Creatinine 0.61 Glucose 85 Magnesium 1.7 Total Bilirubin 1.0 AST 35 ALT 42 Alkaline Phosphatase 149 H Lipase 58 Microbiology Data (last 24 hrs): 08/30/24 09:53 Nasopharnyx Influenza Type A Antigen Screen - Final 08/30/24 09:53 Nasopharnyx Influenza Type B Antigen Screen - Final 08/30/24 09:53 Throat Group A Streptococcus Rapid Screen - Final <michael bach - Last Filed: 08/30/24 17:38> Assessment and Plan - Plan Severe malnutrition with PEG tube feedings with aspiration pneumonia: Discuss hospice with pt family Continue IV antibiotics Repeat chest x-ray Neb treatments every 6 hours scheduled O2 per protocol Rec'd heavy bolus in ED, eval fluid status daily Monitor and trend labs including FSBS, CBC, CMP, and lactate as needed Skin measures to try to promote healing of pressure sores, air mattress funes with strict I&O Consult Dr. Subramanian as needed Fecal impaction resulting in hydronephrosis soap suds enema until clear GI and DVT prophylaxis - Advance Directives Does patient have a Living Will: No Does patient have a Durable POA for Healthcare: No <RussellJulieth Leonard - Last Filed: 08/30/24 14:31> - Plan Patient seen and examined. Plan of care discussed with Ms. Wells. Slow transit constipation-large stool burden. Aspiration pneumonia History of dysphagia status post PEG Severe protein calorie malnutrition Treat constipation with enemas and laxative treatment via PEG tube IV Zosyn for aspiration pneumonia Keep n.p.o. for now IV hydration with dextrose to avoid hypoglycemia. Treat hyponatremia with IV D5NS. <michael bach - Last Filed: 08/30/24 17:38>
[2024-08-30] MEDS ORDERED: ACETAMINOPHEN 650MG/RECT SUPP PR PRN (12:51)
[2024-08-30 13:37] LABS: Specific Gravity 1.015 (1.005-1.030); Sqamous Epithelial None Seen /HPF (None Seen); Urine Bacteria None Seen /HPF (<20); Urine Bilirubin NEGATIVE (Negative); Urine Blood Negative (Negative); Urine Clarity Clear (Clear); Urine Color Yellow (Yellow); Urine Culture Reflex Order NOT NEEDED; Urine Glucose NEGATIVE (Negative); Urine Ketones NEGATIVE (Negative); Urine Microscopic Reflex YN ORDER UMIC; Urine Mucus Slight /HPF (None Seen); Urine Nitrite NEGATIVE (Negative); Urine Protein TRACE (Negative); Urine RBC <5 /HPF (None Seen); Urine Urobilinogen 2+ (Normal); Urine WBC <5 /HPF (<5); Urine pH 6.5 (5.0-7.0)
[2024-08-30] MEDS ORDERED: ALBUTEROL 2.5 MG/3 ML NEB SOL ONE (14:25)
[2024-08-30] MEDS ORDERED: IPRATROPIUM BROM 0.5MG/2.5ML ONE (14:25)
[2024-08-30] MEDS: IPRATROPIUM BROM 0.5MG/2.5ML NEB SCH (14:47)
[2024-08-30] MEDS: ALBUTEROL 2.5 MG/3 ML NEB SOL NEB SCH (14:47)
[2024-08-30] MEDS ORDERED: JEVITY 1.2 CAL LIQUID 1,000 ML BOT RTH SCH (16:00)
[2024-08-30 16:08] VITALS: BMI 18.1
[2024-08-30] MEDS: MAGNESIUM CITRATE 300 ML BOT FT SCH (16:57)
[2024-08-30] MEDS: D5 0.9 NS 1,000 ML IV SCH (16:57)
[2024-08-30] MEDS: FLEET ENEMA ADULT PR PRN (18:05)
[2024-08-30] MEDS: PIPER TAZO 3.375 GM in NA CHLORIDE 0.9% 100 ML IV SCH (20:26)
[2024-08-31 07:05] LABS: Absolute Lymphocytes (CBC) 1.4 K/uL (0.7-4.9); Absolute Monocytes 0.6 K/uL (0.1-1.3); Absolute Neutrophil 13.1 K/uL (1.8-8.0); Basophils % 0.2 % (0-1.3); Hemoglobin 9.5 g/dL (12.0-15.0); Lymphocytes % 9.5 % (15.3-44.8); MCH 24.4 pg (27.0-35.0); MCHC 31.8 g/dL (32.0-36.0); MCV 76.8 fL (80-100); MPV 9.2 fL (7.6-11.3); Monocytes % 4.1 % (3.3-12.3); Neutrophils % 86.2 % (41.7-73.7); Platelets 158 thou/uL (152-406); Red Cell Distribution Width 35.4 % (12.1-15.2)
[2024-08-31 07:14] LABS: Albumin 1.9 g/dL (3.4-5.0); Albumin/Globulin Ratio 0.5 (1.1-1.8); Anion Gap 5.2 mEq/L (5.0-15.0); Bilirubin Total 0.7 mg/dL (0.2-1.0); Globulin 3.6 g/dL (2.3-3.5); Magnesium 2.8 mg/dL (1.6-2.4); Potassium 3.2 mEq/L (3.5-5.1); Protein, Total 5.5 g/dL (6.4-8.2)
[2024-08-31 08:07] LABS: Band Neutrophils 5 % (0-1); Differential Total Cells Count 100; Lymphocytes 10 % (15-42); Monocytes 7 % (0-10); Platelet Estimate ADEQ; Segmented Neutrophils 78 % (40-80)
[2024-08-31 08:08] LABS: Anisocytosis 3+; Blood Morphology Comment NOTED (NOT SEEN)
[2024-08-31] MEDS: ENOXAPARIN 40 MG/0.4 ML SQ SCH (09:29)
[2024-08-31] MEDS: VANCOMYCIN 1 GM in NA CHLORIDE 0.9% 250 ML IVPB SCH (11:00)
--- NOTE | 2024-08-31 13:51 | P.PN ---
Subjective Date of Service: 08/31/24 Chief Complaint: Right upper lobe pneumonia He was readmitted after having a G-tube placed with right upper lobe consolidation is unresponsive end-stage dementia Review of Systems is unable to be obtained Physical Examination - Vital Signs Temperature: 98.2 F Blood Pressure: 114/61 Pulse: 75 Respirations: 17 Pulse Ox (%): 93 - Physical Exam General: Unresponsive Respiratory: Crackles/rales (Comes in the right upper zone) Cardiovascular: No edema Gastrointestinal: Normal bowel sounds, Soft and benign - Studies Microbiology Data (last 24 hrs): 08/30/24 09:53 Nasopharnyx Influenza Type A Antigen Screen - Final 08/30/24 09:53 Nasopharnyx Influenza Type B Antigen Screen - Final 08/30/24 09:53 Throat Group A Streptococcus Rapid Screen - Final Assessment And Plan - Current Problems (Diagnosis) (1) Right upper lobe pneumonia Current Visit: Yes Status: Acute Plan: 79 years of age admitted with right upper lobe pneumonia most likely multiresistant organism with Zosyn add vancomycin will need a PICC line for IV antibiotics cultures are negative labs reviewed prognosis poor 7 days of IV antibiotic therapy check procalcitonin Qualifiers: Aspiration pneumonia type: unspecified
--- NOTE | 2024-08-31 14:09 | EKG ---
Test Date: 2024-08-30 Test Time: 10:03:12 Media Executive: PH MEASUREMENT RESULTS: Intervals: Rate: 89 OK: 150 QRSD: 60 QT: 374 QTc: 455 [place]: P: 45 OK: 150 QRS: -16 T: 18 INTERPRETIVE STATEMENTS: Normal sinus rhythm Normal ECG Compared to ECG 05/21/2024 23:56:45 Myocardial infarct finding no longer present Electronically Signed On 08-31-24 14:07:26 CDT by Juancarlos Johnson
[2024-08-31] MEDS: NA CHLORIDE 0.9% 250 ML IV ONE (15:57)
--- NOTE | 2024-08-31 17:17 | RAD REPORT ---
Exam:Abdomen 1 View (KUB) Clinical history: Abdominal pain FINDINGS: Rectal temperature probe in place. The rectal distention has diminished yesterday. The amount of stool within the colon is diminished The bowel caliber is normal. Post surgical changes are present
[2024-08-31 18:07] LABS: Specific Gravity > 1.030 (1.005-1.030); Sqamous Epithelial <5 /HPF (None Seen); Urine Bacteria None Seen /HPF (<20); Urine Bilirubin NEGATIVE (Negative); Urine Blood Negative (Negative); Urine Clarity Clear (Clear); Urine Color Yellow (Yellow); Urine Culture Reflex Order REFLEXED; Urine Glucose NEGATIVE (Negative); Urine Ketones TRACE (Negative); Urine Microscopic Reflex YN ORDER UMIC; Urine Mucus Slight /HPF (None Seen); Urine Nitrite NEGATIVE (Negative); Urine Protein 1+ (Negative); Urine Urobilinogen 1+ (Normal); Urine WBC 20-50 /HPF (<5); Urine WBC Clump Rare /HPF (None Seen); Urine Yeast (Budding) Trace /HPF (None Seen)
[2024-09-01 07:05] LABS: Absolute Lymphocytes (CBC) 1.3 K/uL (0.7-4.9); Absolute Monocytes 0.5 K/uL (0.1-1.3); Absolute Neutrophil 8.1 K/uL (1.8-8.0); Basophils % 0.4 % (0-1.3); Eosinophils % 0.1 % (0-4.4); Hematocrit 28.5 % (36.0-45.0); Hemoglobin 9.2 g/dL (12.0-15.0); Lymphocytes % 13.1 % (15.3-44.8); MCH 24.9 pg (27.0-35.0); MCHC 32.1 g/dL (32.0-36.0); MCV 77.5 fL (80-100); MPV 8.7 fL (7.6-11.3); Monocytes % 4.6 % (3.3-12.3); Neutrophils % 81.8 % (41.7-73.7); Platelets 176 thou/uL (152-406); RBC Red Blood Cell Count 3.68 M/uL (3.86-4.86); Red Cell Distribution Width 34.9 % (12.1-15.2)
[2024-09-01 07:19] LABS: Albumin 1.9 g/dL (3.4-5.0); Albumin/Globulin Ratio 0.6 (1.1-1.8); Anion Gap 4.1 mEq/L (5.0-15.0); Bilirubin Total 0.6 mg/dL (0.2-1.0); Globulin 3.4 g/dL (2.3-3.5); Magnesium 2.4 mg/dL (1.6-2.4); Potassium 3.1 mEq/L (3.5-5.1); Protein, Total 5.3 g/dL (6.4-8.2)
[2024-09-01 07:22] LABS: Phosphorus 1.2 mg/dL (2.5-4.9)
--- NOTE | 2024-09-01 08:47 | P.PN ---
Subjective Date of Service: 09/01/24 Chief Complaint: Right upper lobe pneumonia Alert this morning Review of Systems is unable to be obtained Physical Examination - Vital Signs Temperature: 98.5 F Blood Pressure: 133/75 Pulse: 59 Respirations: 18 Pulse Ox (%): 98 - Physical Exam General: Alert, Cachectic, Demented HEENT: Atraumatic Neck: Supple Respiratory: Diminished Cardiovascular: No edema, Regular rate/rhythm, Normal S1 S2 Capillary refill: <2 Seconds Gastrointestinal: Hypoactive, Other (G-tube, KUB shows improved constipation, no impaction) Musculoskeletal: No clubbing Integumentary: No rashes Neurological: Dementia Lymphatics: No axilla or inguinal lymphadenopathy Urinary: Funes catheter External genitalia: Deferred Rectal: Deferred Assessment And Plan - Plan Severe malnutrition with PEG tube feedings with aspiration pneumonia: Discuss hospice with pt family - declined Continue IV antibiotics Repeat chest x-ray Neb treatments every 6 hours scheduled O2 per protocol Rec'd heavy bolus in ED, eval fluid status daily Monitor and trend labs including FSBS, CBC, CMP, and lactate as needed Skin measures to try to promote healing of pressure sores, air mattress funes with strict I&O Consult Dr. Subramanian as needed Fecal impaction resulting in hydronephrosis soap suds enema until clear 09/01/24 Will restart half can Jevity tube feeds every 4 hours Continue antibiotics Patient had midline placed yesterday, antibiotic orders placed for home health set up Patient with a low phosphorus today, will replete and reevaluate KUB yesterday shows improvement of constipation Plan to discharge home with home health/usp for IV antibiotics until 09/09/2024 GI and DVT prophylaxis Discharge Plan: Home Plan to discharge in: 48 Hours - Code Status/Comfort Care Code Status Assessed: Yes (Full) Time Spent Managing PTS Care (In Minutes): 28
[2024-09-01] MEDS: JEVITY 1.2 CAL LIQUID 1,000 ML BOT FT SCH (09:00)
[2024-09-01] MEDS: POTASSIUM PHOS 30 MM in NA CHLORIDE 0.9% 500 ML IV ONE (09:01)
--- NOTE | 2024-09-01 11:20 | RAD REPORT ---
EXAMINATION: US LEFT UPPER EXTREMITY VENOUS DOPPLER CLINICAL INDICATION: [facility] MAIN left upper ext edema post midline TECHNIQUE: Complete bilateral duplex sonography of the LEFT upper extremity veins was performed. The examination included compression for vein patency, color Doppler imaging and flow augmentation in response to distal compression of the internal jugular, brachiocephalic, subclavian, axillary, brachi al, radial, ulnar, cephalic and basilic veins. COMPARISON: No prior exam. FINDINGS: Duplex sonography testing of the veins of the LEFT upper extremity was performed. Color flow imaging shows all veins to be compressible with [id number] color filling. Pulsatile and phasic flow is present within all upper extremity deep and superficial veins examined. IMPRESSION: There is no deep vein or superficial vein thrombosis.
[2024-09-01] MEDS: POTASSIUM 25 MEQ EFFERV TAB PO SCH (11:51)
--- NOTE | 2024-09-01 15:57 | P.PN ---
Date of Service: 09/01/24 G-tube leaking, 1 suture removed, G-tube replaced and balloon filled with 7 mL sterile water. Enterostomy tube check per radiology ordered. Patient tolerated well.
--- NOTE | 2024-09-01 16:37 | RAD REPORT ---
EXAM:ENTEROSTOMY TUBE CHECK W/CONTR HISTORY: g-tube replacement COMPARISON: None FINDINGS/IMPRESSION: Pre and postcontrast gastrostomy tube injected images were obtained. Contrast in jected appears to fill the stomach and surrounds the bulb which would indicate appropriate location. Please note the exam is limited by lack of lateral view.
[2024-09-01] MEDS: D5 0.45 NS 1,000 ML IV SCH (17:40)
[2024-09-02 06:09] LABS: Absolute Lymphocytes (CBC) 1.5 K/uL (0.7-4.9); Absolute Monocytes 0.4 K/uL (0.1-1.3); Absolute Neutrophil 4.8 K/uL (1.8-8.0); Basophils % 0.6 % (0-1.3); Eosinophils % 0.4 % (0-4.4); Hematocrit 27.8 % (36.0-45.0); Hemoglobin 8.9 g/dL (12.0-15.0); Lymphocytes % 22.5 % (15.3-44.8); MCHC 32.1 g/dL (32.0-36.0); MCV 78.1 fL (80-100); MPV 8.9 fL (7.6-11.3); Monocytes % 5.4 % (3.3-12.3); Neutrophils % 71.1 % (41.7-73.7); Platelets 192 thou/uL (152-406); RBC Red Blood Cell Count 3.56 M/uL (3.86-4.86); Red Cell Distribution Width 35.6 % (12.1-15.2)
[2024-09-02 06:26] LABS: Albumin 1.9 g/dL (3.4-5.0); Albumin/Globulin Ratio 0.6 (1.1-1.8); Anion Gap 5.8 mEq/L (5.0-15.0); Bilirubin Total 0.5 mg/dL (0.2-1.0); Globulin 3.2 g/dL (2.3-3.5); Potassium 3.8 mEq/L (3.5-5.1); Protein, Total 5.1 g/dL (6.4-8.2)
[2024-09-02 06:30] LABS: Phosphorus 1.3 mg/dL (2.5-4.9)
[2024-09-02] MEDS: POTASS/SODIUM PHOSPHATE 1 PKT POWD.PACK FT SCH (07:38)
--- NOTE | 2024-09-02 09:40 | P.PN ---
Date of Service: 09/02/24 Subjective Enterostomy tube check proves tube in correct position. Tube feeding going well. Pt is alert and moving all extremities today. Review of Systems is unable to be obtained Physical Examination - Vital Signs reviewed - Physical Exam General: Alert, Cachectic, Demented HEENT: Atraumatic Neck: Supple Respiratory: Diminished Cardiovascular: No edema, Regular rate/rhythm, Normal S1 S2 Capillary refill: <2 Seconds Gastrointestinal: active, lisa in place, no erythema, g-tube working well Musculoskeletal: No clubbing Integumentary: No rashes Neurological: Dementia Lymphatics: No axilla or inguinal lymphadenopathy Urinary: Funes catheter External genitalia: Deferred Rectal: Deferred Assessment And Plan - Plan Severe malnutrition with PEG tube feedings with aspiration pneumonia: Set up for HH with SN for IV abx management per Midline Monitor and trend labs including FSBS, CBC, CMP, and lactate as needed Skin measures to try to promote healing of pressure sores, air mattress funes with strict I&O Consult Dr. Subramanian as needed Fecal impaction resulting in hydronephrosis soap suds enema until clear resolved 09/01/24 Will restart half can Jevity tube feeds every 4 hours Continue antibiotics Patient had midline placed yesterday, antibiotic orders placed for home health set up Patient with a low phosphorus today, will replete and reevaluate KUB yesterday shows improvement of constipation Plan to discharge home with home health/[facility] for IV antibiotics until 09/09/2024 09/02/24 g-tube reinserted yesterday and placement verified alert today tube feeds going well phosphorus low - replace per tube planning ABX outpt set up and dc home tomorrow GI and DVT prophylaxis Discharge Plan: Home Plan to discharge in: 48 Hours - Code Status/Comfort Care Code Status Assessed: Yes (Full) Time Spent Managing PTS Care (In Minutes): 28
[2024-09-03 05:23] LABS: Anion Gap 6.3 mEq/L (5.0-15.0); Magnesium 1.8 mg/dL (1.6-2.4); Phosphorus 1.7 mg/dL (2.5-4.9); Potassium 4.3 mEq/L (3.5-5.1)
--- NOTE | 2024-09-03 09:28 | P.PN ---
Date of Service: 09/03/24 subjective Family at bedside, patient is awake and alert, confused Review of Systems is unable to be obtained Physical Examination - Vital Signs Reviewed - Physical Exam General: Alert, responds to verbal, no acute distress, frail HEENT: Atraumatic, Normocephalic Neck: Supple Respiratory: Clear to auscultation bilaterally Cardiovascular: Regular rate/rhythm, Normal S1 S2 Capillary refill: <2 Seconds Gastrointestinal: Soft and benign, W/out hepatosplenomegaly, PEG tube placed, abdomen soft, Musculoskeletal: Moderate to severe generalized weakness, total care, contractures of the right arm Integumentary: Bruising from repeated blood draws, upper extremity Neurological: Dementia Assessment and Plan - Plan Acute hypoxic respiratory failure secondary to aspiration pneumonia IV antibiotics, Plan to discharge home with home health on IV antibiotic Educated patient and family on head elevated, residuals, aspiration precautions prior to discharge G-tube feeding with PEG placement Acute dysphagia esophagitis Will start on PPI N.p.o., G-tube feeding Microcytic anemia resolved Type and cross 2 units, trend H&H Hyponatremia resolved Dehydration improved IV hydration Monitor electrolytes and replace accordingly On TPN Moderate protein calorie malnutrition Hypoalbuminemia Nutritional consult-calorie count, Ensure 10/3 PEG tube placed, started G-tube feedings Increase slowly, with checking residuals per dietary Dementia Supportive measures GI/DVT prophylaxis Advanced directive full code Discharge Plan: Home Plan to discharge in: 48 Hours Disposition patient resides at home with a full-time caregiver - Advance Directives Does patient have a Living Will: No Does patient have a Durable POA for Healthcare: No - Code Status/Comfort Care Code Status: Full Code Time Spent Managing Pts Care (In Minutes): 30
[2024-09-03 12:59] VITALS: O2SAT 100
--- NOTE | 2024-09-03 14:41 | P.DS ---
Admission Date: 08/30/24 Discharge Date: 09/03/24 Disposition: [place] HOME/HOME HEALTH CARE Discharge Condition: FAIR Reason for Admission: Right upper lobe pneumonia Brief History of Present Illness: Ms. Mcdaniel is a 79-year-old female with a past medical history of hypertension, CVA, dementia, GERD with esophagitis, severe protein calorie malnutrition, and dysphagia. She was admitted on 08/06/2024 for dysphagia and could not tolerate p.o. feedings thus was on TPN until she was strong enough for G-tube placement on 08/23/2024. She was discharged on 08/26/2024 with Ensure 1 can every 6 hours with 75 mL of water before and after every feed. She presented to the emergency department department today with shortness of breath and is found to have aspiration pneumonia. Ms. Mcdaniel is more alert than the previous time I saw her. Discussed results with her Daughter, Kendra. She wants to keep her mother's code status as full. I discussed with her the difficulty in keeping her mother nourished when she is not able to tolerate po and now tube feedings. She states she will think about what is best for her Mom. Ms. Mcdaniel will be admitted for IV antibiotics, O2, and nebs. - Physical Exam General: Alert, Cachectic, Demented, Other (nonverbal) HEENT: Normocephalic, Other (ecchymosis to left cheek) Neck: Supple Respiratory: Normal air movement Cardiovascular: No edema, Regular rate/rhythm, Normal S1 S2 Capillary refill: <2 Seconds Gastrointestinal: Hypoactive, Other (g tube with dressing) Musculoskeletal: No clubbing, No swelling Integumentary: No rashes, Other (did not turn pt, she was having funes inserted on assessment) Neurological: Abnormal speech, Abnormal affect Lymphatics: No axilla or inguinal lymphadenopathy Hospital Course: Ms. Mcdaniel is a 79-year-old female with a past medical history of hypertension, CVA, dementia, GERD with esophagitis, severe protein calorie malnutrition, and dysphagia. She was admitted on 08/06/2024 for dysphagia and could not tolerate p.o. feedings thus was on TPN until she was strong enough for G-tube placement on 08/23/2024. She was discharged on 08/26/2024 with Ensure 1 can every 6 hours with 75 mL of water before and after every feed. She presented to the emergency department department today with shortness of breath and is found to have aspiration pneumonia. Treated with aspiration pneumonia, fecal impaction, treated with soapsuds enema. Plan to resume tube feedings, when tolerating diet, stable to discharge home with home health care. Family educated on G-tube education prior to discharge. Assessment Dementia, total care -supportive care turned to prevent bedsores, Bedbound protein calorie with malnutrition n.p.o.-fall precautions, supportive care Initiating G-tube feedings, patient family educated on residuals, flushes, G- tube care Aspiration pneumonia, family educated on aspiration precautions. Discharged home on IV antibiotic Zosyn, vancomycin stopped 09/09/2024 Microcytic anemia treated with 2 units of packed red blood cells, H&H stable Discharge medications 1.) Ensure 1 can every 6h - Flush with 75ml water before and after every feed Ensure supplements Continue home medicines as previously prescribed GOAL: Clear understanding of disease process INSTRUCTIONS: Physician Discharge Instructions: -Follow-up with surgery after discharge for PEG tube placement -Follow-up with Surgery, Dr. Subramanian as needed -Follow-up with PCP in 1 to 2 weeks -Please call Dr. Ang at [phone] if any questions regarding hospital stay -Please call nursing station at [phone] if any nursing or medication questions -Return to the emergency room if symptoms worsen Diet: ADA, low sodium Activity: Fall precautions Vital Signs/Physical Exam: Temp Pulse Resp BP Pulse Ox 97.3 F 61 14 166/71 H 100 09/03/24 12:00 09/03/24 12:00 09/03/24 12:00 09/03/24 12:00 09/03/24 12:00 Laboratory Data at Discharge: WBC 6.80 thou/uL (4.3-10.9) 09/02/24 05:48 Hgb 8.9 g/dL (12.0-15.0) L 09/02/24 05:48 Hct 27.8 % (36.0-45.0) L 09/02/24 05:48 Plt Count 192 thou/uL (152-406) 09/02/24 05:48 PT 14.3 SECONDS (9.4-12.5) H 08/30/24 10:41 INR 1.29 08/30/24 10:41 Sodium 142 mEq/L (136-145) D 09/03/24 04:41 Potassium 4.3 mEq/L (3.5-5.1) D 09/03/24 04:41 BUN 11 mg/dL (7-18) 09/03/24 04:41 Creatinine 0.33 mg/dL (0.55-1.02) L 09/03/24 04:41 Glucose 120 mg/dL (74-106) H 09/03/24 04:41 Phosphorus 1.7 mg/dL (2.5-4.9) L 09/03/24 04:41 Magnesium 1.8 mg/dL (1.6-2.4) 09/03/24 04:41 Total Bilirubin 0.5 mg/dL (0.2-1.0) 09/02/24 05:48 AST 32 U/L (15-37) 09/02/24 05:48 ALT 35 U/L (13-56) 09/02/24 05:48 Alkaline Phosphatase 97 U/L (45-117) 09/02/24 05:48 Triglycerides 51 mg/dL (<150) 08/31/24 06:42 Cholesterol 85 mg/dL (<200) 08/31/24 06:42 HDL Cholesterol 35 mg/dL (40-60) L 08/31/24 06:42 Cholesterol/HDL Ratio 2.43 08/31/24 06:42 Lipase 58 U/L (13-75) 08/30/24 09:42 Home Medications: Quetiapine Fumarate [Seroquel] 300 mg PO BEDTIME 08/06/24 Ensure Max Protein 330 ml PO Q6H #120 can 08/26/24 Physician Discharge Instructions: Ms. Mcdaniel had a recent hospital stay from 08/06/2024 to 08/27/2024, she was discharged status post PEG tube placement on Jevity (236ml) 4 times daily. She returned to the emergency department on 08/30/2024 and diagnosed with pneumonia (Airspace disease in the right lung concerning for pneumonia or pneumonitis, possibly secondary to aspiration."). She had some leukocytosis on admission. She has been receiving Zosyn and vancomycin with steady improvement. She also had some constipation which has also been treated with noted improvement. Her G -tube was reinserted after a large amount of leakage. Radiological tube check shows the tube in place and she has been getting 118 mL of Jevity every 4 hours and tolerating it well without any tube leakage. She is alert and moving all of her extremities. A midline was placed to the left arm for long-term IV antibiotics. surgical services [facility] until 09/09/2024. Diet: jevity Activity: Ad stephanie Followup: Tai Ann DO [Primary Care Provider] - Time spent managing pt's care (in minutes): 55
[2024-09-03 16:27] VITALS: BP 143/75; TEMP 97.7
[2024-09-03] MEDS ORDERED: QUETIAPINE 100MG TAB PO SCH (21:00)
[2024-09-03] MEDS ORDERED: VANCOMYCIN 750 MG in NA CHLORIDE 0.9% 150 ML IVPB SCH (21:00)
== END 2024-09-03 17:31 | disposition home health service (06) | DRG 871 ==
LOC: ER 08:34 → ERHOLD 12:51 → 2ND 15:21
PROVIDERS: ADMIT Internal Medicine; ATTEND Hospitalist
PROC: 0T9B70Z Drainage of Bladder with Drainage Device, Via Natural or Artificial Opening (ICD-10-PCS; principal; 2024-08-30)
PROC: 02HV33Z Insertion of Infusion Device into Superior Vena Cava, Percutaneous Approach (ICD-10-PCS; 2024-08-31)
PROC: 0D20XUZ Change Feeding Device in Upper Intestinal Tract, External Approach (ICD-10-PCS; 2024-08-31)
DX: A41.9 Sepsis, unspecified organism (principal); E43 Unspecified severe protein-calorie malnutrition; J69.0 Pneumonitis due to inhalation of food and vomit; N30.00 Acute cystitis without hematuria; N13.1 Hydronephrosis with ureteral stricture, not elsewhere classified; Z68.1 Body mass index [BMI] 19.9 or less, adult; R64 Cachexia; E87.1 Hypo-osmolality and hyponatremia; R65.20 Severe sepsis without septic shock; K59.09 Other constipation; I10 Essential (primary) hypertension; D21.9 Benign neoplasm of connective and other soft tissue, unspecified; F03.90 Unspecified dementia, unspecified severity, without behavioral disturbance, psychotic disturbance, mood disturbance, and anxiety; Z88.5 Allergy status to narcotic agent; Z74.01 Bed confinement status; Z11.52 Encounter for screening for COVID-19; Z79.899 Other long term (current) drug therapy
CPT/HCPCS: 36415; 49465; 71045; 71250; 74018; 74176; 80048; 80053; 80061; 80076; 80202; 81001; 82947; 83605; 83690; 83735; 83880; 84100; 84145; 84484; 85025; 85610; 87040; 87070; 87081; 87086; 87088; 87804; 87811; 93005; 93971; J1650; J2543; J7030; J7040; J7042; J7050; J7613; J7644; J7799